=== PATIENT | female | born 1980 | race Caucasian/White ===

== ENCOUNTER 2017-07-14 01:13 | Inpatient (IN) | payer OTHER ==
[2017-07-14] MEDS ORDERED: FAMOTIDINE 20 MG/50 ML IVPB 20 MG/50 ML MG IVPB ONE ×2 (03:23→03:29)
[2017-07-14] MEDS ORDERED: MAG HYDROX/AL HYDROX/SIMETH 355 ML ORAL.SUSP PO ONE (03:23)
--- NOTE | 2017-07-14 03:23 | PDOC ---
History of Present Illness - General Chief Complaint: Pain Stated Complaint: EPIGASTRIC PAIN Time Seen by Provider: 07/14/17 02:59 History Source: Patient - History of Present Illness Travel History: No Initial Comments: 07/15/17 18:47 36 year old female presents to the emergency department complaining of right upper quadrant/epigastric discomfort with 4 episodes of n/v (non bilious/non bloody). Pain is described as 7/10 dull nonradiating intermittent discomfort. Patient denies fever, chills, chest pain, shortness of breath, flank pains, urinary symptoms. There are no alleviating or exacerbating factors. Timing/Duration: reports: intermittent Past History - Past Medical History Allergies/Adverse Reactions: Allergies Allergy/AdvReac Type Severity Reaction Status Date / Time clarithromycin [From Biaxin] Allergy Verified 07/14/17 01:46 levofloxacin [From Levaquin] Allergy Verified 07/14/17 01:45 Home Medications: Ambulatory Orders Acetaminophen/Caffeine/Butalb [Fioricet -] 1 tab PO Q8H PRN 07/15/17 Albuterol Sulfate Inhaler - [Ventolin Hfa Inhaler -] 1 puff IH Q4H PRN 07/15/17 Budesonide/Formeterol Fumarate [SYMBICORT 160/4.5mcg -] 2 inh PO BID 07/15/17 Clonazepam [Klonopin] 1 mg PO DAILY PRN 07/15/17 Tramadol HCl 50 mg PO BID PRN 07/15/17 COPD: No Other medical history: denies - Suicide/Smoking/Psychosocial Hx Smoking History: Current every day smoker Number of Cigarettes Smoked Daily: 10 Information on smoking cessation initiated: No Review of Systems - Review of Systems Able to Perform ROS?: Yes Comments:: 07/15/17 18:48 CONSTITUTIONAL: Absent: fever, chills, diaphoresis, generalized weakness, malaise, loss of appetite HEENT: Absent: rhinorrhea, nasal congestion, throat pain, throat swelling, difficulty swallowing, mouth swelling, ear pain, eye pain, visual Changes CARDIOVASCULAR: Absent: chest pain, loss of consciousness, palpitations, irregular heart rate, peripheral edema RESPIRATORY: Absent: cough, shortness of breath, dyspnea with exertion, orthopnea, wheezing, stridor, hemoptysis GASTROINTESTINAL: RUQ pain Absent: abdominal distension, nausea, vomiting, diarrhea, constipation, melena, hematochezia GENITOURINARY: Absent: dysuria, frequency, urgency, hesitancy, hematuria, flank pain, genital pain MUSCULOSKELETAL: Absent: myalgia, arthralgia, joint swelling SKIN: Absent: rash, itching, pallor HEMATOLOGIC/IMMUNOLOGIC: Absent: easy bleeding, easy bruising, lymphadenopathy, frequent infections ENDOCRINE: Absent: unexplained weight gain, unexplained weight loss, heat intolerance, cold intolerance NEUROLOGIC: Absent: headache, focal weakness or paresthesias, dizziness, unsteady gait, seizure, mental status changes, bladder or bowel incontinence Is the patient limited Danish proficient: No *Physical Exam - Vital Signs Last Vital Signs Temp Pulse Resp BP Pulse Ox 97.6 F 79 18 140/95 98 07/14/17 01:41 07/14/17 01:41 07/14/17 01:41 07/14/17 01:41 07/14/17 01:41 - Physical Exam Comments: 07/15/17 18:48 GENERAL: Well developed, well nourished. Awake and alert. No acute distress. HEENT: Normocephalic, atraumatic. PERRLA, EOMI. No conjunctival pallor. Sclera are non- icteric. Moist mucous membranes. Oropharynx is clear. NECK: Supple. Full ROM. No JVD. Carotid pulses 2+ and symmetric, without bruits. No thyromegaly. No lymphadenopathy. CARDIOVASCULAR: Regular rate and rhythm. No murmurs, rubs, or gallops. Distal pulses are 2+ and symmetric. PULMONARY: No evidence of respiratory distress. Lungs clear to auscultation bilaterally. No wheezing, rales or rhonchi. ABDOMINAL: +fatima's/ RUQ pain on palp Soft. Non-distended. No rebound or guarding. No organomegaly. Normoactive bowel sounds. MUSCULOSKELETAL Normal range of motion at all joints. No bony deformities or tenderness. No CVA tenderness. EXTREMITIES: No cyanosis. No clubbing. No edema. No calf tenderness. SKIN: Warm and dry. Normal capillary refill. No rashes. No jaundice. ED Treatment Course - LABORATORY CBC & Chemistry Diagram: 07/15/17 06:20 07/15/17 06:20 *DC/Admit/Observation/Transfer Diagnosis at time of Disposition: Calculus of gallbladder without cholecystitis without obstruction - Referrals - Patient Instructions - Post Discharge Activity
[2017-07-14] MEDS ORDERED: MAG HYDROX/AL HYDROX/SIMETH 30 ML UNIT-DOSE CUP ONE (03:29)
[2017-07-14] MEDS ORDERED: ONDANSETRON 4 MG/2 ML VIAL ONE ×2 (04:20→15:29)
[2017-07-14] MEDS ORDERED: ONDANSETRON 4 MG/2 ML VIAL IVPUSH ONE ×2 (04:21→15:22)
[2017-07-14 04:53] LABS: BASOPHIL 0.2 % (0-2.0); EOSINOPHIL 0.9 % (0-4.5); MCH 35.3 pg (25.7-33.7); MCHC 34.6 g/dl (32.0-36.0); MEAN PLT VOLUME 7.4 fl (7.5-11.1); NEUTROPHILS 77.6 % (42.8-82.8); PLATELET COUNT 286 K/MM3 (134-434); WHITE BLOOD COUNT 9.4 K/mm3 (4.0-10.0)
[2017-07-14 05:18] LABS: ALBUMIN 3.7 g/dl (3.4-5.0); ALK PHOS 54 U/L (45-117); ANION GAP 7 (8-16); BILIRUBIN,TOTAL 0.3 mg/dL (0.2-1.0); CALCIUM 8.4 mg/dL (8.5-10.1); CO2 27 mmol/L (21-32); GLUCOSE,RANDOM 107 mg/dL (74-106); SGOT/AST 18 U/L (15-37); SGPT/ALT 22 U/L (12-78); TOT PROT 7.6 g/dl (6.4-8.2)
--- NOTE | 2017-07-14 08:38 | PDOC ---
*Physical Exam - Vital Signs Last Vital Signs Temp Pulse Resp BP Pulse Ox 98.7 F 88 19 142/74 100 07/14/17 04:10 07/14/17 06:45 07/14/17 04:10 07/14/17 06:45 07/14/17 04:10 - Physical Exam General Appearance: Yes: Appropriately Dressed. No: Apparent Distress Neck: negative: Tender lateral, Tender midline Respiratory/Chest: positive: Lungs Clear, Normal Breath Sounds. negative: Respiratory Distress, Accessory Muscle Use Cardiovascular: positive: Regular Rhythm, Regular Rate Gastrointestinal/Abdominal: positive: Normal Bowel Sounds, Soft. negative: Tender, Distended, Guarding, Rebound, Tenderness, Mass, Hepatomegaly, Spleenomegaly Lymphatic: negative: Adenopathy Musculoskeletal: positive: Normal Inspection Extremity: positive: Normal Inspection, Normal Range of Motion, Pelvis Stable. negative: Tender Integumentary: positive: Normal Color, Dry ED Treatment Course - LABORATORY CBC & Chemistry Diagram: 07/17/17 06:15 07/17/17 06:15 - ADDITIONAL ORDERS Additional order review: Laboratory Results 07/14/17 04:18 Sodium 139 Potassium 3.6 Chloride 105 Carbon Dioxide 27 Anion Gap 7 L BUN 11 Creatinine 1.0 Creat Clearance w eGFR > 60 Random Glucose 107 H Calcium 8.4 L Total Bilirubin 0.3 AST 18 ALT 22 Alkaline Phosphatase 54 Total Protein 7.6 Albumin 3.7 07/14/17 04:18 RBC 3.77 MCV 102.0 H MCHC 34.6 RDW 14.0 MPV 7.4 L Neutrophils % 77.6 Lymphocytes % 17.1 Monocytes % 4.2 Eosinophils % 0.9 Basophils % 0.2 - Medications Given in the ED: ED Medications Discontinued Medications Generic Name Dose Route Start Last Admin Trade Name Freq PRN Reason Stop Dose Admin Al Hydroxide/Mg Hydroxide 30 ml 07/14/17 03:23 07/14/17 03:34 Mylanta Suspension - PO 07/14/17 03:24 30 ml ONCE ONE Administration Famotidine/Sodium Chloride 20 mg in 50 mls @ 100 mls/hr 07/14/17 03:23 03:34 Pepcid 20 Mg Premixed Ivpb - IVPB 07/14/17 03:52 100 mls/hr ONCE ONE Administration Ondansetron HCl 4 mg 07/14/17 04:21 07/14/17 04:23 Zofran Injection IVPUSH 07/14/17 04:22 4 mg ONCE ONE Administration Medical Decision Making - Medical Decision Making 07/14/17 08:36 Patient is a 36 y/o old female history of bipolar disorder on a lower back pain with herniated disc, asthma. Came to the Emergency room with nausea and vomiting which started yesterday with Epi Gastric pain radiating to bilateral upper abdomen. Patient has been having pain for two weeks intermittently, Worse with eating. woke her up from sleep two weeks ago. Several episodes of diarrhea, no fever or chills. I have received report from [Lora CHIU] regarding this patient. Pt's initial chief complaint: [Epigastric discomfort] Pt's work up completed prior to sign out: [Urinalysis, labs, CT scan] Pt treatment given from prior staff: [pepcid, Maalox, Zofran,] Pt plan to be completed: [CT scan, pending] Patient admitted OBS 07/14/17 08:39 07/14/17 10:06 CAT scan demonstrated thick-walled gallbladder with gallstones the possible acute cholecystitis cannot be excluded, ultrasound ordered. Patient also with fibroid uterus with adnexal cysts and free pelvic fluid, pelvic ultrasound is recommended as outpatient 07/14/17 12:26 Ultrasound demonstrated cholelithiasis without evidence of cholecystitis, I have paged surgery to discuss case and follow-up. 07/14/17 12:54 Patient's abdominal exam is benign at this time after medications, still awaiting surgical callback. 07/14/17 13:[address] Treviño from surgery will see patient for consult in emergency room, normal saline started patient to remain nothing by mouth 07/14/17 14:46 Dr. Treviño to see patient, to remain on OBS. 07/14/17 15:04 07/14/17 15:17 Patient admitted to inpatient hospitalist Dr. Blackmon. Symptomatic cholelithiasis requiring cholecystectomy. 07/14/17 15:19 *DC/Admit/Observation/Transfer Diagnosis at time of Disposition: Calculus of gallbladder without cholecystitis without obstruction - Discharge Dispostion Disposition: HOME Condition at time of disposition: Improved Decision to Admit order Date/Time: Decision to Admit Order Category Date Time Status Decision to Admit to Hospital Routine Admission 07/14/17 08:33 Active - Prescriptions - Referrals - Patient Instructions - Post Discharge Activity
[2017-07-14 09:55] LABS: URINE APPEARANCE CLEAR; URINE BILIRUBIN NEGATIVE (NEGATIVE); URINE BLOOD 2+ (NEGATIVE); URINE COLOR STRAW; URINE GLUCOSE (UA) NEGATIVE (NEGATIVE); URINE KETONE NEGATIVE (NEGATIVE); URINE NITRITE NEGATIVE (NEGATIVE); URINE PROTEIN NEGATIVE (NEGATIVE); URINE UROBILINOGEN NEGATIVE mg/dL (0.2-1.0)
[2017-07-14 09:57] LABS: URINE RBC 2 /hpf (0-3); URINE WBC 2 /hpf (3-5)
[2017-07-14 11:56] LABS: URINE LEUK ESTERASE Negative (NEGATIVE)
[2017-07-14 12:56] VITALS: BMI 35.5
[2017-07-14] MEDS ORDERED: SODIUM CHLORIDE 0.9% 1000 ML INFUS.BAG IV ONE (13:02)
[2017-07-14] MEDS: LACTATED RINGERS SOLUTION 1,000 ML/1,000 ML INFUS.BAG IV SCH (14:40)
[2017-07-14] MEDS ORDERED: PANTOPRAZOLE SODIUM 40 MG VIAL IVPUSH ONE (15:23)
[2017-07-14] MEDS ORDERED: PANTOPRAZOLE SODIUM 40 MG VIAL ONE (15:29)
--- NOTE | 2017-07-14 15:41 | CONSULT ---
Consult Consult Specialty:: General Surgery Referred by:: Mary Carmen Lyon Reason for Consultation:: upper abdominal pain, gallstones - History of Present Illness Chief Complaint: upper abdominal pain, n/v History of Present Illness: 36yo obese F smoker with asthma, bipolar d/o, chronic low back pain secondary to 3 herniated discs (per pt), began having upper abdominal pain about 2 weeks ago, when it woke her from sleep. It has been at times sharp and others aching, but radiates from epigastric area across both sides of upper abdomen and to back , right a little more than left at times. She states it has come and gone every few days since then, and seems to be worse when she eats, better when she does not. She has recently changed her diet away from fatty foods, but never had this pain before, and has not had pain related to fatty food intake in the past. Last Saturday, she had some diarrhea, but that also resolved. She thought originally she might have the flu, and was not sure if the pain was coming from her back to the front or the other way around. She had pain on / so bad after putting the turkey in, she went back to bed, but managed later to have a little of everything for dinner. The pain was better on Saturday, but came back on Saturday. She did have a little breakfast Saturday and later a little of leftovers, but later in the day she began having N/V, about 6 episodes of yellow/whitish emesis. The pain got so bad she could barely walk, and she finally came to the ER, where she had a little more emesis. At some point, she has taken Tramadol, 800mg ibuprofen and Prilosec (daily) for the pain, but nothing has made it go away completely. She has not taken all of her usual meds regularly the last few days (gabapentin), but is taking some ( singulair, symbicort, albuterol prn [1-2x daily], prilosec). She used to take Topamax for her bipolar d/o at night, but has not for the last few months; she says her doctor knows. She sees psychiatry at [facility]. She is scheduled soon for a uterine biopsy with [employer] because of her fibroids. Her neurosurgeon for her back ( no surgery yet) is Dr. Anderson. In the ER, she was afebrile, with wbc 9.4, very concentrated urine initially ( sp grav 1.060), normal LFTs, lipase and lytes. CT of the abdomen and pelvis showed gallstones with mildly thickened gallbladder, large fibroid uterus and cystic adnexae with some pelvic fluid, and inflammatory changes in the mesentery of the left midabdomen of unclear etiology or significance. US was also done showing multiple gallstones without evidence of acute cholecystitis and no biliary dilation. She is NPO since yesterday afternoon. She is getting IV fluids and voided just now. She is feeling a bit nauseated and still has upper abdominal pain, but was resting comfortably on my arrival. Surgery is consulted to evaluate for possible need for cholecystectomy or other abdominal pathology. - History Source History Provided By: Patient Limitations to Obtaining History: No Limitations - Past Medical History Pulmonary: Yes: Asthma Reproductive: Yes: Fibroids ...LMP: 07/08/17 (finishing now) ...: No Psych: Yes: Bipolar (not taking her Topamax for several months now) Musculoskeletal: Yes: Chronic low back pain, Other (herniated discs) - Past Surgical History Additional Surgical History: wisdom teeth - Alcohol/Substance Use Hx Alcohol Use: No (rarely - not for at least a year) History of Substance Use: reports: None - Smoking History Smoking history: Current every day smoker Have you smoked in the past 12 months: Yes Aproximately how many cigarettes per day: 10 (less than 1/2 ppd but vapes frequently every day) - Social History Usual Living Arrangement: With Child ADL: Independent Home Medications - Allergies Allergies/Adverse Reactions: Allergies Allergy/AdvReac Type Severity Reaction Status Date / Time clarithromycin [From Biaxin] Allergy Verified 07/14/17 01:46 levofloxacin [From Levaquin] Allergy Verified 07/14/17 01:45 - Home Medications Home Medications: Ambulatory Orders NK [No Known Home Medication] 07/14/17 Home Medications (free text): Gabapentin 600mg tid (last taken "few days ago") for back pain. Prilosec 20mg daily. Singulair daily. Symbicort 2 puffs bid. Albuterol inhaler 2-4 puffs prn, usually uses 1-2x daily, last this morning. ibuprofen 800mg prn for back pain. Tramadol prn for back pain. muscle relaxant prn for spasms related to back. Topamax - 200mg(?) but not taking for last few months. ("I was supposed to take it twice daily but was only using at night because it made me too tired... but I haven't taken it in a while now) Family Disease History - Family Disease History Family History: Unremarkable Review of Systems - Review of Systems Constitutional: denies: Chills, Fever Eyes: reports: Other (wears glasses). denies: Blurred Vision, Recent Change in Vision HENT: denies: Difficult Swallowing, Hearing Loss, Throat Pain Neck: denies: Swollen Glands, Tenderness Cardiovascular: denies: Chest Pain, Palpitations Respiratory: denies: Cough, SOB Gastrointestinal: reports: Abdominal Pain (with hpi), Nausea (with hpi), Vomiting (with hpi). denies: Constipation, Diarrhea (had 1-2 episodes on Saturday only), Vomiting Blood Genitourinary: reports: Menses (finishing now). denies: Burning, Dysuria, Frequency, Urgency Musculoskeletal: reports: Back Pain (chronic). denies: Joint Pain, Muscle Pain Integumentary: denies: Change in Color, Rash Neurological: denies: Dizziness, Headache Psychiatric: denies: Anxiety, Depression Physical Exam Vital Signs: Vital Signs Temperature 97.9 F 07/14/17 09:53 Pulse Rate 88 07/14/17 13:29 Respiratory Rate 14 07/14/17 13:29 Blood Pressure 134/82 07/14/17 13:29 O2 Sat by Pulse Oximetry (%) 97 07/14/17 12:00 Constitutional: Yes: No Distress, Calm, Obese Eyes: Yes: Conjunctiva Clear, EOM Intact HENT: Yes: Atraumatic, Normocephalic Neck: Yes: Supple, Trachea Midline Cardiovascular: Yes: Regular Rate and Rhythm, Murmur (soft) Respiratory: Yes: Regular, CTA Bilaterally. No: Wheezes Gastrointestinal: Yes: Normal Bowel Sounds, Soft, Abdomen, Obese, Tenderness ( epigastric, RUQ, LUQ and L mid-abdomen without rebound or guarding), Tenderness , Epigastrium. No: Distention, Tenderness, Rebound ...Rectal Exam: Yes: Deferred Renal/: Yes: Menses Present. No: CVA Tenderness - Left (mild discomfort on rib margin posteriorly), CVA Tenderness - Right (mild discomfort on costal margin anteriorly) Musculoskeletal: No: Back Pain (no direct tenderness), Joint Stiffness, Joint Swelling Extremities: No: Calf Tenderness, Cool, Cyanosis Edema: No Peripheral Pulses WNL: Yes Integumentary: Yes: Body Piercing (tongue stud and bar), Tattoos. No: Jaundice , Rash Neurological: Yes: Alert, Oriented Psychiatric: Yes: Alert, Oriented Labs: CBC, BMP 07/14/17 04:18 07/14/17 04:18 CMP Sodium 139 mmol/L (136-145) 07/14/17 04:18 Potassium 3.6 mmol/L (3.5-5.1) 07/14/17 04:18 Chloride 105 mmol/L (98-107) 07/14/17 04:18 Carbon Dioxide 27 mmol/L (21-32) 07/14/17 04:18 Anion Gap 7 (8-16) L 07/14/17 04:18 BUN 11 mg/dL (7-18) 07/14/17 04:18 Creatinine 1.0 mg/dL (0.55-1.02) 07/14/17 04:18 Creat Clearance w eGFR > 60 (>60) 07/14/17 04:18 Random Glucose 107 mg/dL (74-106) H 07/14/17 04:18 Calcium 8.4 mg/dL (8.5-10.1) L 07/14/17 04:18 Total Bilirubin 0.3 mg/dL (0.2-1.0) 07/14/17 04:18 AST 18 U/L (15-37) 07/14/17 04:18 ALT 22 U/L (12-78) 07/14/17 04:18 Alkaline Phosphatase 54 U/L (45-117) 07/14/17 04:18 Total Protein 7.6 g/dl (6.4-8.2) 07/14/17 04:18 Albumin 3.7 g/dl (3.4-5.0) 07/14/17 04:18 Lipase 152 U/L (73-393) 07/14/17 04:18 Urine Test Results Urine Color Straw 07/14/17 09:47 Urine Appearance Clear 07/14/17 09:47 Urine pH 6.0 (5.0-8.0) 07/14/17 09:47 Ur Specific Gipsy 1.060 (1.001-1.035) H 07/14/17 09:47 Urine Protein Negative (NEGATIVE) 07/14/17 09:47 Urine Glucose (UA) Negative (NEGATIVE) 07/14/17 09:47 Urine Ketones Negative (NEGATIVE) 07/14/17 09:47 Urine Blood 2+ (NEGATIVE) H 07/14/17 09:47 Urine Nitrite Negative (NEGATIVE) 07/14/17 09:47 Urine Bilirubin Negative (NEGATIVE) 07/14/17 09:47 Ur Leukocyte Esterase Negative (NEGATIVE) 07/14/17 09:47 Ur Epithelial Cells Rare /HPF (FEW) 07/14/17 09:47 Imaging - Results Cat Scan: Report Reviewed, Image Reviewed Ultrasound: Report Reviewed, Image Reviewed Problem List - Problems (1) Abnormal computed tomography of abdomen and pelvis Assessment/Plan: left mid-abdomen with mesenteric inflammatory changes - unclear etiology or significance but tender over this area will f/u on repeat labs and follow clinical exam for now keep NPO/IVF fibroid uterus with cystic adnexae - per pt, following up with her [employer] for further workup defer to [employer] Code(s): R93.5 - ABN FINDINGS ON DX IMAGING OF ABD REGIONS, INC RETROPERITON (2) Calculus of gallbladder without cholecystitis without obstruction Assessment/Plan: admitted to medicine no evidence of cholecystitis on ultrasound, though she is tender over RUQ and epigastric area also tender LUQ (see above) unclear if biliary colic is primary source of abdominal pain will check repeat labs and follow clinical exam for now keep NPO/IVF continue home PPI daily while here zofran prn pain meds prn ok Code(s): K80.20 - CALCULUS OF GALLBLADDER W/O CHOLECYSTITIS W/O OBSTRUCTION (3) Tobacco dependence due to cigarettes Assessment/Plan: pt was Rx nicotine patch by primary but "I can't find it at home." consider patch while here Code(s): F17.210 - NICOTINE DEPENDENCE, CIGARETTES, UNCOMPLICATED (4) Obesity (BMI 35.0-39.9 without comorbidity) Code(s): E66.9 - OBESITY, UNSPECIFIED (5) Asthma without acute exacerbation Assessment/Plan: ok to continue home meds with sips of water - singulair daily, symbicort 2p bid , albuterol prn Code(s): J45.909 - UNSPECIFIED ASTHMA, UNCOMPLICATED (6) Low back pain due to displacement of intervertebral disc Code(s): M51.26 - OTHER INTERVERTEBRAL DISC DISPLACEMENT, LUMBAR REGION
[2017-07-14 16:29] LABS: BASOPHIL 0.2 % (0-2.0); EOSINOPHIL 0.9 % (0-4.5); MEAN CELL VOLUME 102.7 fl (80-96); MEAN PLT VOLUME 7.8 fl (7.5-11.1); NEUTROPHILS 64.2 % (42.8-82.8); PLATELET COUNT 235 K/MM3 (134-434); RDW 13.9 % (11.6-15.6); WHITE BLOOD COUNT 7.3 K/mm3 (4.0-10.0)
[2017-07-14] MEDS ORDERED: ALBUTEROL SO4 0.083% IH SOL 2.5 MG/3 ML VIAL.NEB. NEB PRN (16:42)
[2017-07-14] MEDS ORDERED: morphine SULFATE 4 MG/ML VIAL IVPUSH PRN (16:43)
[2017-07-14 16:53] LABS: ALBUMIN 3.2 g/dl (3.4-5.0); ALK PHOS 49 U/L (45-117); ANION GAP 5 (8-16); BILIRUBIN,TOTAL 0.6 mg/dL (0.2-1.0); CALCIUM 7.9 mg/dL (8.5-10.1); CO2 27 mmol/L (21-32); CREATININE 0.8 mg/dL (0.55-1.02); GLUCOSE,RANDOM 87 mg/dL (74-106); SGOT/AST 15 U/L (15-37); SGPT/ALT 20 U/L (12-78); TOT PROT 6.7 g/dl (6.4-8.2)
[2017-07-14 17:02] LABS: INR 1.09 (0.82-1.09); PROTHROMBIN TIME (PATIENT) 12.3 SEC (9.98-11.88)
--- NOTE | 2017-07-14 17:02 | HP ---
CHIEF COMPLAINT: Abdominal Pain PCP: Juan Luis Saravia HISTORY OF PRESENT ILLNESS: Patient is a 36 year old female with a PMHx of Asthma, Bipolar disorder, chronic lower back pain with three herniated discs, and obesity who presented today for diffuse abdominal pain. Patient states she initially in her normal state of health when one night she woke up from bilateral upper abdominal pain that started two weeks ago. She describes the pain as sharp, intermittent and occurring every few days radiating to the epigastric area. Patient states the pain is exacerbated by food and is alleviated when she avoids eating. She reports a change in diet recently by staying away from fatty foods but reports the pain continues when she eats any type of food. Patient reported mild nonbloody diarrhea that happened last week and self resolved within two days. Patient then reports the day of (07/11/17) she ate dinner and started having abdominal pain that she was able to tolerate and sleep it off. The abdominal pain returned yesterday associated with nausea and vomiting x7 and was unable to walk, which prompted this hospital visit. Patient denies similar symptoms in the past. Denies Chronic NSAID use. Patient denies any colonoscopies in the past. Patient denies any fever, chills, shortness of breath, chest pain, palpitations, dysuria, hematuria. ER course was notable for: (1) Zofran and Pepcid (2) Abdominal CT showing thick wall gallbladder with gallstones and inflammatory changes within the mesentery mesentery of the left midabdomen (3) U/S revealed Cholilithiasis without acute cholecystitis Recent Travel: Denies PAST MEDICAL HISTORY: Asthma, Bipolar Disorder, Chronic Lower back pain with three herniated discs PAST SURGICAL HISTORY: Denies Social History: Smoking: Less than half a pack a day of cigarettes but uses a vaporizer throughout the day, everyday. Alcohol: Occasionally Drugs: Denies Family History: Denies any family history Allergies: clarithromycin [From Biaxin] Allergy (Verified 07/14/17 01:46), levofloxacin [From Levaquin] Allergy (Verified 07/14/17 01:45) HOME MEDICATIONS: Home Medications Medication Instructions Recorded NK [No Known Home Medication] 07/14/17 REVIEW OF SYSTEMS CONSTITUTIONAL: Absent: fever, chills, diaphoresis, generalized weakness, malaise, loss of appetite, weight change HEENT: Absent: rhinorrhea, nasal congestion, throat pain, throat swelling, difficulty swallowing, mouth swelling, ear pain, eye pain, visual changes CARDIOVASCULAR: Absent: chest pain, syncope, palpitations, irregular heart rate, lightheadedness , peripheral edema RESPIRATORY: Absent: cough, shortness of breath, dyspnea with exertion, orthopnea, wheezing, stridor, hemoptysis GASTROINTESTINAL: abdominal pain, abdominal distension, nausea, vomiting, diarrhea Absent: constipation, melena, hematochezia GENITOURINARY: Absent: dysuria, frequency, urgency, hesitancy, hematuria, flank pain, genital pain MUSCULOSKELETAL: back pain Absent: myalgia, arthralgia, joint swelling, neck pain SKIN: Absent: rash, itching, pallor HEMATOLOGIC/IMMUNOLOGIC: Absent: easy bleeding, easy bruising, lymphadenopathy, frequent infections ENDOCRINE: Absent: unexplained weight gain, unexplained weight loss, heat intolerance, cold intolerance NEUROLOGIC: Absent: headache, focal weakness or paresthesias, dizziness, unsteady gait, seizure, mental status changes, bladder or bowel incontinence PSYCHIATRIC: Absent: anxiety, depression, suicidal or homicidal ideation, hallucinations. PHYSICAL EXAMINATION Vital Signs - 24 hr 07/14/17 07/14/17 07/14/17 01:41 04:10 06:45 Temperature 97.6 F 98.7 F Pulse Rate 79 Pulse Rate [ 89 88 Apical] Respiratory 18 19 Rate Blood Pressure 140/95 Blood Pressure 146/78 142/74 [Right Arm] O2 Sat by Pulse 98 100 Oximetry (%) 07/14/17 07/14/17 07/14/17 09:53 12:00 13:29 Temperature 97.9 F Pulse Rate 71 Pulse Rate [ 78 88 Apical] Respiratory 14 20 14 Rate Blood Pressure 97/60 Blood Pressure 136/92 134/82 [Right Arm] O2 Sat by Pulse 97 Oximetry (%) 07/14/17 16:18 Temperature Pulse Rate Pulse Rate [ 74 Apical] Respiratory 14 Rate Blood Pressure Blood Pressure 131/81 [Right Arm] O2 Sat by Pulse Oximetry (%) GENERAL: Awake, alert, and fully oriented, in no acute distress. HEAD: Normal with no signs of trauma. EYES: Pupils equal, round and reactive to light, extraocular movements intact, sclera anicteric, conjunctiva clear. EARS, NOSE, THROAT: Oropharynx clear without exudates. Moist mucous membranes. NECK: Normal range of motion, supple without lymphadenopathy, JVD, or masses. LUNGS: Breath sounds equal, clear to auscultation bilaterally. No wheezes, and no crackles. No accessory muscle use. HEART: Regular rate and rhythm, normal S1 and S2 without murmur, rub or gallop. ABDOMEN: Soft, Obese, diffuse tenderness upon palpation of epigastric region, RUQ, LUQ without guarding or rebound. Normoactive bowel sounds. (-) Psoas sign, (-) Obturator sign MUSCULOSKELETAL: Mild Right CVA tenderness. UPPER EXTREMITIES: No peripheral edema. LOWER EXTREMITIES: 2+ pulses, warm, well-perfused. No calf tenderness. No peripheral edema. NEUROLOGICAL: Cranial nerves II-XII intact. Normal speech. Motor strength 5/5 bilaterally with sensory intact. No facial droop PSYCHIATRIC: Cooperative. Good eye contact. Appropriate mood and affect. SKIN: Warm, dry, normal turgor, no rashes or lesions noted, normal capillary refill. Laboratory Results - last 24 hr 07/14/17 07/14/17 07/14/17 04:18 04:18 09:47 WBC 9.4 RBC 3.77 Hgb 13.3 Hct 38.5 MCV 102.0 H MCH 35.3 H MCHC 34.6 RDW 14.0 Plt Count 286 MPV 7.4 L Neutrophils % 77.6 Lymphocytes % 17.1 Monocytes % 4.2 Eosinophils % 0.9 Basophils % 0.2 PTT (Actin FS) Sodium 139 Potassium 3.6 Chloride 105 Carbon Dioxide 27 Anion Gap 7 L BUN 11 Creatinine 1.0 Creat Clearance w eGFR > 60 Random Glucose 107 H Calcium 8.4 L Total Bilirubin 0.3 AST 18 ALT 22 Alkaline Phosphatase 54 Total Protein 7.6 Albumin 3.7 Lipase 152 Urine Color Straw Urine Appearance Clear Urine pH 6.0 Ur Specific [place] 1.060 H Urine Protein Negative Urine Glucose (UA) Negative Urine Ketones Negative Urine Blood 2+ H Urine Nitrite Negative Urine Bilirubin Negative Urine Urobilinogen Negative Ur Leukocyte Esterase Negative Urine WBC (Auto) 2 Urine RBC (Auto) 2 Ur Epithelial Cells Rare Urine HCG, Qual 07/14/17 07/14/17 07/14/17 09:47 15:30 15:30 WBC 7.3 RBC 3.60 Hgb 12.6 Hct 37.0 MCV 102.7 H MCH 35.0 H MCHC 34.0 RDW 13.9 Plt Count 235 MPV 7.8 Neutrophils % 64.2 Lymphocytes % 28.4 D Monocytes % 6.3 Eosinophils % 0.9 Basophils % 0.2 PTT (Actin FS) 28.7 Sodium Potassium Chloride Carbon Dioxide Anion Gap BUN Creatinine Creat Clearance w eGFR Random Glucose Calcium Total Bilirubin AST ALT Alkaline Phosphatase Total Protein Albumin Lipase Urine Color Urine Appearance Urine pH Ur Specific [place] Urine Protein Urine Glucose (UA) Urine Ketones Urine Blood Urine Nitrite Urine Bilirubin Urine Urobilinogen Ur Leukocyte Esterase Urine WBC (Auto) Urine RBC (Auto) Ur Epithelial Cells Urine HCG, Qual Negative 07/14/17 07/14/17 15:30 15:30 WBC RBC Hgb Hct MCV MCH MCHC RDW Plt Count MPV Neutrophils % Lymphocytes % Monocytes % Eosinophils % Basophils % PTT (Actin FS) Sodium 141 Potassium 4.1 Chloride 109 H Carbon Dioxide 27 Anion Gap 5 L BUN 6 L D Creatinine 0.8 Creat Clearance w eGFR > 60 Random Glucose 87 Calcium 7.9 L Total Bilirubin 0.6 D AST 15 ALT 20 Alkaline Phosphatase 49 Total Protein 6.7 Albumin 3.2 L Lipase 100 Urine Color Urine Appearance Urine pH Ur Specific [place] Urine Protein Urine Glucose (UA) Urine Ketones Urine Blood Urine Nitrite Urine Bilirubin Urine Urobilinogen Ur Leukocyte Esterase Urine WBC (Auto) Urine RBC (Auto) Ur Epithelial Cells Urine HCG, Qual IMAGES: Abdominal/Pelvis CT (07/14/17): 1. Diffuse fatty infiltration of the liver. 2. Thick-walled gallbladder with gallstones. The possibility of acute cholecystitis cannot be excluded. Clinical correlation and additional imaging studies recommended. 3. Inflammatory changes within the mesentery of the left midabdomen. Again, clinical correlation is advised. 4. Fibroid uterus with adnexal cysts and free pelvic fluid. Pelvic ultrasound follow-up recommended Abdominal U/S (07/14/17): Cholelithiasis without sonographic evidence of acute cholecystitis. ASSESSMENT/PLAN: Patient is a 36 year old female who presented for abdominal pain, nausea, vomiting and was found to have cholelithiasis. Patient admitted for further monitoring and management. Symptomatic Cholelithiasis -No signs of acute cholecystits, however patient is having severe symptomatic of cholelithiasis with diffuse abdominal pain, nausea, and vomiting. -Abdominal CT revealed Thick-walled gallbladder with gallstones and inflammatory changes within the mesentery of the left midabdomen -Surgeon recommended that patient have a cholecystectomy due to the symptoms and outpatient failure and is scheduled for tomorrow. -Will not need antibiotics due to patient not showing a septic picture. Vitals are stable with no leukocytosis. -IV LR @125mls/hr -NPO -Morphine 2mg IVP Q4H for pain -Type and Screen -PT and PTT ordered -Zofran 4mg IV PRN -Pepcid 20mg daily, as per surgeon -If patient develops any fevers or leukocytosis, will spencer culture patient and begin IV antibiotics. Fibroid Uterus with Adnexal Cysts and Free Pelvic Fluids -Shown on Abdominal CT -Patient reports she is following up with her OBGYN and is scheduled for uterine biopsy Diffuse Fatty infiltrate of Liver -Likely Nonalcoholic fatty liver disease secondary to obesity -Found on abdominal U/S -No history of alcohol abuse -Discussed the importance of losing weight and how fatty liver -Will need to continue monitoring with frequent U/S with PCP Obesity -BMI 35.5 -Discussed the importance of weight loss and lifestyle modifications. Made patient aware on current symptoms likely from obesity as well as liver infiltrates. -Recommendation for bariatric consult upon discharge. History of Asthma -Currently in no acute exacerbation -Reports having a prescription of Singulair but has not taken any recently -Albuterol Nebulizer Q4H PRN -Resume Symbicort 2 puffs BID -Resume Singulair 10mg daily History of Bipolar Disorder -Patient was on Topamax but stopped it on her own a few months ago but her psychiatrist is aware. -Follows up with psychiatrist at [facility] History of Chronic Low Back Pain -Patient was taking Gabapentin for the pain but stopped it as well -Currently follows up with neurosurgeon for it -Will consider starting Neurontin for back pain if Morphine has no adequate control. Macrocytic Anemia -MCV >100 -Hemoglobin and Hematocrit stable -Will continue to monitor CBC Nicotine Dependence -Smokes less than half a pack a day but uses a vaporizer everyday -Nicotine Patch 17mg TD ordered F/E/N -IV LR @125mls/hr -Electrolytes wnl -NPO Prophylaxis -Moderate Risk. Heparin 5000 units SQ 18H for DVT -Zantac 150mg daily for GI Disposition -Full code -Patient for possible cholecystectomy tomorrow. Will continue NPO Visit type - Emergency Visit Emergency Visit: Yes ED Registration Date: 07/14/17 Care time: The patient presented to the Emergency Department on the above date and was hospitalized for further evaluation of their emergent condition. - New Patient This patient is new to me today: Yes Date on this admission: 07/14/17 - Critical Care Critical Care patient: No
--- NOTE | 2017-07-14 18:58 | PN ---
Teaching Attending Note Name of Resident: Eunice Kitchen ATTENDING PHYSICIAN STATEMENT I saw and evaluated the patient. I reviewed the resident's note and discussed the case with the resident. I agree with the resident's findings and plan as documented. SUBJECTIVE: Patient is c/o having diffuse abdominal pain gualberto.RUQ area. No fever or chills, no shortness of breath. OBJECTIVE: Vital Signs Temperature 98.2 F 07/14/17 17:00 Pulse Rate 72 07/14/17 17:00 Respiratory Rate 18 07/14/17 17:00 Blood Pressure 110/54 07/14/17 17:00 O2 Sat by Pulse Oximetry (%) 96 07/14/17 17:00 CBCD WBC 7.3 K/mm3 (4.0-10.0) 07/14/17 15:30 RBC 3.60 M/mm3 (3.60-5.2) 07/14/17 15:30 Hgb 12.6 GM/dL (10.7-15.3) 07/14/17 15:30 Hct 37.0 % (32.4-45.2) 07/14/17 15:30 MCV 102.7 fl (80-96) H 07/14/17 15:30 MCHC 34.0 g/dl (32.0-36.0) 07/14/17 15:30 RDW 13.9 % (11.6-15.6) 07/14/17 15:30 Plt Count 235 K/MM3 (134-434) 07/14/17 15:30 MPV 7.8 fl (7.5-11.1) 07/14/17 15:30 CMP Sodium 141 mmol/L (136-145) 07/14/17 15:30 Potassium 4.1 mmol/L (3.5-5.1) 07/14/17 15:30 Chloride 109 mmol/L (98-107) H 07/14/17 15:30 Carbon Dioxide 27 mmol/L (21-32) 07/14/17 15:30 Anion Gap 5 (8-16) L 07/14/17 15:30 BUN 6 mg/dL (7-18) L D 07/14/17 15:30 Creatinine 0.8 mg/dL (0.55-1.02) 07/14/17 15:30 Creat Clearance w eGFR > 60 (>60) 07/14/17 15:30 Random Glucose 87 mg/dL (74-106) 07/14/17 15:30 Calcium 7.9 mg/dL (8.5-10.1) L 07/14/17 15:30 Total Bilirubin 0.6 mg/dL (0.2-1.0) D 07/14/17 15:30 AST 15 U/L (15-37) 07/14/17 15:30 ALT 20 U/L (12-78) 07/14/17 15:30 Alkaline Phosphatase 49 U/L (45-117) 07/14/17 15:30 Total Protein 6.7 g/dl (6.4-8.2) 07/14/17 15:30 Albumin 3.2 g/dl (3.4-5.0) L 07/14/17 15:30 Current Medications Generic Name Dose Route Start Last Admin Trade Name Freq PRN Reason Stop Dose Admin Albuterol Sulfate 1 amp 07/14/17 16:42 Ventolin 0.083% Nebulizer Soln - NEB Q4H PRN SHORT OF BREATH/WHEEZING Heparin Sodium (Porcine) 5,000 unit 07/14/17 18:00 Heparin - SQ TID JULIANO Lactated Ringer's 1,000 ml in 1,000 mls @ 125 mls/hr 07/14/17 14:15 07/14/17 14:40 Lactated Ringers Solution IV 125 mls/hr ASDIR JULIANO Administration Morphine Sulfate 2 mg 07/14/17 16:43 Morphine Sulfate IVPUSH Q4H PRN PAIN Nicotine 14 mg 07/14/17 17:30 Nicoderm Patch - TD DAILY JULIANO Home Medications Medication Instructions Recorded NK [No Known Home Medication] 07/14/17 PE: RUQ pain with midepigastric area. rest PE per resident's note ASSESSMENT AND PLAN: Patient is a 36yo obese F smoker with asthma, bipolar d/o, chronic low back pain secondary to 3 herniated discs (per pt), came in to ED. for having RUQ pain that started around 2 weeks ago with worsening RUQ pain. She is scheduled soon for a uterine biopsy with [employer] because of her fibroids. Her neurosurgeon for her back (no surgery yet) is Dr. Anderson. # Acute abdominal pain cannot r/o acute cholecystitis , amylase Lipase ordered. No fever or chills, if develops fever or WBC please spencer culture and start IV antibiotics. repeat labs in am cbc, cmp, mag, phos.NPO for now, IVF , surgical consult on the case. US of abdomen ordered. # Hx of Asthma continue albuterol and Symbicort continue #Hx of Bipolar DVT px: Heparin sq.
[2017-07-14] MEDS: HEPARIN NA (PORCINE) 5,000 UNITS/ML 1ML VIAL SQ SCH ×3 (19:00→21:56)
[2017-07-14] MEDS: NICOTINE 14 MG/24 HOURS TOPICAL PATCH TD SCH (19:00)
[2017-07-14] MEDS: FAMOTIDINE 20 MG/50 ML IVPB 20 MG/50 ML MG IVPB SCH ×2 (20:52→21:55)
[2017-07-14] MEDS: BUDESONIDE/FORMETEROL FUMARATE 160/4.5 mcg INHALER IH SCH ×2 (20:52→21:56)
[2017-07-14] MEDS: MONTELUKAST NA 10 MG TABLET PO SCH ×2 (22:08)
[2017-07-15] MEDS: LACTATED RINGERS SOLUTION 1,000 ML/1,000 ML INFUS.BAG IV SCH ×3 (01:36→14:51)
[2017-07-15] MEDS: HEPARIN NA (PORCINE) 5,000 UNITS/ML 1ML VIAL SQ SCH ×3 (06:02→21:41)
[2017-07-15 07:48] LABS: MCH 34.9 pg (25.7-33.7); MCHC 33.9 g/dl (32.0-36.0); MEAN CELL VOLUME 102.8 fl (80-96); MEAN PLT VOLUME 7.5 fl (7.5-11.1); PLATELET COUNT 230 K/MM3 (134-434); RDW 13.5 % (11.6-15.6); WHITE BLOOD COUNT 5.8 K/mm3 (4.0-10.0)
[2017-07-15] MEDS ORDERED: ACETAMINOPHEN 325 MG TABLET (FP) ONE (07:50)
[2017-07-15] MEDS: ACETAMINOPHEN 325 MG TABLET (FP) PO PRN ×2 (07:56→12:59)
[2017-07-15 08:20] LABS: ALBUMIN 2.8 g/dl (3.4-5.0); ANION GAP 6 (8-16); CALCIUM 7.5 mg/dL (8.5-10.1); CHOLESTEROL 186 mg/dL (50-200); CO2 29 mmol/L (21-32); CREATININE 0.9 mg/dL (0.55-1.02); GLUCOSE,RANDOM 82 mg/dL (74-106); MAGNESIUM 2.2 mg/dL (1.8-2.4); PHOSPHOROUS 3.1 mg/dL (2.5-4.9); SGOT/AST 17 U/L (15-37); SGPT/ALT 18 U/L (12-78)
[2017-07-15 08:22] LABS: ALK PHOS 45 U/L (45-117); BILIRUBIN,TOTAL 0.6 mg/dL (0.2-1.0)
[2017-07-15] MEDS ORDERED: RANITIDINE HCL 150 MG TABLET (FP) PO SCH (10:00)
[2017-07-15] MEDS ORDERED: PT OWN MED DRAWER 7, Y5N ONE ×2 (12:02→20:20)
[2017-07-15] MEDS: FAMOTIDINE 20 MG/50 ML IVPB 20 MG/50 ML MG IVPB SCH ×2 (12:04→21:41)
[2017-07-15] MEDS: NICOTINE 14 MG/24 HOURS TOPICAL PATCH TD SCH (12:04)
[2017-07-15] MEDS: BUDESONIDE/FORMETEROL FUMARATE 160/4.5 mcg INHALER IH SCH ×2 (12:04→21:42)
--- NOTE | 2017-07-15 14:22 | EKG ---
Test Reason : Blood Pressure : / mmHG Vent. Rate : 076 BPM Atrial Rate : 076 BPM P-R Int : 148 ms QRS Dur : 106 ms QT Int : 388 ms P-R-T Axes : 016 029 024 degrees QTc Int : 436 ms NORMAL SINUS RHYTHM INCOMPLETE RIGHT BUNDLE BRANCH BLOCK ABNORMAL ECG NO PREVIOUS ECGS AVAILABLE Confirmed by ANIL FENG MD ([id number]) on 07/15/2017 2:22:17 PM Referred By: Confirmed By:ANIL FENG MD
--- NOTE | 2017-07-15 15:40 | PN ---
Physical Exam: SUBJECTIVE: Patient seen and examined. Pt denies chest pain, fever, chills. Abdominal pain improved. Pt c/o headache. No events overnight. OBJECTIVE: Vital Signs Period Temp Pulse Resp BP Sys/Dukes Pulse Ox Last 24 Hr 98.2 F-98.7 F 68-84 14-20 111-1110/54-81 96-96 GENERAL: The patient is awake, alert, and fully oriented, in no acute distress. LUNGS: Breath sounds equal, clear to auscultation bilaterally, no wheezes, no crackles, no accessory muscle use. HEART: Regular rate and rhythm, S1, S2 without murmur, rub or gallop. ABDOMEN: +Mild tenderness to palpation diffusely. +Rock's sign. Soft, nondistended, normoactive bowel sounds, no guarding. EXTREMITIES: 2+ pulses, warm, well-perfused, no edema. NEUROLOGICAL: Cranial nerves II through XII grossly intact. Normal speech, gait not observed. PSYCH: Normal mood, normal affect. SKIN: Warm, dry, normal turgor, no rashes or lesions noted Laboratory Results - last 24 hr 07/14/17 07/14/17 07/14/17 15:30 15:30 15:30 WBC 7.3 RBC 3.60 Hgb 12.6 Hct 37.0 MCV 102.7 H MCH 35.0 H MCHC 34.0 RDW 13.9 Plt Count 235 MPV 7.8 Neutrophils % 64.2 Lymphocytes % 28.4 D Monocytes % 6.3 Eosinophils % 0.9 Basophils % 0.2 Manual Slide Review PT with INR INR PTT (Actin FS) 28.7 Sodium 141 Potassium 4.1 Chloride 109 H Carbon Dioxide 27 Anion Gap 5 L BUN 6 L D Creatinine 0.8 Creat Clearance w eGFR > 60 Random Glucose 87 Lactic Acid Calcium 7.9 L Phosphorus Magnesium Total Bilirubin 0.6 D AST 15 ALT 20 Alkaline Phosphatase 49 Total Protein 6.7 Albumin 3.2 L Triglycerides Cholesterol Total LDL Cholesterol HDL Cholesterol Total Amylase Lipase Blood Type Antibody Screen 07/14/17 07/14/17 07/14/17 15:30 15:30 15:30 WBC RBC Hgb Hct MCV MCH MCHC RDW Plt Count MPV Neutrophils % Lymphocytes % Monocytes % Eosinophils % Basophils % Manual Slide Review PT with INR 12.30 H INR 1.09 PTT (Actin FS) Sodium Potassium Chloride Carbon Dioxide Anion Gap BUN Creatinine Creat Clearance w eGFR Random Glucose Lactic Acid Calcium Phosphorus Magnesium Total Bilirubin AST ALT Alkaline Phosphatase Total Protein Albumin Triglycerides Cholesterol Total LDL Cholesterol HDL Cholesterol Total Amylase Lipase 100 Blood Type A POSITIVE Antibody Screen Negative 07/14/17 07/14/17 07/15/17 19:47 21:30 06:20 WBC 5.8 RBC 3.45 L Hgb 12.0 Hct 35.4 MCV 102.8 H MCH 34.9 H MCHC 33.9 RDW 13.5 Plt Count 230 MPV 7.5 Neutrophils % Lymphocytes % Monocytes % Eosinophils % Basophils % Manual Slide Review No Result Required. PT with INR INR PTT (Actin FS) Sodium Potassium Chloride Carbon Dioxide Anion Gap BUN Creatinine Creat Clearance w eGFR Random Glucose Lactic Acid 0.5 Calcium Phosphorus Magnesium Total Bilirubin AST ALT Alkaline Phosphatase Total Protein Albumin Triglycerides Cholesterol Total LDL Cholesterol HDL Cholesterol Total Amylase 27 Lipase Cancelled Blood Type Antibody Screen 07/15/17 07/15/17 06:20 07:00 WBC RBC Hgb Hct MCV MCH MCHC RDW Plt Count MPV Neutrophils % Lymphocytes % Monocytes % Eosinophils % Basophils % Manual Slide Review PT with INR INR PTT (Actin FS) Sodium 142 Potassium 3.9 Chloride 107 Carbon Dioxide 29 Anion Gap 6 L BUN 6 L Creatinine 0.9 Creat Clearance w eGFR > 60 Random Glucose 82 Lactic Acid Calcium 7.5 L Phosphorus 3.1 Magnesium 2.2 Total Bilirubin 0.6 AST 17 ALT 18 Alkaline Phosphatase 45 Total Protein 6.0 L Albumin 2.8 L Triglycerides 107 Cancelled Cholesterol 186 Cancelled Total LDL Cholesterol 134 H Cancelled HDL Cholesterol 29 L Cancelled Total Amylase Lipase Blood Type Antibody Screen Active Medications Generic Name Dose Route Start Last Admin Trade Name Mikeq PRN Reason Stop Dose Admin Acetaminophen 650 mg 07/15/17 07:04 07/15/17 12:59 Tylenol - PO 650 mg Q4H PRN Administration FEVER OR PAIN Albuterol Sulfate 1 amp 07/14/17 16:42 07/15/17 08:43 Ventolin 0.083% Nebulizer Soln - NEB 1 amp Q4H PRN Administration SHORT OF BREATH/WHEEZING Budesonide/Formoterol Fumarate 2 puff 07/14/17 19:45 07/15/17 12:04 Symbicort 160/4.5mcg - IH 2 puff BID JULIANO Administration Heparin Sodium (Porcine) 5,000 unit 07/14/17 18:00 11/27/17 14:51 Heparin - SQ Not Given TID JULIANO Lactated Ringer's 1,000 ml in 1,000 mls @ 125 mls/hr 07/14/17 14:15 07/15/17 14:51 Lactated Ringers Solution IV Not Given ASDIR JULIANO Famotidine/Sodium Chloride 20 mg in 50 mls @ 100 mls/hr 07/14/17 19:45 12:04 Pepcid 20 Mg Premixed Ivpb - IVPB 100 mls/hr BID JULIANO Administration Montelukast Sodium 10 mg 07/14/17 20:45 07/14/17 22:08 Singulair - PO 10 mg HS JULIANO Administration Morphine Sulfate 2 mg 07/14/17 16:43 Morphine Sulfate IVPUSH Q4H PRN PAIN Nicotine 14 mg 07/14/17 17:30 07/15/17 12:04 Nicoderm Patch - TD 14 mg DAILY JULIANO Administration ASSESSMENT/PLAN: 36yo F with PMH chronic low back pain, asthma, bipolar, presented c/o diffuse abdominal pain, admitted for possible acute cholecystitis. # symptomatic cholelithiasis - f/u HIDA scan - Surgery Consult - Dr. Treviño to re-evaluate today - continue Morphine 2mg IVpush q4hr prn for pain # headache - Tylenol 650mg q4hr prn added # asthma - continue Albuterol prn, Symbicort and Singulair - will confirm home medications with pt's pharmacy # nicotine dependence - continue Nicoderm patch 14mg daily # FEN - Fluids: LR @ 125 ml/hr - Electrolytes: wnl, continue to monitor - Nutrition: npo, pending possible surgery # DVT prophylaxis - Heparin TID Visit type - Emergency Visit Emergency Visit: Yes ED Registration Date: 07/14/17 Care time: The patient presented to the Emergency Department on the above date and was hospitalized for further evaluation of their emergent condition. - New Patient This patient is new to me today: Yes Date on this admission: 07/15/17 - Critical Care Critical Care patient: No
--- NOTE | 2017-07-15 16:41 | PN ---
Progress Note, Physician Chief Complaint: upper abdominal pain History of Present Illness: Pt without events overnight. Still with epigastric and RUQ pain, more than left. No nausea. No fevers. Comes and goes. HIDA done today, report pending. - Current Medication List Current Medications: Active Medications Acetaminophen (Tylenol -) 650 mg PO Q4H PRN PRN Reason: FEVER OR PAIN Last Admin: 07/15/17 12:59 Dose: 650 mg Albuterol Sulfate (Ventolin 0.083% Nebulizer Soln -) 1 amp NEB Q4H PRN PRN Reason: SHORT OF BREATH/WHEEZING Last Admin: 07/15/17 08:43 Dose: 1 amp Budesonide/Formoterol Fumarate (Symbicort 160/4.5mcg -) 2 puff IH BID [facility] Last Admin: 07/15/17 12:04 Dose: 2 puff Heparin Sodium (Porcine) (Heparin -) 5,000 unit SQ TID [facility] Last Admin: 07/15/17 14:51 Dose: Not Given Lactated Ringer's (Lactated Ringers Solution) 1,000 ml in 1,000 mls @ 125 mls/ hr IV ASDIR [facility] Last Admin: 07/15/17 14:51 Dose: Not Given Famotidine/Sodium Chloride (Pepcid 20 Mg Premixed Ivpb -) 20 mg in 50 mls @ 100 mls/hr IVPB BID [facility] Last Admin: 07/15/17 12:04 Dose: 100 mls/hr Montelukast Sodium (Singulair -) 10 mg PO HS [facility] Last Admin: 07/14/17 22:08 Dose: 10 mg Morphine Sulfate (Morphine Sulfate) 2 mg IVPUSH Q4H PRN PRN Reason: PAIN Nicotine (Nicoderm Patch -) 14 mg TD DAILY [facility] Last Admin: 07/15/17 12:04 Dose: 14 mg - Objective Vital Signs: Vital Signs Temperature 98.1 F 07/15/17 15:58 Pulse Rate 93 H 07/15/17 15:58 Respiratory Rate 20 07/15/17 15:58 Blood Pressure 118/62 07/15/17 15:58 O2 Sat by Pulse Oximetry (%) 96 07/15/17 08:35 Vital Signs Period Temp Pulse Resp BP Sys/Dukes Pulse Ox Last 24 Hr 98.1 F-98.7 F 68-93 18-20 111-1110/54-75 96-96 Constitutional: Yes: No Distress, Calm, Obese Eyes: Yes: Conjunctiva Clear, EOM Intact. No: Sclera Icterus Gastrointestinal: Yes: Soft, Abdomen, Obese, Tenderness (RUQ, epigastric, less RLQ, no R/G), Tenderness, Epigastrium (slightly less than RUQ). No: Distention , Tenderness, Rebound Extremities: No: Cool, Cyanosis Integumentary: Yes: Body Piercing (tongue bar and stud), Tattoos. No: Jaundice , Rash Neurological: Yes: Alert, Oriented Labs: CBC, BMP 07/15/17 06:20 07/15/17 06:20 CMP Sodium 142 mmol/L (136-145) 07/15/17 06:20 Potassium 3.9 mmol/L (3.5-5.1) 07/15/17 06:20 Chloride 107 mmol/L (98-107) 07/15/17 06:20 Carbon Dioxide 29 mmol/L (21-32) 07/15/17 06:20 Anion Gap 6 (8-16) L 07/15/17 06:20 BUN 6 mg/dL (7-18) L 07/15/17 06:20 Creatinine 0.9 mg/dL (0.55-1.02) 07/15/17 06:20 Creat Clearance w eGFR > 60 (>60) 07/15/17 06:20 Random Glucose 82 mg/dL (74-106) 07/15/17 06:20 Lactic Acid 0.5 mmol/L (0.4-2.0) 07/14/17 21:30 Calcium 7.5 mg/dL (8.5-10.1) L 07/15/17 06:20 Phosphorus 3.1 mg/dL (2.5-4.9) 07/15/17 06:20 Magnesium 2.2 mg/dL (1.8-2.4) 07/15/17 06:20 Total Bilirubin 0.6 mg/dL (0.2-1.0) 07/15/17 06:20 AST 17 U/L (15-37) 07/15/17 06:20 ALT 18 U/L (12-78) 07/15/17 06:20 Alkaline Phosphatase 45 U/L (45-117) 07/15/17 06:20 Total Protein 6.0 g/dl (6.4-8.2) L 07/15/17 06:20 Albumin 2.8 g/dl (3.4-5.0) L 07/15/17 06:20 Triglycerides Cancelled 07/15/17 07:00 Cholesterol Cancelled 07/15/17 07:00 Total LDL Cholesterol Cancelled 07/15/17 07:00 HDL Cholesterol Cancelled 07/15/17 07:00 Total Amylase 27 U/L (25-115) 07/14/17 19:47 Lipase 100 U/L (73-393) 07/14/17 15:30 wbc, lft's still normal - ....Imaging Other: Image Reviewed (HIDA done - report pending, appears that gallbladder may not be visualized at 2 hrs) Problem List - Problems (1) Abnormal computed tomography of abdomen and pelvis Assessment/Plan: left mid-abdomen with mesenteric inflammatory changes - labs still normal, LUQ/ L abdomen not particularly tender today keep NPO/IVF fibroid uterus with cystic adnexae - per pt, following up with her [facility] for further workup defer to [facility] Code(s): R93.5 - ABN FINDINGS ON DX IMAGING OF ABD REGIONS, INC RETROPERITON (2) Calculus of gallbladder without cholecystitis without obstruction Assessment/Plan: admitted to medicine no evidence of cholecystitis on ultrasound, though she is tender over RUQ and epigastric area no LUQ tenderness today HIDA done today - report pending, but gallbladder not clearly seen at 2 hrs keep NPO/IVF pain meds prn ok Discussed with patient risks, benefits and alternatives of laparoscopic possible open cholecystectomy, including but not limited to bleeding, infection , injury to adjacent structures, bile leak or ductal injury, intraabdominal abscess, need for further procedures, ; alternatives include antibiotics, delayed or no surgery - risks of this include failure of nonoperative therapy, perforation, sepsis, recurrence, . Patient desires to proceed with operation; presuming HIDA is positive, will plan OR for tomorrow for above. Informed consent will be signed for same. Code(s): K80.20 - CALCULUS OF GALLBLADDER W/O CHOLECYSTITIS W/O OBSTRUCTION (3) Tobacco dependence due to cigarettes Assessment/Plan: nicotine patch Code(s): F17.210 - NICOTINE DEPENDENCE, CIGARETTES, UNCOMPLICATED (4) Obesity (BMI 35.0-39.9 without comorbidity) Code(s): E66.9 - OBESITY, UNSPECIFIED (5) Asthma without acute exacerbation Assessment/Plan: ok to continue home meds with sips of water - singulair daily, symbicort 2p bid , albuterol prn Code(s): J45.909 - UNSPECIFIED ASTHMA, UNCOMPLICATED (6) Low back pain due to displacement of intervertebral disc Code(s): M51.26 - OTHER INTERVERTEBRAL DISC DISPLACEMENT, LUMBAR REGION
[2017-07-15] MEDS ORDERED: clonazePAM 0.5 MG TABLET PO PRN (17:35)
[2017-07-15] MEDS ORDERED: ACETAMINOPHEN/CAFFEINE/BUTALBITAL 1 TAB PO PRN (17:35)
[2017-07-15] MEDS ORDERED: morphine SULFATE 4 MG/ML VIAL IVPUSH PRN (17:39)
[2017-07-15] MEDS ORDERED: ACETAMINOPHEN 325 MG TABLET (FP) PO PRN (17:44)
[2017-07-15] MEDS ORDERED: oxyCODONE HCL 5 MG TABLET PO PRN (17:44)
--- NOTE | 2017-07-15 19:53 | PN ---
Teaching Attending Note Name of Resident: Danielle Jeffers ATTENDING PHYSICIAN STATEMENT I saw and evaluated the patient. I reviewed the resident's note and discussed the case with the resident. I agree with the resident's findings and plan as documented. SUBJECTIVE: Patient continues to have RUQ pain. No fever or chills no shortness of breath. OBJECTIVE: Vital Signs Temperature 98.1 F 07/15/17 15:58 Pulse Rate 93 H 07/15/17 15:58 Respiratory Rate 20 07/15/17 15:58 Blood Pressure 118/62 07/15/17 15:58 O2 Sat by Pulse Oximetry (%) 96 07/15/17 08:35 CBCD WBC 5.8 K/mm3 (4.0-10.0) 07/15/17 06:20 RBC 3.45 M/mm3 (3.60-5.2) L 07/15/17 06:20 Hgb 12.0 GM/dL (10.7-15.3) 07/15/17 06:20 Hct 35.4 % (32.4-45.2) 07/15/17 06:20 MCV 102.8 fl (80-96) H 07/15/17 06:20 MCHC 33.9 g/dl (32.0-36.0) 07/15/17 06:20 RDW 13.5 % (11.6-15.6) 07/15/17 06:20 Plt Count 230 K/MM3 (134-434) 07/15/17 06:20 MPV 7.5 fl (7.5-11.1) 07/15/17 06:20 CMP Sodium 142 mmol/L (136-145) 07/15/17 06:20 Potassium 3.9 mmol/L (3.5-5.1) 07/15/17 06:20 Chloride 107 mmol/L (98-107) 07/15/17 06:20 Carbon Dioxide 29 mmol/L (21-32) 07/15/17 06:20 Anion Gap 6 (8-16) L 07/15/17 06:20 BUN 6 mg/dL (7-18) L 07/15/17 06:20 Creatinine 0.9 mg/dL (0.55-1.02) 07/15/17 06:20 Creat Clearance w eGFR > 60 (>60) 07/15/17 06:20 Random Glucose 82 mg/dL (74-106) 07/15/17 06:20 Calcium 7.5 mg/dL (8.5-10.1) L 07/15/17 06:20 Total Bilirubin 0.6 mg/dL (0.2-1.0) 07/15/17 06:20 AST 17 U/L (15-37) 07/15/17 06:20 ALT 18 U/L (12-78) 07/15/17 06:20 Alkaline Phosphatase 45 U/L (45-117) 07/15/17 06:20 Total Protein 6.0 g/dl (6.4-8.2) L 07/15/17 06:20 Albumin 2.8 g/dl (3.4-5.0) L 07/15/17 06:20 Current Medications Generic Name Dose Route Start Last Admin Trade Name Freq PRN Reason Stop Dose Admin Acetaminophen 325 mg 07/15/17 17:44 Tylenol - PO 07/18/17 17:43 Q4H PRN PAIN LEVEL 1-5 Acetaminophen/Butalbital/Caffeine 1 tablet 07/15/17 17:35 Fioricet - PO Q8H PRN HEADACHE Albuterol Sulfate 2 puff 07/15/17 17:35 Ventolin Hfa Inhaler - IH Q4H PRN SHORTNESS OF BREATH Budesonide/Formoterol Fumarate 2 puff 07/15/17 22:00 Symbicort 160/4.5mcg - IH BID JULIANO Clonazepam 1 mg 07/15/17 17:35 Klonopin - PO DAILY PRN ANXIETY Heparin Sodium (Porcine) 5,000 unit 07/14/17 18:00 07/15/17 14:51 Heparin - SQ Not Given TID JULIANO Lactated Ringer's 1,000 ml in 1,000 mls @ 125 mls/hr 07/14/17 14:15 07/15/17 14:51 Lactated Ringers Solution IV Not Given ASDIR JULIANO Famotidine/Sodium Chloride 20 mg in 50 mls @ 100 mls/hr 07/14/17 19:45 12:04 Pepcid 20 Mg Premixed Ivpb - IVPB 100 mls/hr BID JULIANO Administration Ampicillin Sodium/Sulbactam 100 mls @ 200 mls/hr 07/15/17 19:15 Sodium 3 gm/ Sodium Chloride IVPB Q6H-IV JULIANO Montelukast Sodium 10 mg 07/14/17 20:45 07/14/17 22:08 Singulair - PO 10 mg HS JULIANO Administration Morphine Sulfate 4 mg 07/15/17 17:39 Morphine Sulfate IVPUSH Q6H PRN PAIN LEVEL 6-10 Nicotine 14 mg 07/14/17 17:30 07/15/17 12:04 Nicoderm Patch - TD 14 mg DAILY JULIANO Administration Oxycodone HCl 5 mg 07/15/17 17:44 Roxicodone - PO Q4H PRN PAIN LEVEL 1-5 Home Medications Medication Instructions Recorded Acetaminophen/Caffeine/Butalb 1 tab PO Q8H PRN 07/15/17 [Fioricet -] Albuterol Sulfate Inhaler - 1 puff IH Q4H PRN 07/15/17 [Ventolin Hfa Inhaler -] Budesonide/Formeterol Fumarate 2 inh PO BID 07/15/17 [SYMBICORT 160/4.5mcg -] Clonazepam [Klonopin] 1 mg PO DAILY PRN 07/15/17 Tramadol HCl 50 mg PO BID PRN 07/15/17 PE: per resident's note Abdomen: RUQ pain. rest of PE per resident's notes. ASSESSMENT AND PLAN: Patient is a 36 year old female with a PMHx of Asthma, Bipolar disorder, chronic lower back pain with three herniated discs, and obesity who presented today for diffuse abdominal pain; RUQ pain. # Acute abdominal pain s/p HIDA scan positive for cholecystitis. Discussed with surgery going for sx in am Lap.[facility]. HIDA SCAN: no filling of the gallbladder after 2 hrs of imaging suggestive of cystic duct obstruction. DVT Px: Heparin
[2017-07-15] MEDS: ALBUTEROL SO4 18 GM HFA INHALER IH PRN (19:55)
[2017-07-15] MEDS ORDERED: morphine SULFATE 4 MG/ML VIAL IVPUSH ONE (20:07)
[2017-07-15] MEDS: AMPICILLIN NA/SULBACTAM NA 3 GM in SODIUM CHLORIDE 100 ML IVPB SCH (21:39)
[2017-07-15] MEDS: MONTELUKAST NA 10 MG TABLET PO SCH (21:42)
[2017-07-16] MEDS: AMPICILLIN NA/SULBACTAM NA 3 GM in SODIUM CHLORIDE 100 ML IVPB SCH ×3 (03:09→21:17)
[2017-07-16] MEDS: HEPARIN NA (PORCINE) 5,000 UNITS/ML 1ML VIAL SQ SCH ×3 (05:25→21:18)
[2017-07-16 07:37] LABS: MCH 34.8 pg (25.7-33.7); MCHC 34.4 g/dl (32.0-36.0); MEAN CELL VOLUME 101.1 fl (80-96); MEAN PLT VOLUME 7.5 fl (7.5-11.1); PLATELET COUNT 215 K/MM3 (134-434); RDW 13.6 % (11.6-15.6); WHITE BLOOD COUNT 6.7 K/mm3 (4.0-10.0)
[2017-07-16] MEDS ORDERED: PT OWN MED DRAWER 7, Y5N ONE (07:42)
[2017-07-16] MEDS: ALBUTEROL SO4 18 GM HFA INHALER IH PRN ×2 (07:44→19:19)
[2017-07-16 08:06] LABS: ANION GAP 6 (8-16); CALCIUM 7.8 mg/dL (8.5-10.1); CO2 29 mmol/L (21-32); CREATININE 0.7 mg/dL (0.55-1.02); GLUCOSE,RANDOM 77 mg/dL (74-106); MAGNESIUM 2.2 mg/dL (1.8-2.4); PHOSPHOROUS 3.5 mg/dL (2.5-4.9)
[2017-07-16] MEDS: LACTATED RINGERS SOLUTION 1,000 ML/1,000 ML INFUS.BAG IV SCH (08:44)
[2017-07-16] MEDS: NICOTINE 14 MG/24 HOURS TOPICAL PATCH TD SCH (09:18)
[2017-07-16] MEDS: BUDESONIDE/FORMETEROL FUMARATE 160/4.5 mcg INHALER IH SCH ×2 (09:18→21:18)
[2017-07-16] MEDS: FAMOTIDINE 20 MG/50 ML IVPB 20 MG/50 ML MG IVPB SCH ×2 (09:21→21:43)
--- NOTE | 2017-07-16 12:52 | PN ---
Physical Exam: SUBJECTIVE: Patient seen and examined. Pt denies chest pain, fever, chills. Pt c/o headache and diffuse abdominal pain. No overnight events. OBJECTIVE: Vital Signs Period Temp Pulse Resp BP Sys/Dukes Pulse Ox Last 24 Hr 98.1 F-98.7 F 70-93 18-20 118-139/62-95 92-96 GENERAL: The patient is awake, alert, and fully oriented, in no acute distress. LUNGS: Breath sounds equal, clear to auscultation bilaterally, no wheezes, no crackles, no accessory muscle use. HEART: Regular rate and rhythm, S1, S2 without murmur, rub or gallop. ABDOMEN: +diffuse tenderness to palpation. Soft, nondistended, no guarding. EXTREMITIES: Warm, well-perfused, no edema. NEUROLOGICAL: Cranial nerves II through XII grossly intact. Normal speech, gait steady. PSYCH: Normal mood, normal affect. SKIN: Warm, dry, normal turgor, no rashes or lesions noted Laboratory Results - last 24 hr 07/16/17 07/16/17 06:45 06:45 WBC 6.7 RBC 3.53 L Hgb 12.3 Hct 35.7 MCV 101.1 H MCH 34.8 H MCHC 34.4 RDW 13.6 Plt Count 215 MPV 7.5 Sodium 142 Potassium 3.8 Chloride 107 Carbon Dioxide 29 Anion Gap 6 L BUN 6 L Creatinine 0.7 D Random Glucose 77 Calcium 7.8 L Phosphorus 3.5 Magnesium 2.2 Active Medications Generic Name Dose Route Start Last Admin Trade Name Freq PRN Reason Stop Dose Admin Acetaminophen 325 mg 07/15/17 17:44 07/16/17 12:00 Tylenol - PO 07/18/17 17:43 325 mg Q4H PRN Administration PAIN LEVEL 1-5 Acetaminophen/Butalbital/Caffeine 1 tablet 07/15/17 17:35 Fioricet - PO Q8H PRN HEADACHE Albuterol Sulfate 2 puff 07/15/17 17:35 07/16/17 07:44 Ventolin Hfa Inhaler - IH 2 puff Q4H PRN Administration SHORTNESS OF BREATH Budesonide/Formoterol Fumarate 2 puff 07/15/17 22:00 07/16/17 09:18 Symbicort 160/4.5mcg - IH 2 puff BID JULIANO Administration Clonazepam 1 mg 07/15/17 17:35 Klonopin - PO DAILY PRN ANXIETY Heparin Sodium (Porcine) 5,000 unit 07/14/17 18:00 07/16/17 05:25 Heparin - SQ Not Given TID JULIANO Lactated Ringer's 1,000 ml in 1,000 mls @ 125 mls/hr 07/14/17 14:15 07/16/17 08:44 Lactated Ringers Solution IV 125 mls/hr ASDIR JULIANO Administration Famotidine/Sodium Chloride 20 mg in 50 mls @ 100 mls/hr 07/14/17 19:45 09:21 Pepcid 20 Mg Premixed Ivpb - IVPB 100 mls/hr BID JULIANO Administration Ampicillin Sodium/Sulbactam 100 mls @ 200 mls/hr 07/15/17 19:15 07/16/17 08: 44 Sodium 3 gm/ Sodium Chloride IVPB 200 mls/hr Q6H-IV JULIANO Administration Montelukast Sodium 10 mg 07/14/17 20:45 07/15/17 21:42 Singulair - PO 10 mg HS JULIANO Administration Morphine Sulfate 4 mg 07/15/17 17:39 07/16/17 07:45 Morphine Sulfate IVPUSH 4 mg Q6H PRN Administration PAIN LEVEL 6-10 Nicotine 14 mg 07/14/17 17:30 07/16/17 09:18 Nicoderm Patch - TD 14 mg DAILY JULIANO Administration Oxycodone HCl 5 mg 07/15/17 17:44 07/16/17 11:59 Roxicodone - PO 5 mg Q4H PRN Administration PAIN LEVEL 1-5 ASSESSMENT/PLAN: 36yo F with PMH chronic low back pain, asthma, bipolar, presented c/o diffuse abdominal pain, admitted for possible acute cholecystitis. # acute cholecystitis - scheduled for cholecystectomy today with Dr. Treviño - pain management with Percocet, and Morphine prn for breakthrough pain - Unasyn 3g q6hr IVPB # headache - continue home med of Fioricet prn # asthma - continue Albuterol prn, Symbicort and Singulair - will confirm home medications with pt's pharmacy # nicotine dependence - continue Nicoderm patch 14mg daily # FEN - Fluids: LR @ 125 ml/hr - Electrolytes: wnl, continue to monitor - Nutrition: npo for surgery today # DVT prophylaxis - Heparin TID Visit type - Emergency Visit Emergency Visit: Yes ED Registration Date: 07/14/17 Care time: The patient presented to the Emergency Department on the above date and was hospitalized for further evaluation of their emergent condition. - New Patient This patient is new to me today: No - Critical Care Critical Care patient: No
[2017-07-16] MEDS ORDERED: ONDANSETRON 4 MG/2 ML VIAL IVPUSH PRN ×2 (13:53→17:06)
[2017-07-16] MEDS ORDERED: BUPIVACAINE HCL/PF 0.5% (5MG/ML) 10 ML VIAL ONE (13:58)
[2017-07-16] MEDS ORDERED: MIDAZOLAM HCL 2 MG/2 ML SINGLE DOSE VIAL ONE (14:17)
[2017-07-16] MEDS ORDERED: fentaNYL CITRATE 250 MCG/5 ML VIAL ONE (14:21)
[2017-07-16] MEDS ORDERED: ROCURONIUM BROMIDE 50 MG/5 ML VIAL ONE (14:21)
[2017-07-16] MEDS ORDERED: PROPOFOL 20 ML ONE (14:21)
[2017-07-16] MEDS ORDERED: SUCCINYLCHOLINE CHLORIDE 200 MG/10 ML VIAL ONE (14:22)
[2017-07-16] MEDS ORDERED: AMPICILLIN NA/SULBACTAM NA 3 GM VIAL IVPB ONE ×2 (14:25→14:31)
[2017-07-16] MEDS ORDERED: AMPICILLIN NA/SULBACTAM NA 1.5 GM VIAL ONE (14:31)
[2017-07-16] MEDS ORDERED: LIDOCAINE HCL/PF 2% SDV 5ML VIAL ONE (14:42)
[2017-07-16] MEDS ORDERED: GLYCOPYRROLATE 0.2 MG/1 ML VIAL ONE ×2 (14:42→15:13)
[2017-07-16] MEDS ORDERED: LIDOCAINE HCL 2% JELLY (5 ML/TUBE) ONE (14:42)
[2017-07-16] MEDS ORDERED: KETOROLAC TROMETHAMINE 30 MG/1 ML VIAL ONE (14:42)
[2017-07-16] MEDS ORDERED: DEXAMETHASONE SOD PHOSPHATE 4 MG/1 ML VIAL ONE (14:42)
[2017-07-16] MEDS ORDERED: NEOSTIGMINE METHYLSULFATE 0.5 MG/ML - 10 ML MDV ONE (15:14)
--- NOTE | 2017-07-16 16:37 | OP ---
Operative Note - Note: Operative Date: 07/16/17 Pre-Operative Diagnosis: acute cholecystitis Operation: laparoscopic cholecystectomy Findings: omentum somewhat adherent to anterior surface of enlarged, inflamed, edematous gallbladder, which was decompressed of 30ml bile; critical view identified, multiple stones palpable in gb after removal Post-Operative Diagnosis: Other (acute and chronic cholecystitis) Surgeon: Pawel Treviño Platform Worker: Michael Strauss Anesthesiologist/MIRROR POLISHER: Krystle Malik MD Anesthesia: General, Local (20ml 0.5% marcaine) Specimens Removed: gallbladder to pathology Estimated Blood Loss (mls): 5 Fluid Volume Replaced (mls): 1,600 (crystalloid) Operative Report Dictated: Yes
[2017-07-16] MEDS ORDERED: traMADol HCL 50 MG TABLET PO PRN ×2 (16:54→18:51)
[2017-07-16] MEDS ORDERED: ACETAMINOPHEN 325 MG TABLET (FP) PO PRN ×2 (16:58→18:51)
[2017-07-16] MEDS ORDERED: morphine SULFATE 4 MG/ML VIAL IVPUSH PRN (16:58)
[2017-07-16] MEDS ORDERED: ONDANSETRON 4 MG/2 ML VIAL ONE (17:00)
[2017-07-16] MEDS ORDERED: PROMETHAZINE HCL 25 MG/1 ML VIAL IVPUSH PRN (17:06)
[2017-07-16] MEDS: LACTATED RINGERS SOLUTION 1,000 ML IV SCH ×2 (18:30→19:18)
[2017-07-16] MEDS ORDERED: ACETAMINOPHEN/CAFFEINE/BUTALBITAL 1 TAB PO PRN (18:51)
[2017-07-16] MEDS ORDERED: clonazePAM 0.5 MG TABLET PO PRN (18:51)
[2017-07-16] MEDS: morphine SULFATE 4 MG/ML VIAL IVPUSH PRN (19:17)
--- NOTE | 2017-07-16 19:22 | PN ---
Teaching Attending Note Name of Resident: Austen Copeland ATTENDING PHYSICIAN STATEMENT I saw and evaluated the patient. I reviewed the resident's note and discussed the case with the resident. I agree with the resident's findings and plan as documented. SUBJECTIVE: Patient is s/p OBJECTIVE: Vital Signs Temperature 98.4 F 07/16/17 18:53 Pulse Rate 72 07/16/17 18:53 Respiratory Rate 18 07/16/17 18:53 Blood Pressure 136/77 07/16/17 18:53 O2 Sat by Pulse Oximetry (%) 97 07/16/17 18:53 CBCD WBC 6.7 K/mm3 (4.0-10.0) 07/16/17 06:45 RBC 3.53 M/mm3 (3.60-5.2) L 07/16/17 06:45 Hgb 12.3 GM/dL (10.7-15.3) 07/16/17 06:45 Hct 35.7 % (32.4-45.2) 07/16/17 06:45 MCV 101.1 fl (80-96) H 07/16/17 06:45 MCHC 34.4 g/dl (32.0-36.0) 07/16/17 06:45 RDW 13.6 % (11.6-15.6) 07/16/17 06:45 Plt Count 215 K/MM3 (134-434) 07/16/17 06:45 MPV 7.5 fl (7.5-11.1) 07/16/17 06:45 CMP Sodium 142 mmol/L (136-145) 07/16/17 06:45 Potassium 3.8 mmol/L (3.5-5.1) 07/16/17 06:45 Chloride 107 mmol/L (98-107) 07/16/17 06:45 Carbon Dioxide 29 mmol/L (21-32) 07/16/17 06:45 Anion Gap 6 (8-16) L 07/16/17 06:45 BUN 6 mg/dL (7-18) L 07/16/17 06:45 Creatinine 0.7 mg/dL (0.55-1.02) D 07/16/17 06:45 Creat Clearance w eGFR > 60 (>60) 07/15/17 06:20 Random Glucose 77 mg/dL (74-106) 07/16/17 06:45 Calcium 7.8 mg/dL (8.5-10.1) L 07/16/17 06:45 Total Bilirubin 0.6 mg/dL (0.2-1.0) 07/15/17 06:20 AST 17 U/L (15-37) 07/15/17 06:20 ALT 18 U/L (12-78) 07/15/17 06:20 Alkaline Phosphatase 45 U/L (45-117) 07/15/17 06:20 Total Protein 6.0 g/dl (6.4-8.2) L 07/15/17 06:20 Albumin 2.8 g/dl (3.4-5.0) L 07/15/17 06:20 Current Medications Generic Name Dose Route Start Last Admin Trade Name Freq PRN Reason Stop Dose Admin Acetaminophen 650 mg 07/16/17 18:51 Tylenol - PO 07/18/17 17:43 Q6H PRN PAIN Acetaminophen/Butalbital/Caffeine 1 tablet 07/16/17 18:51 Fioricet - PO Q8H PRN HEADACHE Albuterol Sulfate 2 puff 07/16/17 18:51 Ventolin Hfa Inhaler - IH Q4H PRN SHORTNESS OF BREATH Budesonide/Formoterol Fumarate 2 puff 07/16/17 22:00 Symbicort 160/4.5mcg - IH BID JULIANO Clonazepam 1 mg 07/16/17 18:51 Klonopin - PO DAILY PRN ANXIETY Fentanyl 50 mcg 07/16/17 17:06 07/16/17 17:50 Sublimaze Injection - IVPUSH 50 mcg [id number] PRN Administration PAIN Heparin Sodium (Porcine) 5,000 unit 07/16/17 22:00 Heparin - SQ TID JULIANO Lactated Ringer's 1,000 mls @ 75 mls/hr 07/16/17 17:15 07/16/17 18:30 Lactated Ringers Solution IV 0 mls ASDIR JULIANO Administration Ampicillin Sodium/Sulbactam 100 mls @ 200 mls/hr 07/16/17 21:00 Sodium 3 gm/ Sodium Chloride IVPB Q6H-IV JULIANO Famotidine/Sodium Chloride 20 mg in 50 mls @ 100 mls/hr 07/16/17 22:00 Pepcid 20 Mg Premixed Ivpb - IVPB BID JULIANO Montelukast Sodium 10 mg 07/16/17 22:00 Singulair - PO HS JULIANO Morphine Sulfate 4 mg 07/16/17 18:51 Morphine Sulfate IVPUSH Q6H PRN SEVERE PAIN Nicotine 14 mg 07/17/17 10:00 Nicoderm Patch - TD DAILY JULIANO Ondansetron HCl 4 mg 07/16/17 17:06 07/16/17 17:00 Zofran Injection IVPUSH 4 mg Q6H PRN Administration NAUSEA AND/OR VOMITING Oxycodone HCl 10 mg 07/16/17 17:06 Roxicodone - PO 07/17/17 17:05 Q4H PRN SEVERE PAIN Promethazine HCl 12.5 mg 07/16/17 17:06 Phenergan Injection - IVPUSH Q6H PRN NAUSEA-FOR RESCUE AFTER 15 MIN Tramadol HCl 50 mg 07/16/17 18:51 Ultram - PO Q8H PRN SEVERE PAIN Home Medications Medication Instructions Recorded Acetaminophen/Caffeine/Butalb 1 tab PO Q8H PRN 07/15/17 [Fioricet -] Albuterol Sulfate Inhaler - 1 puff IH Q4H PRN 07/15/17 [Ventolin Hfa Inhaler -] Budesonide/Formeterol Fumarate 2 inh PO BID 07/15/17 [SYMBICORT 160/4.5mcg -] Clonazepam [Klonopin] 1 mg PO DAILY PRN 07/15/17 Tramadol HCl 50 mg PO BID PRN 07/15/17 PE: RUQ pain with midepigastric area. rest PE per resident's note ASSESSMENT AND PLAN: Patient is a 36yo obese F smoker with asthma, bipolar d/o, chronic low back pain secondary to 3 herniated discs (per pt), came in to ED. for having RUQ pain that started around 2 weeks ago with worsening RUQ pain. She is scheduled soon for a uterine biopsy with [employer] because of her fibroids. Her neurosurgeon for her back (no surgery yet) is Dr. Anderson. # POD #0 laparoscopic cholecystectomy . As per Dr. Gomez inflamed, edematous gallbladder, with multiple stones palpable in GB after removal. US of abdomen ordered. IVF continue. Pain meds as per Dr.Kamila, On Unasyn IV antibiotic. Zofran , pepcid. # Hx of Asthma continue albuterol and Symbicort continue, on singuilar #Hx of Bipolar # Hx of Migraine headache on Fioricet DVT px: Heparin sq.
[2017-07-16] MEDS: oxyCODONE HCL 5 MG TABLET PO PRN (21:19)
[2017-07-16] MEDS ORDERED: MONTELUKAST NA 10 MG TABLET PO SCH (22:00)
[2017-07-17] MEDS: morphine SULFATE 4 MG/ML VIAL IVPUSH PRN (01:57)
[2017-07-17] MEDS: AMPICILLIN NA/SULBACTAM NA 3 GM in SODIUM CHLORIDE 100 ML IVPB SCH ×2 (02:19→08:09)
[2017-07-17] MEDS: ALBUTEROL SO4 18 GM HFA INHALER IH PRN ×2 (02:20→09:40)
[2017-07-17] MEDS: HEPARIN NA (PORCINE) 5,000 UNITS/ML 1ML VIAL SQ SCH ×3 (03:41→15:08)
[2017-07-17] MEDS: oxyCODONE HCL 5 MG TABLET PO PRN ×2 (03:50→08:08)
[2017-07-17 07:14] LABS: MCH 34.2 pg (25.7-33.7); MEAN CELL VOLUME 100.5 fl (80-96); MEAN PLT VOLUME 7.7 fl (7.5-11.1); PLATELET COUNT 209 K/MM3 (134-434); RDW 13.5 % (11.6-15.6); WHITE BLOOD COUNT 11.1 K/mm3 (4.0-10.0)
[2017-07-17 07:50] LABS: ALK PHOS 45 U/L (45-117); ANION GAP 8 (8-16); BILIRUBIN,TOTAL 0.4 mg/dL (0.2-1.0); CALCIUM 7.8 mg/dL (8.5-10.1); CO2 25 mmol/L (21-32); CREATININE 0.8 mg/dL (0.55-1.02); GLUCOSE,RANDOM 115 mg/dL (74-106); SGOT/AST 41 U/L (15-37); SGPT/ALT 37 U/L (12-78); TOT PROT 6.4 g/dl (6.4-8.2)
[2017-07-17] MEDS ORDERED: PT OWN MED DRAWER 7, Y5N ONE ×2 (08:04→09:30)
[2017-07-17] MEDS: FAMOTIDINE 20 MG/50 ML IVPB 20 MG/50 ML MG IVPB SCH (09:38)
[2017-07-17] MEDS: BUDESONIDE/FORMETEROL FUMARATE 160/4.5 mcg INHALER IH SCH (09:41)
--- NOTE | 2017-07-17 09:47 | PN ---
Progress Note (short form) - Note Progress Note: Anesthesia POD#1 S/P Lap Cholecystectomy under [place] VSS,no N/V,delayed awakening reported but doing fine. pain is under control. Incentive spirometry recommended. Guera Shah MD.
[2017-07-17] MEDS ORDERED: NICOTINE 14 MG/24 HOURS TOPICAL PATCH TD SCH (10:00)
[2017-07-17] MEDS ORDERED: traMADol HCL 50 MG TABLET PO PRN (11:11)
--- NOTE | 2017-07-17 11:15 | PN ---
Progress Note, Physician Chief Complaint: upper abdominal pain History of Present Illness: s/p laparoscopic cholecystectomy, feeling better. has some incisional pain, has been OOB to bathroom, voiding well, no BM yet but passing flatus. no nausea, tolerated clears. - Current Medication List Current Medications: Active Medications Acetaminophen (Tylenol -) 650 mg PO Q6H PRN PRN Reason: PAIN Stop: 07/18/17 17:43 Last Admin: 07/17/17 11:08 Dose: 650 mg Acetaminophen/Butalbital/Caffeine (Fioricet -) 1 tablet PO Q8H PRN PRN Reason: HEADACHE Albuterol Sulfate (Ventolin Hfa Inhaler -) 2 puff IH Q4H PRN PRN Reason: SHORTNESS OF BREATH Last Admin: 07/17/17 09:40 Dose: 2 inh Budesonide/Formoterol Fumarate (Symbicort 160/4.5mcg -) 2 puff IH BID [facility] Last Admin: 07/17/17 09:41 Dose: 2 puff Clonazepam (Klonopin -) 1 mg PO DAILY PRN PRN Reason: ANXIETY Heparin Sodium (Porcine) (Heparin -) 5,000 unit SQ TID [facility] Last Admin: 07/17/17 05:34 Dose: Not Given Ampicillin Sodium/Sulbactam (Sodium 3 gm/ Sodium Chloride) 100 mls @ 200 mls/ hr IVPB Q6H-IV [facility] Last Admin: 07/17/17 08:09 Dose: 200 mls/hr Famotidine/Sodium Chloride (Pepcid 20 Mg Premixed Ivpb -) 20 mg in 50 mls @ 100 mls/hr IVPB BID [facility] Last Admin: 07/17/17 09:38 Dose: 100 mls/hr Montelukast Sodium (Singulair -) 10 mg PO HS [facility] Last Admin: 07/16/17 21:18 Dose: 10 mg Morphine Sulfate (Morphine Sulfate) 4 mg IVPUSH Q6H PRN PRN Reason: SEVERE PAIN Last Admin: 07/17/17 01:57 Dose: 4 mg Nicotine (Nicoderm Patch -) 14 mg TD DAILY [facility] Last Admin: 07/17/17 09:40 Dose: Not Given Ondansetron HCl (Zofran Injection) 4 mg IVPUSH Q6H PRN PRN Reason: NAUSEA AND/OR VOMITING Last Admin: 07/16/17 17:00 Dose: 4 mg Tramadol HCl (Ultram -) 50 mg PO Q8H PRN PRN Reason: SEVERE PAIN - Objective Vital Signs: Vital Signs Temperature 98.4 F 07/17/17 08:00 Pulse Rate 66 07/17/17 08:00 Respiratory Rate 18 07/17/17 08:00 Blood Pressure 123/70 07/17/17 08:00 O2 Sat by Pulse Oximetry (%) 97 07/16/17 21:00 Constitutional: Yes: No Distress, Calm, Obese Gastrointestinal: Yes: Soft, Abdomen, Obese, Distention (mild), Tenderness ( mostly incisional, mild, no RUQ tenderness) Extremities: No: Cool, Cyanosis Integumentary: Yes: Incision (x4 dressed), Tattoos. No: Jaundice, Rash Wound/Incision: Yes: Steri Strips (under dressings), Dressing Dry and Intact (x4 ). No: Dressing Removed Neurological: Yes: Alert, Oriented Labs: CBC, BMP 07/17/17 06:15 07/17/17 06:15 INR, PTT INR 1.09 (0.82-1.09) 07/14/17 15:30 CMP Sodium 137 mmol/L (136-145) 07/17/17 06:15 Potassium 3.8 mmol/L (3.5-5.1) 07/17/17 06:15 Chloride 104 mmol/L (98-107) 07/17/17 06:15 Carbon Dioxide 25 mmol/L (21-32) 07/17/17 06:15 Anion Gap 8 (8-16) 07/17/17 06:15 BUN 9 mg/dL (7-18) D 07/17/17 06:15 Creatinine 0.8 mg/dL (0.55-1.02) 07/17/17 06:15 Creat Clearance w eGFR > 60 (>60) 07/17/17 06:15 Random Glucose 115 mg/dL (74-106) H D 07/17/17 06:15 Lactic Acid 0.5 mmol/L (0.4-2.0) 07/14/17 21:30 Calcium 7.8 mg/dL (8.5-10.1) L 07/17/17 06:15 Phosphorus 3.5 mg/dL (2.5-4.9) 07/16/17 06:45 Magnesium 2.2 mg/dL (1.8-2.4) 07/16/17 06:45 Total Bilirubin 0.4 mg/dL (0.2-1.0) D 07/17/17 06:15 AST 41 U/L (15-37) H D 07/17/17 06:15 ALT 37 U/L (12-78) D 07/17/17 06:15 Alkaline Phosphatase 45 U/L (45-117) 07/17/17 06:15 Total Protein 6.4 g/dl (6.4-8.2) 07/17/17 06:15 Albumin 3.0 g/dl (3.4-5.0) L 07/17/17 06:15 Triglycerides Cancelled 07/15/17 07:00 Cholesterol Cancelled 07/15/17 07:00 Total LDL Cholesterol Cancelled 07/15/17 07:00 HDL Cholesterol Cancelled 07/15/17 07:00 Total Amylase 27 U/L (25-115) 07/14/17 19:47 Lipase 100 U/L (73-393) 07/14/17 15:30 Problem List - Problems (1) Abnormal computed tomography of abdomen and pelvis Assessment/Plan: left mid-abdomen with mesenteric inflammatory changes - seen at OR but should be self-limiting fibroid uterus with cystic adnexae - per pt, following up with her LASER/ELECTRO OPTICS TECHNICIAN for further workup defer to LASER/ELECTRO OPTICS TECHNICIAN Code(s): R93.5 - ABN FINDINGS ON DX IMAGING OF ABD REGIONS, INC RETROPERITON (2) Calculus of gallbladder without cholecystitis without obstruction Assessment/Plan: with acute cholecystitis by HIDA scan POD 1 s/p lap laurel - doing well tolerating po - advance diet to regular pain controlled with oral meds encouraged nonnarcotic meds with tramadol prn for breakthrough only incisions dressed - pt to remove outer dressings tomorrow ok for d/c home if tolerating diet to f/u with me in 2 weeks, gave pt card to call for appt Code(s): K80.20 - CALCULUS OF GALLBLADDER W/O CHOLECYSTITIS W/O OBSTRUCTION (3) Tobacco dependence due to cigarettes Assessment/Plan: nicotine patch Code(s): F17.210 - NICOTINE DEPENDENCE, CIGARETTES, UNCOMPLICATED (4) Obesity (BMI 35.0-39.9 without comorbidity) Code(s): E66.9 - OBESITY, UNSPECIFIED (5) Asthma without acute exacerbation Assessment/Plan: continuing home meds Code(s): J45.909 - UNSPECIFIED ASTHMA, UNCOMPLICATED (6) Low back pain due to displacement of intervertebral disc Code(s): M51.26 - OTHER INTERVERTEBRAL DISC DISPLACEMENT, LUMBAR REGION
[2017-07-17 15:27] VITALS: BP 137/76; PULSE 80; TEMP 98.7
--- NOTE | 2017-07-17 18:04 | PN ---
Teaching Attending Note Name of Resident: Danielle Jeffers ATTENDING PHYSICIAN STATEMENT I saw and evaluated the patient. I reviewed the resident's note and discussed the case with the resident. I agree with the resident's findings and plan as documented. SUBJECTIVE: no fever or chills . no abd pain. tolerated diet . passed gas OBJECTIVE: NAD CV: RRR Lungs: CTAB Ext : no edema ABd: soft, 4 endoscopic wounds with surgical dressing. Mild TTP in TUQ. nl BS ASSESSMENT AND PLAN: Patient is a 36yo obese F smoker with asthma, bipolar d/o, chronic low back pain who came with abd pain . SHe was found to have acute cholecystitis ,now s/ p POD 1 doing well tolerated diet dc abx . percocet x 2 days for pain after that she can resume her tramadol f/u with sx diet as tolerated cont chronic meds as routine DC home
--- NOTE | 2017-07-17 20:30 | DS ---
Physical Exam: SUBJECTIVE: Patient seen and examined. Pt denies abdominal pain, chest pain, sob, nausea, vomiting, diarrhea, constipation, fever, chills, headache. Pt had flatus. Pt tolerating diet. No events overnight. OBJECTIVE: Vital Signs Period Temp Pulse Resp BP Sys/Dukes Pulse Ox Last 24 Hr 98.4 F-98.9 F 65-80 16-20 120-137/67-76 97-100 PHYSICAL EXAM GENERAL: The patient is awake, alert, and fully oriented, in no acute distress. LUNGS: Breath sounds equal, clear to auscultation bilaterally, no wheezes, no crackles, no accessory muscle use. HEART: Regular rate and rhythm, S1, S2 without murmur, rub or gallop. ABDOMEN: 4 endoscopic incisions with surgical dressing noted. Mild tenderness to palpation in RUQ. Soft, nondistended, no guarding. EXTREMITIES: 2+ pulses, warm, well-perfused, no edema. NEUROLOGICAL: Cranial nerves II through XII grossly intact. Normal speech, gait steady. PSYCH: Normal mood, normal affect. SKIN: Warm, dry, normal turgor, no rashes or lesions noted LABS Laboratory Results - last 24 hr 07/17/17 07/17/17 06:15 06:15 WBC 11.1 H D RBC 3.22 L Hgb 11.0 D Hct 32.4 MCV 100.5 H MCH 34.2 H MCHC 34.0 RDW 13.5 Plt Count 209 MPV 7.7 Sodium 137 Potassium 3.8 Chloride 104 Carbon Dioxide 25 Anion Gap 8 BUN 9 D Creatinine 0.8 Creat Clearance w eGFR > 60 Random Glucose 115 H D Calcium 7.8 L Total Bilirubin 0.4 D AST 41 H D ALT 37 D Alkaline Phosphatase 45 Total Protein 6.4 Albumin 3.0 L HOSPITAL COURSE: Date of Admission:07/14/17 Date of Discharge: 07/17/17 36yo F with PMH chronic low back pain, asthma, bipolar, presented c/o diffuse abdominal pain, admitted for possible acute cholecystitis. POD 1, s/p cholecystectomy. Pt tolerating diet. Pain is controlled. Pt D/Jose Angel with Percocet x 2 days, and after that she can resume her home medication of Tramadol BID prn. 07/14/17 Ab/Pelvis CT -> diffuse fatty infiltration of liver. Thick walled gallbladder with gallstones. Inflammatory changes in mesentary of Left mid- abdomen. Fibroid uterus wtih adnexal cysts and pelvic fluid. 07/14/17 Ab US -> cholelithiasis without evidence of acute cholecystitis 07/15/17 HIDA Scan -> no filling gallbladder after 2 hrs, suggestive of cystic duct obstruction, consistent with cholecystitis. Pt independent for ADLs. Pt stable for discharge home. Minutes to complete discharge: 40 Discharge Summary Reason For Visit: EPIGASTRIC PAIN Condition: Improved - Instructions Diet, Activity, Other Instructions: Postoperative instructions: You had a laparoscopic cholecystectomy by Dr. Treviño of [facility]. Activity: Resume your usual activities gradually, but no heavy exertion or lifting more than 10-15 pounds for 1 month. Remove dressings 48 hours after surgery; sticky tapes underneath will fall off by themselves. You may shower daily starting then, just pat the incision areas dry. Eat lightly at first, but advance to your usual diet as tolerated. Pain: For pain, you may use and alternate Tylenol (acetaminophen) and/or ibuprofen every 6 hours each as needed; this means that you can take one OR the other at 3-hour intervals. If you are prescribed a Tylenol/narcotic combination for severe pain, use it instead of plain Tylenol as needed and switch back when your pain starts decreasing. Do not take more than 4000mg of acetaminophen in a day. Take medications as prescribed or indicated on the labeling. Follow-up: Call Dr. Treviño's office to make your postop appointment (~2 weeks after surgery). Clinic is held in the Diagnostic Center on the first floor of [facility]. Call the office if you have: * increasing pain not responsive to pain medication * fever of 101F or higher * vomiting * unusual or increasing bleeding or drainage from wounds * increasing redness or swelling at wound sites * inability to urinate Also, see your primary medical doctor within 1-2 weeks. Please call to make an appointment. Referrals: Pawel Treviño MD [Staff Physician] - 2 Weeks Juan Luis Saravia [Primary Care Provider] - 1 Week Disposition: HOME - Home Medications Comprehensive Discharge Medication List: Ambulatory Orders Acetaminophen/Caffeine/Butalb [Fioricet -] 1 tab PO Q8H PRN 07/15/17 Albuterol Sulfate Inhaler - [Ventolin HFA Inhaler -] 1 puff IH Q4H PRN 07/15/17 Budesonide/Formeterol Fumarate [SYMBICORT 160/4.5mcg -] 2 inh PO BID 07/15/17 Clonazepam [Klonopin] 1 mg PO DAILY PRN 07/15/17 Tramadol HCl 50 mg PO BID PRN 07/15/17 Oxycodone HCl/Acetaminophen [Percocet 5-325 mg Tablet] 1 tab PO Q6H #8 tablet MDD 4 07/17/17 This patient is new to me today: No Emergency Visit: Yes ED Registration Date: 07/14/17 Care time: The patient presented to the Emergency Department on the above date and was hospitalized for further evaluation of their emergent condition. Critical Care patient: No - Discharge Referral Referred to [facility] Med P.C.: No
--- NOTE | 2017-07-19 10:01 | PATH ---
Surgical Pathology Report Patient Name: GABI ESCALONA [facility]. Rec. #: [id number] /Age/Gender: 1980 (Age: 36) / F Account: [id number] Location: [address] [place] [address]/[facility] Taken: 07/16/2017 Received: 07/17/2017 Reported: 07/19/2017 Physicians: Pawel Treviño M.D. Specimen(s) Received GALLBLADDER Clinical History Preoperative diagnosis: Calculus of gallbladder with acute cholecystitis Postoperative diagnosis: Acute and chronic cholecystitis Final Diagnosis GALLBLADDER, CHOLECYSTECTOMY: CHRONIC CHOLECYSTITIS AND CHOLELITHIASIS WITH PROMINENT ROKITANSKY ASCHOFF SINUS FORMATION. Electronically Signed Randy Deleon M.D. Gross Description Received in formalin, labeled "gallbladder," is a 7.0 x 3.0 x 2.3 cm. gallbladder with a 0.2 cm. in length portion of cystic duct attached. The outer surface is arnold-pink and varies from smooth to shaggy. The lumen contains green, mucinous bile as well as multiple green, spherical cholelith ranging from 0.5-1.0 cm in greatest dimension. The mucosa is brown and focally eroded. There are focal submucosal cystic spaces in the fundus of the gallbladder. The wall of the gallbladder ranges from 0.1-0.4 cm. in thickness. Inside Sales Account Representative sections are submitted in 2 cassettes as follows: 1-cystic duct margin and telemarketing representative gallbladder; 2-fundus. 07/17/2017 [facility]07/17/2017
== END 2017-07-17 15:58 | disposition home or self-care (01) | DRG 263 ==
LOC: JER 01:13 → JERBED 08:33 → OBSVTOIN 15:13 → J5S 16:52
PROVIDERS: ADMIT Internal Medicine; ATTEND Internal Medicine
PROC: 0FT44ZZ Resection of Gallbladder, Percutaneous Endoscopic Approach (ICD-10-PCS; principal; 2017-07-16 13:30)
DX: K80.12 Calculus of gallbladder with acute and chronic cholecystitis without obstruction (principal); K76.0 Fatty (change of) liver, not elsewhere classified; E66.9 Obesity, unspecified; Z68.35 Body mass index [BMI] 35.0-35.9, adult; J45.909 Unspecified asthma, uncomplicated; M51.26 Other intervertebral disc displacement, lumbar region; F17.210 Nicotine dependence, cigarettes, uncomplicated; F31.9 Bipolar disorder, unspecified; G43.909 Migraine, unspecified, not intractable, without status migrainosus; D25.9 Leiomyoma of uterus, unspecified
CPT/HCPCS: 36415; 74177-TC; 76705-TC; 78226-TC; 80048; 80053; 80061; 81003; 81015; 82150; 83605; 83690; 83721; 83735; 84100; 84703; 85025; 85027; 85610; 85730; 86850; 86900; 86901; 88304-TC; 93005; 93010; 94640; 94760; 97116-GP; 97161-GP; 99284-25; A9537; G0378; J1644

== ENCOUNTER 2017-07-21 13:48 | Emergency (ER) | payer OTHER ==
[2017-07-21 14:01] VITALS: BMI 37.1
[2017-07-21] MEDS ORDERED: SODIUM CHLORIDE 1,000 ML IV STA (14:08)
[2017-07-21] MEDS ORDERED: FAMOTIDINE IV 20 MG/12 ML VIAL IVPB ONE (14:08)
[2017-07-21] MEDS ORDERED: ONDANSETRON 4 MG/2 ML VIAL IVPUSH STA (14:08)
--- NOTE | 2017-07-21 14:14 | PDOC ---
History of Present Illness - General Chief Complaint: Nausea/Vomiting Stated Complaint: NAUSEA/PAIN Time Seen by Provider: 07/21/17 14:08 History Source: Patient Exam Limitations: No Limitations - History of Present Illness Travel History: No Initial Comments: 07/21/17 14:14 36 yr female s/p gallbladder surgery 07/16/17 . Pt presents with abd pain epigastric abd radiates to the right shoulder and right flank, nausea and vomiting. Pt has had no BM in one week. Pt taking "a few percocet" at home for severe pain. Pt denies fever neg diarrhea or chills . PMD: Surgeon: / 07/21/17 18:25 Timing/Duration: reports: constant Quality: reports: moderate Abdominal Pain Onset Location: reports: epigastric Pain Radiation: reports: periumbilical, flank (right), shoulder (right) Past History - Past Medical History Allergies/Adverse Reactions: Allergies Allergy/AdvReac Type Severity Reaction Status Date / Time clarithromycin [From Biaxin] Allergy Verified 07/21/17 14:01 levofloxacin [From Levaquin] Allergy Verified 07/21/17 14:01 Home Medications: Ambulatory Orders Acetaminophen/Caffeine/Butalb [Fioricet -] 1 tab PO Q8H PRN 07/15/17 Albuterol Sulfate Inhaler - [Ventolin HFA Inhaler -] 1 puff IH Q4H PRN 07/15/17 Budesonide/Formeterol Fumarate [SYMBICORT 160/4.5mcg -] 2 inh PO BID 07/15/17 Clonazepam [Klonopin] 1 mg PO DAILY PRN 07/15/17 Tramadol HCl 50 mg PO BID PRN 07/15/17 Oxycodone HCl/Acetaminophen [Percocet 5-325 mg Tablet] 1 tab PO Q8H PRN #6 tablet MDD 3 tab daily 07/19/17 Bisacodyl Suppository [Dulcolax Suppository -] 10 mg RC DAILY #7 supp.rect 07/21 Docusate Sodium [Colace -] 100 mg PO TID #21 capsule 07/21/17 Asthma: Yes COPD: No - Surgical History Cholecystectomy: Yes - Suicide/Smoking/Psychosocial Hx Smoking History: Current every day smoker Have you smoked in the past 12 months: Yes Number of Cigarettes Smoked Daily: 3 Information on smoking cessation initiated: Yes 'Breaking Loose' booklet given: 07/21/17 Hx Alcohol Use: No Drug/Substance Use Hx: No Substance Use Type: None Abd/GI Specific PMHX - Complaint Specific PMHX Gall Bladder Disease: Yes Review of Systems - Review of Systems Able to Perform ROS?: Yes Is the patient limited Mohawk proficient: No Constitutional: No: Symptoms Reported HEENTM: No: Symptoms Reported Respiratory: No: Symptoms reported Cardiac (ROS): No: Symptoms Reported ABD/GI: Yes: Symptoms Reported *Physical Exam - Vital Signs Last Vital Signs Temp Pulse Resp BP Pulse Ox 98.0 F 110 H 20 145/101 97 07/21/17 13:58 07/21/17 13:58 07/21/17 13:58 07/21/17 13:58 07/21/17 13:58 - Physical Exam General Appearance: Yes: Nourished, Appropriately Dressed HEENT: positive: EOMI, KEESHA Neck: positive: Supple Respiratory/Chest: positive: Lungs Clear, Normal Breath Sounds Cardiovascular: positive: Regular Rhythm, Regular Rate Gastrointestinal/Abdominal: positive: Normal Bowel Sounds, Soft, Other ( surgical suture wounds with steri strips intact, CDI no redness no drainage, TTP periumbilical area ) Heart Score/ECG Review - History History: Slightly suspicious - ECG Intrepretation Rhythm: Regular Rhythm - [place]: Normal - ST and T Early Repolarization: No Non Specific ST-T Wave changes: No - ECG Impressions Normal ECG: No Non-specific ST Elevation: No Ischemic Changes: No Comment:: 07/21/17 15:34 incomplete RBBB signed by ED Treatment Course - LABORATORY CBC & Chemistry Diagram: 07/21/17 14:35 07/21/17 14:35 Medical Decision Making - Medical Decision Making 07/21/17 17:36 cc: abd pain, constipation, nv no diarrhea no fever or chills c/o sore throat will check rapid strep, labs, UA ct abd consult surgery discussed with agricultural extension specialist will come see pt in ER will follow labs and ct results 07/21/17 18:25 pt seen by surgeon , will follow the ct results. 07/21/17 18:53 pt feels much better , IVF have infused pt has no vomiting or nausea, feels better. CT scan read by states fecal retention, no evidence of abscess or other pathology. suggest dulcolax, colace and follow up this week pt and her family agree with plan of care all questions asked and answered. *DC/Admit/Observation/Transfer Diagnosis at time of Disposition: Constipation due to pain medication therapy - Discharge Dispostion Disposition: HOME Condition at time of disposition: Improved - Prescriptions Prescriptions: Bisacodyl Suppository [Dulcolax Suppository -] 10 mg RC DAILY #7 supp.rect Docusate Sodium [Colace -] 100 mg PO TID #21 capsule - Referrals Referrals: Juan Luis Saravia [Primary Care Provider] - Michael Strauss MD [Staff Physician] - - Patient Instructions Additional Instructions: follow with the surgeon or this week drink lots of water to stay well hydrated take colace stool softener as directed use the dulcolax suppository as prescribed avoid any narcotics as this will make your symptoms much worse return to ER for any worsening symptoms eat a high fiber diet , avoid dairy avoid starches - Post Discharge Activity
[2017-07-21] MEDS ORDERED: ONDANSETRON 4 MG/2 ML VIAL ONE (14:23)
[2017-07-21] MEDS ORDERED: FAMOTIDINE 20 MG/50 ML IVPB 20 MG/50 ML MG IVPB ONE (14:23)
[2017-07-21] MEDS ORDERED: ACETAMINOPHEN 1000 MG/100 ML VIAL (NON FORMULARY) IVPB ONE (14:31)
--- NOTE | 2017-07-21 14:36 | CONSULT ---
Consult Consult Specialty:: general surgery Referred by:: maryanne gibbs - ED Reason for Consultation:: post op abdominal pain with nausea and vomiting - History of Present Illness Chief Complaint: abdominal pain, nausea and vomiting History of Present Illness: 36 yo female PMH obesity, asthma, bipolar, herniated discs with chronic back pain on opiate therapy s/p laparoscopic cholecystectomy 07/16 with presents to the ED with abdominal pain and referred pain to right shoulder and right flank. She notes that the pain is persistent but no worsening. She reports feeling bloated and nausea developed today and she had about three episodes of vomiting today consisting of mainly the foods she consumed. She reports no BM this week. She was not prescribed narcotics post-op but takes percocet for chronic low back pain. She has not resume her regular activities and reports spending much of her time in bed. She denies fever and chills. We were asked to assess her. - History Source History Provided By: Patient Limitations to Obtaining History: No Limitations - Past Medical History Pulmonary: Yes: Asthma ...LMP: 07/08/17 (finishing now) Psych: Yes: Bipolar (not taking her Topamax for several months now) Musculoskeletal: Yes: Chronic low back pain, Other (herniated discs) - Alcohol/Substance Use Hx Alcohol Use: No History of Substance Use: reports: None - Smoking History Smoking history: Current every day smoker Have you smoked in the past 12 months: Yes Aproximately how many cigarettes per day: 3 - Social History Usual Living Arrangement: With Child ADL: Independent Home Medications - Allergies Allergies/Adverse Reactions: Allergies Allergy/AdvReac Type Severity Reaction Status Date / Time clarithromycin [From Biaxin] Allergy Verified 07/21/17 14:01 levofloxacin [From Levaquin] Allergy Verified 07/21/17 14:01 - Home Medications Home Medications: Ambulatory Orders Acetaminophen/Caffeine/Butalb [Fioricet -] 1 tab PO Q8H PRN 07/15/17 Albuterol Sulfate Inhaler - [Ventolin HFA Inhaler -] 1 puff IH Q4H PRN 07/15/17 Budesonide/Formeterol Fumarate [SYMBICORT 160/4.5mcg -] 2 inh PO BID 07/15/17 Clonazepam [Klonopin] 1 mg PO DAILY PRN 07/15/17 Tramadol HCl 50 mg PO BID PRN 07/15/17 Oxycodone HCl/Acetaminophen [Percocet 5-325 mg Tablet] 1 tab PO Q8H PRN #6 tablet MDD 3 tab daily 07/19/17 Review of Systems - Review of Systems Constitutional: denies: Chills, Fever Eyes: denies: Blurred Vision, Recent Change in Vision HENT: denies: Difficult Swallowing, Throat Pain Neck: denies: Lumps, Swollen Glands Cardiovascular: denies: Chest Pain, Palpitations Gastrointestinal: reports: Abdominal Pain, Bloating, Constipation, Nausea, Vomiting Genitourinary: denies: Burning, Discharge Musculoskeletal: reports: Back Pain. denies: Muscle Pain, Muscle Weakness Integumentary: denies: Lesions, Rash Neurological: denies: Change in LOC, Syncope Endocrine: reports: Unexplained Weight Gain, Unexplained Weight Loss Hematology/Lymphatic: denies: Easily Bruised, Excessive Bleeding Psychiatric: denies: Anxiety, Depression Physical Exam Vital Signs: Vital Signs Temperature 98.0 F 07/21/17 13:58 Pulse Rate 110 H 07/21/17 13:58 Respiratory Rate 20 07/21/17 13:58 Blood Pressure 145/101 07/21/17 13:58 O2 Sat by Pulse Oximetry (%) 97 07/21/17 13:58 Vital Signs Period Temp Pulse Resp BP Sys/Dukes Pulse Ox Last 24 Hr 98.0 F 110 20 145/101 97 Constitutional: Yes: No Distress, Calm, Obese Eyes: Yes: Conjunctiva Clear, EOM Intact HENT: Yes: Atraumatic, Normocephalic Neck: Yes: Supple, Trachea Midline Respiratory: Yes: Regular, CTA Bilaterally Gastrointestinal: Yes: Normal Bowel Sounds, Soft, Abdomen, Obese, Other ( incsions X4, no erythema, no fluctuance, no drainage). No: Tenderness, Epigastrium, Tenderness, Rebound ...Rectal Exam: Yes: Deferred Renal/: No: CVA Tenderness - Left, CVA Tenderness - Right Extremities: No: Cold, Cool Edema: No Peripheral Pulses WNL: Yes Integumentary: Yes: Body Piercing, Tattoos Wound/Incision: Yes: Clean/Dry, Well Approximated, Steri Strips. No: Draining, Reddened Neurological: Yes: Alert, Oriented Psychiatric: Yes: Alert, Oriented Labs: CBC, BMP 07/21/17 14:35 07/21/17 14:35 Abnormal Lab Results 07/21/17 07/21/17 14:35 14:50 WBC 10.3 H MCV 101.2 H MCH 34.0 H Urine Blood 2+ H Urine Urobilinogen 4.0 e.u/dl H Imaging - Results Cat Scan: Image Reviewed (no obstruction, no abscess or fluid collection in the vicinity of cholecystectomy, same mesenteric edema in left upper quadrant) Problem List - Problems (1) Acute postoperative abdominal pain Assessment/Plan: 36yo female s/p Lap cholecystectomy 07/16 with abdominal pain, constipation, nausea and a few episodes of vomiting today. CT scan of A/P with contrast shows no abscess or collection in the vicinity of surgery, no bowel obstruction the same LUQ mestenteric edema that was present preop is still present. Nothing that requires admission or acute management Avoid narcotic pain medication in favor of the analgesic and anti-inflammatory regimen we recommended "Pain: For pain, you may use and alternate Tylenol (acetaminophen) and/or ibuprofen every 6 hours each as needed; this means that you can take one OR the other at 3-hour intervals. If you are prescribed a Tylenol/narcotic combination for severe pain, use it instead of plain Tylenol as needed and switch back when your pain starts decreasing. Do not take more than 4000mg of acetaminophen in a day. Take medications as prescribed or indicated on the labeling." encourage incentive spirometry dulcolax suppository in ED Oral hydration and stool softener f/u with Dr. Treviño as scheduled and her PMD next week Code(s): G89.18 - OTHER ACUTE POSTPROCEDURAL PAIN; R10.9 - UNSPECIFIED ABDOMINAL PAIN (2) Constipation due to pain medication therapy Assessment/Plan: PO contrast may be therapeutic as well Code(s): K59.03 - DRUG INDUCED CONSTIPATION (3) Emesis, persistent Assessment/Plan: anti-emetic IV Code(s): R11.10 - VOMITING, UNSPECIFIED (4) Nausea & vomiting Code(s): R11.2 - NAUSEA WITH VOMITING, UNSPECIFIED Qualifiers: Vomiting type: unspecified Vomiting Intractability: unspecified Qualified Code(s): R11.2 - Nausea with vomiting, unspecified (5) Obesity (BMI 30-39.9) Code(s): E66.9 - OBESITY, UNSPECIFIED (6) Asthma Code(s): J45.909 - UNSPECIFIED ASTHMA, UNCOMPLICATED
[2017-07-21] MEDS ORDERED: ACETAMINOPHEN INJECTION 100 ML IVPB ONE (14:42)
[2017-07-21 14:56] LABS: BASOPHIL 0.4 % (0-2.0); MCHC 33.6 g/dl (32.0-36.0); MEAN CELL VOLUME 101.2 fl (80-96); MEAN PLT VOLUME 7.6 fl (7.5-11.1); PLATELET COUNT 330 K/MM3 (134-434); RDW 13.8 % (11.6-15.6); WHITE BLOOD COUNT 10.3 K/mm3 (4.0-10.0)
[2017-07-21 14:59] LABS: URINE APPEARANCE SLCLOUDY; URINE BILIRUBIN NEGATIVE (NEGATIVE); URINE BLOOD 2+ (NEGATIVE); URINE COLOR YELLOW; URINE GLUCOSE (UA) NEGATIVE (NEGATIVE); URINE KETONE NEGATIVE (NEGATIVE); URINE NITRITE NEGATIVE (NEGATIVE); URINE PROTEIN NEGATIVE (NEGATIVE); URINE UROBILINOGEN 4.0 E.U/dl mg/dL (0.2-1.0)
[2017-07-21 15:04] LABS: ALBUMIN 3.5 g/dl (3.4-5.0); ALK PHOS 55 U/L (45-117); ANION GAP 9 (8-16); BILIRUBIN,TOTAL 0.3 mg/dL (0.2-1.0); CO2 26 mmol/L (21-32); CREATININE 0.9 mg/dL (0.55-1.02); GLUCOSE,RANDOM 91 mg/dL (74-106); SGOT/AST 17 U/L (15-37); SGPT/ALT 29 U/L (12-78); TOT PROT 7.6 g/dl (6.4-8.2)
[2017-07-21 15:07] LABS: URINE RBC 1 /hpf (0-3); URINE WBC 2 /hpf (3-5)
[2017-07-21] MEDS ORDERED: METOCLOPRAMIDE HCL INJECTION 10 MG/2 ML VIAL IVPB ONE (16:14)
[2017-07-21] MEDS ORDERED: METOCLOPRAMIDE HCL INJECTION 10 MG/2 ML VIAL ONE (16:18)
[2017-07-21] MEDS ORDERED: morphine CARPU-JECT 4 MG/1 ML DISP.SYRIN IVPUSH ONE (17:00)
[2017-07-21] MEDS ORDERED: morphine SULFATE 4 MG/ML VIAL ONE (17:14)
[2017-07-21] MEDS ORDERED: BISACODYL 10 MG SUPP.RECT PR ONE (18:46)
[2017-07-21 19:16] VITALS: BP 122/86; PULSE 70; TEMP 98.1
[2017-07-21 21:36] LABS: URINE LEUK ESTERASE Negative (NEGATIVE)
--- NOTE | 2017-07-22 13:27 | EKG ---
Test Reason : Blood Pressure : / mmHG Vent. Rate : 086 BPM Atrial Rate : 086 BPM P-R Int : 142 ms QRS Dur : 098 ms QT Int : 384 ms P-R-T Axes : 031 001 022 degrees QTc Int : 459 ms NORMAL SINUS RHYTHM INCOMPLETE RIGHT BUNDLE BRANCH BLOCK ABNORMAL ECG WHEN COMPARED WITH ECG OF 14-JUL-2017 03:38, NO SIGNIFICANT CHANGE WAS FOUND Confirmed by ANIL FENG MD ([id number]) on 07/22/2017 1:26:59 PM Referred By: Confirmed By:ANIL FENG MD
== END 2017-07-21 19:20 | disposition home or self-care (01) ==
LOC: JER 13:48
PROC: 3E033NZ Introduction of Analgesics, Hypnotics, Sedatives into Peripheral Vein, Percutaneous Approach (ICD-10-PCS; principal; 2017-07-21)
PROC: 3E033NZ Introduction of Analgesics, Hypnotics, Sedatives into Peripheral Vein, Percutaneous Approach (ICD-10-PCS; 2017-07-21)
PROC: 3E033GC Introduction of Other Therapeutic Substance into Peripheral Vein, Percutaneous Approach (ICD-10-PCS; 2017-07-21)
DX: G89.18 Other acute postprocedural pain (principal); K59.03 Drug induced constipation; T40.2X5A Adverse effect of other opioids, initial encounter; Y92.038 Other place in apartment as the place of occurrence of the external cause; R11.2 Nausea with vomiting, unspecified; J45.909 Unspecified asthma, uncomplicated; E66.9 Obesity, unspecified; Z68.39 Body mass index [BMI] 39.0-39.9, adult; F17.210 Nicotine dependence, cigarettes, uncomplicated
CPT/HCPCS: 36415; 74177-TC; 80053; 81003; 81015; 83690; 84703; 85025; 87070; 87077; 87086; 87186; 87430; 93005; 93010; 96374; 96375; 99283-25

== ENCOUNTER 2018-01-22 16:02 | Emergency (ER) | payer OTHER ==
[2018-01-22 16:08] VITALS: BP 155/87; PULSE 100; TEMP 98.3; BMI 31.6
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
== END 2018-01-22 17:11 | disposition home or self-care (01) ==
LOC: JERFT 16:02
DX: R07.89 Other chest pain (principal); Y04.2XXA Assault by strike against or bumped into by another person, initial encounter; Y93.89 Activity, other specified; Y92.89 Other specified places as the place of occurrence of the external cause; Y99.8 Other external cause status; Y07.03 Male partner, perpetrator of maltreatment and neglect; F17.210 Nicotine dependence, cigarettes, uncomplicated
CPT/HCPCS: 71046-TC-FY; 99281-25

== ENCOUNTER 2018-03-27 05:09 | Emergency (ER) | payer OTHER ==
[2018-03-27 05:14] VITALS: BMI 24.3
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
[2018-03-27] MEDS ORDERED: SODIUM CHLORIDE 0.9% 500 ML INFUS.BAG IV ONE (06:00)
[2018-03-27] MEDS ORDERED: morphine SULFATE 4 MG/ML VIAL IVPUSH ONE (06:00)
[2018-03-27] MEDS ORDERED: morphine SULFATE 4 MG/ML VIAL ONE (06:29)
[2018-03-27] MEDS ORDERED: MORPHINE SULFATE 2 MG/ML VIAL ONE (06:29)
--- NOTE | 2018-03-27 06:38 | PDOC ---
Attending Attestation - HPI HPI: 03/27/18 06:38 The patient is a 37 year old female, with a significant past medical history of asthma and chronic back pain, who presents to the emergency department with, abdominal pain and decreased PO intake. She describes her abdominal pain as sharp and diffuse in nature. She denies recent fevers, chills, headache or dizziness. She denies recent nausea, vomit, diarrhea or constipation. She denies recent dysuria, frequency, urgency or hematuria. She denies recent chest pain or shortness of breath. Allergies: Clarithromycin and Levofloxacin. <Kailash Kingston - Last Filed: 03/27/18 06:38> - Resident Resident Name: Rula Smith - ED Attending Attestation I have performed the following: I have examined & evaluated the patient, The case was reviewed & discussed with the resident, I agree w/resident's findings & plan, Exceptions are as noted - Physicial Exam PE: 03/27/18 19:35 *Physical Exam General Appearance: Yes: Appropriately Dressed. No: Apparent Distress, Intoxicated HEENT: positive: EOMI, KEESHA, Normal ENT Inspection, Normal Voice, TMs Normal, Pharynx Normal. negative: Pale Conjunctivae, Photophobia, Scleral Icterus (R), Scleral Icterus (L) Neck: positive: Trachea midline, Normal Thyroid, Supple. negative: Tender, Rigid, Carotid bruit, Stridor, Lymphadenopathy (R), Lymphadenopathy (L), Thyromegaly Respiratory/Chest: positive: Lungs Clear, Normal Breath Sounds. negative: Chest Tender, Respiratory Distress, Accessory Muscle Use, Labored Respiration, RES, Crackles, Rales, Rhonchi, Stridor, Wheezing, Dullness Cardiovascular: positive: Regular Rhythm, Regular Rate, S1, S2. negative: Edema , JVD, Murmur, Bradycardia, Tachycardia Vascular Pulses: Dorsalis-Pedis (R): 2+, Doralis-Pedis (L): 2+ Gastrointestinal/Abdominal: positive: Normal Bowel Sounds, Flat, Soft. negative : Tender, Organomegaly, Pulsatile Mass, Increased Bowel Sounds, Decreased BS, Distended, Guarding, Rebound, Hernia, Hepatomegaly, Spleenomegaly Lymphatic: negative: Adenopathy, Tenderness Musculoskeletal: positive: Normal Inspection. negative: CVA Tenderness, Decreased Range of Motion Extremity: positive: Normal Capillary Refill, Normal Inspection, Normal Range of Motion, Pelvis Stable. negative: Tender, Pedal Edema, Swelling, Erythema Integumentary: positive: Normal Color, Dry, Warm. negative: Cyanotic, Erythema , Jaundice, Rash Neurologic: positive: discotheque dancer II-XII NML intact, Fully Oriented, Alert, Normal Mood/ Affect, Motor Strength 5/5. negative: EOM Palsy, Facial Droop, Sensory Deficit - Medical Decision Making 03/27/18 19:35 the patient was treated and released <Joe Mcgowan - Last Filed: 03/27/18 19:35> Attestations - Attestations 03/27/18 06:38 Documentation prepared by Kailash Kingston, acting as medical research scientist for Joe Mcgowan DO. <Kailash Kingston - Last Filed: 03/27/18 06:38>
[2018-03-27] MEDS ORDERED: ONDANSETRON 4 MG/2 ML VIAL IVPUSH ONE (07:00)
--- NOTE | 2018-03-27 07:04 | PDOC ---
*Physical Exam - Vital Signs Last Vital Signs Temp Pulse Resp BP Pulse Ox 97.8 F 90 20 131/71 94 L 03/27/18 05:12 03/27/18 05:12 03/27/18 05:12 03/27/18 05:12 03/27/18 05:12 - Physical Exam Comments: 03/27/18 07:38 Sign out received from Dr. Smith. 37F presents with diffuse 10/10 abdominal pain. no distress AAOx3 RRR CTAB Soft tender in the epigastrium no edema ED Treatment Course - LABORATORY CBC & Chemistry Diagram: 03/27/18 07:31 03/27/18 06:40 - Medications Given in the ED: ED Medications Discontinued Medications Generic Name Dose Route Start Last Admin Trade Name Mikeq PRN Reason Stop Dose Admin Morphine Sulfate 6 mg 03/27/18 06:00 03/27/18 06:59 Morphine Sulfate IVPUSH 03/27/18 06:01 6 mg ONCE ONE Administration Sodium Chloride 1,000 ml 03/27/18 06:00 03/27/18 06:59 Normal Saline - IV 03/27/18 06:01 1,000 ml ONCE ONE Administration Medical Decision Making - Medical Decision Making 03/27/18 07:47 pending labs possible pancreatitis vs colitis vs gall stone pancreatitis less likely appendicitis 03/27/18 12:16 Labs reviewed WBC count 12.3 UA CMP no acute abnormalities Will give toradol for pain and discharge with PMD and CONTRACT CONSULTANT follow up patient 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 *DC/Admit/Observation/Transfer Diagnosis at time of Disposition: Abdominal pain Qualifiers: Abdominal location: epigastric Qualified Code(s): R10.13 - Epigastric pain - Discharge Dispostion Disposition: HOME Condition at time of disposition: Improved Decision to Admit order: No - Prescriptions Prescriptions: Ibuprofen [Motrin -] 600 mg PO Q6H #30 tablet Ondansetron [Zofran -] 4 mg PO TID #21 tablet - Referrals Referrals: Juan Luis Saravia [Primary Care Provider] - (call today for appointment ) Olu Dukes MD [Staff Physician] - (call for appointment) Juan Calle MD [Staff Physician] - (call [facility] for appointment) - Patient Instructions Printed Discharge Instructions: Facts About Fibroids, Uterine Fibroids, DI for Uterine Fibroids, DI for Abdominal Pain-Adult Additional Instructions: please follow up with your primary care doctor [facility]. Also follow up with your OB /MOLD CARPENTER [facility] for fibroids. If you have worsening abdominal pain fevers or chills please go to the nearest emergency room right away. - Post Discharge Activity
[2018-03-27 07:33] LABS: ALBUMIN 3.4 g/dl (3.4-5.0); ANION GAP 13 (8-16); BLOOD UREA NITROGEN 9 mg/dL (7-18); CALCIUM 8.8 mg/dL (8.5-10.1); CHLORIDE 106 mmol/L (98-107); CO2 21 mmol/L (21-32); GLUCOSE,RANDOM 120 mg/dL (74-106); SODIUM 140 mmol/L (136-145)
[2018-03-27] MEDS ORDERED: ONDANSETRON 4 MG/2 ML VIAL ONE (07:35)
[2018-03-27 07:36] LABS: ALK PHOS 69 U/L (45-117); BILIRUBIN,TOTAL 0.8 mg/dL (0.2-1.0); CREATININE 0.7 mg/dL (0.55-1.02); SGPT/ALT 18 U/L (12-78); TOT PROT 7.6 g/dl (6.4-8.2)
[2018-03-27 08:10] LABS: BASO % 0.1 % (0-2.0); HEMATOCRIT 35.7 % (32.4-45.2); LYMPH % 5.6 % (8-40); MCH 33.7 pg (25.7-33.7); MCHC 33.5 g/dl (32.0-36.0); MEAN CELL VOLUME 100.5 fl (80-96); NEUT % 90.3 % (42.8-82.8); PLATELET COUNT 242 K/MM3 (134-434); RBC 3.55 M/mm3 (3.60-5.2); RDW 14.6 % (11.6-15.6); WHITE BLOOD COUNT 12.4 K/mm3 (4.0-10.0)
[2018-03-27 08:41] LABS: POTASSIUM 4.2 mmol/L (3.5-5.1); SGOT/AST 18 U/L (15-37)
[2018-03-27 10:26] LABS: URINE APPEARANCE SLCLOUDY; URINE BILIRUBIN NEGATIVE (<2.0 mg/dL); URINE COLOR YELLOW; URINE GLUCOSE (UA) NEGATIVE (NEGATIVE); URINE KETONE TRACE (NEGATIVE); URINE LEUK ESTERASE NEGATIVE (NEGATIVE); URINE NITRITE NEGATIVE (NEGATIVE)
[2018-03-27 10:33] LABS: URINE PROTEIN 1+ (NEGATIVE)
[2018-03-27 10:34] LABS: EPI CELLS FEW /HPF (FEW); URINE MUCUS FEW
[2018-03-27] MEDS ORDERED: KETOROLAC TROMETHAMINE 15 MG/ML VIAL IVPUSH ONE (12:06)
[2018-03-27] MEDS ORDERED: KETOROLAC TROMETHAMINE 15 MG/ML VIAL ONE (12:09)
[2018-03-27 12:22] VITALS: BP 127/66; PULSE 95; TEMP 99
== END 2018-03-27 12:48 | disposition home or self-care (01) ==
LOC: JER 05:09
PROC: 3E0333Z Introduction of Anti-inflammatory into Peripheral Vein, Percutaneous Approach (ICD-10-PCS; principal; 2018-03-27)
PROC: 3E033NZ Introduction of Analgesics, Hypnotics, Sedatives into Peripheral Vein, Percutaneous Approach (ICD-10-PCS; 2018-03-27)
PROC: 3E033GC Introduction of Other Therapeutic Substance into Peripheral Vein, Percutaneous Approach (ICD-10-PCS; 2018-03-27)
PROC: 3E0337Z Introduction of Electrolytic and Water Balance Substance into Peripheral Vein, Percutaneous Approach (ICD-10-PCS; 2018-03-27)
DX: R10.13 Epigastric pain (principal); J45.909 Unspecified asthma, uncomplicated; F41.9 Anxiety disorder, unspecified; M54.5 Low back pain; G89.29 Other chronic pain
CPT/HCPCS: 36415; 80053; 81003; 81015; 83605; 83690; 84703; 85025; 87086; 99284-25

== ENCOUNTER 2019-06-05 10:39 | Emergency (ER) | payer OTHER ==
[2019-06-05 10:45] VITALS: BP 152/99; TEMP 98.7; BMI 32.8
--- NOTE | 2019-06-05 11:03 | PDOC ---
*Physical Exam - Vital Signs Last Vital Signs Temp Pulse Resp BP Pulse Ox 98.7 F 133 H 18 152/99 96 06/05/19 10:43 06/05/19 10:43 06/05/19 10:43 06/05/19 10:43 06/05/19 10:43 Medical Decision Making - Medical Decision Making 06/06/19 20:10 Pt seen by Midlevel Provider under my direct supervision Available for for consultation Ancillary studies reviewed I agree with plan as outlined by Midlevel Provider Discharge - Discharge Information Problems reviewed: Yes Clinical Impression/Diagnosis: Acute wheezy bronchitis Condition: Good Disposition: HOME - Additional Discharge Information Prescriptions: Azithromycin [Zithromax Tri-Romain (3 DAYS) -] 500 mg PO DAILY #3 tablet Guaifenesin AC [Robitussin AC] 10 ml PO TID #100 ml MDD 30 predniSONE [Deltasone -] 40 mg PO DAILY #8 tablet - Follow up/Referral - Patient Discharge Instructions Patient Printed Discharge Instructions: DI for Acute Bronchitis Additional Instructions: Take medication as prescribed but do not operate any heavy machinery while taking the Robitussin with codeine. Avoid from smoking. Avoid from going from extreme heat to cold in order to avoid bronchospasm. If symptoms not improved with the prednisone and antibiotic/cough medicine, then return to the ED or follow-up with PCP for further imaging such as a CAT scan. - Post Discharge Activity
--- NOTE | 2019-06-05 12:42 | PDOC ---
History of Present Illness - General Chief Complaint: Shortness of Breath Stated Complaint: SHORTNESS OF BREATH Time Seen by Provider: 06/05/19 10:51 History Source: Patient Exam Limitations: No Limitations - History of Present Illness Initial Comments: 06/05/19 12:37 38-year-old female with history of asthma presents to ED with continual cough, shortness of breath, congestion and shaky. Patient states is been unable to sleep secondary to cough and has been using her nebulizer with no improvement. Patient does smoke cigarettes on a daily basis but states has cut down the past 2 days secondary to symptoms which have been approximately lasting 6 to 7 days. Patient denies recent travel, recent illness or recent sick contact. Patient denies hemoptysis, night sweats or recorded fever. Is this a multiple visit Asthma Patient?: No Timing/Duration: reports: week Severity: reports: moderate Possible Cause: Yes: occasional episodes Modifying Factors: improves with: antibiotics, coughing Associated Symptoms: reports: chest pain/soreness, shortness of breath, wheezing Past History - Travel Traveled outside of the country in the last 30 days: No Close contact w/someone who was outside of country & ill: No - Past Medical History Allergies/Adverse Reactions: Allergies Allergy/AdvReac Type Severity Reaction Status Date / Time clarithromycin [From Biaxin] Allergy Verified 06/05/19 10:46 levofloxacin [From Levaquin] Allergy Verified 06/05/19 10:46 Home Medications: Ambulatory Orders Albuterol Sulfate Inhaler - [Ventolin HFA Inhaler -] 1 puff IH Q4H PRN 07/15/17 Budesonide/Formeterol Fumarate [SYMBICORT 160/4.5mcg -] 2 inh PO BID 07/15/17 Tramadol HCl 50 mg PO BID PRN 07/15/17 Ibuprofen [Motrin -] 600 mg PO Q6H #30 tablet 03/27/18 Ondansetron [Zofran -] 4 mg PO TID #21 tablet 03/27/18 Azithromycin [Zithromax Tri-Romain (3 DAYS) -] 500 mg PO DAILY #3 tablet 06/05/19 Guaifenesin AC [Robitussin AC] 10 ml PO TID #100 ml MDD 30 06/05/19 predniSONE [Deltasone -] 40 mg PO DAILY #8 tablet 10/18/19 Asthma: Yes COPD: No DVT: No - Surgical History Cholecystectomy: Yes - Reproductive History Therapeutic (s) & number: No - Immunization History Immunization Up to Date: Yes - Psycho Social/Smoking Cessation Hx Smoking History: Current every day smoker Have you smoked in the past 12 months: No Number of Cigarettes Smoked Daily: 2 Information on smoking cessation initiated: No 'Breaking Loose' booklet given: 01/22/18 Hx Alcohol Use: No Drug/Substance Use Hx: No Substance Use Type: None Patient Lives Alone: No Lives with/in: spouse/SO Respiratory Specific PMHX - Complaint Specific PMHX Hx Asthma: Yes Hx Intubation: No Hx Bronchitis: Yes Hx Pneumonia: Yes Hx Pulmonary Embolus: No Hx TB (Tuberculosis): No Hx Angina: No Review of Systems - Review of Systems Able to Perform ROS?: Yes Constitutional: No: Symptoms Reported HEENTM: No: Symptoms Reported Respiratory: Yes: Cough, Shortness of Breath, Wheezing Cardiac (ROS): Yes: Symptoms Reported, Lightheadedness. No: Palpitations ABD/GI: No: Symptoms Reported : No: Symptoms Reported Musculoskeletal: No: Symptoms Reported Integumentary: No: Symptoms Reported Neurological: No: Symptoms reported *Physical Exam - Vital Signs Last Vital Signs Temp Pulse Resp BP Pulse Ox 98.7 F 133 H 18 152/99 96 06/05/19 10:43 06/05/19 10:43 06/05/19 10:43 06/05/19 10:43 06/05/19 10:43 - Physical Exam General Appearance: Yes: Nourished, Appropriately Dressed. No: Apparent Distress HEENT: negative: Pale Conjunctivae Neck: positive: Supple Respiratory/Chest: positive: Chest Tender (Mild bilaterally anteriorly), Rhonchi (To right base on inspiration and expiration). negative: Respiratory Distress, Accessory Muscle Use, Decreased Breath Sounds, Stridor, Wheezing Cardiovascular: positive: Regular Rhythm, Tachycardia. negative: Murmur Gastrointestinal/Abdominal: positive: Soft. negative: Tenderness Extremity: positive: Normal Inspection Integumentary: positive: Normal Color, Warm, Moist Neurologic: positive: Motor Strength 5/5 (Ambulatory) ED Treatment Course - RADIOLOGY Radiology Studies Ordered: Category Date Time Status CHEST PA & LAT [RAD] Stat Radiology 06/05/19 11:20 Completed Medical Decision Making - Medical Decision Making 06/05/19 11:40 Chief complaint: URI symptoms exacerbating asthma positive smoker Exam: Rhonchi to right base no respiratory distress or accessory muscle usage, positive coarse cough Plan: Chest x-ray 06/05/19 12:42 Chest x-ray shows no active consolidation infiltration or signs of pneumonia. Patient explained if symptoms continue despite being prescribed antibiotic and steroids today to return to the ED or follow-up with PCP for additional imaging such as CT of the chest. Discharge - Discharge Information Problems reviewed: Yes Clinical Impression/Diagnosis: Acute wheezy bronchitis Condition: Good Disposition: HOME - Additional Discharge Information Prescriptions: Azithromycin [Zithromax Tri-Romain (3 DAYS) -] 500 mg PO DAILY #3 tablet Guaifenesin AC [Robitussin AC] 10 ml PO TID #100 ml MDD 30 predniSONE [Deltasone -] 40 mg PO DAILY #8 tablet - Follow up/Referral - Patient Discharge Instructions Patient Printed Discharge Instructions: DI for Acute Bronchitis Additional Instructions: Take medication as prescribed but do not operate any heavy machinery while taking the Robitussin with codeine. Avoid from smoking. Avoid from going from extreme heat to cold in order to avoid bronchospasm. If symptoms not improved with the prednisone and antibiotic/cough medicine, then return to the ED or follow-up with PCP for further imaging such as a CAT scan. - Post Discharge Activity
[2019-06-05 13:08] VITALS: PULSE 100
== END 2019-06-05 13:08 | disposition home or self-care (01) ==
LOC: JER 10:39
DX: J20.9 Acute bronchitis, unspecified (principal); Z88.8 Allergy status to other drugs, medicaments and biological substances; F17.210 Nicotine dependence, cigarettes, uncomplicated
CPT/HCPCS: 71046-TC-FY; 99281-25

== ENCOUNTER 2019-09-01 17:22 | Inpatient (IN) | payer OTHER ==
[2019-09-01] MEDS ORDERED: ONDANSETRON 4 MG/2 ML VIAL IVPUSH ONE (17:50)
[2019-09-01] MEDS ORDERED: SODIUM CHLORIDE 1,000 ML IV STA (17:50)
--- NOTE | 2019-09-01 17:50 | PDOC ---
Rapid Medical Evaluation Chief Complaint: Cold Symptoms Time Seen by Provider: 09/01/19 17:48 Medical Evaluation: Allergies Allergy/AdvReac Type Severity Reaction Status Date / Time clarithromycin [From Biaxin] Allergy Verified 06/05/19 10:46 levofloxacin [From Levaquin] Allergy Verified 06/05/19 10:46 09/01/19 17:48 Pt c/o:vomiting and diarrhea, + chills Pt on brief exam: vss, Pt ordered for: cbc, comp, lipase, mag, ivf, zofran Pt to proceed to the ED Discharge Disposition - Diagnosis PID (acute pelvic inflammatory disease), Pyosalpinx - Referrals - Patient Instructions - Post Discharge Activity
--- NOTE | 2019-09-01 21:08 | PDOC ---
*Physical Exam - Vital Signs Last Vital Signs Temp Pulse Resp BP Pulse Ox 98.2 F 119 H 16 127/73 96 09/01/19 17:48 09/01/19 17:48 09/01/19 17:48 09/01/19 17:48 09/01/19 17:48 ED Treatment Course - LABORATORY CBC & Chemistry Diagram: 09/01/19 22:00 09/01/19 22:00 Medical Decision Making - Medical Decision Making 09/01/19 23:37 Patient seen by the advanced practice provider under my direct supervision. Ancillary testing reviewed as necessary. I agree with plan as outlined by the advanced practice provider. Discharge - Discharge Information Problems reviewed: Yes Clinical Impression/Diagnosis: Vomiting - Follow up/Referral Referrals: Kiko Diez MD [Primary Care Provider] - - Patient Discharge Instructions - Post Discharge Activity
[2019-09-01] MEDS ORDERED: ACETAMINOPHEN 1000 MG/100 ML VIAL (NON FORMULARY) IVPB ONE (21:19)
--- NOTE | 2019-09-01 21:24 | PDOC ---
History of Present Illness - General Chief Complaint: Cold Symptoms Stated Complaint: COLD/FLU SYMPTOMS Time Seen by Provider: 09/01/19 17:48 History Source: Patient Exam Limitations: No Limitations - History of Present Illness Travel History: No Initial Comments: 09/01/19 21:20 HISTORY OF PRESENT ILLNESS: 38-year-old woman past medical history of GERD, chronic back pain, cholecystectomy who presents emergency department for evaluation of chills and diffuse abdominal pain for the past 2 days. Patient reports she has had decreased appetite and has vomited multiple times today which is been nonbilious and nonbloody. She reports her pain is 9/10 throughout her abdomen which she describes as a squeezing cramping sensation. Patient endorses dysuria which started today prior to arrival. Additionally patient reports difficulty moving her bowels as she has intense pain in her perirectal region which is not relieved with bowel movement. She denies rectal bleeding, vaginal bleeding, hematuria. No recent travel or sick contacts. PAST MEDICAL HISTORY: See HPI SURGICAL HISTORY: See HPI ALLERGIES: Biaxin, Levaquin, azithromycin REVIEW OF SYSTEMS General/Constitutional: Denies fever or chills. Denies weakness, weight change. HEENT: Denies change in vision. Denies ear pain or discharge. Denies sore throat. Cardiovascular: Denies chest pain or shortness of breath. Respiratory: Denies cough, wheezing, or hemoptysis. Gastrointestinal: See HPI Genitourinary: Denies dysuria, frequency, or change in urination. Musculoskeletal: Denies joint or muscle swelling or pain. Denies neck or back pain. Skin and breasts: Denies rash or easy bruising. Neurologic: Denies headache, vertigo, loss of consciousness, or loss of sensation. Psychiatric: Denies depression or anxiety. Endocrine: Denies increased thirst. Denies abnormal weight change. Hematologic/Lymphatic: Denies anemia, easy bleeding, or history of blood clots. Allergic/Immunologic: Denies hives or skin allergy. Denies latex allergy. PHYSICAL EXAM General Appearance: Well-appearing, appropriately dressed. No apparent distress , no intoxication. HEENT: EOMI, PERRLA, normal ENT inspection, normal voice, TMs normal, pharynx normal. No conjunctival pallor. No photophobia, scleral icterus. Neck: Supple. Trachea midline. No tenderness, rigidity, carotid bruit, stridor , lymphadenopathy, or thyromegaly. Respiratory/Chest: Lungs CTAB. No shortness of breath, chest tenderness, respiratory distress, accessory muscle use. No crackles, rales, rhonchi, stridor , wheezing, dullness Cardiovascular: RRR. S1, S2. No JVD, murmur, bradycardia, tachycardia. Vascular Pulses: Dorsalis-Pedis (R): 2+, Dorsalis-Pedis (L): 2+ Gastrointestinal/Abdominal: Normal bowel sounds. Abdomen soft, non-distended. Diffuse abdominal tenderness with guarding. No rebound tenderness. No organomegaly, pulsatile mass, hernia, hepatomegaly, splenomegaly. Lymphatic: No adenopathy, tenderness. Musculoskeletal/Extremities: Normal inspection. FROM of all extremities, normal capillary refill. Pelvis Stable. Left CVA tenderness. No tenderness to extremities, pedal edema, swelling, erythema or deformity. Integumentary: Appropriate color, dry, warm. 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 Fully oriented, alert. Appropriate mood/affect. Motor strength 5/5. No appreciable EOM palsy, facial droop or sensory deficit. 09/04/19 11:04 Past History - Past Medical History Allergies/Adverse Reactions: Allergies Allergy/AdvReac Type Severity Reaction Status Date / Time clarithromycin [From Biaxin] Allergy Verified 06/05/19 10:46 levofloxacin [From Levaquin] Allergy Verified 06/05/19 10:46 Home Medications: Ambulatory Orders Albuterol Sulfate Inhaler - [Ventolin HFA Inhaler -] 1 puff IH Q4H PRN 07/15/17 Budesonide/Formeterol Fumarate [SYMBICORT 160/4.5mcg -] 2 inh PO BID 07/15/17 Levothyroxine [Synthroid -] 125 mcg PO DAILY 09/02/19 Montelukast Sodium [Singulair] 10 mg PO HS 09/02/19 Asthma: Yes COPD: No DVT: No - Surgical History Cholecystectomy: Yes - Reproductive History Therapeutic (s) & number: No - Immunization History Immunization Up to Date: Yes - Psycho Social/Smoking Cessation Hx Smoking History: Never smoked Have you smoked in the past 12 months: No Number of Cigarettes Smoked Daily: 2 Information on smoking cessation initiated: No 'Breaking Loose' booklet given: 01/22/18 Hx Alcohol Use: No Drug/Substance Use Hx: No Substance Use Type: None Abd/GI Specific PMHX - Complaint Specific PMHX Gall Bladder Disease: Yes *Physical Exam - Vital Signs Last Vital Signs Temp Pulse Resp BP Pulse Ox 98.2 F 119 H 16 127/73 96 09/01/19 17:48 09/01/19 17:48 09/01/19 17:48 09/01/19 17:48 09/01/19 17:48 - Physical Exam Comments:: 09/02/19 04:38 RN Peter 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 Female Pelvic Exam: positive: normal external exam, cervical os closed, CMT, discharge (malodorous thick yellow), adnexal tenderness (bilateral) ED Treatment Course - LABORATORY CBC & Chemistry Diagram: 09/03/19 06:30 09/03/19 06:30 - RADIOLOGY Radiology Studies Ordered: Category Date Time Status ABDOMEN & PELVIS CT WITH CONTR [CT] Stat CT Scan 09/01/19 21:18 Ordered Medical Decision Making - Medical Decision Making 09/01/19 21:23 A/P: 38-year-old woman with 2 days of chills and diffuse abdominal pain now with dysuria Differential diagnosis includes but is not limited to pyelonephritis, renal calculi, influenza, viral gastroenteritis, perforation, obstruction, appendicitis Labs including blood cultures and lactate Urine culture, urinalysis, urine Influenza testing Normal saline 1 L IV bolus Tylenol 1 g IV Zofran [address] of the abdomen and pelvis with IV contrast Reassess 09/02/19 04:23 Case has been discussed with Dr. Cordero the on-call bench molder apprentice who recommends the patient be treated as an outpatient as patient has a mildly elevated WBC count. She recommends doxycycline and Augmentin for outpatient treatment and have patient follow-up with her bench molder apprentice for reevaluation. 09/02/19 04:36 I discussed this case with Dr. flores the attending physician in the emergency department. I will get a transvaginal ultrasound prior to disposition. 09/02/19 07:20 Patient signed out to FREDDY Soriano. Discharge - Discharge Information Problems reviewed: Yes Clinical Impression/Diagnosis: PID (acute pelvic inflammatory disease), Pyosalpinx - Follow up/Referral - Patient Discharge Instructions - Post Discharge Activity
[2019-09-01] MEDS ORDERED: ACETAMINOPHEN INJECTION 100 ML IVPB ONE (21:42)
[2019-09-01] MEDS ORDERED: ONDANSETRON 4 MG/2 ML VIAL ONE (21:42)
[2019-09-01 22:31] LABS: BASO % 0.1 % (0-2.0); HEMATOCRIT 36.5 % (32.4-45.2); HEMOGLOBIN 12.7 GM/dL (10.7-15.3); MCH 33.9 pg (25.7-33.7); MCHC 34.7 g/dl (32.0-36.0); MEAN CELL VOLUME 97.7 fl (80-96); MEAN PLT VOLUME 8.4 fl (7.5-11.1); MONO % 4.2 % (3.8-10.2); NEUT % 89.7 % (42.8-82.8); PLATELET COUNT 237 K/MM3 (134-434); RBC 3.73 M/mm3 (3.60-5.2); RDW 15.1 % (11.6-15.6); WHITE BLOOD COUNT 10.7 K/mm3 (4.0-10.0)
[2019-09-01 23:06] LABS: ALBUMIN 3.2 g/dl (3.4-5.0); BILIRUBIN,TOTAL 1.3 mg/dL (0.2-1); BLOOD UREA NITROGEN 19.1 mg/dL (7-18); CALCIUM 8.4 mg/dL (8.5-10.1); CREATININE 1.1 mg/dL (0.55-1.3); MAGNESIUM 1.8 mg/dL (1.8-2.4); POTASSIUM 4.7 mmol/L (3.5-5.1); TOT PROT 7.3 g/dl (6.4-8.2)
[2019-09-02] MEDS ORDERED: morphine CARPU-JECT 4 MG/1 ML DISP.SYRIN IVPUSH ONE ×2 (03:21→11:35)
[2019-09-02] MEDS ORDERED: morphine SULFATE 4 MG/ML VIAL ONE ×2 (03:35→12:38)
[2019-09-02] MEDS ORDERED: DOXYCYCLINE INJECTION 100 MG in DEXTROSE 5%-WATER - 100 ML IVPB ONE (04:07)
[2019-09-02] MEDS ORDERED: CEFTRIAXONE 1,000 MG in DEXTROSE 5%-WATER - 50 ML IVPB ONE (04:39)
[2019-09-02] MEDS ORDERED: CEFTRIAXONE 1 GM/50 ML BAG ONE (05:47)
--- NOTE | 2019-09-02 07:37 | PDOC ---
*Physical Exam - Vital Signs Last Vital Signs Temp Pulse Resp BP Pulse Ox 98.2 F 119 H 16 127/73 96 09/01/19 17:48 09/01/19 17:48 09/01/19 17:48 09/01/19 17:48 09/01/19 17:48 - Physical Exam 09/02/19 07:37 Sign-out received from outgoing ER provider Christiano. Pt interviewed and examined. Ancillary studies reviewed. Given level of pain, US was ordered for further evaluation. Pending US 09/02/19 11:52 US results reveal dilated tubular structures to R and L adnexa with internal echoes suggestive of b/l pyosalpinx. Discussed case with on-call ELECTRONICS ENGINEERING TECHNICIAN Dr. Saldivar who recommends discussing with overnight on-call ELECTRONICS ENGINEERING TECHNICIAN Gil for change of care plan. Dr. Jodi cuellar, awaiting callback. Unable to reach Dr Cordero. 09/02/19 14:56 Patient admitted to med/surg under Dr. Saldivar. ED Treatment Course - LABORATORY CBC & Chemistry Diagram: 09/01/19 22:00 09/01/19 22:00 - ADDITIONAL ORDERS Additional order review: Laboratory Results 09/02/19 09/01/19 09/01/19 04:05 22:00 22:00 Sodium Potassium Chloride Carbon Dioxide Anion Gap BUN Creatinine Est GFR (CKD-EPI)AfAm Est GFR (CKD-EPI)NonAf Random Glucose Lactic Acid 1.6 Calcium Magnesium 1.8 Total Bilirubin AST ALT Alkaline Phosphatase Total Protein Albumin Lipase 20 L Urine HCG, Qual Negative 09/01/19 22:00 Sodium 134 L Potassium 4.7 Chloride 106 Carbon Dioxide 21 Anion Gap 6 L BUN 19.1 H Creatinine 1.1 Est GFR (CKD-EPI)AfAm 73.76 Est GFR (CKD-EPI)NonAf 63.64 Random Glucose 100 Lactic Acid Calcium 8.4 L Magnesium Total Bilirubin 1.3 H AST 41 H ALT 16 Alkaline Phosphatase 68 Total Protein 7.3 Albumin 3.2 L Lipase Urine HCG, Qual 09/01/19 22:00 RBC 3.73 MCV 97.7 H MCHC 34.7 RDW 15.1 MPV 8.4 Neutrophils % 89.7 H Lymphocytes % 6.0 L Monocytes % 4.2 Eosinophils % 0.0 Basophils % 0.1 - Medications Given in the ED: ED Medications Discontinued Medications Generic Name Dose Route Start Last Admin Trade Name Radha PRN Reason Stop Dose Admin Acetaminophen 1,000 mg 09/01/19 21:19 09/01/19 22:07 Ofirmev Injection - IVPB 09/01/19 21:20 1,000 mg ONCE ONE Administration Sodium Chloride 1,000 mls @ 1,000 mls/hr 09/01/19 17:50 09/01/19 22:07 Normal Saline - IV 09/01/19 18:49 1,000 mls/hr ASDIR STA Administration Doxycycline Hyclate 100 mg/ 100 mls @ 100 mls/hr 09/02/19 04:07 09/02/19 04: 47 Dextrose IVPB 09/02/19 05:06 100 mls/hr ONCE ONE Administration Ceftriaxone Sodium 1,000 mg/ 50 mls @ 100 mls/hr 09/02/19 04:39 09/02/19 05: 55 Dextrose IVPB 09/02/19 05:08 100 mls/hr ONCE ONE Administration Morphine Sulfate 4 mg 09/02/19 03:21 09/02/19 03:57 Morphine Injection - IVPUSH 09/02/19 03:22 4 mg ONCE ONE Administration Ondansetron HCl 4 mg 09/01/19 17:50 09/01/19 22:07 Zofran Injection IVPUSH 09/01/19 17:51 4 mg ONCE ONE Administration Discharge - Discharge Information Problems reviewed: Yes Clinical Impression/Diagnosis: PID (acute pelvic inflammatory disease), Pyosalpinx - Admission Yes - Follow up/Referral Referrals: Kiko Diez MD [Primary Care Provider] - - Patient Discharge Instructions - Post Discharge Activity
[2019-09-02 10:20] LABS: EPI CELLS 5.1 /HPF (0-5/HPF); HYALINE CASTS 250 /lpf (0-8); PH,URINE 5.5 (5.0-8.0); URINE APPEARANCE CLEAR; URINE BACTERIA 300.6 /hpf (NEGATIVE); URINE BILIRUBIN NEGATIVE (NEGATIVE); URINE COLOR Orange; URINE GLUCOSE (UA) NEGATIVE (NEGATIVE); URINE KETONE NEGATIVE (NEGATIVE); URINE LEUK ESTERASE Negative (NEGATIVE); URINE NITRITE NEGATIVE (NEGATIVE); URINE PROTEIN 2+ (NEGATIVE); URINE UROBILINOGEN 0.2 mg/dL (0.2-1.0)
[2019-09-02] MEDS ORDERED: ONDANSETRON 4 MG/2 ML VIAL IVPUSH ONE (12:43)
[2019-09-02] MEDS ORDERED: ONDANSETRON 4 MG/2 ML VIAL ONE (12:46)
--- NOTE | 2019-09-02 12:57 | HP ---
Admitting History and Physical - Primary Care Physician PCP: Stevie Saldivar - Admission Chief Complaint: Severe abdominal pain associated with nause and vomiting History of Present Illness: Patient reports intractable nausea and vomiting for 2 days associated with worsening generalized abdominal pain. Patient was sleeping in her bed when room was entered. She denies foul smelling, purulent vaginal discharge but reports starting her menses today. She denies any recent sick contacts, diarrhea, and fever. 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 She reports that her menses are heavy and with severe cramping, but her pain now is completely different. She is sexually active with 1 partner for the last year not using any contraception. 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: Alzheimer's, CVA, Dementia, Migraine, Multiple Sclerosis, Peripheral Neuropathy, Parkinson's, Seizure, Syncope, TIA, Vertigo, Other Cardiovascular: No: AFIB, Aneurysm, Aortic Insufficiency, Aortic Stenosis, CAD, CHF, Deep Vein Thrombosis, HTN, Hyperlipdemia, NM, Mitral Insufficiency, Mitral Stenosis, Murmur, Pulmonary Hypertension, Other Pulmonary: Yes: Asthma Gastrointestinal: Yes: Constipation, GERD Hepatobiliary: No: Cirrhosis, Cholelithiasis, Cholecystitis, Choledocholithiasis , Hepatitis A, Hepatitis B, Hepatitis C, Other Renal/: No: Renal Failure, Renal Inusuff, BPH, Cancer, Hematuria, Hemodialysis , Neurogenic Bladder, Renal Calculi, UTI, Other Reproductive: No: Ectopic , Endometriosis, Fibroids, PID, Polycystic Ovary Syndrome, Postmenopausal, Other ...LMP: 07/08/17 (finishing now) ...: No Heme/Onc: No: Anemia, B12 Deficiency, Bleeding Disorder, Cancer, Current Chemotherapy, Current Radiation Therapy, Hemochromatosis, Hypercoaguable State, Myeloproliferative Synd, Sickle Cell Disease, Sickle Cell Trait, Thrombocytopenia, Other Infectious Disease: No: AIDS, C-Diff, Herpes Zoster, HIV, MRSA, STD's, Tuberculosis, VREF, Other Psych: Yes: Bipolar (not taking her Topamax for several months now). No: Addictions, Anxiety, Depression, Panic, Psychosis, Schizophrenia, Other Musculoskeletal: Yes: Chronic low back pain, Other (herniated discs) Rheumatology: No: Fibromyalgia, Gout, Lupus, Rheumatoid Arthritis, Sarcoidosis, Vasculitis, Other ENT: No: Allergic Rhinitis, Sinusitis, Other Endocrine: No: Ventura's Disease, James's Disease, Diabetes Insipidus, Diabetes Mellitus, Hyperparathyroidism, Hyperthyroidism, Hypothyroidism, Osteopenia, SIADH, Other Dermatology: No: Basal Cell, Cellulitis, Eczema, Melanoma, Psoriasis, Squamous Cell, Other - Past Surgical History Past Surgical History: Yes: Cholecystectomy - Smoking History Smoking history: Never smoked Have you smoked in the past 12 months: No Aproximately how many cigarettes per day: 2 - Alcohol/Substance Use Hx Alcohol Use: No History of Substance Use: reports: None - Social History ADL: Independent Home Medications - Allergies Allergies/Adverse Reactions: Allergies Allergy/AdvReac Type Severity Reaction Status Date / Time clarithromycin [From Biaxin] Allergy Verified 06/05/19 10:46 levofloxacin [From Levaquin] Allergy Verified 06/05/19 10:46 - Home Medications Home Medications: Ambulatory Orders Albuterol Sulfate Inhaler - [Ventolin HFA Inhaler -] 1 puff IH Q4H PRN 07/15/17 Budesonide/Formeterol Fumarate [SYMBICORT 160/4.5mcg -] 2 inh PO BID 07/15/17 Levothyroxine [Synthroid -] 125 mcg PO DAILY 09/02/19 Montelukast Sodium [Singulair] 10 mg PO HS 09/02/19 Review of Systems - Review of Systems Constitutional: reports: Loss of Appetite Eyes: reports: No Symptoms HENT: reports: No Symptoms Neck: reports: No Symptoms Cardiovascular: reports: No Symptoms Respiratory: reports: No Symptoms Gastrointestinal: reports: Abdominal Pain, Constipation, Nausea, Vomiting Genitourinary: reports: Menses, Other (pelvic pain) Breasts: denies: No Symptoms Reported, See HPI, Breast Implants, Discharge from Nipple, Lumps, Pain, Skin Changes, Other Musculoskeletal: denies: No Symptoms, Back Pain, Crepitus, Decreased ROM, Extremity Pain, Joint Pain, Joint Swelling, Muscle Pain, Muscle Cramps, Muscle Weakness, Other Integumentary: denies: No Symptoms, Blister, Bruising, Change in Color, Eczema, Erythema, Incision, Lesions, Lump, Pallor, Pruritis, Rash, Wound, Other Neurological: denies: No Symptoms, Change in LOC, Change in Speech, Confusion, Dizziness, Headache, Incoordination, Numbness, Parasthesia, Pre-Existing Deficit , Seizure, Syncope, Tremors, Unsteady Gait, Weakness, Other Endocrine: denies: No Symptoms, Excessive Sweating, Flushing, Increased Hunger, Increased Thirst, Intolerance to Cold, Intolerance to Heat, Unexplained Weight Gain, Unexplained Weight Loss, Other Hematology/Lymphatic: denies: No Symptoms, Easily Bruised, Excessive Bleeding, Swollen Glands, Other Psychiatric: denies: No Symptoms, Altered Sleep Pattern, Anxiety, Depression, Hallucinations, Panic, Paranoia, Suicidal, Other Physical Examination Vital Signs: Vital Signs Temperature 98.3 F 09/02/19 07:40 Pulse Rate 98 H 09/02/19 07:40 Respiratory Rate 09/02/19 07:40 Blood Pressure 98/60 09/02/19 07:40 O2 Sat by Pulse Oximetry (%) 96 09/02/19 07:40 Constitutional: Yes: Well Nourished Eyes: Yes: WNL HENT: Yes: Atraumatic, Normocephalic Neck: Yes: Supple Cardiovascular: Yes: Regular Rate and Rhythm Respiratory: Yes: Regular Gastrointestinal: Yes: Soft, Tenderness, Epigastrium, Other (tenderness on palpation in lower abdomen) ...Rectal Exam: Yes: Other Renal/: Yes: Other (exquisite CMT and LLQ/RLQ tenderness, scant foul smelling lochia, no palapble adnexal masses.) Breast(s): Yes: Other (deferred) Musculoskeletal: Yes: WNL Extremities: Yes: WNL Edema: No Neurological: Yes: Alert, Oriented Psychiatric: Yes: Alert, Oriented Labs: CBC, BMP 09/01/19 22:00 09/01/19 22:00 Imaging - Results Cat Scan: Report Reviewed Ultrasound: Report Reviewed Assessment/Plan 38 y/o admitted for suspected PID with severe abdominal pain and intractable nausea and vomiting, afebrile, mild leukocytosis. Dilated follopian tube on US imaging. CT abdomen reviewed and patient has been consulted by GI service as well. -Admit -IV Abx -Pain control -F/U vaginal/cervical swabs -Patient will be signed out to [facility] service provider for continuity of care
[2019-09-02] MEDS ORDERED: LEVOTHYROXINE NA 125 MCG TABLET (FP) PO ONE (13:12)
[2019-09-02] MEDS: ACETAMINOPHEN 1000 MG/100 ML VIAL (NON FORMULARY) IVPB SCH ×2 (15:00→20:10)
[2019-09-02] MEDS ORDERED: ACETAMINOPHEN INJECTION 100 ML IVPB ONE ×2 (15:04→20:04)
[2019-09-02] MEDS ORDERED: LEVOTHYROXINE NA 25 MCG TABLET (FP) ONE (17:51)
[2019-09-02] MEDS: SODIUM CHLORIDE 1,000 ML IV SCH (18:19)
[2019-09-02] MEDS: CEFOTETAN DISODIUM 2 GM in DEXTROSE 5%-WATER 100 ML IVPB SCH (18:19)
[2019-09-02] MEDS ORDERED: KETOROLAC TROMETHAMINE 30 MG/1 ML VIAL ONE (18:21)
[2019-09-02] MEDS: KETOROLAC TROMETHAMINE 30 MG/1 ML VIAL IVPUSH SCH (18:30)
[2019-09-03] MEDS ORDERED: DEXTROSE 5%-WATER 100 ML IVPB ONE ×3 (00:31→20:50)
[2019-09-03] MEDS ORDERED: DOXYCYCLINE HYCLATE 100 MG VIAL ONE ×3 (00:31→20:50)
[2019-09-03] MEDS: DOXYCYCLINE INJECTION 100 MG in DEXTROSE 5%-WATER 100 ML IVPB SCH ×3 (00:33→21:42)
[2019-09-03 01:14] VITALS: BMI 34.9
[2019-09-03] MEDS: KETOROLAC TROMETHAMINE 30 MG/1 ML VIAL IVPUSH SCH ×3 (01:14→17:28)
[2019-09-03] MEDS: ACETAMINOPHEN 1000 MG/100 ML VIAL (NON FORMULARY) IVPB SCH ×4 (04:11→20:03)
[2019-09-03] MEDS: CEFOTETAN DISODIUM 2 GM in DEXTROSE 5%-WATER 100 ML IVPB SCH (05:34)
[2019-09-03 07:50] LABS: BASO % 0.1 % (0-2.0); EOS % 0.4 % (0-4.5); HEMATOCRIT 30.5 % (32.4-45.2); HEMOGLOBIN 10.3 GM/dL (10.7-15.3); LYMPH % 5.6 % (8-40); MCH 33.1 pg (25.7-33.7); MCHC 33.6 g/dl (32.0-36.0); MEAN CELL VOLUME 98.3 fl (80-96); MEAN PLT VOLUME 8.6 fl (7.5-11.1); MONO % 3.4 % (3.8-10.2); NEUT % 90.5 % (42.8-82.8); PLATELET COUNT 204 K/MM3 (134-434); RDW 15.1 % (11.6-15.6); WHITE BLOOD COUNT 11.4 K/mm3 (4.0-10.0)
[2019-09-03 08:02] LABS: ALBUMIN 2.3 g/dl (3.4-5.0); BILIRUBIN,TOTAL 0.5 mg/dL (0.2-1); CALCIUM 7.7 mg/dL (8.5-10.1); CREATININE 1.6 mg/dL (0.55-1.3); POTASSIUM 3.3 mmol/L (3.5-5.1); TOT PROT 5.7 g/dl (6.4-8.2)
--- NOTE | 2019-09-03 08:05 | PN ---
Progress Note, Physician Chief Complaint: Abdominal Pain History of Present Illness: 38yo F w/uterine fibroids here with N/V/, abdominal pain. Being treated for PID - Current Medication List Current Medications: Active Medications Acetaminophen (Ofirmev Injection -) 1,000 mg IVPB Q8H [facility] Last Admin: 09/03/19 04:11 Dose: 1,000 mg Doxycycline Hyclate 100 mg/ (Dextrose) 100 mls @ 100 mls/hr IVPB BID [facility] Last Admin: 09/03/19 00:33 Dose: 100 mls/hr Cefotetan Disodium 2 gm/ (Dextrose) 100 mls @ 100 mls/hr IVPB Q12H [facility]; Protocol Sodium Chloride (Normal Saline -) 1,000 mls @ 125 mls/hr IV ASDIR [facility] Last Admin: 09/02/19 18:19 Dose: 125 mls/hr Ketorolac Tromethamine (Toradol Injection -) 30 mg IVPUSH Q8H-IV JULIANO Stop: 09/07/19 17:59 Last Admin: 09/03/19 01:14 Dose: 30 mg Ondansetron HCl (Zofran Injection) 4 mg IVPUSH Q4H PRN PRN Reason: NAUSEA AND/OR VOMITING - Objective Vital Signs: Vital Signs Temperature 98.6 F 09/03/19 05:50 Pulse Rate 95 H 09/03/19 05:50 Respiratory Rate 20 09/03/19 05:50 Blood Pressure 100/68 09/03/19 05:50 O2 Sat by Pulse Oximetry (%) 95 09/03/19 00:48 Constitutional: Yes: Well Nourished, No Distress Gastrointestinal: Yes: Abdomen, Obese, Tenderness (diffuse tenderness, voluntary guarding; no rebound) Edema: No Psychiatric: Yes: WNL - ....Imaging Cat Scan: Report Reviewed Ultrasound: Report Reviewed Assessment/Plan 38yo F here with N/V and abdominal pain, imaging notable for hydrosalpinx, being treated for presumed PID Patient seen and examined, abdomen stretching machine tender frame. Labs pending for AM Cultures done in ER, pending still On Doxy/Cefotan- will need x 48 hours and then if able to tolerate po transition to po PID course x 2 weeks Sonogram reviewed, large uterine fibroid uterus (4 large 5cm fibroids). Pt has known history of fibroids, but no imaging in house for comparison. 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 Holding Narcotics (denies history, despite previous records stating she used them for Chronic back pain from herniated disc, states it was only Tramadol...) CT report reviewed, enteritis, if no improvement in pain despite PID antibiotics , may need GI referral. 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 Please call the current gas station operator [facility] provider for any questions/status updates Richard Dowd MD
[2019-09-03 09:28] LABS: ANISOCYTOSIS 0; MACROCYTOSIS 0; PLATELET ESTIMATE NORMAL
--- NOTE | 2019-09-03 11:55 | EKG ---
Test Reason : Blood Pressure : / mmHG Vent. Rate : 098 BPM Atrial Rate : 098 BPM P-R Int : 128 ms QRS Dur : 102 ms QT Int : 346 ms P-R-T Axes : 029 023 010 degrees QTc Int : 441 ms NORMAL SINUS RHYTHM NONSPECIFIC T WAVE ABNORMALITY ABNORMAL ECG WHEN COMPARED WITH ECG OF 21-JUL-2017 15:08, NO SIGNIFICANT CHANGE WAS FOUND Confirmed by MICHAEL HARTMANN MD ([id number]) on 09/03/2019 11:55:11 AM Referred By: Confirmed By:MICHAEL HARTMANN MD
[2019-09-03] MEDS: ONDANSETRON 4 MG/2 ML VIAL IVPUSH PRN ×2 (14:07→20:27)
[2019-09-03] MEDS: SODIUM CHLORIDE 1,000 ML IV SCH (14:07)
[2019-09-04] MEDS: ALBUTEROL SO4 0.083% IH SOL 2.5 MG/3 ML VIAL.NEB. NEB PRN ×4 (00:31→19:41)
[2019-09-04] MEDS: ONDANSETRON 4 MG/2 ML VIAL IVPUSH PRN ×4 (01:07→22:25)
[2019-09-04] MEDS: KETOROLAC TROMETHAMINE 30 MG/1 ML VIAL IVPUSH SCH ×3 (02:19→17:13)
[2019-09-04] MEDS: ACETAMINOPHEN 1000 MG/100 ML VIAL (NON FORMULARY) IVPB SCH ×2 (05:00→11:48)
[2019-09-04] MEDS ORDERED: CEFOTETAN DISODIUM 2 GM in DEXTROSE 5%-WATER 100 ML IVPB ONE (06:00)
[2019-09-04] MEDS ORDERED: DEXTROSE 5%-WATER 100 ML IVPB ONE ×3 (09:03→19:48)
[2019-09-04] MEDS ORDERED: DOXYCYCLINE HYCLATE 100 MG VIAL ONE ×2 (09:03→19:47)
[2019-09-04] MEDS: DOXYCYCLINE INJECTION 100 MG in DEXTROSE 5%-WATER 100 ML IVPB SCH ×2 (09:31→21:18)
[2019-09-04] MEDS: BUDESONIDE/FORMETEROL FUMARATE 160/4.5 mcg INHALER IH SCH ×3 (09:32→21:17)
[2019-09-04] MEDS: SODIUM CHLORIDE 1,000 ML IV SCH ×3 (09:33→17:21)
--- NOTE | 2019-09-04 12:01 | PN ---
Progress Note (SOAP) - Subjective Chief Complaint: c/o pain, abdominal jelani 7/10 bleeding less, period ending nausea loose BM pt states she is unable to breathe \h/o Br Asthma - Current Medications Current Medications: Active Medications Acetaminophen (Ofirmev Injection -) 1,000 mg IVPB Q8H [facility] OF [facility] Stop: 09/04/19 20:01 Last Admin: 09/04/19 11:48 Dose: 1,000 mg Albuterol Sulfate (Ventolin 0.083% Nebulizer Soln -) 1 amp NEB Q4H PRN PRN Reason: SHORT OF BREATH/WHEEZING Budesonide/Formoterol Fumarate (Symbicort 160/4.5mcg -) 2 puff IH BID ON LICENSE OF [facility] Last Admin: 09/04/19 09:32 Dose: 2 puff Doxycycline Hyclate 100 mg/ (Dextrose) 100 mls @ 100 mls/hr IVPB BID ON LICENSE OF [facility] Last Admin: 09/04/19 09:31 Dose: 100 mls/hr Cefotetan Disodium 2 gm/ (Dextrose) 100 mls @ 100 mls/hr IVPB Q12H ON LICENSE OF [facility]; Protocol Sodium Chloride (Normal Saline -) 1,000 mls @ 125 mls/hr IV ASDIR JULIAN[facility] Last Admin: 09/04/19 09:33 Dose: 125 mls/hr Ketorolac Tromethamine (Toradol Injection -) 30 mg IVPUSH Q8H-IV JULIAN[facility] Stop: 09/07/19 17:59 Last Admin: 09/04/19 09:31 Dose: 30 mg Ondansetron HCl (Zofran Injection) 4 mg IVPUSH Q4H PRN PRN Reason: NAUSEA AND/OR VOMITING Last Admin: 09/04/19 07:56 Dose: 4 mg - Objective Vital Signs: Vital Signs Temperature 97.6 F 09/04/19 10:00 Pulse Rate 100 H 09/04/19 10:00 Respiratory Rate 20 09/04/19 10:00 Blood Pressure 114/65 09/04/19 10:00 O2 Sat by Pulse Oximetry (%) 96 09/04/19 09:00 Constitutional: Yes: Anxious, Obese HENT: Yes: Normocephalic Cardiovascular: Yes: WNL, Regular Rate and Rhythm Respiratory: Yes: CTA Bilaterally, Wheezes Gastrointestinal: Yes: Normal Bowel Sounds, Abdomen, Obese, Other (c/o nausea ) . No: Distention ...Rectal Exam: Yes: Deferred Genitourinary: Yes: Vaginal Bleeding (period ). No: CVA Tenderness - Left, CVA Tenderness - Right Breast(s): Yes: Other (not examined ) Musculoskeletal: Yes: WNL Extremities: Yes: WNL. No: Calf Tenderness Edema: No Neurological: Yes: WNL ...Motor Strength: Yes: WNL Psychiatric: Yes: WNL Additional Findings/Remarks: abd distended , mass palpable p/a fibroid uterus , tender Labs Lab Results: CBCD WBC 11.4 K/mm3 (4.0-10.0) H 09/03/19 06:30 RBC 3.10 M/mm3 (3.60-5.2) L 09/03/19 06:30 Hgb 10.3 GM/dL (10.7-15.3) L 09/03/19 06:30 Hct 30.5 % (32.4-45.2) L D 09/03/19 06:30 MCV 98.3 fl (80-96) H 09/03/19 06:30 MCHC 33.6 g/dl (32.0-36.0) 09/03/19 06:30 RDW 15.1 % (11.6-15.6) 09/03/19 06:30 Plt Count 204 K/MM3 (134-434) 09/03/19 06:30 MPV 8.6 fl (7.5-11.1) 09/03/19 06:30 CMP Sodium 138 mmol/L (136-145) 09/03/19 06:30 Potassium 3.3 mmol/L (3.5-5.1) L 09/03/19 06:30 Chloride 108 mmol/L (98-107) H 09/03/19 06:30 Carbon Dioxide 22 mmol/L (21-32) 09/03/19 06:30 Anion Gap 8 MMOL/L (8-16) 09/03/19 06:30 BUN 24.0 mg/dL (7-18) H 09/03/19 06:30 Creatinine 1.6 mg/dL (0.55-1.3) H 09/03/19 06:30 Random Glucose 95 mg/dL (74-106) 01/16/20 06:30 Calcium 7.7 mg/dL (8.5-10.1) L 09/03/19 06:30 Total Bilirubin 0.5 mg/dL (0.2-1) 09/03/19 06:30 AST 14 U/L (15-37) L 09/03/19 06:30 ALT 11 U/L (13-61) L 09/03/19 06:30 Alkaline Phosphatase 89 U/L (45-117) 09/03/19 06:30 Total Protein 5.7 g/dl (6.4-8.2) L 09/03/19 06:30 Albumin 2.3 g/dl (3.4-5.0) L 09/03/19 06:30 Laboratory Tests 09/03/19 06:30 TSH 53.90 H Assessment/Plan 38 yrs admitted for abd pain , fibroid uterus , tender, completing the period menstural still nauseous pt states she has diarrhea, whether it is due to antibiotics or gastroeneritis unable to say case discussed with Dr Duran, he will send stool sample for testing pt was not receiving iv cefotetan , due to pending ID clearance TSH 53, . Endocrine consult is pending pt c/o sob, h/o asthma Medical consult with Hospitalist requested . In my opinion , i doubt about PID, . possible pain due to fibroid degenration . d/c iv toradol po codeine prn for pain .
--- NOTE | 2019-09-04 12:03 | PN ---
Progress Note (short form) - Note Progress Note: ID CONSULT DICTATED PID R/O TOA DIARRHEA EMPIRIC CEFTRIAXONE/ DOXYCYCLINE STOOL STUDIES DECLINES HIV TESTING
[2019-09-04] MEDS: CEFOTETAN DISODIUM 2 GM in DEXTROSE 5%-WATER 100 ML IVPB SCH (12:44)
[2019-09-04] MEDS: CEFTRIAXONE 2 GM in DEXTROSE 5%-WATER 100 ML IVPB SCH (12:53)
--- NOTE | 2019-09-04 13:02 | CONS ---
INFECTIOUS DISEASE CONSULTATION DATE OF CONSULTATION: DATE OF DICTATION: 09/04/2019 HISTORY OF PRESENT ILLNESS: The patient is a 38-year-old, female who is evaluated for pelvic inflammatory disease. She was admitted to the hospital on September 02, 2019, with onset of chills, nausea, vomiting, and diarrhea. She presented to the emergency room, where a CAT scan of the abdomen and pelvis was performed. She was noted to have a fibroid uterus and changes consistent with bilateral pyosalpinx. She was empirically treated with cefotetan and doxycycline for PID. Her course has been complicated by continued nausea and continuous diarrhea. She denies any vaginal discharge. The diarrhea is described as loose, watery, nonbloody. She has lower abdominal discomfort. The patient is sexually active with one partner. She reports that her partner is asymptomatic. 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 She declines being retested. She denies prior history of pelvic inflammatory disease. PAST MEDICAL HISTORY: As above. PAST SURGICAL HISTORY: Status post cholecystectomy. ALLERGIES: LEVAQUIN; CLARITHROMYCIN; ZITHROMAX. Patient reports a rash with ZITHROMAX, cold sores with CLARITHROMYCIN. LABORATORY DATA: White count 11.4, hematocrit 30.5, platelets 204. Creatinine 1.6. Urine leukocyte esterase negative. Urine test negative. Urine culture: Normal yessi. Blood cultures are pending. Influenza swab negative. Gonorrhea and chlamydia PCR negative. PHYSICAL EXAMINATION: General: On exam, she is in moderate distress, secondary to lower abdominal discomfort and loose bowel movements. Vital Signs: T-maximum 99.0, blood pressure 122/76, pulse 96 regular, respirations 20 per minute. Eyes: Sclerae are anicteric. Heart: Heart sounds S1, S2. Lungs: Clear. Abdomen: Soft. Positive bilateral lower quadrant abdominal tenderness. Extremities: Negative for edema. IMPRESSION: 1. Pelvic inflammatory disease. 2. Rule out tubo-ovarian abscess. 3. Diarrhea. Likely antibiotic induced. At the present time, patient denies any vaginal discharge. Will obtain blood cultures and empiric antibiotic coverage for PID with and doxycycline. Obtain stool studies. MESSAGING ARCHITECT followup. Patient declines HIV testing. Thank you for the kind referral. VENKAT CADENA M.D. MARIA [id number]
--- NOTE | 2019-09-04 13:45 | CONSULT ---
Consultation: CONSULT REQUEST: We have been asked to medically evaluate this patient for shortness of breath. HISTORY OF PRESENT ILLNESS: 38 F h/o morbid obesity, asthma (never intubated), anxiety, depression, bipolar disorder, hypothryoidism admitted for PID on Ceftriaxone/Doxycycline, hospitalist service consulted to evaluate patient's complaints of shortness of breath. Patient endorses worsening SOB and dyspnea since 2-3 days. Endorses each time she attempts to take a deep breath she feels lower pelvic pain, which has markedly decreased her ability to take in deep breaths and cough. Patient also endorses significant pain when coughing or sneezing as well. Denies productive sputum. Denies subjective fever or chills currently. REVIEW OF SYSTEMS: CONSTITUTIONAL: Absent: fever, chills, diaphoresis, generalized weakness, malaise, loss of appetite, weight change HEENT: Absent: rhinorrhea, nasal congestion, throat pain, throat swelling, difficulty swallowing, mouth swelling, ear pain, eye pain, visual changes CARDIOVASCULAR: Absent: chest pain, syncope, palpitations, irregular heart rate, lightheadedness , peripheral edema RESPIRATORY: Absent: cough, shortness of breath, dyspnea with exertion, orthopnea, wheezing, stridor, hemoptysis GASTROINTESTINAL: endorses abdominal pain, pelvic pain, diarrhea GENITOURINARY: Absent: dysuria, frequency, urgency, hesitancy, hematuria, flank pain, genital pain MUSCULOSKELETAL: Absent: myalgia, arthralgia, joint swelling, back pain, neck pain SKIN: Absent: rash, itching, pallor HEMATOLOGIC/IMMUNOLOGIC: Absent: easy bleeding, easy bruising, lymphadenopathy, frequent infections ENDOCRINE: Absent: unexplained weight gain, unexplained weight loss, heat intolerance, cold intolerance NEUROLOGIC: Absent: headache, focal weakness or paresthesias, dizziness, unsteady gait, seizure, mental status changes, bladder or bowel incontinence PSYCHIATRIC: bipolar depression Absent: denies current anxiety, depression, suicidal or homicidal ideation, hallucinations. PHYSICAL EXAMINATION Vital Signs - 24 hr 09/03/19 09/03/19 09/03/19 19:52 21:00 22:00 Temperature 98.9 F 97.5 F L Pulse Rate 98 H 101 H Respiratory 18 20 20 Rate Blood Pressure 105/62 122/58 L O2 Sat by Pulse 95 Oximetry (%) 09/04/19 09/04/19 09/04/19 06:13 09:00 10:00 Temperature 99 F 97.6 F Pulse Rate 96 H 100 H Respiratory 20 20 Rate Blood Pressure 122/72 114/65 O2 Sat by Pulse 96 Oximetry (%) GENERAL: Awake, alert, and fully oriented, in no acute distress. HEAD: Normal with no signs of trauma. EYES: Pupils equal, round and reactive to light, extraocular movements intact, sclera anicteric, conjunctiva clear. No lid lag. EARS, NOSE, THROAT: Ears normal, nares patent, oropharynx clear without exudates. Moist mucous membranes. NECK: Normal range of motion, supple without lymphadenopathy, JVD, or masses. thyroid not palpable LUNGS: Breath sounds equal, clear to auscultation bilaterally. no wheezing, RLL crackles present HEART: Regular rate and rhythm, normal S1 and S2 without murmur, rub or gallop. ABDOMEN: obese, grossly soft, mild tenderness lower abd. no guarding, BS+ MUSCULOSKELETAL: Normal range of motion at all joints. No bony deformities or tenderness. No CVA tenderness. UPPER EXTREMITIES: 2+ pulses, warm, well-perfused. No cyanosis. No clubbing. Cap refill <2 seconds. No peripheral edema. LOWER EXTREMITIES: 2+ pulses, warm, well-perfused. No calf tenderness. No peripheral edema. NEUROLOGICAL: Cranial nerves II-XII intact. Normal speech. Normal gait. PSYCHIATRIC: Cooperative. Good eye contact. Appropriate mood and affect. SKIN: Warm, dry, normal turgor, no rashes or lesions noted. Laboratory Results - last 24 hr 09/02/19 04:05 C. trachomatis (AILEEN) Negative N.gonorrhoeae DNA (AILEEN) Negative T. vaginalis (AILEEN) Negative Active Medications Generic Name Dose Route Start Last Admin Trade Name Freq PRN Reason Stop Dose Admin Acetaminophen 650 mg 09/04/19 12:14 Tylenol - PO Q4H PRN PAIN LEVEL 1-5 Albuterol Sulfate 1 amp 09/04/19 11:48 Ventolin 0.083% Nebulizer Soln - NEB Q4H PRN SHORT OF BREATH/WHEEZING Budesonide/Formoterol Fumarate 2 puff 09/04/19 10:00 09/04/19 09:32 Symbicort 160/4.5mcg - IH 2 puff BID JULIANO Administration Doxycycline Hyclate 100 mg/ 100 mls @ 100 mls/hr 09/02/19 22:00 09/04/19 09: 31 Dextrose IVPB 100 mls/hr BID JULIANO Administration Sodium Chloride 1,000 mls @ 125 mls/hr 09/02/19 13:15 09/04/19 09:33 Normal Saline - IV 125 mls/hr ASDIR JULIANO Administration Ceftriaxone Sodium 2 gm/ 100 mls @ 200 mls/hr 09/04/19 12:00 09/04/19 12:53 Dextrose IVPB 200 mls/hr DAILY JULIANO Administration Protocol Ketorolac Tromethamine 30 mg 09/02/19 18:00 09/04/19 09:31 Toradol Injection - IVPUSH 09/07/19 17:59 30 mg Q8H-IV JULIANO Administration Ondansetron HCl 4 mg 09/02/19 13:09 09/04/19 07:56 Zofran Injection IVPUSH 4 mg Q4H PRN Administration NAUSEA AND/OR VOMITING Oxycodone HCl 5 mg 09/04/19 12:13 Roxicodone - PO Q4H PRN PAIN LEVEL 6-10 ASSESSMENT/PLAN: 38 F h/o hypothyroidism, obesity, bipolar depression, asthma, admitted for PID on abx, complaining of episodes of dyspnea and SOB. SOB due to inadequate pain control from PID (deep breathing exercises done at bedside limited due to lower pelvic pain), patient is not in acute asthma exacerbation, imaging showing ?RLL atelectasis/infiltrate likely atelectasis due to being bed bound, obese, limited inspiratory effort due to pain increase pain regimen as needed, incentive spirometer, upright positioning, early ambulation, DVT ppx Duonebs Q4-6H PRN for SOB Asthma restart Symbicort Duonebs PRN follow recommendations above Bipolar depression normal mood and affect restart home psych meds Hypothyroidism TSH >50, likely due to synthroid non-compliance restart Synthroid 125mcg qAM 0700 with glass of water on an empty stomach for atleast 30min-1hr VSS PID cont. abx Abdominal/Pelvic imaging PRN rest of management per primary team Dispo: We will continue to follow the patient. Thank you for this consultative opportunity. Visit type - Emergency Visit Emergency Visit: No - New Patient This patient is new to me today: Yes Date on this admission: 09/04/19 - Critical Care Critical Care patient: No
--- NOTE | 2019-09-04 15:11 | CONSULT ---
Consult Consult Specialty:: Endocrine Referred by:: Gil Vail MD Reason for Consultation:: Hypothyroidism - History of Present Illness Chief Complaint: weak and tired easily History of Present Illness: 38-year-old woman past medical history of Hypothyroidism,PCO's,GERD, chronic back pain, cholecystectomy who was admitted for evaluation of chills and diffuse abdominal pain for the past 2 days. she has had decreased appetite and vomited multiple which is been nonbilious and nonbloody. She has had hypothyroidism for several years,however had not been checking with her doctor recently.she has frequent feeling fatigue,cold,and dry skin. - Past Medical History CHOKE REAMER: No: Alzheimer's, CVA, Dementia, Migraine, Multiple Sclerosis, Peripheral Neuropathy, Parkinson's, Seizure, Syncope, TIA, Vertigo, Other Cardio/Vascular: No: AFIB, Aneurysm, Aortic Insufficiency, Aortic Stenosis, CAD , CHF, Deep Vein Thrombosis, HTN, Hyperlipdemia, CA, Mitral Insufficiency, Mitral Stenosis, Murmur, Pulmonary Hypertension, Other Pulmonary: Yes: Asthma Gastrointestinal: Yes: Constipation, GERD Hepatobiliary: No: Cirrhosis, Cholelithiasis, Cholecystitis, Choledocholithiasis , Hepatitis A, Hepatitis B, Hepatitis C, Other Renal/: No: Renal Failure, Renal Inusuff, BPH, Cancer, Hematuria, Hemodialysis , Neurogenic Bladder, Renal Calculi, UTI, Other ...LMP: 07/08/17 ...: No Infectious Disease: No: AIDS, C-Diff, Herpes Zoster, HIV, MRSA, STD's, Tuberculosis, VREF, Other Psych: Yes: Bipolar (not taking her Topamax for several months now). No: Addictions, Anxiety, Depression, Panic, Psychosis, Schizophrenia, Other Musculoskeletal: Yes: Chronic low back pain, Other (herniated discs) Rheumatology: No: Fibromyalgia, Gout, Lupus, Rheumatoid Arthritis, Sarcoidosis, Vasculitis, Other ENT: No: Allergic Rhinitis, Sinusitis, Other Endocrine: No: Houston's Disease, James's Disease, Diabetes Insipidus, Diabetes Mellitus, Hyperparathyroidism, Hyperthyroidism, Hypothyroidism, Osteopenia, SIADH, Other Dermatology: No: Basal Cell, Cellulitis, Eczema, Melanoma, Psoriasis, Squamous Cell, Other - Past Surgical History Past Surgical History: Yes: Cholecystectomy - Alcohol/Substance Use Hx Alcohol Use: No History of Substance Use: reports: None - Smoking History Smoking history: Never smoked Have you smoked in the past 12 months: No Aproximately how many cigarettes per day: 2 - Social History Usual Living Arrangement: With Child ADL: Independent Home Medications - Allergies Allergies/Adverse Reactions: Allergies Allergy/AdvReac Type Severity Reaction Status Date / Time clarithromycin [From Biaxin] Allergy Verified 06/05/19 10:46 levofloxacin [From Levaquin] Allergy Verified 06/05/19 10:46 - Home Medications Home Medications: Ambulatory Orders Albuterol Sulfate Inhaler - [Ventolin HFA Inhaler -] 1 puff IH Q4H PRN 07/15/17 Budesonide/Formeterol Fumarate [SYMBICORT 160/4.5mcg -] 2 inh PO BID 07/15/17 Levothyroxine [Synthroid -] 125 mcg PO DAILY 09/02/19 Montelukast Sodium [Singulair] 10 mg PO HS 09/02/19 Review of Systems - Review of Systems Constitutional: reports: Lethargy, Weakness Eyes: reports: No Symptoms HENT: reports: No Symptoms Neck: reports: No Symptoms Cardiovascular: reports: No Symptoms Respiratory: reports: SOB Gastrointestinal: reports: Bloating, Nausea Genitourinary: reports: Frequency Breasts: reports: No Symptoms Reported Musculoskeletal: reports: Muscle Weakness Endocrine: reports: Unexplained Weight Gain Physical Exam Vital Signs: Vital Signs Temperature 97.8 F 09/04/19 13:57 Pulse Rate 88 09/04/19 13:57 Respiratory Rate 20 09/04/19 13:57 Blood Pressure 108/72 09/04/19 13:57 O2 Sat by Pulse Oximetry (%) 96 09/04/19 09:00 Constitutional: Yes: Calm Eyes: Yes: EOM Intact HENT: Yes: Normocephalic Neck: Yes: Trachea Midline Cardiovascular: Yes: Regular Rate and Rhythm Respiratory: Yes: CTA Bilaterally Gastrointestinal: Yes: Normal Bowel Sounds ...Rectal Exam: Yes: Deferred Renal/: Yes: WNL Musculoskeletal: Yes: WNL Extremities: Yes: WNL Edema: No Neurological: Yes: Alert, Oriented Labs: CBC, BMP 09/03/19 06:30 09/03/19 06:30 Problem List - Problems (1) Other specified hypothyroidism Problems reviewed: Yes Code(s): E03.8 - OTHER SPECIFIED HYPOTHYROIDISM (2) PID (acute pelvic inflammatory disease) Problems reviewed: Yes Code(s): N73.0 - ACUTE PARAMETRITIS AND PELVIC CELLULITIS (3) Abdominal pain Problems reviewed: Yes Code(s): R10.9 - UNSPECIFIED ABDOMINAL PAIN Qualifiers: Abdominal location: epigastric Qualified Code(s): R10.13 - Epigastric pain (4) Asthma Problems reviewed: Yes Code(s): J45.909 - UNSPECIFIED ASTHMA, UNCOMPLICATED (5) Cholelithiasis and cholecystitis with obstruction Problems reviewed: Yes Code(s): K80.19 - CALCULUS OF GALLBLADDER W OTH CHOLECYSTITIS WITH OBSTRUCTION (6) Constipation due to pain medication therapy Problems reviewed: Yes Code(s): K59.03 - DRUG INDUCED CONSTIPATION Assessment/Plan Current Active Problems HYPOTHYRODISM STEWART /COMPLIANCE ASTHMA PID (acute pelvic inflammatory disease) (Acute) Pyosalpinx (Acute) Laboratory Results - last 24 hr 09/02/19 04:05 C. trachomatis (AILEEN) Negative N.gonorrhoeae DNA (AILEEN) Negative T. vaginalis (AILEEN) Negative Laboratory Tests 09/03/19 06:30 Sodium 138 Potassium 3.3 L Chloride 108 H Carbon Dioxide 22 Anion Gap 8 BUN 24.0 H Creatinine 1.6 H Calcium 7.7 L Albumin 2.3 L TSH 53.90 H PLAN: SYNTHROID 150MCG DAILY CHECK FREE T4 FOLLOW OUTPATIENT
[2019-09-04] MEDS: ACETAMINOPHEN 325 MG TABLET (FP) PO PRN ×2 (15:50→20:10)
[2019-09-04] MEDS: oxyCODONE HCL 5 MG TABLET PO PRN ×2 (15:50→20:09)
[2019-09-04] MEDS ORDERED: PT OWN MED DRAWER 7, Y5N ONE ×2 (15:56→19:48)
[2019-09-04] MEDS: MAG HYDROX/AL HYDROX/SIMETH 30 ML UNIT-DOSE CUP PO PRN (17:52)
[2019-09-05] MEDS: ALBUTEROL SO4 0.083% IH SOL 2.5 MG/3 ML VIAL.NEB. NEB PRN ×6 (00:36→21:41)
[2019-09-05] MEDS: SODIUM CHLORIDE 1,000 ML IV SCH ×4 (01:29→20:48)
[2019-09-05] MEDS: KETOROLAC TROMETHAMINE 30 MG/1 ML VIAL IVPUSH SCH (01:30)
[2019-09-05] MEDS: oxyCODONE HCL 5 MG TABLET PO PRN ×3 (06:21→20:46)
[2019-09-05] MEDS: ACETAMINOPHEN 325 MG TABLET (FP) PO PRN ×3 (06:22→20:46)
[2019-09-05] MEDS: LEVOTHYROXINE NA 75 MCG TABLET (FP) PO SCH (06:22)
[2019-09-05] MEDS ORDERED: LEVOTHYROXINE NA 125 MCG TABLET (FP) PO SCH (07:00)
--- NOTE | 2019-09-05 07:56 | PN ---
Progress Note (SOAP) - Subjective Chief Complaint: c/o pain , less than before , she is feeling little better yesterday than before pt is depressed she states she was seeing therapist, she has appt next month still c/o nausea she is eating food now, no c/o diarrhea still c/o sob , using nebulizer treatment q4-6 hr - Current Medications Current Medications: Active Medications Acetaminophen (Tylenol -) 650 mg PO Q4H PRN PRN Reason: PAIN LEVEL 1-5 Last Admin: 09/05/19 06:22 Dose: 650 mg Al Hydroxide/Mg Hydroxide (Mylanta Oral Suspension -) 30 ml PO Q6H PRN PRN Reason: DYSPEPSIA Last Admin: 09/04/19 17:52 Dose: 30 ml Albuterol Sulfate (Ventolin 0.083% Nebulizer Soln -) 1 amp NEB Q4H PRN PRN Reason: SHORT OF BREATH/WHEEZING Last Admin: 09/05/19 06:25 Dose: 1 amp Budesonide/Formoterol Fumarate (Symbicort 160/4.5mcg -) 2 puff IH BID JULIANO Last Admin: 09/04/19 21:17 Dose: 2 puff Doxycycline Hyclate 100 mg/ (Dextrose) 100 mls @ 100 mls/hr IVPB BID JULIANO Last Admin: 09/04/19 21:18 Dose: 100 mls/hr Sodium Chloride (Normal Saline -) 1,000 mls @ 125 mls/hr IV ASDIR JULIANO Last Admin: 09/05/19 01:29 Dose: 125 mls/hr Ceftriaxone Sodium 2 gm/ (Dextrose) 100 mls @ 200 mls/hr IVPB DAILY [facility]; Protocol Last Admin: 09/04/19 12:53 Dose: 200 mls/hr Ketorolac Tromethamine (Toradol Injection -) 30 mg IVPUSH Q8H-IV JULIANO Stop: 09/07/19 17:59 Last Admin: 09/05/19 01:30 Dose: 30 mg Levothyroxine Sodium (Synthroid -) 150 mcg PO DAILY@0700 [facility] Last Admin: 09/05/19 06:22 Dose: 150 mcg Ondansetron HCl (Zofran Injection) 4 mg IVPUSH Q4H PRN PRN Reason: NAUSEA AND/OR VOMITING Last Admin: 09/04/19 22:25 Dose: 4 mg Oxycodone HCl (Roxicodone -) 5 mg PO Q4H PRN PRN Reason: PAIN LEVEL 6-10 Last Admin: 09/05/19 06:21 Dose: 5 mg - Objective Vital Signs: Vital Signs Temperature 98.9 F 09/05/19 06:26 Pulse Rate 90 09/05/19 06:26 Respiratory Rate 20 09/05/19 06:26 Blood Pressure 116/69 09/05/19 06:26 O2 Sat by Pulse Oximetry (%) 96 09/04/19 20:58 Constitutional: Yes: Anxious, Moderate Distress, Obese, Other (depressed) Eyes: Yes: WNL HENT: Yes: WNL, Normocephalic Neck: Yes: WNL Cardiovascular: Yes: WNL, Regular Rate and Rhythm Respiratory: Yes: CTA Bilaterally, Other (pt is taking very short breaths . encourage deep breathing ) Gastrointestinal: Yes: WNL, Normal Bowel Sounds, Other (voluntory guarding . tenderness all over the abdomen ) Genitourinary: Yes: CVA Tenderness - Left, CVA Tenderness - Right Extremities: No: Calf Tenderness Edema: No Integumentary: Yes: Tattoos Neurological: Yes: WNL, Alert, Oriented ...Motor Strength: Yes: WNL Psychiatric: Yes: WNL, Alert, Oriented, Other (depressed) Additional Findings/Remarks: abdominal tenderness pt states is less. lower abd mass Labs Lab Results: CBCD WBC 11.4 K/mm3 (4.0-10.0) H 09/03/19 06:30 RBC 3.10 M/mm3 (3.60-5.2) L 09/03/19 06:30 Hgb 10.3 GM/dL (10.7-15.3) L 09/03/19 06:30 Hct 30.5 % (32.4-45.2) L D 09/03/19 06:30 MCV 98.3 fl (80-96) H 09/03/19 06:30 MCHC 33.6 g/dl (32.0-36.0) 09/03/19 06:30 RDW 15.1 % (11.6-15.6) 09/03/19 06:30 Plt Count 204 K/MM3 (134-434) 09/03/19 06:30 MPV 8.6 fl (7.5-11.1) 09/03/19 06:30 CMP Sodium 138 mmol/L (136-145) 09/03/19 06:30 Potassium 3.3 mmol/L (3.5-5.1) L 09/03/19 06:30 Chloride 108 mmol/L (98-107) H 09/03/19 06:30 Carbon Dioxide 22 mmol/L (21-32) 09/03/19 06:30 Anion Gap 8 MMOL/L (8-16) 09/03/19 06:30 BUN 24.0 mg/dL (7-18) H 09/03/19 06:30 Creatinine 1.6 mg/dL (0.55-1.3) H 09/03/19 06:30 Random Glucose 95 mg/dL (74-106) 09/03/19 06:30 Calcium 7.7 mg/dL (8.5-10.1) L 09/03/19 06:30 Total Bilirubin 0.5 mg/dL (0.2-1) 09/03/19 06:30 AST 14 U/L (15-37) L 09/03/19 06:30 ALT 11 U/L (13-61) L 09/03/19 06:30 Alkaline Phosphatase 89 U/L (45-117) 09/03/19 06:30 Total Protein 5.7 g/dl (6.4-8.2) L 09/03/19 06:30 Albumin 2.3 g/dl (3.4-5.0) L 09/03/19 06:30 Problem List - Problems (1) PID (acute pelvic inflammatory disease) Code(s): N73.0 - ACUTE PARAMETRITIS AND PELVIC CELLULITIS (2) Other specified hypothyroidism Code(s): E03.8 - OTHER SPECIFIED HYPOTHYROIDISM Assessment/Plan DR Duran ( ID consult ), Dr Oquendo , Hospitalist consult noted & appreciated Plan ct iv ceftriaxione & doxycyclin d/c iv toradol Po motrin & percocet prn for pain ct albuterol, nebulizer treatment psyche consult today's labs are pending
[2019-09-05] MEDS ORDERED: IBUPROFEN 600 MG TABLET (FP) PO PRN (08:14)
[2019-09-05 08:46] LABS: BASO % 0.2 % (0-2.0); EOS % 0.6 % (0-4.5); HEMATOCRIT 29.4 % (32.4-45.2); HEMOGLOBIN 10.1 GM/dL (10.7-15.3); LYMPH % 9.6 % (8-40); MCH 33.6 pg (25.7-33.7); MCHC 34.3 g/dl (32.0-36.0); MEAN PLT VOLUME 7.9 fl (7.5-11.1); MONO % 5.3 % (3.8-10.2); NEUT % 84.3 % (42.8-82.8); PLATELET COUNT 231 K/MM3 (134-434); WHITE BLOOD COUNT 10.4 K/mm3 (4.0-10.0)
[2019-09-05] MEDS ORDERED: DOXYCYCLINE HYCLATE 100 MG VIAL ONE ×2 (08:52→21:49)
[2019-09-05] MEDS ORDERED: DEXTROSE 5%-WATER 100 ML IVPB ONE ×3 (08:53→21:49)
[2019-09-05 09:14] LABS: BLOOD UREA NITROGEN 14.6 mg/dL (7-18); CALCIUM 7.8 mg/dL (8.5-10.1); CREATININE 0.9 mg/dL (0.55-1.3); POTASSIUM 3.1 mmol/L (3.5-5.1)
[2019-09-05] MEDS: DOXYCYCLINE INJECTION 100 MG in DEXTROSE 5%-WATER 100 ML IVPB SCH ×2 (09:24→21:55)
[2019-09-05] MEDS: BUDESONIDE/FORMETEROL FUMARATE 160/4.5 mcg INHALER IH SCH ×2 (09:35→21:55)
[2019-09-05] MEDS: CEFTRIAXONE 2 GM in DEXTROSE 5%-WATER 100 ML IVPB SCH (11:08)
[2019-09-05] MEDS: ONDANSETRON 4 MG/2 ML VIAL IVPUSH PRN ×3 (13:14→21:53)
[2019-09-05] MEDS: POTASSIUM CHLORIDE ORAL LIQUID 20 MEQ/15 ML PO ONE ×2 (16:20→16:47)
[2019-09-05] MEDS ORDERED: POTASSIUM CHLORIDE TABS 20 MEQ TABLET.ER (FP) PO ONE (16:40)
--- NOTE | 2019-09-05 16:51 | PN ---
Physical Exam: 38 F h/o morbid obesity, asthma (never intubated), anxiety, depression, bipolar disorder, hypothyroidism admitted for PID on Ceftriaxone/Doxycycline, following up on patient. Today pt. endorses some nausea and malaise. Endorses SOB improved w/ nebs and pain control, denies fever/chills. HypoK likely d/t neb treatments will need replacement. Encouraged patient to be OOB to chair. PE VSS GA sitting up in stretcher, mildly anxious, AAox3, speaking in full sentences HEENT NC/AT, EOMI, dry MM, neck supple Chest CTAB, no crackles or wheezing CVS S1, S2+, RRR, no m/r/g Abd obese, grossly soft, NT, ND, BS+ Ext No LE edema, no calf tenderness, moves all 4 ext. Vital Signs - 24 hr 09/04/19 09/04/19 09/04/19 18:37 20:57 20:58 Temperature 97.6 F 98.2 F Pulse Rate 94 H 87 Respiratory 18 18 18 Rate Blood Pressure 120/70 116/69 O2 Sat by Pulse 96 Oximetry (%) 09/05/19 09/05/19 09/05/19 06:26 09:00 10:00 Temperature 98.9 F 99.1 F Pulse Rate 90 101 H Respiratory 20 20 20 Rate Blood Pressure 116/69 146/82 O2 Sat by Pulse 95 Oximetry (%) 09/05/19 14:11 Temperature 98.7 F Pulse Rate 83 Respiratory 20 Rate Blood Pressure 112/59 L O2 Sat by Pulse Oximetry (%) Microbiology 09/04/19 12:45 Blood - Peripheral Venous Blood Culture - Preliminary NO GROWTH OBTAINED AFTER 24 HOURS, INCUBATION TO CONTINUE FOR 4 DAYS. 09/04/19 12:45 Blood - Peripheral Venous Blood Culture - Preliminary NO GROWTH OBTAINED AFTER 24 HOURS, INCUBATION TO CONTINUE FOR 4 DAYS. 09/04/19 12:30 Stool Clostridioides difficile Antigen - Final 09/04/19 12:30 Stool Clostridioides difficile Toxin Assay - Final 09/02/19 04:05 Urine - Urine Clean Catch Urine Culture - Final Normal Urogenital Amara Current Medications Generic Name Dose Route Start Last Admin Trade Name Freq PRN Reason Stop Dose Admin Acetaminophen 650 mg 09/04/19 12:14 09/05/19 13:10 Tylenol - PO 650 mg Q4H PRN Administration PAIN LEVEL 1-5 Al Hydroxide/Mg Hydroxide 30 ml 09/04/19 17:43 09/04/19 17:52 Mylanta Oral Suspension - PO 30 ml Q6H PRN Administration DYSPEPSIA Albuterol Sulfate 1 amp 09/04/19 11:48 09/05/19 13:10 Ventolin 0.083% Nebulizer Soln - NEB 1 amp Q4H PRN Administration SHORT OF BREATH/WHEEZING Budesonide/Formoterol Fumarate 2 puff 09/04/19 10:00 09/05/19 09:35 Symbicort 160/4.5mcg - IH 2 puff BID JULIANO Administration Doxycycline Hyclate 100 mg/ 100 mls @ 100 mls/hr 09/02/19 22:00 09/05/19 09: 24 Dextrose IVPB 100 mls/hr BID JULIANO Administration Sodium Chloride 1,000 mls @ 125 mls/hr 09/02/19 13:15 09/05/19 13:19 Normal Saline - IV Not Given ASDIR JULIANO Ceftriaxone Sodium 2 gm/ 100 mls @ 200 mls/hr 09/04/19 12:00 09/05/19 11:08 Dextrose IVPB 200 mls/hr DAILY JULIANO Administration Protocol Ibuprofen 600 mg 09/05/19 08:14 09/05/19 09:25 Motrin - PO 600 mg Q6H PRN Administration FEVER Levothyroxine Sodium 150 mcg 09/05/19 07:00 09/05/19 06:22 Synthroid - PO 150 mcg DAILY@0700 JULIANO Administration Ondansetron HCl 4 mg 09/02/19 13:09 09/05/19 13:14 Zofran Injection IVPUSH 4 mg Q4H PRN Administration NAUSEA AND/OR VOMITING Oxycodone HCl 5 mg 09/04/19 12:13 09/05/19 13:10 Roxicodone - PO 5 mg Q4H PRN Administration PAIN LEVEL 6-10 Potassium Chloride 40 meq 09/05/19 16:40 K-Dur - PO 09/05/19 16:41 NOW ONE 38 F h/o hypothyroidism, obesity, bipolar depression, asthma, admitted for PID on abx, previously c/o SOB now resolving. SOB and dyspnea no overt signs of PNA, likely d/t obese body habitus, poor inspiratory effort and uncontrolled pain, no clinical signs of asthma, cont. asthma meds and nebulizer treatments PRN Avoid overuse of NSAIDs as this may precipitate asthma exacerbations and ARNAV ( with poor oral intake) increase pain regimen as needed with narcotics/Tylenol, encourage use of incentive spirometer with holding her breath 1-2 seconds, upright positioning, early ambulation, DVT ppx Duonebs Q4-6H PRN for SOB Asthma restart Symbicort Duonebs PRN follow recommendations above Hypokalemia due to Neb treatments and diarrhea (C. diff negative) replace K aggressively, if patient cannot tolerate PO Kdur, then give KCl 40meq in 1L of NS up to 3-4 hours apart monitor daily chem Bipolar depression ?depressive mood, psych consult restart home psych meds Hypothyroidism TSH >50, likely due to synthroid non-compliance restart Synthroid at 150mcg qAM 0700 with glass of water on an empty stomach for atleast 30min-1hr as per Endo recommendations send free T4 levels Endocrine consult: Dr. Oquendo PID cont. abx Abdominal/Pelvic imaging PRN rest of management per primary team Dispo: We will continue to follow the patient. Thank you for this consultative opportunity. Visit type - Emergency Visit Emergency Visit: Yes ED Registration Date: 09/02/19 Care time: The patient presented to the Emergency Department on the above date and was hospitalized for further evaluation of their emergent condition. - New Patient This patient is new to me today: No - Critical Care Critical Care patient: No - Discharge Referral Referred to [facility] Med [facility] No
[2019-09-05] MEDS: MAG HYDROX/AL HYDROX/SIMETH 30 ML UNIT-DOSE CUP PO PRN (16:58)
--- NOTE | 2019-09-05 18:23 | PN ---
Progress Note, Physician History of Present Illness: AWAKE, AMBULATING REPORTS LESS LOWER ABDOMINAL PAIN + NAUSEA DIARRHEA IMPROVED NO VAGINAL DISCHARGE NO C/O FEVER/CHILLS - Current Medication List Current Medications: Active Medications Acetaminophen (Tylenol -) 650 mg PO Q4H PRN PRN Reason: PAIN LEVEL 1-5 Last Admin: 09/05/19 13:10 Dose: 650 mg Al Hydroxide/Mg Hydroxide (Mylanta Oral Suspension -) 30 ml PO Q6H PRN PRN Reason: DYSPEPSIA Last Admin: 09/05/19 16:58 Dose: 30 ml Albuterol Sulfate (Ventolin 0.083% Nebulizer Soln -) 1 amp NEB Q4H PRN PRN Reason: SHORT OF BREATH/WHEEZING Last Admin: 09/05/19 13:10 Dose: 1 amp Budesonide/Formoterol Fumarate (Symbicort 160/4.5mcg -) 2 puff IH BID [facility] Last Admin: 09/05/19 09:35 Dose: 2 puff Doxycycline Hyclate 100 mg/ (Dextrose) 100 mls @ 100 mls/hr IVPB BID [facility] Last Admin: 09/05/19 09:24 Dose: 100 mls/hr Sodium Chloride (Normal Saline -) 1,000 mls @ 125 mls/hr IV ASDIR [facility] Last Admin: 09/05/19 13:19 Dose: Not Given Ceftriaxone Sodium 2 gm/ (Dextrose) 100 mls @ 200 mls/hr IVPB DAILY [facility]; Protocol Last Admin: 09/05/19 11:08 Dose: 200 mls/hr Ibuprofen (Motrin -) 600 mg PO Q6H PRN PRN Reason: FEVER Last Admin: 09/05/19 09:25 Dose: 600 mg Levothyroxine Sodium (Synthroid -) 150 mcg PO DAILY@0700 [facility] Last Admin: 09/05/19 06:22 Dose: 150 mcg Ondansetron HCl (Zofran Injection) 4 mg IVPUSH Q4H PRN PRN Reason: NAUSEA AND/OR VOMITING Last Admin: 09/05/19 17:26 Dose: 4 mg Oxycodone HCl (Roxicodone -) 5 mg PO Q4H PRN PRN Reason: PAIN LEVEL 6-10 Last Admin: 09/05/19 13:10 Dose: 5 mg - Objective Vital Signs: Vital Signs Temperature 98.7 F 09/05/19 14:11 Pulse Rate 83 09/05/19 14:11 Respiratory Rate 20 09/05/19 14:11 Blood Pressure 112/59 L 09/05/19 14:11 O2 Sat by Pulse Oximetry (%) 95 09/05/19 09:00 Constitutional: Yes: No Distress Eyes: Yes: Conjunctiva Clear Cardiovascular: Yes: Regular Rate and Rhythm, S1, S2 Respiratory: Yes: CTA Bilaterally Gastrointestinal: Yes: Normal Bowel Sounds, Soft, Other (MILD LOWER ABDOMINAL TENDERNESS TO PALP BILAT) Edema: No Labs: CBC, BMP 09/05/19 07:00 09/05/19 07:00 Assessment/Plan PID CONTINUE CEFTRIAXONE / DOXYCYCLINE MAY SUBSTITUTE PO DOXYCYCLINE 100MG BID TO COMPLETE 14 DAY COURSE OUTPATIENT
[2019-09-05] MEDS: HEPARIN NA (PORCINE) 5,000 UNITS/ML 1ML VIAL SQ SCH (23:14)
[2019-09-06] MEDS: ALBUTEROL SO4 0.083% IH SOL 2.5 MG/3 ML VIAL.NEB. NEB PRN ×4 (01:52→22:26)
[2019-09-06] MEDS: ONDANSETRON 4 MG/2 ML VIAL IVPUSH PRN ×3 (02:01→21:21)
[2019-09-06] MEDS: ACETAMINOPHEN 325 MG TABLET (FP) PO PRN ×4 (06:20→21:20)
[2019-09-06] MEDS: oxyCODONE HCL 5 MG TABLET PO PRN ×4 (06:21→21:19)
[2019-09-06] MEDS: LEVOTHYROXINE NA 75 MCG TABLET (FP) PO SCH (06:21)
[2019-09-06] MEDS: HEPARIN NA (PORCINE) 5,000 UNITS/ML 1ML VIAL SQ SCH ×3 (06:22→21:21)
[2019-09-06 08:00] LABS: BASO % 0.1 % (0-2.0); EOS % 0.8 % (0-4.5); HEMATOCRIT 28.4 % (32.4-45.2); HEMOGLOBIN 9.9 GM/dL (10.7-15.3); LYMPH % 12.3 % (8-40); MCH 33.6 pg (25.7-33.7); MCHC 34.7 g/dl (32.0-36.0); MEAN CELL VOLUME 96.7 fl (80-96); MEAN PLT VOLUME 7.5 fl (7.5-11.1); MONO % 5.3 % (3.8-10.2); NEUT % 81.5 % (42.8-82.8); PLATELET COUNT 242 K/MM3 (134-434); RBC 2.94 M/mm3 (3.60-5.2); RDW 15.4 % (11.6-15.6); WHITE BLOOD COUNT 10.2 K/mm3 (4.0-10.0)
[2019-09-06 08:32] LABS: BILIRUBIN,TOTAL 0.7 mg/dL (0.2-1); BLOOD UREA NITROGEN 6.6 mg/dL (7-18); CALCIUM 7.9 mg/dL (8.5-10.1); CREATININE 0.7 mg/dL (0.55-1.3); TOT PROT 5.3 g/dl (6.4-8.2)
[2019-09-06] MEDS ORDERED: DOXYCYCLINE HYCLATE 100 MG VIAL ONE ×2 (08:59→21:11)
[2019-09-06] MEDS ORDERED: DEXTROSE 5%-WATER 100 ML IVPB ONE ×3 (08:59→21:11)
[2019-09-06] MEDS: SODIUM CHLORIDE 1,000 ML IV SCH ×3 (09:28→17:54)
[2019-09-06] MEDS: DOXYCYCLINE INJECTION 100 MG in DEXTROSE 5%-WATER 100 ML IVPB SCH ×2 (09:29→21:18)
[2019-09-06] MEDS: BUDESONIDE/FORMETEROL FUMARATE 160/4.5 mcg INHALER IH SCH ×2 (09:31→21:18)
--- NOTE | 2019-09-06 09:59 | PN ---
Progress Note (SOAP) - Subjective Chief Complaint: pt has vague c/o chest pain, work up last night neg c/o gas pain , shoulder pain she waits for resp treatment round the clock, whic she thinks helps her breathing better abd pain less than before. no loose bm unable to tolerate Motrin po , , feels uneasy - Current Medications Current Medications: Active Medications Acetaminophen (Tylenol -) 650 mg PO Q4H PRN PRN Reason: PAIN LEVEL 1-5 Last Admin: 09/06/19 06:20 Dose: 650 mg Al Hydroxide/Mg Hydroxide (Mylanta Oral Suspension -) 30 ml PO Q6H PRN PRN Reason: DYSPEPSIA Last Admin: 09/05/19 16:58 Dose: 30 ml Albuterol Sulfate (Ventolin 0.083% Nebulizer Soln -) 1 amp NEB Q4H PRN PRN Reason: SHORT OF BREATH/WHEEZING Last Admin: 09/06/19 05:58 Dose: 1 amp Budesonide/Formoterol Fumarate (Symbicort 160/4.5mcg -) 2 puff IH BID [facility] Last Admin: 09/06/19 09:31 Dose: 2 puff Heparin Sodium (Porcine) (Heparin -) 5,000 unit SQ TID [facility] Last Admin: 09/06/19 06:22 Dose: 5,000 unit Doxycycline Hyclate 100 mg/ (Dextrose) 100 mls @ 100 mls/hr IVPB BID [facility] Last Admin: 09/06/19 09:29 Dose: 100 mls/hr Sodium Chloride (Normal Saline -) 1,000 mls @ 125 mls/hr IV ASDIR [facility] Last Admin: 09/06/19 09:28 Dose: 125 mls/hr Ceftriaxone Sodium 2 gm/ (Dextrose) 100 mls @ 200 mls/hr IVPB DAILY [facility]; Protocol Last Admin: 09/05/19 11:08 Dose: 200 mls/hr Ibuprofen (Motrin -) 600 mg PO Q6H PRN PRN Reason: FEVER Last Admin: 09/05/19 09:25 Dose: 600 mg Levothyroxine Sodium (Synthroid -) 150 mcg PO DAILY@0700 [facility] Last Admin: 09/06/19 06:21 Dose: 150 mcg Ondansetron HCl (Zofran Injection) 4 mg IVPUSH Q4H PRN PRN Reason: NAUSEA AND/OR VOMITING Last Admin: 09/06/19 02:01 Dose: 4 mg Oxycodone HCl (Roxicodone -) 5 mg PO Q4H PRN PRN Reason: PAIN LEVEL 6-10 Last Admin: 09/06/19 06:21 Dose: 5 mg - Objective Vital Signs: Vital Signs Temperature 98.1 F 09/06/19 06:02 Pulse Rate 91 H 09/06/19 06:02 Respiratory Rate 20 09/06/19 06:02 Blood Pressure 129/78 09/06/19 06:02 O2 Sat by Pulse Oximetry (%) 96 09/05/19 21:00 Constitutional: Yes: Well Nourished, Obese Eyes: Yes: WNL HENT: Yes: WNL Neck: Yes: WNL Respiratory: Yes: Other (shallow breaths . declined to use incentive spirometer in front of me ) Gastrointestinal: Yes: WNL, Normal Bowel Sounds, Soft, Other (voluntory guarding ) Extremities: No: Calf Tenderness Neurological: Yes: WNL, Alert, Oriented ...Motor Strength: Yes: WNL Psychiatric: Yes: WNL, Alert, Oriented, Other (anxious ) Additional Findings/Remarks: subumblical mass tender still bleeding from the period, states getiing less Labs Lab Results: CBCD WBC 10.2 K/mm3 (4.0-10.0) H 09/06/19 07:22 RBC 2.94 M/mm3 (3.60-5.2) L 09/06/19 07:22 Hgb 9.9 GM/dL (10.7-15.3) L 09/06/19 07:22 Hct 28.4 % (32.4-45.2) L 09/06/19 07:22 MCV 96.7 fl (80-96) H 09/06/19 07:22 MCHC 34.7 g/dl (32.0-36.0) 09/06/19 07:22 RDW 15.4 % (11.6-15.6) 09/06/19 07:22 Plt Count 242 K/MM3 (134-434) 09/06/19 07:22 MPV 7.5 fl (7.5-11.1) 09/06/19 07:22 CMP Sodium 140 mmol/L (136-145) 09/06/19 07:22 Potassium 3.0 mmol/L (3.5-5.1) L 09/06/19 07:22 Chloride 111 mmol/L (98-107) H 09/06/19 07:22 Carbon Dioxide 22 mmol/L (21-32) 09/06/19 07:22 Anion Gap 7 MMOL/L (8-16) L 09/06/19 07:22 BUN 6.6 mg/dL (7-18) L 09/06/19 07:22 Creatinine 0.7 mg/dL (0.55-1.3) 09/06/19 07:22 Random Glucose 100 mg/dL (74-106) 09/06/19 07:22 Calcium 7.9 mg/dL (8.5-10.1) L 09/06/19 07:22 Total Bilirubin 0.7 mg/dL (0.2-1) 09/06/19 07:22 AST 17 U/L (15-37) 09/06/19 07:22 ALT 10 U/L (13-61) L 09/06/19 07:22 Alkaline Phosphatase 104 U/L (45-117) 09/06/19 07:22 Total Protein 5.3 g/dl (6.4-8.2) L 09/06/19 07:22 Albumin 2.0 g/dl (3.4-5.0) L 09/06/19 07:22 CARDIAC ENZYMES Troponin I < 0.02 ng/ml (0.00-0.05) 09/05/19 23:00 Problem List - Problems (1) PID (acute pelvic inflammatory disease) Code(s): N73.0 - ACUTE PARAMETRITIS AND PELVIC CELLULITIS (2) Other specified hypothyroidism Code(s): E03.8 - OTHER SPECIFIED HYPOTHYROIDISM Assessment/Plan improving on iv ceftrixione &doxycycline will infirm Dr sigala tomorrow
[2019-09-06] MEDS: CEFTRIAXONE 2 GM in DEXTROSE 5%-WATER 100 ML IVPB SCH (10:45)
[2019-09-06] MEDS ORDERED: POTASSIUM CHLORIDE TABS 20 MEQ TABLET.ER (FP) PO ONE ×2 (10:56→17:03)
[2019-09-06] MEDS: MAG HYDROX/AL HYDROX/SIMETH 30 ML UNIT-DOSE CUP PO PRN (15:45)
--- NOTE | 2019-09-06 16:13 | PN ---
Progress Note, Physician Chief Complaint: comfortable tolerating synthroid dose - Current Medication List Current Medications: Active Medications Acetaminophen (Tylenol -) 650 mg PO Q4H PRN PRN Reason: PAIN LEVEL 1-5 Last Admin: 09/06/19 10:43 Dose: 650 mg Al Hydroxide/Mg Hydroxide (Mylanta Oral Suspension -) 30 ml PO Q6H PRN PRN Reason: DYSPEPSIA Last Admin: 09/06/19 15:45 Dose: 30 ml Budesonide/Formoterol Fumarate (Symbicort 160/4.5mcg -) 2 puff IH BID [facility] Last Admin: 09/06/19 09:31 Dose: 2 puff Heparin Sodium (Porcine) (Heparin -) 5,000 unit SQ TID [facility] Last Admin: 09/06/19 13:15 Dose: 5,000 unit Doxycycline Hyclate 100 mg/ (Dextrose) 100 mls @ 100 mls/hr IVPB BID [facility] Last Admin: 09/06/19 09:29 Dose: 100 mls/hr Sodium Chloride (Normal Saline -) 1,000 mls @ 125 mls/hr IV ASDIR [facility] Last Admin: 09/06/19 13:15 Dose: Not Given Ceftriaxone Sodium 2 gm/ (Dextrose) 100 mls @ 200 mls/hr IVPB DAILY [facility]; Protocol Last Admin: 09/06/19 10:45 Dose: 200 mls/hr Levothyroxine Sodium (Synthroid -) 150 mcg PO DAILY@0700 [facility] Last Admin: 09/06/19 06:21 Dose: 150 mcg Ondansetron HCl (Zofran Injection) 4 mg IVPUSH Q4H PRN PRN Reason: NAUSEA AND/OR VOMITING Last Admin: 09/06/19 12:17 Dose: 4 mg Oxycodone HCl (Roxicodone -) 5 mg PO Q4H PRN PRN Reason: PAIN LEVEL 6-10 Last Admin: 09/06/19 10:43 Dose: 5 mg - Objective Vital Signs: Vital Signs Temperature 98.2 F 09/06/19 14:18 Pulse Rate 83 09/06/19 14:18 Respiratory Rate 09/06/19 14:18 Blood Pressure 121/67 09/06/19 14:18 O2 Sat by Pulse Oximetry (%) 95 09/06/19 09:00 Constitutional: Yes: Calm Eyes: Yes: EOM Intact HENT: Yes: Normocephalic Neck: Yes: Trachea Midline Cardiovascular: Yes: Regular Rate and Rhythm Respiratory: Yes: CTA Bilaterally Gastrointestinal: Yes: Normal Bowel Sounds ...Rectal Exam: Yes: Deferred Extremities: Yes: WNL Edema: No Integumentary: Yes: WNL Neurological: Yes: Alert, Oriented Labs: CBC, BMP 09/06/19 07:22 09/06/19 07:22 Problem List - Problems (1) Other specified hypothyroidism Code(s): E03.8 - OTHER SPECIFIED HYPOTHYROIDISM (2) PID (acute pelvic inflammatory disease) Code(s): N73.0 - ACUTE PARAMETRITIS AND PELVIC CELLULITIS (3) Abdominal pain Code(s): R10.9 - UNSPECIFIED ABDOMINAL PAIN Qualifiers: Abdominal location: epigastric Qualified Code(s): R10.13 - Epigastric pain (4) Asthma Code(s): J45.909 - UNSPECIFIED ASTHMA, UNCOMPLICATED (5) Cholelithiasis and cholecystitis with obstruction Code(s): K80.19 - CALCULUS OF GALLBLADDER W OTH CHOLECYSTITIS WITH OBSTRUCTION (6) Constipation due to pain medication therapy Code(s): K59.03 - DRUG INDUCED CONSTIPATION Assessment/Plan Current Active Problems hypothyroidism bhaskar Other specified hypothyroidism (Acute) PID (acute pelvic inflammatory disease) (Acute) Pyosalpinx (Acute) Abnormal Lab Results 09/05/19 09/06/19 09/06/19 07:00 07:22 07:22 WBC 10.2 H RBC 2.94 L Hgb 9.9 L Hct 28.4 L MCV 96.7 H Absolute Neuts (auto) 8.3 H Potassium 3.1 L 3.0 L Chloride 112 H 111 H Anion Gap 7 L 7 L BUN 6.6 L Calcium 7.8 L 7.9 L ALT 10 L Total Protein 5.3 L Albumin 2.0 L Free T4 0.49 L plan: synthroid 150mcg daily titrate to175 mcg daily follow out patient tsh free t4 outpatient
--- NOTE | 2019-09-06 17:03 | PN ---
Physical Exam: 38 F h/o morbid obesity, asthma (never intubated), anxiety, depression, bipolar disorder, hypothyroidism admitted for PID on Ceftriaxone/Doxycycline, following up on patient. Patient endorses feeling better today, needs to be motivated to go OOB to chair. DC Neb treatments will transition to MDI. Tolerating PO, no fevers overnight. PE VSS GA sitting up in stretcher, AAox3, speaking in full sentences HEENT NC/AT, EOMI, dry MM, neck supple Chest CTAB, no crackles or wheezing CVS S1, S2+, RRR, no m/r/g Abd obese, grossly soft, NT, ND, BS+ Ext No LE edema, no calf tenderness, moves all 4 ext. Vital Signs - 24 hr 09/05/19 09/05/19 09/05/19 18:05 21:00 22:00 Temperature 98.1 F 98.1 F Pulse Rate 82 85 Respiratory 20 20 Rate Blood Pressure 124/72 121/75 O2 Sat by Pulse 96 Oximetry (%) 09/06/19 09/06/19 09/06/19 03:29 06:02 09:00 Temperature 98.1 F 98.1 F Pulse Rate 68 91 H Respiratory 20 20 20 Rate Blood Pressure 102/61 129/78 O2 Sat by Pulse 95 Oximetry (%) 09/06/19 09/06/19 10:00 14:18 Temperature 98.8 F 98.2 F Pulse Rate 92 H 83 Respiratory 20 20 Rate Blood Pressure 136/83 121/67 O2 Sat by Pulse Oximetry (%) Microbiology 09/04/19 12:45 Blood - Peripheral Venous Blood Culture - Preliminary NO GROWTH OBTAINED AFTER 48 HOURS, INCUBATION TO CONTINUE FOR 3 DAYS. 09/04/19 12:45 Blood - Peripheral Venous Blood Culture - Preliminary NO GROWTH OBTAINED AFTER 48 HOURS, INCUBATION TO CONTINUE FOR 3 DAYS. 09/04/19 12:30 Stool Salmonella/Shigella Culture - Preliminary NO ENTERIC PATHOGENS, 24 HOURS, ON PRIMARY PLATES 09/04/19 12:30 Stool Yersinia Culture - Preliminary NO ENTERIC PATHOGENS, 24 HOURS, ON PRIMARY PLATES 09/04/19 12:30 Stool Vibrio Culture - Preliminary NO ENTERIC PATHOGENS, 24 HOURS, ON PRIMARY PLATES 09/04/19 12:30 Stool Escherichia coli 0157 Culture - Preliminary NO ENTERIC PATHOGENS, 24 HOURS, ON PRIMARY PLATES 09/04/19 12:30 Stool Clostridioides difficile Antigen - Final 09/04/19 12:30 Stool Clostridioides difficile Toxin Assay - Final 09/02/19 04:05 Urine - Urine Clean Catch Urine Culture - Final Normal Urogenital [facility] Laboratory Results - last 24 hr 09/05/19 09/05/19 09/06/19 07:00 23:00 07:22 WBC 10.2 H RBC 2.94 L Hgb 9.9 L Hct 28.4 L MCV 96.7 H MCH 33.6 MCHC 34.7 RDW 15.4 Plt Count 242 MPV 7.5 Absolute Neuts (auto) 8.3 H Neutrophils % 81.5 Lymphocytes % 12.3 D Monocytes % 5.3 Eosinophils % 0.8 Basophils % 0.1 Nucleated RBC % 0 Sodium 141 Potassium 3.1 L Chloride 112 H Carbon Dioxide 22 Anion Gap 7 L BUN 14.6 Creatinine 0.9 Est GFR (CKD-EPI)AfAm 94.01 Est GFR (CKD-EPI)NonAf 81.11 Random Glucose 87 Calcium 7.8 L Total Bilirubin AST ALT Alkaline Phosphatase Troponin I < 0.02 Total Protein Albumin Free T4 0.49 L 09/06/19 07:22 WBC RBC Hgb Hct MCV MCH MCHC RDW Plt Count MPV Absolute Neuts (auto) Neutrophils % Lymphocytes % Monocytes % Eosinophils % Basophils % Nucleated RBC % Sodium 140 Potassium 3.0 L Chloride 111 H Carbon Dioxide 22 Anion Gap 7 L BUN 6.6 L Creatinine 0.7 Est GFR (CKD-EPI)AfAm 127.39 Est GFR (CKD-EPI)NonAf 109.91 Random Glucose 100 Calcium 7.9 L Total Bilirubin 0.7 AST 17 ALT 10 L Alkaline Phosphatase 104 Troponin I Total Protein 5.3 L Albumin 2.0 L Free T4 Current Medications Generic Name Dose Route Start Last Admin Trade Name Freq PRN Reason Stop Dose Admin Acetaminophen 650 mg 09/04/19 12:14 09/06/19 10:43 Tylenol - PO 650 mg Q4H PRN Administration PAIN LEVEL 1-5 Al Hydroxide/Mg Hydroxide 30 ml 09/04/19 17:43 09/06/19 15:45 Mylanta Oral Suspension - PO 30 ml Q6H PRN Administration DYSPEPSIA Budesonide/Formoterol Fumarate 2 puff 09/04/19 10:00 09/06/19 09:31 Symbicort 160/4.5mcg - IH 2 puff BID JULIANO Administration Heparin Sodium (Porcine) 5,000 unit 09/05/19 22:45 09/06/19 13:15 Heparin - SQ 5,000 unit TID JULIANO Administration Doxycycline Hyclate 100 mg/ 100 mls @ 100 mls/hr 09/02/19 22:00 09/06/19 09: 29 Dextrose IVPB 100 mls/hr BID [facility] Administration Sodium Chloride 1,000 mls @ 125 mls/hr 09/02/19 13:15 09/06/19 13:15 Normal Saline - IV Not Given ASDIR JULIANO Ceftriaxone Sodium 2 gm/ 100 mls @ 200 mls/hr 09/04/19 12:00 09/06/19 10:45 Dextrose IVPB 200 mls/hr DAILY [facility] Administration Protocol Levothyroxine Sodium 175 mcg 09/07/19 07:00 Synthroid - PO DAILY J[facility] Ondansetron HCl 4 mg 09/02/19 13:09 09/06/19 12:17 Zofran Injection IVPUSH 4 mg Q4H PRN Administration NAUSEA AND/OR VOMITING Oxycodone HCl 5 mg 09/04/19 12:13 09/06/19 10:43 Roxicodone - PO 5 mg Q4H PRN Administration PAIN LEVEL 6-10 38 F h/o hypothyroidism, obesity, bipolar depression, asthma, admitted for PID on abx, previously c/o SOB now resolving. SOB and dyspnea Resolved. no overt signs of PNA, likely d/t obese body habitus, poor inspiratory effort and uncontrolled pain, no clinical signs of asthma, cont. asthma meds, DC nebs start MDI Ventolin, and cont. Symbicort. Avoid overuse of NSAIDs as this may precipitate asthma exacerbations and ARNAV ( with poor oral intake), also pt. endorses GI upset with Ibuprofen increase pain regimen as needed with narcotics/Tylenol, encourage use of incentive spirometer with holding her breath 1-2 seconds, upright positioning, early ambulation, DVT ppx Asthma restart Symbicort, Ventolin MDI follow recommendations above Hypokalemia due to Neb treatments and diarrhea (C. diff negative), DC nebs replace K aggressively monitor daily chem Bipolar depression improved today appreciate psych consult restart home psych meds Hypothyroidism TSH >50, likely due to synthroid non-compliance in view of low FT4, will increase Synthroid dose to 175mcg @7AM on empty stomach , follow up after discharge in Endocrine clinic with repeat thyroid studies Endocrine consult: Dr. Oquendo PID cont. abx Abdominal/Pelvic imaging PRN rest of management per primary team Dispo: We will continue to follow the patient. Thank you for this consultative opportunity. Visit type - Emergency Visit Emergency Visit: Yes ED Registration Date: 09/02/19 Care time: The patient presented to the Emergency Department on the above date and was hospitalized for further evaluation of their emergent condition. - New Patient This patient is new to me today: No - Critical Care Critical Care patient: No - Discharge Referral Referred to [facility] Med P.C.: No
[2019-09-06] MEDS ORDERED: SIMETHICONE 80 MG TAB.CHEW (FP) PO PRN (17:07)
[2019-09-07] MEDS: SODIUM CHLORIDE 1,000 ML IV SCH (02:53)
[2019-09-07] MEDS: oxyCODONE HCL 5 MG TABLET PO PRN ×2 (03:10→09:23)
[2019-09-07] MEDS: ACETAMINOPHEN 325 MG TABLET (FP) PO PRN ×3 (03:10→13:41)
[2019-09-07] MEDS: ONDANSETRON 4 MG/2 ML VIAL IVPUSH PRN (03:18)
[2019-09-07] MEDS ORDERED: LEVOTHYROXINE NA 125 MCG TABLET (FP) ONE (06:11)
[2019-09-07] MEDS ORDERED: LEVOTHYROXINE NA 50 MCG TABLET (FP) ONE (06:12)
[2019-09-07] MEDS: HEPARIN NA (PORCINE) 5,000 UNITS/ML 1ML VIAL SQ SCH (06:13)
[2019-09-07] MEDS: ALBUTEROL SO4 0.083% IH SOL 2.5 MG/3 ML VIAL.NEB. NEB PRN ×2 (06:54→11:23)
[2019-09-07] MEDS ORDERED: LEVOTHYROXINE NA 150 MCG TABLET PO SCH (07:00)
[2019-09-07] MEDS ORDERED: LEVOTHYROXINE 125 MCG, LEVOTHYROXINE 50 MCG PO SCH (07:00)
[2019-09-07 08:18] LABS: BASO % 0.2 % (0-2.0); EOS % 0.5 % (0-4.5); HEMATOCRIT 27.7 % (32.4-45.2); HEMOGLOBIN 9.4 GM/dL (10.7-15.3); LYMPH % 14.8 % (8-40); MCHC 33.9 g/dl (32.0-36.0); MEAN CELL VOLUME 97.2 fl (80-96); MEAN PLT VOLUME 7.4 fl (7.5-11.1); NEUT % 79.5 % (42.8-82.8); PLATELET COUNT 259 K/MM3 (134-434); RBC 2.85 M/mm3 (3.60-5.2); RDW 15.7 % (11.6-15.6); WHITE BLOOD COUNT 11.5 K/mm3 (4.0-10.0)
[2019-09-07 08:30] LABS: BLOOD UREA NITROGEN 4.5 mg/dL (7-18); CALCIUM 7.7 mg/dL (8.5-10.1); CREATININE 0.7 mg/dL (0.55-1.3); POTASSIUM 3.5 mmol/L (3.5-5.1)
[2019-09-07] MEDS ORDERED: DEXTROSE 5%-WATER 100 ML IVPB ONE ×2 (08:45→08:46)
[2019-09-07] MEDS ORDERED: DOXYCYCLINE HYCLATE 100 MG VIAL ONE (08:45)
[2019-09-07] MEDS: DOXYCYCLINE INJECTION 100 MG in DEXTROSE 5%-WATER 100 ML IVPB SCH (09:26)
[2019-09-07] MEDS: CEFTRIAXONE 2 GM in DEXTROSE 5%-WATER 100 ML IVPB SCH (09:26)
[2019-09-07] MEDS: BUDESONIDE/FORMETEROL FUMARATE 160/4.5 mcg INHALER IH SCH (09:28)
--- NOTE | 2019-09-07 10:05 | EKG ---
Test Reason : Blood Pressure : / mmHG Vent. Rate : 092 BPM Atrial Rate : 092 BPM P-R Int : 140 ms QRS Dur : 108 ms QT Int : 370 ms P-R-T Axes : 026 011 -10 degrees QTc Int : 457 ms NORMAL SINUS RHYTHM NONSPECIFIC T WAVE ABNORMALITY ABNORMAL ECG WHEN COMPARED WITH ECG OF 02-SEP-2019 02:33, NO SIGNIFICANT CHANGE WAS FOUND Confirmed by ANIL FENG MD ([id number]) on 09/07/2019 10:05:13 AM Referred By: Confirmed By:ANIL FENG MD
[2019-09-07 10:07] VITALS: BP 142/87; PULSE 96; TEMP 98
--- NOTE | 2019-09-07 12:21 | DS ---
Physical Examination Vital Signs: Vital Signs Temperature 98.0 F 09/07/19 10:00 Pulse Rate 96 H 09/07/19 10:00 Respiratory Rate 09/07/19 10:00 Blood Pressure 142/87 09/07/19 10:00 O2 Sat by Pulse Oximetry (%) 96 09/06/19 21:00 Findings/Remarks: Patient reports abdominal pain improved since admission. Menses flow is decreasing and SOB resolved. Patient reports being able to get out of bed and ambulate. Patient feels comfortable going home. Constitutional: Yes: No Distress HENT: Yes: Atraumatic Neck: Yes: Supple Cardiovascular: Yes: Regular Rate and Rhythm Respiratory: Yes: Regular Gastrointestinal: Yes: Soft ...Rectal Exam: Yes: Other (deferred) Renal/: Yes: Other (deferred) Breast(s): Yes: Other (deferred) Musculoskeletal: Yes: WNL Extremities: Yes: WNL Edema: Yes Edema: LLE: Trace, RLE: Trace Integumentary: Yes: WNL Wound/Incision: Yes: Well Approximated Neurological: Yes: Alert, Oriented ...Motor Strength: WNL Psychiatric: Yes: Alert, Oriented Labs: CBC, BMP 09/07/19 07:00 09/07/19 07:00 Discharge Summary Problems reviewed: Yes Reason For Visit: PYOSALPINX Current Active Problems Other specified hypothyroidism (Acute) PID (acute pelvic inflammatory disease) (Acute) Pyosalpinx (Acute) Procedures: Principal: In-patient Hospital care and pain control Hospital Course: Patient admitted with severe abdominal pain in the background of hydrosalpinx and fibroid uterus. In-patient pain control and multi-service consultation obtained. Patient was kept on IV antibiotics, asthma and hypothyroid treatment adjusted. Patient condition improved and in stable condition on HD # 6. Plan of Treatment: Short outpatient follow up and short course of pain medication PRN Condition: Stable - Instructions Diet, Activity, Other Instructions: Please return regular activity and diet as tolerated. Follow up with [facility] and primary care doctor within a week of discharge. Seek immediate medical attention if high grade fever, intractable pain, severe nausea and vomiting or any other urgent concerning symptoms. Take medications as prescribed. Referrals: Kiko Diez MD [Primary Care Provider] - Stevie Saldivar MD [Staff Physician] - Disposition: HOME - Home Medications Comprehensive Discharge Medication List: Ambulatory Orders Albuterol Sulfate Inhaler - [Ventolin HFA Inhaler -] 1 puff IH Q4H PRN 07/15/17 Budesonide/Formeterol Fumarate [SYMBICORT 160/4.5mcg -] 2 inh PO BID 07/15/17 Levothyroxine [Synthroid -] 125 mcg PO DAILY 09/02/19 Montelukast Sodium [Singulair] 10 mg PO HS 09/02/19 Albuterol Sulfate Inhaler - [Ventolin HFA Inhaler -] 1 puff IH Q4H PRN #1 inhaler 09/07/19 Ibuprofen 600 mg PO Q6H PRN #30 tablet 09/07/19 Levothyroxine [Synthroid -] 25 mcg PO DAILY #30 tablet 09/07/19 Levothyroxine [Synthroid -] 150 mcg PO DAILY #30 tablet 09/07/19 Oxycodone HCl 5 mg PO Q6H PRN 3 Days #12 tablet MDD 5 09/07/19
== END 2019-09-07 14:58 | disposition home or self-care (01) | DRG 531 ==
LOC: JER 17:22 → JERBED 09-02 14:19 → J7W 09-02 23:50
PROVIDERS: ADMIT Student in an Organized Health Care Education/Training Program; ATTEND Student in an Organized Health Care Education/Training Program
PROC: 3E03329 Introduction of Other Anti-infective into Peripheral Vein, Percutaneous Approach (ICD-10-PCS; principal; 2019-09-01)
PROC: 3E03329 Introduction of Other Anti-infective into Peripheral Vein, Percutaneous Approach (ICD-10-PCS; 2019-09-01)
PROC: 3E033NZ Introduction of Analgesics, Hypnotics, Sedatives into Peripheral Vein, Percutaneous Approach (ICD-10-PCS; 2019-09-01)
PROC: 3E033NZ Introduction of Analgesics, Hypnotics, Sedatives into Peripheral Vein, Percutaneous Approach (ICD-10-PCS; 2019-09-01)
PROC: 3E033GC Introduction of Other Therapeutic Substance into Peripheral Vein, Percutaneous Approach (ICD-10-PCS; 2019-09-01)
DX: N73.0 Acute parametritis and pelvic cellulitis (principal)
CPT/HCPCS: 36415; 74177-TC; 76830-TC; 80048; 80053; 81003; 83605; 83690; 83735; 84439; 84443; 84484; 84703; 85025; 87040; 87045; 87046; 87086; 87177; 87209; 87324; 87449; 87491; 87591; 87661; 87804; 93005; 93010; 94010; 94640; 99284-25; J0131; J1644; J7030

== ENCOUNTER 2020-04-08 13:45 | Inpatient (IN) | payer OTHER ==
[2020-04-08 13:52] VITALS: BMI 35.0
[2020-04-08] MEDS ORDERED: SODIUM CHLORIDE 1,000 ML IV STA (14:21)
[2020-04-08] MEDS ORDERED: CLINDAMYCIN 600MG PREMIX IVPB 600 MG/50 ML BAG IVPB ONE ×2 (14:22→14:26)
[2020-04-08] MEDS ORDERED: morphine CARPU-JECT 4 MG/1 ML DISP.SYRIN IVPUSH ONE ×2 (14:22→17:48)
[2020-04-08] MEDS ORDERED: MORPHINE SULFATE 2 MG/ML VIAL ONE (14:25)
[2020-04-08] MEDS ORDERED: ONDANSETRON 4 MG/2 ML VIAL IVPUSH ONE (14:26)
--- NOTE | 2020-04-08 14:50 | PDOC ---
History of Present Illness - General History Source: Patient - History of Present Illness Timing/Duration: 1 week Severity: severe <[place]Joyce - Last Filed: 04/08/20 18:44> <Cecilia Jeff - Last Filed: 04/10/20 15:06> - General Chief Complaint: Abscess Boil Stated Complaint: LUMP IN BREAST Time Seen by Provider: 04/08/20 13:50 Past History - Medical History Anemia: No Asthma: Yes COPD: No DVT: No GI Disorders: Yes (GERD) Thyroid Disease: Yes - Surgical History Cholecystectomy: Yes - Reproductive History Is Patient Now?: No Therapeutic (s) & number: No - Immunization History Immunization Up to Date: Yes - Psycho-Social/Smoking History Smoking History: Current every day smoker Have you smoked in the past 12 months: No Number of Cigarettes Smoked Daily: 7 Information on smoking cessation initiated: No 'Breaking Loose' booklet given: 01/22/18 - Substance Abuse Hx (Audit-C & DAST Scrn) How often the patient has a drink containing alcohol: Never Score: In Men: 4 or > Positive; In Women: 3 or > Positive: 0 Screen Result (Pos requires Nsg. Audit-10AR): Negative <Joyce Macias - Last Filed: 04/08/20 18:44> <Cecilia Jeff - Last Filed: 04/10/20 15:06> - Medical History Allergies/Adverse Reactions: Allergies Allergy/AdvReac Type Severity Reaction Status Date / Time azithromycin Allergy Verified 04/08/20 13:49 clarithromycin [From Biaxin] Allergy Verified 04/08/20 13:48 levofloxacin [From Levaquin] Allergy Verified 04/08/20 13:48 Home Medications: Ambulatory Orders Albuterol Sulfate Inhaler - [Ventolin Hfa Inhaler -] 1 - 2 inh PO Q4H PRN 04/08/20 Budesonide/Formeterol Fumarate [SYMBICORT 160/4.5mcg -] 2 inh PO BID 04/08/20 Cetirizine HCl [All Day Allergy] 10 mg PO DAILY PRN 04/08/20 Clonazepam [Klonopin] 1 mg PO HS 04/08/20 Levothyroxine [Synthroid -] 200 mcg PO DAILY 04/08/20 Montelukast Na [Singulair -] 10 mg PO HS 04/08/20 Topiramate [Topamax] 50 mg PO DAILY 04/08/20 Review of Systems - Review of Systems Constitutional: No: Chills, Fever, Malaise <Joyce Macias - Last Filed: 04/08/20 18:44> *Physical Exam - Vital Signs Last Vital Signs Temp Pulse Resp BP Pulse Ox 98.2 F 107 H 18 143/100 99 04/08/20 13:49 04/08/20 13:49 04/08/20 13:49 04/08/20 13:49 04/08/20 13:49 - Physical Exam General Appearance: Yes: Appropriately Dressed, Moderate Distress HEENT: positive: Normal Voice Neck: positive: Supple Respiratory/Chest: positive: Other (L breast: ~6x4 cm induration in 6 0' clock positon w/ extensive cellultis ). negative: Respiratory Distress Integumentary: positive: Dry, Warm Neurologic: positive: Fully Oriented, Alert, Normal Mood/Affect <Joyce Mcaias - Last Filed: 04/08/20 18:44> - Vital Signs Last Vital Signs Temp Pulse Resp BP Pulse Ox 98.6 F 73 18 124/73 99 04/10/20 14:30 04/10/20 14:30 04/10/20 14:30 04/10/20 14:30 04/10/20 14:30 <Cecilia Jeff - Last Filed: 04/10/20 15:06> ED Treatment Course - LABORATORY CBC & Chemistry Diagram: 04/08/20 14:37 04/08/20 14:37 - RADIOLOGY Radiology Studies Ordered: Category Date Time Status BREAST US LEFT LIMITED [US] Routine Ultrasound 04/08/20 14:22 Ordered <Joyce Macias - Last Filed: 04/08/20 18:44> - LABORATORY CBC & Chemistry Diagram: 04/10/20 05:50 04/09/20 05:20 - ADDITIONAL ORDERS Additional order review: 04/08/20 14:37 RBC 3.73 MCV 98.7 H MCHC 33.2 RDW 16.5 H MPV 7.5 Neutrophils % 81.0 Lymphocytes % 13.0 Monocytes % 5.5 Eosinophils % 0.3 Basophils % 0.2 - Medications Given in the ED: ED Medications Discontinued Medications Generic Name Dose Route Start Last Admin Trade Name Radha PRN Reason Stop Dose Admin Acetaminophen 650 mg 04/08/20 15:37 04/08/20 15:59 Tylenol - PO 04/08/20 15:38 650 mg ONCE ONE Administration Fentanyl 50 mcg 04/08/20 20:23 04/08/20 20:50 Sublimaze Injection - IVPUSH 50 mcg [id number] PRN Administration PAIN-PACU ORDER X 4 DOSES ONLY Sodium Chloride 1,000 mls @ 1,000 mls/hr 04/08/20 14:21 04/08/20 14:41 Normal Saline - IV 04/08/20 15:20 1,000 mls/hr ASDIR STA Administration Clindamycin Phosphate 600 mg in 50 mls @ 100 mls/hr 04/08/20 14:22 04/08/20 14:41 Cleocin 600 Mg Premix Ivpb - IVPB 04/08/20 14:51 100 mls/hr ONCE ONE Administration Morphine Sulfate 4 mg 04/08/20 14:22 04/08/20 14:41 Morphine Injection - IVPUSH 04/08/20 14:23 4 mg ONCE ONE Administration Morphine Sulfate 4 mg 04/08/20 17:48 04/08/20 18:19 Morphine Injection - IVPUSH 04/08/20 17:49 4 mg ONCE ONE Administration Morphine Sulfate 4 mg 04/08/20 22:25 04/08/20 22:45 Morphine Sulfate IVPUSH 04/08/20 22:26 4 mg ONCE ONE Administration Ondansetron HCl 4 mg 04/08/20 14:26 04/08/20 14:42 Zofran Injection IVPUSH 04/08/20 14:27 4 mg ONCE ONE Administration Oxycodone HCl 5 mg 04/08/20 20:45 04/09/20 12:17 Roxicodone - PO 5 mg Q6H PRN Administration PAIN LEVEL 4-6 Oxycodone HCl 5 mg 04/09/20 10:49 04/09/20 11:08 Roxicodone - PO 04/09/20 10:50 5 mg ONCE ONE Administration <Cecilia Jeff - Last Filed: 04/10/20 15:06> Medical Decision Making - Medical Decision Making 04/08/20 14:31 39 yo F, no sig hx, here w/ worsening L breast pain/swelling/redness x 1 week. Also reports greenish nipple discharge. No f/c. Not breast feeding and no recent . No unexplained weight loss. No trauma or recent piercings. No personal or fmhx of breast malignancy see exam L breast abscess/cellulitis No systemic s/s Stable w/~6x4cm induration w/ extensive cellulitis to L breast -pain control -IV abx -labs -US -possible admission 04/08/20 18:13 US read as 5x4x3 cm subareolar abscess per Dr Jane. Spoke to Dr Ha Mcmahon of surgery who will perform I&D in am. Will arrange admission at this time 04/08/20 18:44 Pt admitted. Preop labs, ekg and cxr in progress. Low risk for covid, will send swab 04/08/20 18:45 <Joyce Macias - Last Filed: 04/08/20 18:44> - Medical Decision Making I reviewed the case with the mid-level practitioner and agree with the mid-level practitioner's assessment, diagnosis and disposition. <Cecilia Jeff - Last Filed: 04/10/20 15:06> Discharge - Discharge Information Problems reviewed: Yes - Admission Yes <Joyce Macias - Last Filed: 04/08/20 18:44> <Cecilia Jeff - Last Filed: 04/10/20 15:06> - Discharge Information Clinical Impression/Diagnosis: Cellulitis of breast, Subareolar breast abscess Condition: Fair
[2020-04-08 14:59] LABS: BASO % 0.2 % (0-2.0); EOS % 0.3 % (0-4.5); HEMATOCRIT 36.9 % (32.4-45.2); HEMOGLOBIN 12.2 GM/dL (10.7-15.3); MCH 32.7 pg (25.7-33.7); MCHC 33.2 g/dl (32.0-36.0); MEAN CELL VOLUME 98.7 fl (80-96); MEAN PLT VOLUME 7.5 fl (7.5-11.1); MONO % 5.5 % (3.8-10.2); PLATELET COUNT 300 K/MM3 (134-434); RBC 3.73 M/mm3 (3.60-5.2); RDW 16.5 % (11.6-15.6); WHITE BLOOD COUNT 12.2 K/mm3 (4.0-10.0)
[2020-04-08 15:31] LABS: BILIRUBIN,TOTAL 0.6 mg/dL (0.2-1); BLOOD UREA NITROGEN 15.6 mg/dL (7-18); POTASSIUM 3.9 mmol/L (3.5-5.1); TOT PROT 8.2 g/dl (6.4-8.2)
[2020-04-08] MEDS ORDERED: ACETAMINOPHEN 325 MG TABLET (FP) PO ONE (15:37)
[2020-04-08] MEDS ORDERED: ACETAMINOPHEN 325 MG TABLET (FP) ONE ×2 (15:49→15:52)
[2020-04-08 16:49] LABS: HCG,QUALITATIVE URINE Negative
[2020-04-08 16:53] LABS: EPI CELLS 9 /uL (0-25.1); HYALINE CASTS 0 /uL (0-3.1); PH,URINE 5.5 (5.0-8.0); URINE APPEARANCE CLEAR; URINE BACTERIA 45 /uL (0-1359); URINE BILIRUBIN NEGATIVE (NEGATIVE); URINE COLOR YELLOW; URINE GLUCOSE (UA) NEGATIVE (NEGATIVE); URINE KETONE NEGATIVE (NEGATIVE); URINE LEUK ESTERASE NEGATIVE (NEGATIVE); URINE NITRITE NEGATIVE (NEGATIVE); URINE PROTEIN NEGATIVE (NEGATIVE); URINE RBC 15 /uL (0-23.9); URINE UROBILINOGEN 0.2 mg/dL (0.2-1.0); URINE WBC 9 /uL (0-25.8)
[2020-04-08] MEDS ORDERED: morphine SULFATE 4 MG/ML VIAL ONE (18:04)
--- NOTE | 2020-04-08 18:48 | PN ---
Teaching Attending Note Name of Resident: Omid Florian ATTENDING PHYSICIAN STATEMENT I saw and evaluated the patient. I reviewed the resident's note and discussed the case with the resident. I agree with the resident's findings and plan as documented. SUBJECTIVE: 39 year old female with known history of fibroids, cholecystectomy, hypothyro idism who presents to the ED complaining of left breast pain of at least 1 and a half weeks. She denies any trauma to the area. The pain began insidiously and then followed by erythema of the periareolar tissue of the left breast. Pain became so severe that she decided to go to the ED. US of the breast showed US 5x4x3 cm subareolar abscess OBJECTIVE: Gen appears appropriate for stated age and not in acute distress HEENT: EOMI, no oral lesions neck; supple chest diminished breath sounds, no rales, ronchi nor wheezing. 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 Left subareaolar abscess - Dr Ha Mcmahon of surgery will perform I and D in am - IV clindamycin (patient with multiple allergies. - consider ID consultation in am - NPO past midnight 2. cardiovascular risk assessment: patient is a young lady with no significant past medical history. EKG pending. In the absence of any acute findings May go ahead with planned I and D without further testing. 3. DVT prophylaxis - SCD for DVT prophylaxis
--- NOTE | 2020-04-08 19:17 | CONSULT ---
Consult Consult Specialty:: Surgery Reason for Consultation:: left breast abscess - History of Present Illness History of Present Illness: 39 year old female with known history of fibroids, cholecystectomy, hypothyroidism who presents to the ED complaining of left breast pain of at least 1 and a half weeks. She denies any trauma to the area. The pain began insidiously and then followed by erythema of the periareolar tissue of the left breast. Pain became so severe that she decided to go to the ED. US of the breast showed US 5x4x3 cm subareolar abscess Patient had 2 prior episodes of left breast pain and inflammation this year. - History Source History Provided By: Patient Limitations to Obtaining History: No Limitations - Past Medical History Pulmonary: Yes: Asthma Gastrointestinal: Yes: Constipation, GERD ...LMP: 04/02/20 ...: No Psych: Yes: Bipolar (not taking her Topamax for several months now). No: Addictions, Anxiety, Depression, Panic, Psychosis, Schizophrenia, Other Musculoskeletal: Yes: Chronic low back pain, Other (herniated discs) - Past Surgical History Past Surgical History: Yes: Cholecystectomy - Alcohol/Substance Use Hx Alcohol Use: No History of Substance Use: reports: None - Smoking History Smoking history: Current every day smoker Have you smoked in the past 12 months: No Aproximately how many cigarettes per day: 7 - Social History Usual Living Arrangement: With Child ADL: Independent Home Medications - Allergies Allergies/Adverse Reactions: Allergies Allergy/AdvReac Type Severity Reaction Status Date / Time azithromycin Allergy Verified 04/08/20 13:49 clarithromycin [From Biaxin] Allergy Verified 04/08/20 13:48 levofloxacin [From Levaquin] Allergy Verified 04/08/20 13:48 - Home Medications Home Medications: Ambulatory Orders Clonazepam [Klonopin] 1 mg PO DAILY 04/08/20 Levothyroxine [Synthroid -] 200 mcg PO DAILY 04/08/20 Loratadine [Claritin] 10 mg PO DAILY 04/08/20 Topiramate [Topamax] 50 mg PO DAILY 04/08/20 Tramadol HCl 50 mg PO BID PRN 04/08/20 Review of Systems - Review of Systems Eyes: reports: No Symptoms HENT: reports: No Symptoms Neck: reports: No Symptoms Cardiovascular: reports: No Symptoms Respiratory: reports: No Symptoms Gastrointestinal: reports: No Symptoms Breasts: reports: Pain (left breast), Skin Changes (erythema) Physical Exam Vital Signs: Vital Signs Temperature 98.2 F 04/08/20 13:49 Pulse Rate 107 H 04/08/20 13:49 Respiratory Rate 18 04/08/20 13:49 Blood Pressure 143/100 04/08/20 13:49 O2 Sat by Pulse Oximetry (%) 99 04/08/20 13:49 Constitutional: Yes: Well Nourished, No Distress HENT: Yes: Normocephalic Neck: Yes: Supple Respiratory: Yes: CTA Bilaterally Gastrointestinal: Yes: Soft Breast(s): Yes: Left (5 cm retroareolar induration and tenderness with surrounding erythema (7 x 5 cm)) Labs: CBC, BMP 04/08/20 14:37 04/08/20 14:37 Imaging - Results Ultrasound: Report Reviewed, Image Reviewed (5 cm left breast collection suspicious for abscess) Problem List - Problems (1) Left breast abscess Assessment/Plan: I & D of left breast abscess under GA continue antibiotics Code(s): N61.1 - ABSCESS OF THE BREAST AND NIPPLE
[2020-04-08] MEDS ORDERED: PROPOFOL 20 ML ONE ×2 (19:33)
[2020-04-08] MEDS ORDERED: MIDAZOLAM HCL 2 MG/2 ML SINGLE DOSE VIAL ONE (19:33)
[2020-04-08 19:51] LABS: INR 1.08 (0.83-1.09); PROTHROMBIN TIME (PATIENT) 12.7 SEC (9.7-13.0)
[2020-04-08] MEDS ORDERED: KETAMINE HCL 200 MG/20 ML VIAL ONE (19:56)
--- NOTE | 2020-04-08 20:14 | HP ---
CHIEF COMPLAINT: Left breast pain PCP: HISTORY OF PRESENT ILLNESS: 39F w/ pmh of fibroids, hypothyroidism, bipolar disorder 1, anxiety disorder presenting to [facility] for severe Left-sided breast pain. Thinks it first started as a small lower breast bump back in Sep-October. Was seen by a Firearms Sales Associate, but did not get a full work-up d/t the ongoing COVID pandemic. Thinks she had an ultrasound but doesn't remember the results. The mass subsided over a weeks. Had a return of Left breast pain 1.5week ago. Then red, swollen, pus-discharge for a few days. Warm bath helped promote pus drainage. Came to [facility] d/t to worsening pain and swelling. Has been uncomfortable with movement, sleeping on side. Denies fever, chills. Denies trauma, piercing, nursing. LMP was 1 wk prior. Has irregular menstrual cycles. ER course was notable for: (1) 98.2F, HR 105, BP 143/100, 99%(RA) (2) WBC 12.2, H/H 12/2/36.9, MCV 98.7 (3) UA: 3+ blood (3) US Left breast: retroareolar region w/ complex fluid respresenting abscess(4.6x2.5x5.2cm) surrounded by vascularity, surrounding soft tissue edema present (3) NS x1L, zofran 4mg, morphine 4mg, clindamycin, acetaminophen 650mg Recent Travel: denies PAST MEDICAL HISTORY: as above PAST SURGICAL HISTORY: GB removal Social History: Smokin-10cig/daily Alcohol: social Drugs: denies Allergies azithromycin Allergy (Verified 04/08/20 13:49) clarithromycin [From Biaxin] Allergy (Verified 04/08/20 13:48) levofloxacin [From Levaquin] Allergy (Verified 04/08/20 13:48) HOME MEDICATIONS: Home Medications Medication Instructions Recorded Cetirizine HCl [All Day Allergy] 10 mg PO DAILY PRN 04/08/20 Clonazepam [Klonopin] 1 mg PO HS 04/08/20 Levothyroxine [Synthroid -] 200 mcg PO DAILY 04/08/20 Montelukast Na [Singulair -] 10 mg PO HS 04/08/20 Topiramate [Topamax] 50 mg PO DAILY 04/08/20 REVIEW OF SYSTEMS CONSTITUTIONAL: Absent: fever, chills, diaphoresis, generalized weakness, malaise, loss of appetite, weight change HEENT: Absent: rhinorrhea, nasal congestion, throat pain, throat swelling, difficulty swallowing, mouth swelling, ear pain, eye pain, visual changes CARDIOVASCULAR: Absent: chest pain, syncope, palpitations, irregular heart rate, lightheadedness, peripheral edema RESPIRATORY: Absent: cough, shortness of breath, dyspnea with exertion, orthopnea, wheezing, stridor, hemoptysis GASTROINTESTINAL: Absent: abdominal pain, abdominal distension, nausea, vomiting, diarrhea, constipation, melena, hematochezia GENITOURINARY: Absent: dysuria, frequency, urgency, hesitancy, hematuria, flank pain, genital pain MUSCULOSKELETAL: Absent: myalgia, arthralgia, joint swelling, back pain, neck pain SKIN: Absent: rash, itching, pallor HEMATOLOGIC/IMMUNOLOGIC: Absent: easy bleeding, easy bruising, lymphadenopathy, frequent infections ENDOCRINE: Absent: unexplained weight gain, unexplained weight loss, heat intolerance, cold intolerance NEUROLOGIC: Absent: headache, focal weakness or paresthesias, dizziness, unsteady gait, seizure, mental status changes, bladder or bowel incontinence PSYCHIATRIC: Absent: anxiety, depression, suicidal or homicidal ideation, hallucinations. PHYSICAL EXAMINATION Vital Signs - 24 hr 04/08/20 13:49 Temperature 98.2 F Pulse Rate 107 H Respiratory 18 Rate Blood Pressure 143/100 O2 Sat by Pulse 99 Oximetry (%) GENERAL: Awake, alert, and fully oriented, in no acute distress. HEAD: Normal with no signs of trauma. EYES: sclera anicteric, conjunctiva clear. EARS, NOSE, THROAT: oropharynx clear without exudates. Moist mucous membranes. NECK: Normal range of motion, supple without lymphadenopathy, JVD, or masses. LUNGS: Breath sounds equal, clear to auscultation bilaterally. No wheezes, and no crackles. No accessory muscle use. HEART: Regular rate and rhythm, normal S1 and S2 without murmur, rub or gallop. BREAST: Left breast with tenderness to palpation of the inferolateral edge, streaking up to 12o'clock, indurated tissue. Neg axillary LAD ABDOMEN: Soft, nontender, not distended, no guarding, no rebound, no masses. MUSCULOSKELETAL: Normal range of motion at all joints. No bony deformities or tenderness. No CVA tenderness. UPPER EXTREMITIES: 2+ pulses, warm, well-perfused. No cyanosis. No clubbing. No peripheral edema. LOWER EXTREMITIES: 2+ pulses, warm, well-perfused. No calf tenderness. No peripheral edema. NEUROLOGICAL: Normal speech. Normal movement of upper and lower extremities SKIN: Warm, dry, normal turgor, no rashes or lesions noted, normal capillary refill. Laboratory Results - last 24 hr 04/08/20 04/08/20 04/08/20 14:25 14:37 14:37 WBC 12.2 H RBC 3.73 Hgb 12.2 Hct 36.9 D MCV 98.7 H MCH 32.7 MCHC 33.2 RDW 16.5 H Plt Count 300 MPV 7.5 Absolute Neuts (auto) 9.9 H Neutrophils % 81.0 Lymphocytes % 13.0 Monocytes % 5.5 Eosinophils % 0.3 Basophils % 0.2 Nucleated RBC % 0 Sodium 140 Potassium 3.9 Chloride 110 H Carbon Dioxide 22 Anion Gap 8 BUN 15.6 Creatinine 1.0 Est GFR (CKD-EPI)AfAm 82.19 Est GFR (CKD-EPI)NonAf 70.91 Random Glucose 96 Calcium 9.0 Total Bilirubin 0.6 AST 13 L ALT 19 Alkaline Phosphatase 64 Total Protein 8.2 Albumin 4.0 Urine Color Yellow Urine Appearance Clear Urine pH 5.5 Ur Specific Labelle 1.020 Urine Protein Negative Urine Glucose (UA) Negative Urine Ketones Negative Urine Blood 3+ H Urine Nitrite Negative Urine Bilirubin Negative Urine Urobilinogen 0.2 Ur Leukocyte Esterase Negative Urine WBC (Auto) 9 Urine RBC (Auto) 15 Urine Casts (Auto) 0 U Epithel Cells (Auto) 9 Urine Bacteria (Auto) 45 Urine HCG, Qual Negative ASSESSMENT/PLAN: 39F w/ pmh of fibroids, hypothyroidism, bipolar disorder 1, anxiety disorder presenting to [facility] for severe Left-sided breast pain. Labs significant for WBC 12.2. Imaging notable for retroareolar abscess(4.6x2.5x5.2cm) # sepsis 2/2 Left breast retroareolar abscess > US Left breast: retroareolar region w/ complex fluid respresenting abscess(4.6x2.5x5.2cm) surrounded by vascularity, surrounding soft tissue edema present - abx regimen: --clindamycin - ID consult in the AM - Surgical Consult(Go): --plan for OR #chronic hypothyroidism - cw home levothyroxine #occult hematuria --pt was recent having menses > UA: 3+ blood FEN - NPO until surgery DVT PPX - SCD Family Medical History Family History: As Documented Family Hx Psychiatric Problems: Mother (bipolar) Visit type - Emergency Visit Emergency Visit: Yes ED Registration Date: 04/08/20 Care time: The patient presented to the Emergency Department on the above date and was hospitalized for further evaluation of their emergent condition. - New Patient This patient is new to me today: Yes Date on this admission: 04/08/20 - Critical Care Critical Care patient: No ATTENDING PHYSICIAN STATEMENT I saw and evaluated the patient. I reviewed the resident's note and discussed the case with the resident. I agree with the resident's findings and plan as documented. SUBJECTIVE: OBJECTIVE: ASSESSMENT AND PLAN:
--- NOTE | 2020-04-08 20:18 | OP ---
Operative Note - Note: Operative Date: 04/08/20 Pre-Operative Diagnosis: left breast abscess Operation: I & D, left breast abscess Findings: 5 cm loculated subareolar abscess Post-Operative Diagnosis: Same as Pre-op Surgeon: Ha Mcmahon Anesthesia: General Estimated Blood Loss (mls): 3 Operative Report Dictated: Yes
--- NOTE | 2020-04-08 20:36 | OP ---
DATE OF OPERATION: 04/08/2020 PROCEDURE: Incision and drainage of left breast abscess. PREOPERATIVE DIAGNOSIS: Left breast abscess. POSTOPERATIVE DIAGNOSIS: Left breast abscess. SURGEON: Ha Mcmahon MD. ANESTHESIA: General endotracheal via laryngeal mask airway. FINDINGS ON PROCEDURE: This is a 39-year-old female who presents with recurrent pain, swelling, and tenderness of the left breast. The first two episodes were treated conservatively. This time and currently the patient has 1-1/2 weeks of left breast pain, the subareolar area associated with intermittent purulent nipple discharge and surrounding erythema. On physical examination, patient has 5-cm induration of the subareolar region more towards the inferior aspect of the nipple with 10-cm surrounding erythema. An ultrasound in the emergency department revealed a 5 x 4 cm subareolar fluid collection suspicious for an abscess. So patient was advised incision and drainage of abscess in the left breast abscess, and consent as obtained after discussing the risks, benefits, and alternatives to the procedure. DESCRIPTION OF PROCEDURE: Patient brought to the operating room and placed in supine position. The general anesthesia by laryngeal mask airway was administered. The left breast was prepped and draped in usual sterile fashion. Using scalpel blade number 15, a 4-cm periareolar incision below the nipple was made, with dissection carried down to deep subcutaneous tissue. Further dissection using Bovie cautery was done until the abscess cavity was entered, and about 30 mL of purulent material was drained. The abscess cavity was noted to be loculated, and this was taken down bluntly with the surgeon's digits. The abscess cavity was copiously irrigated with sterile normal saline until return was clear. The wound was packed with 1-inch iodoform strips and covered with pressure dressing. The patient was extubated and transferred to the post anesthesia care unit in satisfactory condition. Estimated blood loss was about 3 mL, wound class dirty. The patient was already on intravenous antibiotics upon admission. HA MCMAHON M.D. [id number] MTDD
[2020-04-08] MEDS: LACTATED RINGERS SOLUTION 1,000 ML/1,000 ML INFUS.BAG IV SCH (21:00)
[2020-04-08] MEDS ORDERED: CLINDAMYCIN 600MG PREMIX IVPB 600 MG/50 ML BAG IVPB SCH (21:00)
[2020-04-08] MEDS: oxyCODONE HCL 5 MG TABLET PO PRN (21:44)
[2020-04-08] MEDS: CLINDAMYCIN 600MG PREMIX IVPB 600 MG/50 ML BAG IVPB SCH (21:45)
[2020-04-08] MEDS: ACETAMINOPHEN 325 MG TABLET (FP) PO PRN (21:45)
[2020-04-08] MEDS ORDERED: morphine SULFATE 4 MG/ML VIAL IVPUSH ONE (22:25)
[2020-04-09] MEDS: CLINDAMYCIN 600MG PREMIX IVPB 600 MG/50 ML BAG IVPB SCH ×4 (02:54→20:44)
[2020-04-09] MEDS: oxyCODONE HCL 5 MG TABLET PO PRN ×4 (05:59→20:44)
[2020-04-09] MEDS: ACETAMINOPHEN 325 MG TABLET (FP) PO PRN ×2 (05:59→12:18)
[2020-04-09 06:28] LABS: HEMATOCRIT 31.8 % (32.4-45.2); HEMOGLOBIN 10.5 GM/dL (10.7-15.3); MCH 32.9 pg (25.7-33.7); MCHC 33.2 g/dl (32.0-36.0); MEAN CELL VOLUME 99.1 fl (80-96); MEAN PLT VOLUME 7.3 fl (7.5-11.1); PLATELET COUNT 261 K/MM3 (134-434); RBC 3.21 M/mm3 (3.60-5.2); RDW 16.5 % (11.6-15.6)
[2020-04-09 06:59] LABS: BLOOD UREA NITROGEN 11.9 mg/dL (7-18); CALCIUM 8.5 mg/dL (8.5-10.1); CREATININE 0.9 mg/dL (0.55-1.3); MAGNESIUM 2.2 mg/dL (1.8-2.4); PHOSPHOROUS 4.3 mg/dL (2.5-4.9); POTASSIUM 3.8 mmol/L (3.5-5.1)
[2020-04-09] MEDS ORDERED: oxyCODONE HCL 5 MG TABLET PO ONE (10:49)
--- NOTE | 2020-04-09 12:15 | PN ---
Progress Note, Physician Chief Complaint: left breast abscess History of Present Illness: s/p I & D left breast abscess Pod # 1 Less pain, minimal dressing saturation - Current Medication List Current Medications: Active Medications Acetaminophen (Tylenol -) 325 mg PO Q6H PRN PRN Reason: PAIN LEVEL 4-6 Last Admin: 04/09/20 05:59 Dose: 325 mg Documented by: Fentanyl (Sublimaze Injection -) 50 mcg IVPUSH [id number] PRN PRN Reason: PAIN-PACU ORDER X 4 DOSES ONLY Last Admin: 04/08/20 20:50 Dose: 50 mcg Documented by: Lactated Ringer's (Lactated Ringers Solution) 1,000 ml in 1,000 mls @ 42 mls/hr IV ASDIR JULIANO Last Admin: 04/08/20 21:00 Dose: 42 mls/hr Documented by: Clindamycin Phosphate (Cleocin 600 Mg Premix Ivpb -) 600 mg in 50 mls @ 100 mls/hr IVPB Q6H JULIANO Last Admin: 04/09/20 09:52 Dose: 100 mls/hr Documented by: Oxycodone HCl (Roxicodone -) 5 mg PO Q6H PRN PRN Reason: PAIN LEVEL 4-6 Last Admin: 04/09/20 05:59 Dose: 5 mg Documented by: - Objective Vital Signs: Vital Signs Temperature 97.9 F 04/09/20 10:00 Pulse Rate 82 04/09/20 10:00 Respiratory Rate 18 04/09/20 10:00 Blood Pressure 113/64 04/09/20 10:00 O2 Sat by Pulse Oximetry (%) 96 04/09/20 10:00 Constitutional: Yes: Well Nourished Breast(s): Yes: Left (wound with minimal bloody discharge, packing and dressing changed) Labs: CBC, BMP 04/09/20 05:20 04/09/20 05:20 INR, PTT INR 1.08 (0.83-1.09) 04/08/20 19:25 Problem List - Problems (1) Left breast abscess Assessment/Plan: Doing well Daily wound care with NS irrigation, iodoform packing, & gauze dressing D/C planning w/ VNS if feasible f/u as OP Code(s): N61.1 - ABSCESS OF THE BREAST AND NIPPLE
--- NOTE | 2020-04-09 13:50 | CON.ID ---
Consult Consult Specialty:: infectious diseases - Past Medical History Pulmonary: Yes: Asthma Gastrointestinal: Yes: Constipation, GERD ...LMP: 04/02/20 ...: No Psych: Yes: Bipolar (not taking her Topamax for several months now). No: Addictions, Anxiety, Depression, Panic, Psychosis, Schizophrenia, Other Musculoskeletal: Yes: Chronic low back pain, Other (herniated discs) - Past Surgical History Past Surgical History: Yes: Cholecystectomy - Alcohol/Substance Use Hx Alcohol Use: No History of Substance Use: reports: None - Smoking History Smoking history: Current every day smoker Have you smoked in the past 12 months: No Aproximately how many cigarettes per day: 7 - Social History Usual Living Arrangement: With Child ADL: Independent Home Medications - Allergies Allergies/Adverse Reactions: Allergies Allergy/AdvReac Type Severity Reaction Status Date / Time azithromycin Allergy Verified 04/08/20 13:49 clarithromycin [From Biaxin] Allergy Verified 04/08/20 13:48 levofloxacin [From Levaquin] Allergy Verified 04/08/20 13:48 - Home Medications Home Medications: Ambulatory Orders Albuterol Sulfate Inhaler - [Ventolin Hfa Inhaler -] 1 - 2 inh PO Q4H PRN 04/08/20 Budesonide/Formeterol Fumarate [SYMBICORT 160/4.5mcg -] 2 inh PO BID 04/08/20 Cetirizine HCl [All Day Allergy] 10 mg PO DAILY PRN 04/08/20 Clonazepam [Klonopin] 1 mg PO HS 04/08/20 Levothyroxine [Synthroid -] 200 mcg PO DAILY 04/08/20 Montelukast Na [Singulair -] 10 mg PO HS 04/08/20 Topiramate [Topamax] 50 mg PO DAILY 04/08/20 Family Medical History Family Hx Psychiatric Problems: Mother (bipolar) Physical Exam Vital Signs: Vital Signs Temperature 97.9 F 04/09/20 10:00 Pulse Rate 82 04/09/20 10:00 Respiratory Rate 18 04/09/20 10:00 Blood Pressure 113/64 04/09/20 10:00 O2 Sat by Pulse Oximetry (%) 96 04/09/20 10:00 Labs: CBC, BMP 04/09/20 05:20 04/09/20 05:20
[2020-04-09] MEDS ORDERED: PIPERACILLIN/TAZOBACTAM 3.375 GM VIAL IVPB ONE ×2 (14:08→17:51)
[2020-04-09] MEDS ORDERED: DEXTROSE 5%-WATER - 50 ML IVPB ONE ×2 (14:08→17:51)
[2020-04-09] MEDS: PIPERACILLIN/TAZOB 3.375 GM 3.375 GM in DEXTROSE 5%-WATER - 50 ML IVPB SCH ×2 (14:13→17:59)
--- NOTE | 2020-04-09 14:24 | PN ---
Progress Note, Physician Chief Complaint: No acute events overnight, patient remains afebrile History of Present Illness: 39 year old female with a PMHx notable for fibroids, hypothyroidism, bipolar disorder 1, & anxiety disorder presenting to [facility] for severe Left-sided breast pain. Labs significant for WBC 12.2. Imaging notable for retroareolar abscess(4.6x2.5x5.2cm) - Current Medication List Current Medications: Active Medications Acetaminophen (Tylenol -) 325 mg PO Q6H PRN PRN Reason: PAIN LEVEL 4-6 Last Admin: 04/09/20 12:18 Dose: 325 mg Documented by: Fentanyl (Sublimaze Injection -) 50 mcg IVPUSH [id number] PRN PRN Reason: PAIN-PACU ORDER X 4 DOSES ONLY Last Admin: 04/08/20 20:50 Dose: 50 mcg Documented by: Lactated Ringer's (Lactated Ringers Solution) 1,000 ml in 1,000 mls @ 42 mls/hr IV ASDIR JULIANO Last Admin: 04/08/20 21:00 Dose: 42 mls/hr Documented by: Clindamycin Phosphate (Cleocin 600 Mg Premix Ivpb -) 600 mg in 50 mls @ 100 mls/hr IVPB Q6H JULIANO Last Admin: 04/09/20 09:52 Dose: 100 mls/hr Documented by: Piperacillin Sod/Tazobactam (Sod 3.375 gm/ Dextrose) 50 mls @ 100 mls/hr IVPB Q8H-IV JULIANO; Protocol Last Admin: 04/09/20 14:13 Dose: 100 mls/hr Documented by: Oxycodone HCl (Roxicodone -) 5 mg PO Q6H PRN PRN Reason: PAIN LEVEL 4-6 Last Admin: 04/09/20 12:17 Dose: 5 mg Documented by: - Objective Vital Signs: Vital Signs Temperature 97.9 F 04/09/20 10:00 Pulse Rate 82 04/09/20 10:00 Respiratory Rate 18 04/09/20 10:00 Blood Pressure 113/64 04/09/20 10:00 O2 Sat by Pulse Oximetry (%) 96 04/09/20 10:00 Constitutional: Yes: Well Nourished, No Distress, Calm Eyes: Yes: WNL, Conjunctiva Clear, EOM Intact HENT: Yes: WNL, Atraumatic, Normocephalic Neck: Yes: WNL, Supple Cardiovascular: Yes: WNL, Regular Rate and Rhythm Respiratory: Yes: WNL, Regular, CTA Bilaterally Gastrointestinal: Yes: WNL, Normal Bowel Sounds, Soft Musculoskeletal: Yes: WNL Extremities: Yes: WNL Edema: No Peripheral Pulses WNL: Yes Integumentary: Yes: WNL Wound/Incision: Yes: Clean/Dry, Well Approximated Neurological: Yes: WNL, Alert, Oriented ...Motor Strength: WNL Psychiatric: Yes: WNL, Alert, Oriented Labs: CBC, BMP 04/09/20 05:20 04/09/20 05:20 INR, PTT INR 1.08 (0.83-1.09) 04/08/20 19:25 Impression/Plan Impression/Plan: 39 year old female with a PMHx notable for fibroids, hypothyroidism, bipolar disorder 1, & anxiety disorder presenting to [facility] for severe Left-sided breast pain. Labs significant for WBC 12.2. Imaging notable for retroareolar abscess (4.6x2.5x5.2cm) # Sepsis 2/2 Left breast retroareolar abscess - US Left breast: retroareolar region w/ complex fluid representing abscess(4.6 x2.5x5.2cm) surrounded by vascularity, surrounding soft tissue edema present - antibiotic regimen: -clindamycin - Surgery/ID consults appreciated - S/p I and D left breast abscess in OR on April 08 #Chronic hypothyroidism - continue with home levothyroxine #Occult hematuria --patient was recent having menses > UA: 3+ blood FEN - Regular diet DVT Prophylaxsis - SCD Visit type - Emergency Visit Emergency Visit: Yes ED Registration Date: 04/08/20 Care time: The patient presented to the Emergency Department on the above date and was hospitalized for further evaluation of their emergent condition. - New Patient This patient is new to me today: Yes Date on this admission: 04/09/20 - Critical Care Critical Care patient: No - Discharge Referral Referred to [facility] No
[2020-04-09] MEDS: LACTATED RINGERS SOLUTION 1,000 ML/1,000 ML INFUS.BAG IV SCH (20:44)
[2020-04-10] MEDS ORDERED: PIPERACILLIN/TAZOBACTAM 3.375 GM VIAL IVPB ONE ×3 (01:23→16:45)
[2020-04-10] MEDS ORDERED: DEXTROSE 5%-WATER - 50 ML IVPB ONE ×3 (01:23→16:45)
[2020-04-10] MEDS: PIPERACILLIN/TAZOB 3.375 GM 3.375 GM in DEXTROSE 5%-WATER - 50 ML IVPB SCH ×3 (01:54→18:01)
[2020-04-10] MEDS: CLINDAMYCIN 600MG PREMIX IVPB 600 MG/50 ML BAG IVPB SCH ×4 (02:55→21:52)
[2020-04-10] MEDS: oxyCODONE HCL 5 MG TABLET PO PRN ×3 (05:52→22:45)
[2020-04-10 07:38] LABS: BASO % 0.4 % (0-2.0); EOS % 0.7 % (0-4.5); HEMATOCRIT 33.7 % (32.4-45.2); HEMOGLOBIN 11.2 GM/dL (10.7-15.3); LYMPH % 26.2 % (8-40); MCH 32.7 pg (25.7-33.7); MCHC 33.2 g/dl (32.0-36.0); MEAN CELL VOLUME 98.8 fl (80-96); MEAN PLT VOLUME 7.4 fl (7.5-11.1); MONO % 5.5 % (3.8-10.2); NEUT % 67.2 % (42.8-82.8); PLATELET COUNT 288 K/MM3 (134-434); RBC 3.41 M/mm3 (3.60-5.2); RDW 16.2 % (11.6-15.6); WHITE BLOOD COUNT 7.2 K/mm3 (4.0-10.0)
[2020-04-10] MEDS ORDERED: ALBUTEROL SO4 HFA INHALER IH PRN (11:20)
--- NOTE | 2020-04-10 12:45 | PN ---
Progress Note, Physician - Current Medication List Current Medications: Active Medications Acetaminophen (Tylenol -) 325 mg PO Q6H PRN PRN Reason: PAIN LEVEL 4-6 Last Admin: 04/09/20 12:18 Dose: 325 mg Documented by: Albuterol Sulfate (Ventolin Hfa Inhaler -) 1 puff IH Q4H PRN PRN Reason: SHORT OF BREATH/WHEEZING Albuterol Sulfate (Ventolin Hfa Inhaler -) 2 puff IH Q4H PRN PRN Reason: SHORT OF BREATH/WHEEZING Budesonide/Formoterol Fumarate (Symbicort 160/4.5mcg -) 2 puff IH BID JULIANO Lactated Ringer's (Lactated Ringers Solution) 1,000 ml in 1,000 mls @ 42 mls/hr IV ASDIR JULIANO Last Admin: 04/09/20 20:44 Dose: Not Given Documented by: Clindamycin Phosphate (Cleocin 600 Mg Premix Ivpb -) 600 mg in 50 mls @ 100 mls/hr IVPB Q6H JULIANO Last Admin: 04/10/20 09:21 Dose: 100 mls/hr Documented by: Piperacillin Sod/Tazobactam (Sod 3.375 gm/ Dextrose) 50 mls @ 100 mls/hr IVPB Q8H-IV JULIANO; Protocol Last Admin: 04/10/20 10:21 Dose: 100 mls/hr Documented by: Oxycodone HCl (Roxicodone -) 5 mg PO Q4H PRN PRN Reason: PAIN LEVEL 4-6 Last Admin: 04/10/20 05:52 Dose: 5 mg Documented by: - Objective Vital Signs: Vital Signs Temperature 98 F 04/10/20 09:00 Pulse Rate 78 04/10/20 09:00 Respiratory Rate 18 04/10/20 09:00 Blood Pressure 133/74 04/10/20 09:00 O2 Sat by Pulse Oximetry (%) 99 04/10/20 09:00 Labs: CBC, BMP 04/10/20 05:50 04/09/20 05:20 INR, PTT INR 1.08 (0.83-1.09) 04/08/20 19:25
[2020-04-10] MEDS ORDERED: PT OWN MED DRAWER 7, Y5N ONE (14:24)
--- NOTE | 2020-04-10 15:17 | PN ---
Teaching Attending Note Name of Resident: Song Cano ATTENDING PHYSICIAN STATEMENT I saw and evaluated the patient. I reviewed the resident's note and discussed the case with the resident. I agree with the resident's findings and plan as documented. SUBJECTIVE: OBJECTIVE: ASSESSMENT AND PLAN: 39 year old female with a PMHx notable for fibroids, hypothyroidism, bipolar disorder 1, & anxiety disorder presenting to [facility] for severe Left-sided breast pain. Labs significant for WBC 12.2. Imaging notable for retroareolar abscess (4.6x2.5x5.2cm) # Sepsis 2/2 Left breast retroareolar abscess - US Left breast: retroareolar region w/ complex fluid representing abscess(4.6x2.5x5.2cm) surrounded by vascularity, surrounding soft tissue edema present - antibiotic regimen: -clindamycin - Surgery/ID consults appreciated - S/p I and D left breast abscess in OR on April 08 - await final ID antibiotic recommendations - Patient eager to be discharged home
[2020-04-10] MEDS: BUDESONIDE/FORMETEROL FUMARATE 160/4.5 mcg INHALER IH SCH ×2 (15:20→21:50)
--- NOTE | 2020-04-10 15:52 | PN ---
Progress Note, Physician - Current Medication List Current Medications: Active Medications Acetaminophen (Tylenol -) 325 mg PO Q6H PRN PRN Reason: PAIN LEVEL 4-6 Last Admin: 04/09/20 12:18 Dose: 325 mg Documented by: Albuterol Sulfate (Ventolin Hfa Inhaler -) 1 puff IH Q4H PRN PRN Reason: SHORT OF BREATH/WHEEZING Albuterol Sulfate (Ventolin Hfa Inhaler -) 2 puff IH Q4H PRN PRN Reason: SHORT OF BREATH/WHEEZING Budesonide/Formoterol Fumarate (Symbicort 160/4.5mcg -) 2 puff IH BID JULIANO Last Admin: 04/10/20 15:20 Dose: 2 puff Documented by: Lactated Ringer's (Lactated Ringers Solution) 1,000 ml in 1,000 mls @ 42 mls/hr IV ASDIR JULIANO Last Admin: 04/09/20 20:44 Dose: Not Given Documented by: Clindamycin Phosphate (Cleocin 600 Mg Premix Ivpb -) 600 mg in 50 mls @ 100 mls/hr IVPB Q6H JULIANO Last Admin: 04/10/20 15:20 Dose: 100 mls/hr Documented by: Piperacillin Sod/Tazobactam (Sod 3.375 gm/ Dextrose) 50 mls @ 100 mls/hr IVPB Q8H-IV JULIANO; Protocol Last Admin: 04/10/20 10:21 Dose: 100 mls/hr Documented by: Oxycodone HCl (Roxicodone -) 5 mg PO Q4H PRN PRN Reason: PAIN LEVEL 4-6 Last Admin: 04/10/20 05:52 Dose: 5 mg Documented by: - Objective Vital Signs: Vital Signs Temperature 98.6 F 04/10/20 14:30 Pulse Rate 73 04/10/20 14:30 Respiratory Rate 18 04/10/20 14:30 Blood Pressure 124/73 04/10/20 14:30 O2 Sat by Pulse Oximetry (%) 99 04/10/20 14:30 Labs: CBC, BMP 04/10/20 05:50 04/09/20 05:20 INR, PTT INR 1.08 (0.83-1.09) 04/08/20 19:25 ATTENDING PHYSICIAN STATEMENT I saw and evaluated the patient. I reviewed the resident's note and discussed the case with the resident. I agree with the resident's findings and plan as documented. SUBJECTIVE: OBJECTIVE: ASSESSMENT AND PLAN:
--- NOTE | 2020-04-10 15:53 | PN ---
Physical Exam: SUBJECTIVE: Patient seen and examined at bedside. She endorses pain, and erythema at medial aspect right upper extremity, after there was an IV placed in the area. She denies subjective fevers, chills, shortness of breath, chest pain, palpitations, abdominal pain, nausea, vomiting. OBJECTIVE: Vital Signs Period Temp Pulse Resp BP Sys/Dukes Pulse Ox Last 24 Hr 97.8 F-98.6 F 67-81 18-20 108-136/71-83 95-99 Patient examined with female RN Catie as post adoption coordinator. GENERAL: The patient is awake, alert, and fully oriented, in no acute distress. HEAD: Normocephalic, atraumatic. EYES: PERRL, extraocular movements intact, conjunctiva clear. ENT: Oropharynx clear, without erythema or exudates. Moist mucous membranes. NECK: Trachea midline, full range of motion. Supple without lymphadenopathy. LUNGS: Breath sounds equal, clear to auscultation bilaterally. No wheezes, no crackles. No accessory muscle use. HEART: Regular rate and rhythm. S1, S2 without murmur, rub or gallop. BREAST: Left breast bandaged clean, dry. Erythema noted, without calor or drainage. ABDOMEN: Soft, nondistended, nontender to light and deep palpation x4 quadrants. No rebound tenderness, no guarding. Normoactive bowel sounds. EXTREMITIES: 2+ radial, dorsalis pedis pulses bilaterally. Warm, well-perfused. No lower extremity edema bilaterally. Right upper extremity medial aspect (4cm x 4cm) area of erythema, induration with tenderness to palpation. NEUROLOGICAL: Cranial nerves II through XII grossly intact. Normal speech. No gross focal deficits. PSYCH: Normal mood, normal affect upon my encounter. SKIN: Warm, dry. Laboratory Results - last 24 hr 04/10/20 05:50 WBC 7.2 RBC 3.41 L Hgb 11.2 Hct 33.7 MCV 98.8 H MCH 32.7 MCHC 33.2 RDW 16.2 H Plt Count 288 MPV 7.4 L Absolute Neuts (auto) 4.9 Neutrophils % 67.2 Lymphocytes % 26.2 D Monocytes % 5.5 Eosinophils % 0.7 D Basophils % 0.4 Nucleated RBC % 0 Active Medications Generic Name Dose Route Start Last Admin Trade Name Freq PRN Reason Stop Dose Admin Acetaminophen 325 mg 04/08/20 20:45 04/09/20 12:18 Tylenol - PO 325 mg Q6H PRN Administration PAIN LEVEL 4-6 Albuterol Sulfate 1 puff 04/10/20 11:20 Ventolin Hfa Inhaler - IH Q4H PRN SHORT OF BREATH/WHEEZING Albuterol Sulfate 2 puff 04/10/20 11:22 Ventolin Hfa Inhaler - IH Q4H PRN SHORT OF BREATH/WHEEZING Budesonide/Formoterol Fumarate 2 puff 04/10/20 11:30 04/10/20 15:20 Symbicort 160/4.5mcg - IH 2 puff BID JULIANO Administration Lactated Ringer's 1,000 ml in 1,000 mls @ 42 mls/hr 04/08/20 20:30 04/09/20 20:44 Lactated Ringers Solution IV Not Given ASDIR JULIANO Clindamycin Phosphate 600 mg in 50 mls @ 100 mls/hr 04/08/20 21:30 04/10/20 15:20 Cleocin 600 Mg Premix Ivpb - IVPB 100 mls/hr Q6H JULIANO Administration Piperacillin Sod/Tazobactam 50 mls @ 100 mls/hr 04/09/20 14:00 04/10/20 10:21 Sod 3.375 gm/ Dextrose IVPB 100 mls/hr Q8H-IV JULIANO Administration Protocol Oxycodone HCl 5 mg 04/09/20 14:29 04/10/20 05:52 Roxicodone - PO 5 mg Q4H PRN Administration PAIN LEVEL 4-6 ASSESSMENT/PLAN: Patient is a 39 year old female with history of hypothyroidism, uterine fibroids, bipolar disorder, asthma, admitted for subareolar abscess of left breast. Subareolar abscess of left breast -Breast ultrasound confirms retroalveolar fluid collection, suspicious for abscess. -POD #2 s/p incision and drainage -Continue Zosyn (day #2), Clindamycin (day #3) -Pending cultures from abscess I&D to target antibiotic regimen -ID recommendations (Dr. Hinkle) appreciated. -General surgery recommendations (Dr. Mcmahon) appreciated History of hypothyroidism -Continue home Synthroid History of Asthma -Currently not in exacerbation -Continue home Ventolin, Symbicort History of Bipoalr disorder -Continue home Topamax Superficial thrombophlebitis -Right upper extremity duplex reveals superficial thrombosis of distal basilic vein. -Apply warm compress, elevation of the right upper extremity. FEN -No IV fluids indicated -Follow BMP -Regular diet Prophylaxis -Lovenox 40mg subq daily Disposition -Continue care in medical- surgical floor. Visit type - Emergency Visit Emergency Visit: Yes ED Registration Date: 04/08/20 Care time: The patient presented to the Emergency Department on the above date and was hospitalized for further evaluation of their emergent condition. - New Patient This patient is new to me today: Yes Date on this admission: 04/10/20 - Critical Care Critical Care patient: No - Discharge Referral Referred to [facility] No ATTENDING PHYSICIAN STATEMENT I saw and evaluated the patient. I reviewed the resident's note and discussed the case with the resident. I agree with the resident's findings and plan as documented. SUBJECTIVE: OBJECTIVE: ASSESSMENT AND PLAN:
[2020-04-10] MEDS: LEVOTHYROXINE NA 100 MCG TABLET (FP) PO SCH ×2 (16:45→17:58)
[2020-04-10] MEDS ORDERED: LEVOTHYROXINE NA 100 MCG TABLET (FP) PO SCH (16:45)
[2020-04-10] MEDS: TOPIRAMATE 25 MG TABLET PO SCH (17:57)
[2020-04-10] MEDS: LACTATED RINGERS SOLUTION 1,000 ML/1,000 ML INFUS.BAG IV SCH (21:36)
[2020-04-10] MEDS: ALBUTEROL SO4 HFA INHALER IH PRN (21:56)
[2020-04-10] MEDS ORDERED: MONTELUKAST NA 10 MG TABLET PO SCH (22:00)
[2020-04-10] MEDS: ACETAMINOPHEN 325 MG TABLET (FP) PO PRN (22:46)
[2020-04-11] MEDS ORDERED: DEXTROSE 5%-WATER - 50 ML IVPB ONE ×3 (01:40→17:37)
[2020-04-11] MEDS ORDERED: PIPERACILLIN/TAZOBACTAM 3.375 GM VIAL IVPB ONE ×3 (01:40→17:37)
[2020-04-11] MEDS: PIPERACILLIN/TAZOB 3.375 GM 3.375 GM in DEXTROSE 5%-WATER - 50 ML IVPB SCH ×3 (02:16→17:38)
[2020-04-11] MEDS: CLINDAMYCIN 600MG PREMIX IVPB 600 MG/50 ML BAG IVPB SCH ×3 (03:05→16:58)
[2020-04-11] MEDS: ALBUTEROL SO4 HFA INHALER IH PRN (06:33)
[2020-04-11 07:32] LABS: HEMATOCRIT 34.1 % (32.4-45.2); HEMOGLOBIN 11.4 GM/dL (10.7-15.3); MCHC 33.5 g/dl (32.0-36.0); MEAN CELL VOLUME 98.3 fl (80-96); MEAN PLT VOLUME 7.4 fl (7.5-11.1); PLATELET COUNT 288 K/MM3 (134-434); RBC 3.47 M/mm3 (3.60-5.2); WHITE BLOOD COUNT 6.8 K/mm3 (4.0-10.0)
[2020-04-11 07:55] LABS: BLOOD UREA NITROGEN 13.4 mg/dL (7-18); POTASSIUM 4.2 mmol/L (3.5-5.1)
[2020-04-11 07:56] LABS: CREATININE 0.8 mg/dL (0.55-1.3)
[2020-04-11] MEDS ORDERED: DOCUSATE SODIUM 100 MG CAPSULE (FP) PO ONE (09:04)
[2020-04-11] MEDS: BUDESONIDE/FORMETEROL FUMARATE 160/4.5 mcg INHALER IH SCH (09:29)
[2020-04-11] MEDS: TOPIRAMATE 25 MG TABLET PO SCH (09:29)
[2020-04-11] MEDS ORDERED: ENOXAPARIN NA (PORCINE) 40 MG/0.4 ML DISP.SYRIN SQ SCH (10:00)
--- NOTE | 2020-04-11 12:09 | PN ---
Teaching Attending Note Name of Resident: Phil Rajan ATTENDING PHYSICIAN STATEMENT I saw and evaluated the patient. I reviewed the resident's note and discussed the case with the resident. I agree with the resident's findings and plan as documented. SUBJECTIVE: Feels improved today. No pain. No overnight fevers or other overnight events. No family or personal history of breast ca. No / OBJECTIVE: Vital Signs Temperature 98.3 F 04/11/20 09:18 Pulse Rate 77 04/11/20 09:18 Respiratory Rate 17 04/11/20 09:18 Blood Pressure 143/89 04/11/20 09:18 O2 Sat by Pulse Oximetry (%) 97 04/11/20 09:18 PE: Gen: NAD, awake, laying in bed HEENT: Nc/At, JANAK, MMM CHEST: L breast wound with packing and bandage at the 6'oclock position, no erythema of area noted, no TTP, no drainage LUNG: CTA b/l no wheezes or rhonchi CARD: RRR no murmurs ABD: Soft, obese, NT/ND, no guarding EXT: No edema noted CBC, BMP 04/11/20 05:37 04/11/20 05:37 Active Medications Acetaminophen (Tylenol -) 325 mg PO Q6H PRN PRN Reason: PAIN LEVEL 4-6 Last Admin: 04/10/20 22:46 Dose: 325 mg Documented by: Albuterol Sulfate (Ventolin Hfa Inhaler -) 1 puff IH Q4H PRN PRN Reason: SHORT OF BREATH/WHEEZING Albuterol Sulfate (Ventolin Hfa Inhaler -) 2 puff IH Q4H PRN PRN Reason: SHORT OF BREATH/WHEEZING Last Admin: 04/11/20 06:33 Dose: 2 inh Documented by: Budesonide/Formoterol Fumarate (Symbicort 160/4.5mcg -) 2 puff IH BID [facility] Last Admin: 04/11/20 09:29 Dose: 2 puff Documented by: Enoxaparin Sodium (Lovenox -) 40 mg SQ DAILY [facility] Last Admin: 04/11/20 09:29 Dose: 40 mg Documented by: Lactated Ringer's (Lactated Ringers Solution) 1,000 ml in 1,000 mls @ 42 mls/hr IV ASDIR [facility] Last Admin: 04/10/20 21:36 Dose: Not Given Documented by: Clindamycin Phosphate (Cleocin 600 Mg Premix Ivpb -) 600 mg in 50 mls @ 100 mls/hr IVPB Q6H [facility] Last Admin: 04/11/20 09:21 Dose: 100 mls/hr Documented by: Piperacillin Sod/Tazobactam (Sod 3.375 gm/ Dextrose) 50 mls @ 100 mls/hr IVPB Q8H-IV JULIANO; Protocol Last Admin: 04/11/20 10:18 Dose: 100 mls/hr Documented by: Levothyroxine Sodium (Synthroid -) 200 mcg PO DAILY@0700 [facility] Last Admin: 04/11/20 06:32 Dose: 200 mcg Documented by: Montelukast Sodium (Singulair -) 10 mg PO HS [facility] Last Admin: 04/10/20 21:50 Dose: 10 mg Documented by: Oxycodone HCl (Roxicodone -) 5 mg PO Q4H PRN PRN Reason: PAIN LEVEL 4-6 Last Admin: 04/10/20 22:45 Dose: 5 mg Documented by: Topiramate (Topamax -) 50 mg PO DAILY [facility] Last Admin: 04/11/20 09:29 Dose: 50 mg Documented by: Microbiology 04/08/20 20:10 Tissue-Other Tissue Culture - Preliminary Staphylococcus Coagulase Neg ASSESSMENT AND PLAN: 39 year old female with a PMHx hypothyroidism, bipolar disorder 1, & anxiety disorder presenting to [facility] for severe Left-sided breast pain found to have retroareolar abscess (4.6x2.5x5.2cm) Sepsis 2/2 Left breast retroareolar abscess Asthma history Hypothyroidism Bipolar Disorder 1 Anxiety disorder --S/p I&D 04/08 --US reviewed --Continue Zosyn/Clindamycin for now --Awaiting cx/sensitivities for assessment of PO ABX regimen --ID on board; will discuss about possibility of Clinda/Flagyl 10 day regimen --Discontinue IVF --Pain control PRN --continue home synthroid 200mcg PO daily --Continue home asthma medications: Singulari, Symbicort, PRN ventoling FEN: Fluids: d/c IVF Electrolytes: None today Nutrition: regular PPX: DVT - Lovenox SQ daily dispo: If PO ABX regimen determined and cleared by ID can d/c home; if sensitivities/cultures still pending can send to M/S DO Ivana Milton
--- NOTE | 2020-04-11 13:46 | PN ---
Progress Note, Physician History of Present Illness: doing well no complaints still oozing from the wound surgery has seen the patient - Current Medication List Current Medications: Active Medications Acetaminophen (Tylenol -) 325 mg PO Q6H PRN PRN Reason: PAIN LEVEL 4-6 Last Admin: 04/10/20 22:46 Dose: 325 mg Documented by: Albuterol Sulfate (Ventolin Hfa Inhaler -) 1 puff IH Q4H PRN PRN Reason: SHORT OF BREATH/WHEEZING Albuterol Sulfate (Ventolin Hfa Inhaler -) 2 puff IH Q4H PRN PRN Reason: SHORT OF BREATH/WHEEZING Last Admin: 04/11/20 06:33 Dose: 2 inh Documented by: Budesonide/Formoterol Fumarate (Symbicort 160/4.5mcg -) 2 puff IH BID [facility] Last Admin: 04/11/20 09:29 Dose: 2 puff Documented by: Enoxaparin Sodium (Lovenox -) 40 mg SQ DAILY [facility] Last Admin: 04/11/20 09:29 Dose: 40 mg Documented by: Lactated Ringer's (Lactated Ringers Solution) 1,000 ml in 1,000 mls @ 42 mls/hr IV ASDIR [facility] Last Admin: 04/10/20 21:36 Dose: Not Given Documented by: Clindamycin Phosphate (Cleocin 600 Mg Premix Ivpb -) 600 mg in 50 mls @ 100 mls/hr IVPB Q6H [facility] Last Admin: 04/11/20 09:21 Dose: 100 mls/hr Documented by: Piperacillin Sod/Tazobactam (Sod 3.375 gm/ Dextrose) 50 mls @ 100 mls/hr IVPB Q8H-IV JULIANO; Protocol Last Admin: 04/11/20 10:18 Dose: 100 mls/hr Documented by: Levothyroxine Sodium (Synthroid -) 200 mcg PO DAILY@0700 [facility] Last Admin: 04/11/20 06:32 Dose: 200 mcg Documented by: Montelukast Sodium (Singulair -) 10 mg PO HS [facility] Last Admin: 04/10/20 21:50 Dose: 10 mg Documented by: Oxycodone HCl (Roxicodone -) 5 mg PO Q4H PRN PRN Reason: PAIN LEVEL 4-6 Last Admin: 04/10/20 22:45 Dose: 5 mg Documented by: Topiramate (Topamax -) 50 mg PO DAILY JULIANO Last Admin: 04/11/20 09:29 Dose: 50 mg Documented by: - Objective Vital Signs: Vital Signs Temperature 98.3 F 04/11/20 09:18 Pulse Rate 77 04/11/20 09:18 Respiratory Rate 17 04/11/20 09:18 Blood Pressure 143/89 04/11/20 09:18 O2 Sat by Pulse Oximetry (%) 97 04/11/20 09:18 Constitutional: Yes: No Distress, Calm, Obese Cardiovascular: Yes: S1, S2 Respiratory: Yes: Regular, CTA Bilaterally Gastrointestinal: Yes: Normal Bowel Sounds, Soft Breast(s): Yes: Skin Changes, Other (abscess left breast) Musculoskeletal: Yes: WNL Extremities: Yes: WNL Wound/Incision: Yes: Draining Neurological: Yes: Alert, Oriented Psychiatric: Yes: Alert, Oriented Labs: CBC, BMP 04/11/20 05:37 04/11/20 05:37 INR, PTT INR 1.08 (0.83-1.09) 04/08/20 19:25 Assessment/Plan 9 year old female with a PMHx hypothyroidism, bipolar disorder 1, & anxiety disorder presenting to [facility] for severe Left-sided breast pain found to have retroareolar abscess (4.6x2.5x5.2cm) sepsis left breast abscess hypothyroidism anxiety bipolar disorder plan if surgery clears the patient can be switched to po augmentin for 7 more days
--- NOTE | 2020-04-11 17:12 | PN ---
Physical Exam: SUBJECTIVE: Patient seen and examined OBJECTIVE: Vital Signs Period Temp Pulse Resp BP Sys/Dukes Pulse Ox Last 24 Hr 97.4 F-98.6 F 69-91 16-18 109-143/56-89 95-99 GENERAL: The patient is awake, alert, and fully oriented, in no acute distress. HEAD: Normal with no signs of trauma. EYES: PERRL, extraocular movements intact, sclera anicteric, conjunctiva clear. No ptosis. ENT: Ears normal, nares patent, oropharynx clear without exudates, moist mucous membranes. NECK: Trachea midline, full range of motion, supple. LUNGS: Breath sounds equal, clear to auscultation bilaterally, no wheezes, no crackles, no accessory muscle use. HEART: Regular rate and rhythm, S1, S2 without murmur, rub or gallop. ABDOMEN: Soft, nontender, nondistended, normoactive bowel sounds, no guarding, no rebound, no hepatosplenomegaly, no masses. EXTREMITIES: 2+ pulses, warm, well-perfused, no edema. NEUROLOGICAL: Cranial nerves II through XII grossly intact. Normal speech, gait not observed. PSYCH: Normal mood, normal affect. SKIN: Warm, dry, normal turgor, no rashes or lesions noted Laboratory Results - last 24 hr 04/11/20 04/11/20 05:37 05:37 WBC 6.8 RBC 3.47 L Hgb 11.4 Hct 34.1 MCV 98.3 H MCH 33.0 MCHC 33.5 RDW 16.0 H Plt Count 288 MPV 7.4 L Sodium 140 Potassium 4.2 Chloride 107 Carbon Dioxide 26 Anion Gap 7 L BUN 13.4 Creatinine 0.8 Est GFR (CKD-EPI)AfAm 107.64 Est GFR (CKD-EPI)NonAf 92.87 Random Glucose 85 Calcium 9.0 Active Medications Generic Name Dose Route Start Last Admin Trade Name Freq PRN Reason Stop Dose Admin Acetaminophen 325 mg 04/08/20 20:45 04/10/20 22:46 Tylenol - PO 325 mg Q6H PRN Administration PAIN LEVEL 4-6 Albuterol Sulfate 1 puff 04/10/20 11:20 04/11/20 16:15 Ventolin Hfa Inhaler - IH 1 puff Q4H PRN Administration SHORT OF BREATH/WHEEZING Albuterol Sulfate 2 puff 04/10/20 11:22 04/11/20 06:33 Ventolin Hfa Inhaler - IH 2 inh Q4H PRN Administration SHORT OF BREATH/WHEEZING Budesonide/Formoterol Fumarate 2 puff 04/10/20 11:30 04/11/20 09:29 Symbicort 160/4.5mcg - IH 2 puff BID JULIANO Administration Enoxaparin Sodium 40 mg 04/11/20 10:00 04/11/20 09:29 Lovenox - SQ 40 mg DAILY JULIANO Administration Lactated Ringer's 1,000 ml in 1,000 mls @ 42 mls/hr 04/08/20 20:30 04/10/20 21:36 Lactated Ringers Solution IV Not Given ASDIR JULIANO Clindamycin Phosphate 600 mg in 50 mls @ 100 mls/hr 04/08/20 21:30 04/11/20 16:58 Cleocin 600 Mg Premix Ivpb - IVPB 100 mls/hr Q6H JULIANO Administration Piperacillin Sod/Tazobactam 50 mls @ 100 mls/hr 04/09/20 14:00 04/11/20 10:18 Sod 3.375 gm/ Dextrose IVPB 100 mls/hr Q8H-IV JULIANO Administration Protocol Levothyroxine Sodium 200 mcg 04/10/20 16:45 04/11/20 06:32 Synthroid - PO 200 mcg DAILY@0700 JULIANO Administration Montelukast Sodium 10 mg 04/10/20 22:00 04/10/20 21:50 Singulair - PO 10 mg HS JULIANO Administration Oxycodone HCl 5 mg 04/09/20 14:29 04/10/20 22:45 Roxicodone - PO 5 mg Q4H PRN Administration PAIN LEVEL 4-6 Topiramate 50 mg 04/10/20 16:29 04/11/20 09:29 Topamax - PO 50 mg DAILY JULIANO Administration ASSESSMENT/PLAN: Abiodun Tang is a 39 year old female with a PMH of hypothyroidism, uterine fibroids, bipolar disorder, asthma, presented with worsening L. breast pain (04/08). Admitted for subareolar abscess of left breast. Subareolar abscess of left breast -04/01 Breast ultrasound: retroalveolar fluid collection, suspicious for abscess. -POD #3 s/p incision and drainage -Continue Zosyn (day #3), Clindamycin (day #4) for now -Pending cultures from abscess I&D, will discuss with ID for possibility of PO antibiotic regimen -ID recommendations (Dr. Hinkle): if surgery clears the patient can be switched to po augmentin for 7 more days -Pending General surgery recommendations (Dr. Mcmahon) History of hypothyroidism -Continue home Synthroid History of Asthma -No recent acute exacerbation, continue to monitor -Continue home Ventolin, Symbicort History of Bipoalr disorder -Continue home Topamax Superficial thrombophlebitis -Right upper extremity duplex reveals superficial thrombosis of distal basilic vein. - resolving: decreased pain, erythema, and mass - continue to Apply warm compress, elevation of the right upper extremity. FEN - No standing fluids - continue to monitor electrolytes - Regular diet Prophylaxis -Lovenox 40mg subq daily Disposition -Continue care in medical- surgical floor. ATTENDING PHYSICIAN STATEMENT I saw and evaluated the patient. I reviewed the resident's note and discussed the case with the resident. I agree with the resident's findings and plan as documented. SUBJECTIVE: OBJECTIVE: ASSESSMENT AND PLAN:
[2020-04-11] MEDS ORDERED: AMOX TR/POT CLAV 875MG/125MG TABLETS (FP) PO SCH (17:30)
[2020-04-11 17:49] VITALS: BP 136/69; PULSE 84; TEMP 97.7
--- NOTE | 2020-04-11 17:57 | DS ---
Physical Exam: SUBJECTIVE: Patient seen and examined at bedside. As per nursing, No acute events overnight. Reports improvement of her pain and decreased erythema and pain in her RUE. She denies subjective fevers, chills, shortness of breath, chest pain, palpitations, abdominal pain, nausea, vomiting. OBJECTIVE: Vital Signs Period Temp Pulse Resp BP Sys/Dukes Pulse Ox Last 24 Hr 97.4 F-98.6 F 69-91 16-18 109-143/56-89 95-99 PHYSICAL EXAM GENERAL: The patient is awake, alert, and fully oriented, in no acute distress. HEAD: Normocephalic, atraumatic. EYES: PERRL, extraocular movements intact, conjunctiva clear. ENT: Oropharynx clear, without erythema or exudates. Moist mucous membranes. NECK: Trachea midline, full range of motion. Supple without lymphadenopathy. LUNGS: Breath sounds equal, clear to auscultation bilaterally. No wheezes, no crackles. No accessory muscle use. HEART: Regular rate and rhythm. S1, S2 without murmur, rub or gallop. BREAST: Left breast bandaged clean, dry. mild Erythema noted, without any active bleeding or drainage. ABDOMEN: Soft, nondistended, nontender to light and deep palpation x4 quadrants. No rebound tenderness, no guarding. Normoactive bowel sounds. EXTREMITIES: 2+ radial, dorsalis pedis pulses bilaterally. Warm, well-perfused. No lower extremity edema bilaterally. tenderness to palpation of RUE medial aspect w/o any erythema. NEUROLOGICAL: Cranial nerves II through XII grossly intact. Normal speech. No gross focal deficits. PSYCH: Normal mood, normal affect upon my encounter. SKIN: Warm, dry. LABS Laboratory Results - last 24 hr 04/11/20 04/11/20 05:37 05:37 WBC 6.8 RBC 3.47 L Hgb 11.4 Hct 34.1 MCV 98.3 H MCH 33.0 MCHC 33.5 RDW 16.0 H Plt Count 288 MPV 7.4 L Sodium 140 Potassium 4.2 Chloride 107 Carbon Dioxide 26 Anion Gap 7 L BUN 13.4 Creatinine 0.8 Est GFR (CKD-EPI)AfAm 107.64 Est GFR (CKD-EPI)NonAf 92.87 Random Glucose 85 Calcium 9.0 HOSPITAL COURSE: Date of Admission:04/08/20 39 y F PMH of fibroids, hypothyroidism, bipolar and anxiety disorders, presented to ER with severe L . breast pain. u/s of L. breast revealed retroareolar abscess(4.6x2.5x5.2). Admitted for L. breast abscess. Patient had an I&D on 04/08/20. Patient was treated with 3 days of zosyn and 4 days of clindamycin, will be discharged with 7 days of augmentin. Patient is discharged home with VNS. Patient should follow up with surgery, Dr. Mcmahon within 1 week. Patient should follow up with her PMD, for health care maintenance. Patient is instructed to continue her home medical regimen. Date of Discharge: 04/11/20 Minutes to complete discharge: 36 Discharge Summary Problems reviewed: Yes Reason For Visit: SUBAREOLAR BREAST ABCESS Current Active Problems Cellulitis of breast (Acute) Left breast abscess (Acute) Subareolar breast abscess (Acute) Condition: Improved - Instructions Diet, Activity, Other Instructions: You came into the hospital with a breast abscess. You had a procedure to drain the abscess. You were treated with antibiotics. You are being discharged with visiting nurse services to help care for your wound. Your services will start on Saturday. Please continue your home medications as prescribed. Please take Augmentin 875 mg twice a day for 7 more days. Please follow up with your surgeon, Dr. Mcmahon, in 1 week to further follow your wound. Please follow up with your primary care physician in 1 week to manage your overall healthcare. If you have new, worsening, or concerning symptoms please return to the ED or call 911. Referrals: Ha Mcmahon MD [Staff Physician] - Nigel Germain MD [Primary Care Provider] - Disposition: VNS/HOME HEALTH CARE - Home Medications Comprehensive Discharge Medication List: Ambulatory Orders Albuterol Sulfate Inhaler - [Ventolin HFA Inhaler -] 1 - 2 inh PO Q4H PRN 04/08/20 Budesonide/Formeterol Fumarate [SYMBICORT 160/4.5mcg -] 2 inh PO BID 04/08/20 Cetirizine HCl [All Day Allergy] 10 mg PO DAILY PRN 04/08/20 Clonazepam [Klonopin] 1 mg PO HS 04/08/20 Levothyroxine [Synthroid -] 200 mcg PO DAILY 08/21/20 Montelukast Na [Singulair -] 10 mg PO HS 04/08/20 Topiramate [Topamax] 50 mg PO DAILY 04/08/20 Amox-Tr/K Cl [Augmentin 875-125mg Tablet -] 1 tab PO BID@0800,1730 #14 tablet 04/11/20 This patient is new to me today: Yes Date on this admission: 04/17/20 Emergency Visit: Yes ED Registration Date: 04/08/20 Care time: The patient presented to the Emergency Department on the above date and was hospitalized for further evaluation of their emergent condition. Critical Care patient: No - Discharge Referral Referred to [facility] Med P.C.: No ATTENDING PHYSICIAN STATEMENT I saw and evaluated the patient. I reviewed the resident's note and discussed the case with the resident. I agree with the resident's findings and plan as documented. SUBJECTIVE: OBJECTIVE: ASSESSMENT AND PLAN:
--- NOTE | 2020-04-11 21:58 | EKG ---
Test Reason : Blood Pressure : / mmHG Vent. Rate : 081 BPM Atrial Rate : 081 BPM P-R Int : 144 ms QRS Dur : 098 ms QT Int : 366 ms P-R-T Axes : 027 013 015 degrees QTc Int : 425 ms NORMAL SINUS RHYTHM NORMAL ECG WHEN COMPARED WITH ECG OF 05-SEP-2019 22:49, T WAVE VARIATION Confirmed by ANIL FENG MD ([id number]) on 04/11/2020 9:57:47 PM Referred By: JUSTINO HOOD Confirmed By:ANIL FENG MD
== END 2020-04-11 19:24 | disposition home health service (06) | DRG 385 ==
LOC: JER 13:45 → JERBED 18:55 → J4S 21:22
PROVIDERS: ADMIT Internal Medicine; ATTEND Internal Medicine
PROC: 0H9U0ZZ Drainage of Left Breast, Open Approach (ICD-10-PCS; principal; 2020-04-08 19:30)
DX: N61.1 Abscess of the breast and nipple (principal); F17.210 Nicotine dependence, cigarettes, uncomplicated; I80.8 Phlebitis and thrombophlebitis of other sites; R31.9 Hematuria, unspecified; E03.9 Hypothyroidism, unspecified; F31.9 Bipolar disorder, unspecified; F41.9 Anxiety disorder, unspecified; D25.9 Leiomyoma of uterus, unspecified; E66.9 Obesity, unspecified; Z68.35 Body mass index [BMI] 35.0-35.9, adult
CPT/HCPCS: 36415; 71045-TC-FY; 76642-TC-LT; 80048; 80053; 81003; 83735; 84100; 84703; 85025; 85027; 85610; 86850; 86900; 86901; 87070; 87075; 87076; 87186; 87205; 93005; 93010; 93971; 94760; 99285-25; U0003

== ENCOUNTER 2020-05-12 16:29 | Inpatient (IN) | payer OTHER ==
--- OUTSIDE RECORDS SUMMARY | 2020-05-12 17:04 | XMS ---
:1980 [facility] Care Team Providers Name Role Phone MD ALAINA, ANA LILIA Unavailable STEFFANIE ROBLES, RINY Unavailable STEFFANIE ROBLES, RINY Unavailable STEFFANIE ROBLES, RINY Unavailable STEFFANIE ROBLES, RINY Unavailable JOSELIN ROBLES, DAVINA Unavailable JOSELIN ROBLES, DAVINA Unavailable Maria A Carrera Unavailable AILYN ROBLES, JOVI Unavailable AILYN ROBLES, JOVI Unavailable AILYN ROBLES, JOVI Unavailable AILYN ROBLES, JOVI Unavailable AILYN ROBLES, JOVI Unavailable AILYN ROBLES, JOVI Unavailable Ha Mcmahon MD Unavailable Unavailable Shaila Mcmahon MD Unavailable Unavailable Shaila Mcmahon MD Unavailable Unavailable Go, R Unavailable Unavailable Go, R Unavailable Unavailable Go, R Unavailable Unavailable Go, R MD Unavailable Unavailable OYEKOLA COLD MILL OPERATOR Unavailable OYEKOLA COLD MILL OPERATOR Unavailable OYEKOLA COLD MILL OPERATOR Unavailable OYEKOLA COLD MILL OPERATOR Unavailable REMA ROBLES Unavailable REMA ROBLES Unavailable REMA ROBLES Unavailable REMA ROBLES Unavailable REMA ROBLES Unavailable AGYEPONG COLD MILL OPERATOR Unavailable AGYEPONG COLD MILL OPERATOR Unavailable Go, R Unavailable Unavailable Go, R Unavailable Unavailable Go, R Unavailable Unavailable Go, R MD Unavailable Unavailable Go, R MD Unavailable Unavailable Go, R MD Unavailable Unavailable Go, R Unavailable Unavailable KAILEY CNM Unavailable KAILEY CNM Unavailable MEHREEN COLD MILL OPERATOR Unavailable MEHREEN COLD MILL OPERATOR Unavailable MD YAHAIRA Unavailable Unavailable MD YAHAIRA Unavailable Unavailable MD YAHAIRA Unavailable Unavailable MD YAHAIRA Unavailable Unavailable MD YAHAIRA Unavailable Unavailable MD YAHAIRA Unavailable Unavailable Paras Unavailable [email or web address] Paras Unavailable [email or web address] Paras Unavailable [email or web address] Paras Unavailable [email or web address] [facility] Unavailable Unavailable SUMANTH ROBLES Unavailable SUMANTH ROBLES Unavailable JARRED ROBLES Unavailable JARRED ROBLES Unavailable JARRED ROBLES Unavailable MUKUND 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 Unavailable HOA ROBLES Unavailable JUANITO MCGUIRE Unavailable Unavailable Pina, MD Unavailable Unavailable Pina, MD Unavailable Unavailable Pina, MD Unavailable Unavailable Pina, MD Unavailable Unavailable Pina, MD Unavailable Unavailable Pina, MD Unavailable Unavailable Pina, MD Unavailable Unavailable Pina, MD Unavailable Unavailable Pina, MD Unavailable Unavailable Pina, MD Unavailable Unavailable Pina, MD Unavailable Unavailable Pina, MD Unavailable Unavailable James Unavailable Unavailable James Unavailable Unavailable Re-disclosure Warning The records that you are about to access may contain information from federally- assisted alcohol or drug abuse programs. If such information is present, then the following federally mandated warning applies: This information has been disclosed to you from records protected by federal confidentiality rules (42 CFR part 2). The federal rules prohibit you from making any further disclosure of this information unless further disclosure is expressly permitted by the written consent of the person to whom it pertains or as otherwise permitted by 42 CFR part 2. A general authorization for the release of medical or other information is NOT sufficient for this purpose. The Federal rules restrict any use of the information to criminally investigate or prosecute any alcohol or drug abuse patient.The records that you are about to access may contain highly sensitive health information, the redisclosure of which is protected by Article 27-F of the [facility] Public Health law. If you continue you may haveaccess to information: Regarding HIV / AIDS; Provided by facilities licensed or operated by the [facility] Office of Mental Health; or Provided by the [facility] Office for People With Developmental Disabilities. If such information is present, then the following [facility] mandated warning applies: This information has been disclosed to you from confidential records which are protected by state law. State law prohibits you from making any further disclosure of this information without the specific written consent of the person to whom it pertains, or as otherwise permitted by law. Any unauthorized further disclosure in violation of state law may result in a fine or mcfp sentence or both. A general authorization for the release of medical or other information is NOT sufficient authorization for further disclosure. Allergies and Adverse Reactions Type Description Substance Reaction Status Data Source(s ) Drug allergy Active Levaquin Active SENTHIL ([place] (Levofloxacin) [facility]) Drug allergy Active Levaquin Active SENTHIL ([place] (Levofloxacin) [facility]) Drug allergy Active Levaquin Active SENTHIL ([place] (Levofloxacin) [facility]) Drug allergy Active Levaquin Active SENTHIL ([place] (Levofloxacin) [facility]) Drug allergy Active Levaquin Active SENTHIL ([place] (Levofloxacin) [facility]) Drug allergy Active Levaquin Active SENTHIL ([place] (Levofloxacin) [facility]) Drug allergy Levofloxacin 250 MG Levofloxacin 250 MG Activ e SENTHIL (Mount Oral Tablet Oral Tablet [facility]) Drug allergy Active Biaxin Active SENTHIL ([place] (Clarithromycin) [facility]) Drug allergy Active Biaxin Active SENTHIL ([place] (Clarithromycin) [facility]) Drug allergy Active Biaxin Active SENTHIL ([place] (Clarithromycin) [facility]) Drug allergy Active Biaxin Active SENTHIL ([place] (Clarithromycin) [facility]) Drug allergy Active Biaxin Active SENTHIL ([place] (Clarithromycin) [facility]) Drug allergy Active Biaxin Active SENTHIL ([place] (Clarithromycin) [facility]) Drug allergy Clarithromycin 250 Clarithromycin 250 Active SENTHIL (Mount MG Oral Tablet MG Oral Tablet [facility]) Encounters Encounter Providers Location Date Indications Data Source(s ) Outpatient Attender: Ha Phan 05/04/2020 [facility] MDAdmitter: Ha 03:15:00 PM Medical [facility] MDReferrer: EDT Ha Mcmahon MD Attender: Ha Mcmahon [facility] 05/04/2020 NEXT GEN ([facility] 03:15:00 PM [facility] EDT - Center) 05/04/2020 03:15:00 PM EDT Outpatient Attender: MHAW9 03/19/2020 [facility] ([facility] 11:21:54 AM [facility] EDT [facility]) Patient admitted. Unlisted evaluation 02/11/2020 03:15:00 NETSMART (Mental and management PM EDT Health Ass ociation of service [place]) Unlisted evaluation 12/23/2019 08:06:00 NETSMART (Mental and management PM EDT Health Ass ociation of [facility]) Outpatient Attender: MHAW9 10/06/2019 11:50:00 GSI ([facility] EST Care [facility] ) Patient admitted. Outpatient<td ID="encounterTypeDescriptionID0">OFFICE Attender: Mustapha 08/03/2019 MastodyniaAsthma Mild SENTHIL VISIT</td><td>[facility]</td><td>[facility] 12:00:00 PM PersistentHypothyroidismObesity ([facility] EST - Neighbor james Center</td><td>08/03/2019</td><td><content [facility] 07/19 Health ID="encounterDiagnosisID0-0">Asthma Mild 11:32: 58 AM Center) Persistent</content>, <content EST ID="encounterDiagnosisID0-1">Hypothyroidism</content>, <content ID="encounterDiagnosisID0-2">Mastodynia</content>, <content ID="encounterDiagnosisID0-3">Obesity</content></td> Mastodynia Asthma Mild Persistent Hypothyroidism Obesity Unlisted 07/14/2019 NETSMART evaluation 05:45:00 PM (Mental and EST Health management Association service [facility]) Outpatient< Attender: Mustapha 06/09/2019 Sore ThroatAsthma GREENW [facility] 10:45:00 AM IntermittentSore ThroatA sthma ([place] ID="[facility] EDT - IntermittentHypothyroidi smHypot Neighborhood erTypeDescr [facility] 06/09/2019 hyroidismObesityObesity Health iptionID1"> 12:22:50 PM Center) OFFICE EDT VISIT</td>< td>[facility]</td><td >[facility]</td> <td> 019</td><td ><content ID="encount erDiagnosis ID1-0">Asth ma Intermitten t</content> , <content ID="encount erDiagnosis ID1-1">Sore Throat</con tent>, <content ID="encount erDiagnosis ID1-2">Hypo thyroidism< /content>, <content ID="encount erDiagnosis ID1-3">Obes ity</conten t></td> Sore Throat Asthma Intermittent Sore Throat Asthma Intermittent Hypothyroidism Hypothyroidism Obesity Obesity Outpatient<td Attender: Mustapha 05/06/2019 Asthma Mild Intermitte nt INDIAN HEAD ID="encounterTypeDescriptionID2">OFFICE [place] [id number] 2:00:00 PM with ExacerbationOther ([place] VISIT</td><td>[facility] EDT - Speci fied [facility]</td><td>[facility]td><td>05/06/2019</td><td><content 01:00:26 PM ImpactionSore ThroatAsthma Center) ID="encounterDiagnosisID2-0">Sore EDT Mi ld Intermittent with Throat</content>, <content Exacerbat ionOther Specified ID="encounterDiagnosisID2-1">[facility]er[facility] Impaction</content>, <content Examin ationsCerumen ID="encounterDiagnosisID2-2">Other Specified ImpactionSore ThroatAsthma General Medical Examinations</content>, Mild Intermittent with <content ExacerbationOther Specifi ed ID="encounterDiagnosisID2-3">Obesity</content>, General Medical <content ID="encounterDiagnosisID2-4">Asthma ExaminationsCerumen Mild Intermittent with ImpactionSore Exacerbation</content></td> ThroatOb esityObesityObesity Asthma Mild Intermittent with Exacerbati on Other Specified General Medical Examinat ions Cerumen Impaction Sore Throat Asthma Mild Intermittent with Exacerbati on Other Specified General Medical Examinat ions Cerumen Impaction Sore Throat Asthma Mild Intermittent with Exacerbati on Other Specified General Medical Examinat ions Cerumen Impaction Sore Throat Obesity Obesity Obesity Outpatient<td Attender: Mustapha 04/11/2019 INDIAN HEAD ID="encounterTypeDescriptionID3">*Chart [facility] 01:30:0 0 PM ([place] Update*</td><td>JOVI ROBERTSON ASAMENEW Health EDT - Neighborhood MD</td><td>[facility] Center 04/11/2019 Health Center</td><td>04/11/2019</td><td></td> 11:59:0 0 PM Center) EDT Outpatient<td Attender: Mustapha 04/07/2019 SENTHIL ID="encounterTypeDescriptionID4">OFFICE [facility] 03:00:0 0 PM (Candice Rajan VISIT</td><td>[facility] EDT - Neighborhood PA</td><td>[facility] r[facility] Center 04/07/2019 Health Center</td><td>04/07/2019</td><td></td> 04:13:2 9 PM Center) EDT Unlisted evaluation and management 03/27/2019 NETSMART service 03:00:00 PM (Mental EDT - Health 05/07/2019 Association 04:00:00 PM of EDT [place]) Outpatient<td Attender: Mustapha 01/23/2019 SENTHIL ID="encounterTypeDescriptionID5">*No [facility] 02:41:00 P M (Candice Rajan Show*</td><td>[facility] EDT - Neighborhood COLD MILL OPERATOR</td><td>[facility] COLD MILL OPERATOR Center 01/23/2019 Health Center</td><td>01/23/2019</td><td></td> 11:59:0 0 PM Center) EDT Emergency Attender: 01/15/2019 Cherise MCGUIRE, 12:08:00 AM O [facility] EDT R Care ter: E Floridalma MCGUIRE, T JUANITO H R O A T , E A R P A I N SORE THROAT, EAR PAIN Outpatient<td Attender: Mustapha 01/14/2019 Asthma Mild Persistent Earache Right SENTHIL ID="encounterTypeDescriptionID6">OFFICE [facility] 0 2:30:00 PM EarOther Specified General Medical (Candice Rajan VISIT</td><td>[facility] - ExaminationsAsthma Mild PersistentEarache [facility] COLD MILL OPERATOR</td><td>[facility] Center 12/18 Right EarOther Specified [facility] Center</td><td>01/14/2019</td><td><content 02:58:00 PM ExaminationsAsthma Mild PersistentEarache Center) ID="encounterDiagnosisID6-0">Obesity</content>, EDT Right EarOther Specified General Medical <content ID="encounterDiagnosisID6-1">Other ExaminationsAsthma Mild PersistentEarache Specified General Medical Right EarO ther Specified General Medical Examinations</content>, <content Exa minationsObesityObesityObesityObesity ID="encounterDiagnosisID6-2">Earache Right Ear</content>, <content ID="encounterDiagnosisID6-3">Asthma Mild Persistent</content></td> Asthma Mild Persistent Earache Right Ear Other Specified General Medical Examinat ions Asthma Mild Persistent Earache Right Ear Other Specified General Medical Examinat ions Asthma Mild Persistent Earache Right Ear Other Specified General Medical Examinat ions Asthma Mild Persistent Earache Right Ear Other Specified General Medical Examinat ions Obesity Obesity Obesity Obesity Outpatient<td ID="encounterTypeDescriptionID7">OFFICE Attender: Mustapha 11/04/2018 Arthralgia - Pelvis / Hip / Femur LeftAs thma Mild IntermittentArthralgia - Pelvis / Hip / Femur LeftAsthma Mild SENTHIL VISIT</td><td>[facility]</td><td>[facility] 11:30:00 AM IntermittentArthralgia - Pelvis / Hip / Femur LeftAsthma Mild IntermittentArthralgia - Pelvis / Hip / Femur LeftAsthma ([facility] EDT - Mild Interm ittentArthralgia - Pelvis / Hip / Femur LeftAsthma Mild Neighborhood Center</td><td>11/04/2018</td><td><content COLD MILL OPERATOR Center 11/04/2018 IntermittentHypothyroidismHypothyroidismHypothyroidismHypothyroidismHypothyroidi Health ID="encounterDiagnosisID7-0">Obesity</content>, 12:31:32 PM Center) <content ID="encounterDiagnosisID7-1">Asthma Mild EDT Intermittent</content>, <content ID="encounterDiagnosisID7-2">Hypothyroidism</content>, <content ID="encounterDiagnosisID7-3">Arthralgia - Pelvis / Hip / Femur Left</content></td> Arthralgia - Pelvis / Hip / Femur Left Asthma Mild Intermittent Arthralgia - Pelvis / Hip / Femur Left Asthma Mild Intermittent Arthralgia - Pelvis / Hip / Femur Left Asthma Mild Intermittent Arthralgia - Pelvis / Hip / Femur Left Asthma Mild Intermittent Arthralgia - Pelvis / Hip / Femur Left Asthma Mild Intermittent Hypothyroidism Hypothyroidism Hypothyroidism Hypothyroidism Hypothyroidism Obesity Obesity Obesity Obesity Obesity Outpatient<td ID="encounterTypeDescriptionID8">OFFICE Attender: Mustapha 10/23/2018 Asthma Mild PersistentNicotine Dependenc eArthralgia - Pelvis / Hip / Femur LeftLimb Pain LegAsthma Mild PersistentNicotine SENTHIL VISIT</td><td>[facility]</td><td>[facility] 03:30:00 PM DependenceArthralgia - Pelvis / Hip / Fe mur LeftLimb Pain LegAsthma Mild PersistentNicotine DependenceArthralgia - Pelvis / Hip / ([facility]</td><td>10/23/2018</td><td><[facility] - Femur LeftLimb Pain LegAsthma Mild Persi stentNicotine DependenceArthralgia - Pelvis / Hip / Femur LeftLimb Pain LegAsthma Mild Neighborhood ID="encounterDiagnosisID8-0">Obesity</content>, <content COLD MILL OPERATOR Center 10/23/2018 PersistentNicotine DependenceArthralgia - Pelvis / Hip / Femur LeftLimb Pain LegAsthma Mild PersistentNicotine Health ID="encounterDiagnosisID8-1">Limb Pain Leg</content>, 04:48:26 PM DependenceArthralgia - Pelvis / Hip / Femur LeftLimb Pain Center) <content ID="encounterDiagnosisID8-2">Arthralgia - Pelvis / EST LegHypothyroidismHypothyroidismHypothyroidismHypothyroidismHypothyroidismHypothy Hip / Femur Left</content>, <content ID="encounterDiagnosisID8-3">Nicotine Dependence</content>, <content ID="encounterDiagnosisID8-4">Asthma Mild Persistent</content>, <content ID="encounterDiagnosisID8-5">Hypothyroidism</content></td> Asthma Mild Persistent Nicotine Dependence Arthralgia - Pelvis / Hip / Femur Left Limb Pain Leg Asthma Mild Persistent Nicotine Dependence Arthralgia - Pelvis / Hip / Femur Left Limb Pain Leg Asthma Mild Persistent Nicotine Dependence Arthralgia - Pelvis / Hip / Femur Left Limb Pain Leg Asthma Mild Persistent Nicotine Dependence Arthralgia - Pelvis / Hip / Femur Left Limb Pain Leg Asthma Mild Persistent Nicotine Dependence Arthralgia - Pelvis / Hip / Femur Left Limb Pain Leg Asthma Mild Persistent Nicotine Dependence Arthralgia - Pelvis / Hip / Femur Left Limb Pain Leg Hypothyroidism Hypothyroidism Hypothyroidism Hypothyroidism Hypothyroidism Hypothyroidism Obesity Obesity Obesity Obesity Obesity Obesity Outpatient<td Attender: Mustapha 07/07/2018 GerdBronchitisGerdBronchitisGerdBronchitisGerdBronchitisGerdBronchitisGerdBronch itisGerdBronchitisObesityObesityObesityObesityObesityObesityObesity SENTHIL ID="encounterTypeDescriptionID9">OFFICE [facility] 11:30:0 0 AM ([place] VISIT</td><td>[facility]</td><td>[facility] 07/07/2018 Health Center</td><td>07/07/2018</td><td><content 11:5 6:14 AM Center) ID="encounterDiagnosisID9-0">Obesity</content>, EST <content ID="encounterDiagnosisID9-1">Bronchitis</content> , <content ID="encounterDiagnosisID9-2">Gerd</content></td> Gerd Bronchitis Gerd Bronchitis Gerd Bronchitis Gerd Bronchitis Gerd Bronchitis Gerd Bronchitis Gerd Bronchitis Obesity Obesity Obesity Obesity Obesity Obesity Obesity Outpatient<td Attender: Mustapha 05/14/2018 ObesityObesityObesityObesityObesityObesityObesity SENTHIL ID="[id number]">[Patient [facility] 11:5 2:00 AM (Candice Rajan Encounter]</td><td>[facility] EDT - Neighborhood COLD MILL OPERATOR</td><td>[facility] 05/14/2018 Health Center</td><td>05/14/2018</td><td><content 11:5 9:00 PM Center) ID="[id number]">Obesity</content></td> EDT Obesity Obesity Obesity Obesity Obesity Obesity Obesity Outpatient<td Attender: Mustapha 05/14/2018 SENTHIL ID="[id number]">OFFICE [facility] 11:30: 00 AM (Candice Rajan VISIT</td><td>[facility] EDT [facility] COLD MILL OPERATOR</td><td>[facility] 05/14/2018 Health Center</td><td>05/14/2018</td><td></td> 12:11:5 6 PM Center) EDT Outpatient<td Attender: Mustapha 05/13/2018 SENTHIL ID="[id number]">*Meme DIANE [facility] 04:38:00 PM ([place] Show*</td><td>ROXI VALIENTE MD [facility] EDT - [facility] </td><td>[facility] 05/13/2018 Health Center</td><td>05/13/2018</td><td></td> 11:59:0 0 PM Center) EDT Outpatient<td Attender: Mustapha 04/22/2018 SENTHIL ID="[id number]">*No MALATHI [facility] 04:50:00 PM ([place] Show*</td><td>[facility] EDT - Neighborhood CNM</td><td>[facility] 04/22/2018 Health Center</td><td>04/22/2018</td><td></td> 11:59:0 0 PM Center) EDT Outpatient<td Attender: Mustapha 04/04/2018 SENTHIL ID="[id number]">*No [facility] 11:34:00 AM ([place] Show*</td><td>[facility] EDT - Neighborhood COLD MILL OPERATOR</td><td>[facility] 04/04/2018 Health Center</td><td>04/04/2018</td><td></td> 11:59:0 0 PM Center) EDT Outpatient<td Attender: Mustapha 03/31/2018 SENTHIL ID="[id number]">*[facility] 04:29:00 PM ([place] Show*</td><td>ROXI VALIENTE MD [facility] EDT - Neighborhood MD</td><td>[facility] 03/31/2018 Health Center</td><td>03/31/2018</td><td></td> 11:59:0 0 PM Center) EDT Outpatient<td Attender: Mustapha 03/25/2018 SENTHIL ID="[id number]">OFFICE [facility] 01:15: 00 PM (Candice Rajan VISIT</td><td>ROXI VALIENTE MD [facility] EDT - Neighborhood MD</td><td>[facility] 03/25/2018 Health Center</td><td>03/25/2018</td><td></td> 04:56:3 5 PM Center) EDT Outpatient<td Attender: Mustapha 01/21/2018 B SENTHIL ID="[id number]">OFFICE [facility] 12:45: 00 PM a (Candice Rajan VISIT</td><td>[facility] EDT - c Neighborhood COLD MILL OPERATOR</td><td>[facility] Center 01/21/2018 Health Center</td><td>01/21/2018</td><td><conten 01:29 :57 PM a Center) t EDT c ID="[id number]">Hypothyroid h ism</content>, <content e ID="[id number]">Asthma</con B tent>, <content a ID="kmrfwfziiSrvjpkxdsXD68-4">Backache</c c ontent></td> k a c h e B a c k a c h e B a c k a c h e B a c k a c h e B a c k a c h e B a c k a c h e H y p o t h y r o i d i s m H y p o t h y r o i d i s m H y p o t h y r o i d i s m H y p o t h y r o i d i s m H y p o t h y r o i d i s m H y p o t h y r o i d i s m H y p o t h y r o i d i s m A s t h m a A s t h m a A s t h m a A s t h m a A s t h m a A s t h m a A s t h m a Backache Backache Backache Backache Backache Backache Backache Hypothyroidism Hypothyroidism Hypothyroidism Hypothyroidism Hypothyroidism Hypothyroidism Hypothyroidism Asthma Asthma Asthma Asthma Asthma Asthma Asthma Outpatient<td Attender: Mustapha 01/21/2018 INDIAN HEAD ID="[id number]">PATIENT [facility] 08:56 :00 AM (Candice Rajan ADVOCACY</td><td>[facility] EDT - [facility]</td><td>[facility] 2017 Health Center</td><td>01/21/2018</td><td></td> 11:59:0 0 PM Center) EDT Outpatient<td Attender: 12/31/2017 INDIAN HEAD ID="[id number]">*Phone*< ASTRID 02:1 6:00 PM (Candice Rajan /td><td>ASTRID JULIO MD</td><td> [facility] EDT - Neighborhood 12/31/2017 Health </td><td>12/31/2017</td><td></td> 11:59:00 PM Center) EDT Outpatient<td Attender: Mustapha 12/31/2017 [facility] ID="[id number]">*[facility] 02:1 6:00 PM y ([facility]*</td><td>[facility] EDT - p Neighborhood COLD MILL OPERATOR</td><td>[facility] COLD MILL OPERATOR Center 12/31/2017 o Health Center</td><td>12/31/2017</td><td><content 11:5 9:00 PM t Center) ID="[id number]">Hypothyroidi EDT h </content></td> y r o i d i s m H y p o t h y r o i d i s m H y p o t h y r o i d i s m H y p o t h y r o i d i s m H y p o t h y r o i d i s m H y p o t h y r o i d i s m H y p o t h y r o i d i s m Hypothyroidism Hypothyroidism Hypothyroidism Hypothyroidism Hypothyroidism Hypothyroidism Hypothyroidism Outpatient<td Attender: 12/27/2017 INDIAN HEAD ID="[id number]">*Phone*</td><td>ASTRID RESENDIZ 10:51:00 AM ([place] JULIO MD</td><td> [facility] EDT - Neigh borhood </td><td>12/27/2017</td><td></td> 12/27/2017 Health 11:59:00 PM Center) EDT Outpatient<td ID="[id number]">OFFICE Attender: Y 12/24/2017 [facility] VISIT</td><td>ASTRID JULIO MD</td><td>[facility] DARAL YN o 01:45:00 PM e ([facility]</td><td>12/24/2017</td><td><beatrice JULIO MD n EDT - a Neighborhood ID="[id number]">Hypothyroidism</content>, k 12/24/2017 r Health <content ID="[id number]">Asthma</content>, e 03:05:50 PM t [place]) <content r EDT b ID="[id number]">Heartburn</content>, s u <content C r ID="[id number]">Obesity</content></td> o n m H m e u a n r i t t b y u H r e n a H l e t a h r C t e b n u t r e n r H e a r t b u r n H e a r t b u r n H e a r t b u r n H e a r t b u r n H y p o t h y r o i d i s m H y p o t h y r o i d i s m H y p o t h y r o i d i s m H y p o t h y r o i d i s m H y p o t h y r o i d i s m H y p o t h y r o i d i s m H y p o t h y r o i d i s m O b e s i t y A s t h m a O b e s i t y A s t h m a O b e s i t y A s t h m a O b e s i t y A s t h m a O b e s i t y A s t h m a O b e s i t y A s t h m a O b e s i t y A s t h m a Heartburn Heartburn Heartburn Heartburn Heartburn Heartburn Heartburn Hypothyroidism Hypothyroidism Hypothyroidism Hypothyroidism Hypothyroidism Hypothyroidism Hypothyroidism Obesity Asthma Obesity Asthma Obesity Asthma Obesity Asthma Obesity Asthma Obesity Asthma Obesity Asthma Outpatient<td Attender: Candice Rajan 11/21/2017 INDIAN HEAD ID="[id number]">*No [facility] Neighborhood 03:15:0 0 PM (Palmer Show*</td><td>TASNEEM Hernandes MD [facility] [place] EDT - [place] ROBLES</td><td>[facility] 11/21/2017 Health Health 11:59:00 PM Center) Center</td><td>11/21/2017</td><td></td> EDT Outpatient<td Attender: Candice Rajan 11/13/2017 SENTHIL ID="[id number]">*[facility] 12:1 8:00 PM ([facility]*</td><td>TASNEEM Hernandes MD Health Center EDT - Neighborhood </td><td>[facility] 11/13/2017 Health Health 11:59:00 PM Center) Center</td><td>11/13/2017</td><td></td> EDT Outpatient<td Attender: Palmer 11/06/2017 P SENTHIL ID="ri[id number]">ENDOME [facility] 12:3 0:00 PM o (Palmer TRIOSIS BIOPSY</td><td>KATJA PINA Hernandes MD Health Center EDT - s Neighborhood </td><td>[facility] 11/06/2017 Health Health 01:45:47 PM [facility]) Center</td><td>11/06/2017</td><td><micah EDT e nt n ID="[id number]">Postmenopa o usal Bleeding</content></td> p a u s a l B l e e d i n g P o s t m e n o p a u s a l B l e e d i n g P o s t m e n o p a u s a l B l e e d i n g P o s t m e n o p a u s a l B l e e d i n g P o s t m e n o p a u s a l B l e e d i n g P o s t m e n o p a u s a l B l e e d i n g P o s t m e n o p a u s a l B l e e d i n g Postmenopausal Bleeding Postmenopausal Bleeding Postmenopausal Bleeding Postmenopausal Bleeding Postmenopausal Bleeding Postmenopausal Bleeding Postmenopausal Bleeding Outpatient<td Attender: Mustapha 11/04/2017 SENTHIL ID="[id number]">OFFICE [facility] 10:00: 00 AM (Candice Rajan VISIT</td><td>[facility] EDT - Neighborhood COLD MILL OPERATOR</td><td>[facility] COLD MILL OPERATOR Center 11/04/2017 Health Center</td><td>11/04/2017</td><td></td> 11:03:5 0 AM Center) EDT Outpatient<td Attender: Mustapha 10/16/2017 Ivan NDIAYE ID="[id number]">OFFICE [facility] 10:00: 00 AM r (Palmer VISIT</td><td>[facility] EST - i [facility] COLD MILL OPERATOR</td><td>[facility] COLD MILL OPERATOR Center 10/16/2017 c Health Center</td><td>10/16/2017</td><td><conten 11:28 :21 AM h Center) t EST o ID="[id number]">Hypothyroid m ism</content>, <content o ID="oyiusiozzClyfucfukWC00-5">Trichomonia n sis</content></td> i a s i s T r i c h o m o n i a s i s T r i c h o m o n i a s i s T r i c h o m o n i a s i s T r i c h o m o n i a s i s T r i c h o m o n i a s i s T r i c h o m o n i a s i s H y p o t h y r o i d i s m H y p o t h y r o i d i s m H y p o t h y r o i d i s m H y p o t h y r o i d i s m H y p o t h y r o i d i s m H y p o t h y r o i d i s m H y p o t h y r o i d i s m Trichomoniasis Trichomoniasis Trichomoniasis Trichomoniasis Trichomoniasis Trichomoniasis Trichomoniasis Hypothyroidism Hypothyroidism Hypothyroidism Hypothyroidism Hypothyroidism Hypothyroidism Hypothyroidism Outpatient<td Attender: 10/10/2017 SENTHIL ID="[id number]">[Patient RINY 04:2 1:00 PM (Palmer Encounter]</td><td>ROXI VALIENTE MD</td><td> STEFFANIE ROBLES EST - Neighborhood 10/10/2017 Health </td><td>10/10/2017</td><td></td> 11:59:00 PM [place]) EST Outpatient<td Attender: Ted 09/27/2017 Hype INDIAN HEAD ID="bb[id number]">OFFICE [facility] 01:00: 00 PM rlip (Palmer VISIT</td><td>ROXI VALIENTE MD [facility] </td><td>[facility] 09/27/2017 [facility]</td><td>09/27/2017</td><td><content y 02:5 4:24 PM [facility] ID="[id number]">Hypothyroidis Heal EST itis m</content>, <content th Hypo ID="gewdqyfazPqnrktyzkTA65-0">Bronchitis</c Cent thyr ontent>, <content er oidi ID="cpoodevsyOohmozbhsHK20-3">Hyperlipidemi smHy a</content></td> leonor ipid emia Bron chit isHy poth yroi dism Hype rlip idem iaBr onch itis Hypo thyr oidi smHy leonor ipid emia Bron chit isHy poth yroi dism Hype rlip idem iaBr onch itis Hypo thyr oidi smHy leonor ipid emia Bron chit isHy poth yroi dism Hype rlip idem iaBr onch itis Hypo thyr oidi sm Hyperlipidemia Bronchitis Hypothyroidism Hyperlipidemia Bronchitis Hypothyroidism Hyperlipidemia Bronchitis Hypothyroidism Hyperlipidemia Bronchitis Hypothyroidism Hyperlipidemia Bronchitis Hypothyroidism Hyperlipidemia Bronchitis Hypothyroidism Hyperlipidemia Bronchitis Hypothyroidism Outpatient<td Attender: Mustapha 08/23/2017 SENTHIL ID="eu[id number]">*No [facility] 04:10:00 PM (Palmer Show*</td><td>ROXI VALIENTE MD [facility] EST [facility] </td><td>[facility] 08/23/2017 Health Center</td><td>08/23/2017</td><td></td> 11:59:0 0 PM Center) EST Outpatient<td Attender: 08/05/2017 INDIAN HEAD ID="us[id number]">[Patijim DIANE 03:10: 00 PM (Candice Raajn nt Encounter]</td><td>ROXI VALIENTE MD EST - [facility] MD</td><td> 08/05/2017 Health </td><td>08/05/2017</td><td></td> 11:59:00 PM Center) EST Outpatient<td Attender: Mustapha 08/02/2017 H INDIAN HEAD ID="[id number]">MARCI DIANE [facility] 09:45: 00 AM y ([facility]</td><td>ROXI VALIENTE MD</td><td>Mustapha VALIENTE MD Health EST - p [facility] 08/02/2017 o Health Center</td><td>08/02/2017</td><td><micah 10:36: 08 AM t Center) nt EST h ID="ncyiyzxppXodzonzekAG71-4">Diarrhea</ y content>, <content r ID="blnpvspynWbreiwmaaXH08-8">Hypothyroi o dism</content>, <content i ID="kdmlocpteNmkipbhikOM64-8">Hyperlipid d emia</content></td> i s m H y p o t h y r o i d i s m H y p o t h y r o i d i s m H y p o t h y r o i d i s m H y p o t h y r o i d i s m H y p o t h y r o i d i s m H y p o t h y r o i d i s m H y p e r l i p i d e m i a D i a r r h e a H y p e r l i p i d e m i a D i a r r h e a H y p e r l i p i d e m i a D i a r r h e a H y p e r l i p i d e m i a D i a r r h e a H y p e r l i p i d e m i a D i a r r h e a H y p e r l i p i d e m i a D i a r r h e a H y p e r l i p i d e m i a D i a r r h e a Hypothyroidism Hypothyroidism Hypothyroidism Hypothyroidism Hypothyroidism Hypothyroidism Hypothyroidism Hyperlipidemia Diarrhea Hyperlipidemia Diarrhea Hyperlipidemia Diarrhea Hyperlipidemia Diarrhea Hyperlipidemia Diarrhea Hyperlipidemia Diarrhea Hyperlipidemia Diarrhea Outpatient<td Attender: 08/01/2017 SENTHIL ID="il[id number]">[Patient RINY 12:5 5:00 PM (Palmer Encounter]</td><td>ROXI VALIENTE MD</td><td> STEFFANIE ROBLES EST - Neighborhood 08/01/2017 Health </td><td>08/01/2017</td><td></td> 11:59:00 PM Center) EST Outpatient<td Attender: 07/30/2017 INDIAN HEAD ID="ar[id number]">[Patient RINY 03:1 3:00 PM (Palmer Encounter]</td><td>ROXI VALIENTE MD</td><td> STEFFANIE ROBLES EST - Neighborhood 07/30/2017 Health </td><td>07/30/2017</td><td></td> 11:59:00 PM Center) EST Outpatient<td Attender: Ted 07/26/2017 Sorayae INDIAN HEAD ID="[id number]">OFFICE RIN ers 10:30: 00 AM rten (Palmer VISIT</td><td>ROXI VALIENTE MD Comm EST [facility] [place] ROBL[place]</td><td>[facility] 07/26/2017 ([facility] Health Center</td><td>07/26/2017</td><td><content y 12:0 3:42 PM yuliet Center) ID="ucpokhppvCndaokhecQN06-3">Injury of Heal EST c)Ot Gallbladder</content>, <content th itis ID="ozmjlufphJfucxjtzbCZ20-2">Gastritis</co Cent Medi ntent>, <content er aQue ID="ackukaowhUuieilnpqVZ84-7">Asthma</micah stio nt>, <content nnai ID="fyvgtldtzBjrbucuotKM77-0">Depression</c res ontent>, <content Phq- ID="xrusgaxddRuepsdkvsLV16-5">Questionnaire 9 s Phq-9 Quick Depression Assessment Quic Panel</content>, <content k ID="fvdzxhoeePpgpmlnvpXA39-1">Otitis Depr Media</content>, <content essi ID="hlhhdmsmtQzllvotlqNL58-1">Hypertension on (systemic)</content>, <content Asse ID="dlpyvudnyRhtjdotnbTJ93-0">Obesity</cont ssme ent></td> nt Pane lDep ress ionG astr itis Inju ry of Gall blad derH yper tens ion (sys yuliet c)Ot itis Medi aQue stio nnai res Phq- 9 Quic k Depr essi on Asse ssme nt Pane lDep ress ionG astr itis Inju ry of Gall blad derH yper tens ion (sys yuliet c)Ot itis Medi aQue stio nnai res Phq- 9 Quic k Depr essi on Asse ssme nt Pane lDep ress ionG astr itis Inju ry of Gall blad derH yper tens ion (sys yuliet c)Ot itis Medi aQue stio nnai res Phq- 9 Quic k Depr essi on Asse ssme nt Pane lDep ress ionG astr itis Inju ry of Gall blad derH yper tens ion (sys yuliet c)Ot itis Medi aQue stio nnai res Phq- 9 Quic k Depr essi on Asse ssme nt Pane lDep ress ionG astr itis Inju ry of Gall blad derH yper tens ion (sys yuliet c)Ot itis Medi aQue stio nnai res Phq- 9 Quic k Depr essi on Asse ssme nt Pane lDep ress ionG astr itis Inju ry of Gall blad derH yper tens ion (sys yuliet c)Ot itis Medi aQue stio nnai res Phq- 9 Quic k Depr essi on Asse ssme nt Pane lDep ress ionG astr itis Inju ry of Gall blad derO besi tyAs thma Obes ityA sthm aObe sity Asth maOb esit yAst hmaO besi tyAs thma Obes ityA sthm aObe sity Asth ma Hypertension (systemic) Otitis Media Questionnaires Phq-9 Quick Depression As sessment Panel Depression Gastritis Injury of Gallbladder Hypertension (systemic) Otitis Media Questionnaires Phq-9 Quick Depression As sessment Panel Depression Gastritis Injury of Gallbladder Hypertension (systemic) Otitis Media Questionnaires Phq-9 Quick Depression As sessment Panel Depression Gastritis Injury of Gallbladder Hypertension (systemic) Otitis Media Questionnaires Phq-9 Quick Depression As sessment Panel Depression Gastritis Injury of Gallbladder Hypertension (systemic) Otitis Media Questionnaires Phq-9 Quick Depression As sessment Panel Depression Gastritis Injury of Gallbladder Hypertension (systemic) Otitis Media Questionnaires Phq-9 Quick Depression As sessment Panel Depression Gastritis Injury of Gallbladder Hypertension (systemic) Otitis Media Questionnaires Phq-9 Quick Depression As sessment Panel Depression Gastritis Injury of Gallbladder Obesity Asthma Obesity Asthma Obesity Asthma Obesity Asthma Obesity Asthma Obesity Asthma Obesity Asthma Outpatient<td Attender: 07/02/2017 INDIAN HEAD ID="is[id number]">[Patient MALATHI 04:5 1:00 PM (Palmer Encounter]</td><td>MALATHI KAILEY BONNER CNM EST - Neighborhood CNM</td><td> 07/02/2017 Health </td><td>07/02/2017</td><td></td> 11:59:00 PM Center) EST Outpatient<td Attender: Amanda 06/28/2017 INDIAN HEAD ID="[id number]">OFFICE Anhtho t 02:45: 00 PM (Palmer VISIT</td><td>ANHTHO PINA Hernandes MD [place] EST - Neighborhood </td><td>[facility] Health on 05/2017 Health Center</td><td>06/28/2017</td><td></td> Neig 06:04:5 0 PM Center) hbor EST james Heal th Cent er Outpatient<td Attender: Ted 06/24/2017 SENTHIL ID="[id number]R11">WALKINS</ MALATHI ers 11: 45:00 AM (Palmer td><td>MALATHI KAILEY CNM</td><td>[place] KAILEY CNM Comm [facility] 06/24/2017 Health Center</td><td>06/24/2017</td><td></td> y 12:32:2 4 PM Center) Heal EST th Cent er Outpatient<td Attender: 06/12/2017 INDIAN HEAD ID="vhepcsyerDkgvNoygghijmwnLZ07">*OUTREACH MALATHI 10: 11:00 AM (Palmer *</td><td>MALATHI KAILEY CNM</td><td> KAILEY CNM EDT - Neighborhood </td><td>06/12/2017</td><td></td> Health 11:59:00 PM Center) EDT Outpatient<td Attender: Lauro 06/11/2017 INDIAN HEAD ID="bi[id number]">Regular FAVIOLA ers 12:00 :00 PM (Palmer Sonogram</td><td>FAVIOLA HOA CAMARA MD Comm EDT - Neighborhood MD</td><td>[facility] 06/11/2017 Health Center</td><td>06/11/2017</td><td></td> y 11:59:0 0 PM Center) Heal EDT th Cent er Outpatient<td Attender: Ted 06/10/2017 [facility] ID="viteebnpzEzvhExttalqzjweYV38">OFFICE MALATHI ers 10:30: 00 AM ine (Palmer VISIT</td><td>MALATHI KAILEY KAILEY CNM Comm EDT - Gyne Neighborhood CNM</td><td>[facility] 06/10/2017 [facility] Health Center</td><td>06/10/2017</td><td><content y 11:4 7:00 AM gica [place]) ID="fsyunvcxaEhqkwoylnGI89-6">Vaginitis</co Heal EDT l ntent>, <content th Exam ID="cwmyqvskuYmgglqjaqYB65-2">Routine Cent with Gynecological Exam with Cervical Pap er Cerv Smear</content></td> ical Pap Smea rVag init isRo utin e Gyne colo gica l Exam with Cerv ical Pap Smea rVag init isRo utin e Gyne colo gica l Exam with Cerv ical Pap Smea rVag init isRo utin e Gyne colo gica l Exam with Cerv ical Pap Smea rVag init isRo utin e Gyne colo gica l Exam with Cerv ical Pap Smea rVag init isRo utin e Gyne colo gica l Exam with Cerv ical Pap Smea rVag init isRo utin e Gyne colo gica l Exam with Cerv ical Pap Smea rVag init is Routine Gynecological Exam with Cervical Pap Smear Vaginitis Routine Gynecological Exam with Cervical Pap Smear Vaginitis Routine Gynecological Exam with Cervical Pap Smear Vaginitis Routine Gynecological Exam with Cervical Pap Smear Vaginitis Routine Gynecological Exam with Cervical Pap Smear Vaginitis Routine Gynecological Exam with Cervical Pap Smear Vaginitis Routine Gynecological Exam with Cervical Pap Smear Vaginitis Outpatient<td Attender: 04/16/2017 INDIAN HEAD ID="nq[id number]">[Patient RINY 12:3 7:00 PM (Palmer Encounter]</td><td>ROXI VALIENTE MD</td><td> STEFFANIE ROBLES EDT - Neighborhood 04/16/2017 [facility] </td><td>04/16/2017</td><td></td> 11:59:00 PM Center) EDT Outpatient<td Attender: Ted 04/11/2017 SENTHIL ID="[id number]05">OFFICE RINY ers 01:45: 00 PM (Palmer VISIT</td><td>ROXI VALIENTE MD [facility] EDT - [facility] </td><td>[facility] 04/11/2017 Health Center</td><td>04/11/2017</td><td></td> y 03:18:4 0 PM Center) Heal EDT th Cent er Outpatient<td Attender: Ted 11/30/2016 Adriel SENTHIL ID="[id number]">OFFICE JAMI ers 11:30: 00 AM rgic (Palmer VISIT</td><td>[facility] EDT - [place] Neighborhood 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</td><td>[facility] unit 11/30/2016 itis Health Center</td><td>11/30/2016</td><td><content y 12:4 7:42 PM Adriel Center) ID="czsuhybwxEdtgzwhvvCJ07-3">Allergic Heal EDT rgic Rhinitis</content></td> th Rhin Cent itis er Adriel rgic Rhin itis Adriel rgic Rhin itis Adriel rgic Rhin itis Adriel rgic Rhin itis Adriel rgic Rhin itis Allergic Rhinitis Allergic Rhinitis Allergic Rhinitis Allergic Rhinitis Allergic Rhinitis Allergic Rhinitis Allergic Rhinitis Outpatient<td Attender: Mustapha 10/18/2016 SENTHIL ID="ux[id number]">OFFICE [facility] 12:00: 00 PM (Palmer VISIT</td><td>[facility] EST - [facility] COLD MILL OPERATOR</td><td>[facility] Center 10/18/2016 Health Center</td><td>10/18/2016</td><td></td> 01:21:1 7 PM Center) EST Outpatient<td Attender: Mustapha 08/30/2016 SENTHIL ID="cf[id number]">OFFICE [facility] 09:15: 00 AM (Palmer VISIT</td><td>ROXI VALIENTE MD [facility] EST - Neighborhood </td><td>[facility] 08/30/2016 Health Center</td><td>08/30/2016</td><td></td> 11:24:4 3 AM Center) EST Outpatient<td Attender: 08/14/2016 SENTHIL ID="lw[id number]">[[place] DIANE 12:30 :00 PM (Palmer t Encounter]</td><td>ROXI VALIENTE MD EST - Neighborhood </td><td> 08/14/2016 Health </td><td>08/14/2016</td><td></td> 11:59:00 PM Center) EST Outpatient<td Attender: Mustapha 03/29/2016 SENTHIL ID="tv[id number]">[[facility] 04:39 :00 PM (Palmer t Encounter]</td><td>[facility] EDT - Neighborhood </td><td>[facility] 03/29/2016 Health Center</td><td>03/29/2016</td><td></td> 11:59:0 0 PM Center) EDT Outpatient<td Attender: Mustapha 03/20/2016 SENTHIL ID="ginuugzckCbzqApvgqndzkayIN29">OFFICE [facility] 09:15: 00 AM (Candice Rajan VISIT</td><td>[facility] EDT - [facility] </td><td>[facility] 03/20/2016 Health Center</td><td>03/20/2016</td><td></td> 09:53:1 0 AM Center) EDT Outpatient<td Attender: Mustapha 03/19/2016 SENTHIL ID="jnmnkmzruUgrhNhseyaaizxwHK04">[[facility] 03:17 :00 PM (Palmer t Encounter]</td><td>[facility] EDT - [facility] </td><td>[facility] 03/19/2016 Health Center</td><td>03/19/2016</td><td></td> 11:59:0 0 PM Center) EDT Outpatient<td Attender: Mustapha 03/14/2016 A SENTHIL ID="hn[id number]">OFFICE [facility] 10:30: 00 AM s (Candice Rajan VISIT</td><td>[facility] EDT t [facility] </td><td>[facility] 03/14/2016 Health Center</td><td>03/14/2016</td><td><conten 10:49 :50 AM [facility]) t EDT a ID="fjgbnuepaCrpmasutjQX26-5">Asthma</con A tent></td> s t h m a A s t h m a A s t h m a A s t h m a A s t h m a A s t h m a Asthma Asthma Asthma Asthma Asthma Asthma Asthma Outpatient<td Attender: Mustapha 09/16/2015 INDIAN HEAD ID="tiehwlokqWveqMsynkjjqqinWH75">*OUTREACH*</td><td>[facility] 10:02:00 AM ([facility]</td><td>[facility]</td><td>09/16/2015</td><td></td> [facility] Health 11:59:00 PM Center) EST Outpatient<td ID="rcjakvsefAiauEzgqfhheyilCZ44">OFFICE Attender: Mustapha 09/12/2015 P INDIAN HEAD VISIT</td><td>[facility]</td><td>[facility] 10:00:00 AM h ([facility]</td><td>09/12/2015</td><td><[facility] EST a Neighborhood ID="[id number]">Pharyngitis</content></td> [facility] 09/12/2015 r Health 10:35:[address] [facility]) EST n g i t i s P h a r y n g i t i s P h a r y n g i t i s P h a r y n g i t i s P h a r y n g i t i s P h a r y n g i t i s P h a r y n g i t i s Pharyngitis Pharyngitis Pharyngitis Pharyngitis Pharyngitis Pharyngitis Pharyngitis Outpatient<td Attender: Mustapha 05/12/2015 INDIAN HEAD ID="mokaqffewNazkQihdmamvefhUZ75">*No [facility] 04:29:00 PM (Palmer Show*</td><td>ROXI VALIENTE MD Health EDT - Neighborhood MD</td><td>[facility] 05/12/2015 Health Center</td><td>05/12/2015</td><td></td> 11:59:0 0 PM Center) EDT Outpatient<td Attender: 05/02/2015 INDIAN HEAD ID="lt[id number]">Follow [facility] 01:26: 00 PM ([facility]</td><td>AKUA STERN MD</td><td> JARRED ROBLES EDT - Neighborhood 05/02/2015 Health </td><td>05/02/2015</td><td></td> 11:59:00 PM Center) EDT Outpatient<td Attender: Mustapha 05/02/2015 INDIAN HEAD ID="lxpvxcmypEkeoOqvqsbdbwlxCV35">Follow [facility] 10:00: 00 AM (Palmer </td><td>[facility] EDT - Neighborhood 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</td><td>[facility] 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 Center 05/02/2015 Health Center</td><td>05/02/2015</td><td></td> 01:31:1 6 PM Center) EDT Outpatient<td Attender: Mustapha 04/21/2015 R INDIAN HEAD ID="lyflaaayqCyjpNlbpwmpvtkiHK89">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 [facility] 01:00:00 PM o (Candice Rajan ANNUAL</td><td>[facility] EDT - u [facility] 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</td><td>[facility] 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 Center 04/21/2015 Health Center</td><td>04/21/2015</td><td><micah 02:51: 08 PM i Center) nt ID="lwaanveffKegloqoafHK22-4">Routine EDT n Gynecological Exam with Cervical Pap e Smear</content></td> G y n e c o l o g i c a l E x a m w i t h C e r v i c a l P a p S m e a r R o u t i n e G y n e c o l o g i c a l E x a m w i t h C e r v i c a l P a p S m e a r R o u t i n e G y n e c o l o g i c a l E x a m w i t h C e r v i c a l P a p S m e a r R o u t i n e G y n e c o l o g i c a l E x a m w i t h C e r v i c a l P a p S m e a r R o u t i n e G y n e c o l o g i c a l E x a m w i t h C e r v i c a l P a p S m e a r R o u t i n e G y n e c o l o g i c a l E x a m w i t h C e r v i c a l P a p S m e a r R o u t i n e G y n e c o l o g i c a l E x a m w i t h C e r v i c a l P a p S m e a r Routine Gynecological Exam with Cervical Pap Smear Routine Gynecological Exam with Cervical Pap Smear Routine Gynecological Exam with Cervical Pap Smear Routine Gynecological Exam with Cervical Pap Smear Routine Gynecological Exam with Cervical Pap Smear Routine Gynecological Exam with Cervical Pap Smear Routine Gynecological Exam with Cervical Pap Smear Outpatient<td Attender: 04/15/2015 INDIAN HEAD ID="[id number]">[Patient RINY 11:1 1:00 AM (Palmer Encounter]</td><td>ROXI VALIENTE MD</td><td> STEFFANIE ROBLES EDT [place] 04/15/2015 Health </td><td>04/15/2015</td><td></td> 11:59:00 PM Center) EDT Outpatient<td Attender: Ted 04/14/2015 [facility] ID="[id number]">COMPLETE RINY ers 11:0 0:00 AM ache ([place] PHYSICAL EXAM</td><td>ROXI VALIENTE MD Comm EDT - kristen Jesus MD</td><td>[facility] 04/14/2015 [facility]</td><td>04/14/2015</td><td><content y 11:3 1:54 AM [facility]) ID="[id number]">Arthritis</co Heal EDT dArt ntent>, <content th hrit ID="[id number]">Gerd</content Cent isHe >, <content er adac ID="[id number]">Headache he Syndromes</content></td> Synd sophia sGer dArt hrit isHe adac he Synd sophia sGer dArt hrit isHe adac he Synd sophia sGer dArt hrit isHe adac he Synd sophia sGer dArt hrit isHe adac he Synd sophia sGer dArt hrit isHe adac he Synd sophia sGer dArt hrit is Headache Syndromes Gerd Arthritis Headache Syndromes Gerd Arthritis Headache Syndromes Gerd Arthritis Headache Syndromes Gerd Arthritis Headache Syndromes Gerd Arthritis Headache Syndromes Gerd Arthritis Headache Syndromes Gerd Arthritis Outpatient<td Attender: Mustapha 03/30/2015 [facility] ID="[id number]">*No [facility] 03:28:00 PM ([place] Show*</td><td>ROXI VALIENTE MD Health EDT - Neighborhood </td><td>[facility] 03/30/2015 Health Center</td><td>03/30/2015</td><td></td> 11:59:0 0 PM [place]) EDT Outpatient<td Attender: Mustapha 12/15/2014 [facility] ID="[id number]">*No [facility] 12:24:00 PM ([place] Show*</td><td>ROXI VALIENTE MD Health EDT - Neighborhood </td><td>[facility] 12/15/2014 Health Center</td><td>12/15/2014</td><td></td> 11:59:0 0 PM [place]) EDT Outpatient<td Attender: Mustapha 12/14/2014 [facility] ID="[id number]">Follow [facility] 09:45: 00 AM t ([place] Екатерина</td><td>ROXI VALIENTE MD Health EDT - i Janis montoya MD</td><td>[facility] 12/14/2014 t Health Center</td><td>12/14/2014</td><td><micah 10:39: 00 AM i Center) nt EDT s ID="[id number]">Pharyngiti E s</content>, <content x ID="[id number]">Otitis t Externa</content></td> e r n a P h a r y n g i t i s O t i t i s E x t e r n a P h a r y n g i t i s O t i t i s E x t e r n a P h a r y n g i t i s O t i t i s E x t e r n a P h a r y n g i t i s O t i t i s E x t e r n a P h a r y n g i t i s O t i t i s E x t e r n a P h a r y n g i t i s O t i t i s E x t e r n a P h a r y n g i t i s Otitis Externa Pharyngitis Otitis Externa Pharyngitis Otitis Externa Pharyngitis Otitis Externa Pharyngitis Otitis Externa Pharyngitis Otitis Externa Pharyngitis Otitis Externa Pharyngitis Outpatient<td Attender: Mustapha 11/23/2014 Otitis MediaOt itis MediaOtitis MediaOtitis INDIAN HEAD ID="[id number]">Follow [facility] 02:30:00 PM MediaOtitis MediaOtitis MediaOtitis ([facility]</td><td>MARY SYED MD</td><td>Mustapha MONTANODHURY [facility] EDT - MediaAsthmaAsthmaAsthmaAsthmaAsthmaAsthmaAsthma [facility] 11/23/2014 Health Center</td><td>11/23/2014</td><td><content 03:2 9:01 PM Center) ID="[id number]">Otitis EDT Media</content>, <content ID="[id number]">Asthma</content></td> Otitis Media Otitis Media Otitis Media Otitis Media Otitis Media Otitis Media Otitis Media Asthma Asthma Asthma Asthma Asthma Asthma Asthma Outpatient<td Attender: Mustapha 11/16/2014 Routine ExaminationLim b INDIAN HEAD ID="[id number]">Follow [facility] 01:30:00 PM Pain Hand and (Palmer Up</td><td>ROXI VALIENTE MD</td><td>[facility] STEFFANIE ROBLES He alth EDT - FingersBronchitisRoutine [facility]</td><td>11/16/2014</td><td><content Cent er 11/16/2014 ExaminationLimb Pain Hand Health ID="[id number]">Bronchitis</content>, 12:49:35 PM and Center) <content ID="[id number]">Limb Pain EDT FingersBronchitisRoutine Hand and Fingers</content>, <content ExaminationLimb Pain Hand ID="[id number]">Routine and Examination</content></td> FingersBr onchitisRoutine ExaminationLimb Pain Hand and FingersBronchitisRoutine ExaminationLimb Pain Hand and FingersBronchitisRoutine ExaminationLimb Pain Hand and FingersBronchitisRoutine ExaminationLimb Pain Hand and FingersBronchitis Routine Examination Limb Pain Hand and Fingers Bronchitis Routine Examination Limb Pain Hand and Fingers Bronchitis Routine Examination Limb Pain Hand and Fingers Bronchitis Routine Examination Limb Pain Hand and Fingers Bronchitis Routine Examination Limb Pain Hand and Fingers Bronchitis Routine Examination Limb Pain Hand and Fingers Bronchitis Routine Examination Limb Pain Hand and Fingers Bronchitis Outpatient<td Attender: Mustapha 10/14/2014 INDIAN HEAD ID="[id number]">*No [facility] 12:45:00 PM (Palmer Show*</td><td>ROXI VALIENTE MD Health EST - [facility] </td><td>[facility] 10/14/2014 Health Center</td><td>10/14/2014</td><td></td> 11:59:0 0 PM Center) EST Outpatient<td Attender: Mustapha 05/04/2014 SENTHIL ID="[id number]">Follow [facility] 01:59: 00 PM (Candice Rajan Up</td><td>ROXI [facility]</td><td>[facility] 05/04/2014 Health Center</td><td>05/04/2014</td><td></td> 04:57:0 3 PM Center) EDT Outpatient<td Attender: 04/09/2014 SENTHIL ID="[id number]">[Patijim ROXI 10:19: 00 AM (Candice Rajan nt Encounter]</td><td>ROXI VALIENTE MD EDT - Neighborhood </td><td> 04/09/2014 Health </td><td>04/09/2014</td><td></td> 11:59:00 PM Center) EDT Outpatient<td Attender: 03/23/2014 SENTHIL ID="[id number]">[Patijim DIANE 04:29: 00 PM (Candice Rajan nt Encounter]</td><td>ROXI VALIENTE MD EDT - Neighborhood </td><td> 03/23/2014 Health </td><td>03/23/2014</td><td></td> 11:59:00 PM Center) EDT Outpatient<td Attender: Mustpaha 03/12/2014 SENTHIL ID="[id number]">OFFICE [facility] 10:01: 00 AM (Candice Rajan VISIT</td><td>ROXI VALIENTE MD Health EDT - Neighborhood </td><td>[facility] 03/12/2014 Health Center</td><td>03/12/2014</td><td></td> 12:42:1 4 PM Center) EDT Outpatient<td Attender: Mustapha 02/24/2014 SENTHIL ID="[id number]">COMPLE [facility] 12:39: 00 PM (Candice Rajan TE PHYSICAL EXAM</td><td>ROXI VALIENTE MD Health EDT - Neighborhood </td><td>[facility] 02/24/2014 Health Center</td><td>02/24/2014</td><td></td> 02:02:1 2 PM Center) EDT Outpatient<td Attender: Mustapha 12/22/2013 INDIAN HEAD ID="[id number]">*No [facility] 03:47:00 PM (Palmer Show*</td><td>ROXI VALIENTE MD Health EDT - Neighborhood </td><td>[facility] 12/22/2013 Health Center</td><td>12/22/2013</td><td></td> 11:59:0 0 PM Center) EDT Outpatient<td Attender: Mustapha 11/18/2013 INDIAN HEAD ID="[id number]">OFFICE [facility] 01:02: 00 PM (Palmer VISIT</td><td>ROXI VALIENTE MD Health EDT - Neighborhood </td><td>[facility] 11/18/2013 Health Center</td><td>11/18/2013</td><td></td> 03:12:2 0 PM Center) EDT Outpatient<td Attender: Mustapha 09/01/2013 A INDIAN HEAD ID="[id number]">[facility] 09:44: 00 AM s (Candice Rajan S</td><td>URVASHI [facility] EST - s [facility] </td><td>[facility] 09/01/2013 e Health Center</td><td>09/01/2013</td><td><micah 01:12: 37 PM s Center) nt EST s ID="[id number]">Assessment m [use For S.o.a.p. Note Free e Text]</content></td> n t [ u s e F o r S . o . a . p . N o t e F r e e T e x t ] A s s e s s m e n t [ u s e F o r S . o . a . p . N o t e F r e e T e x t ] A s s e s s m e n t [ u s e F o r S . o . a . p . N o t e F r e e T e x t ] A s s e s s m e n t [ u s e F o r S . o . a . p . N o t e F r e e T e x t ] A s s e s s m e n t [ u s e F o r S . o . a . p . N o t e F r e e T e x t ] A s s e s s m e n t [ u s e F o r S . o . a . p . N o t e F r e e T e x t ] A s s e s s m e n t [ u s e F o r S . o . a . p . N o t e F r e e T e x t ] Assessment [use For S.o.a.p. Note Free T ext] Assessment [use For S.o.a.p. Note Free T ext] Assessment [use For S.o.a.p. Note Free T ext] Assessment [use For S.o.a.p. Note Free T ext] Assessment [use For S.o.a.p. Note Free T ext] Assessment [use For S.o.a.p. Note Free T ext] Assessment [use For S.o.a.p. Note Free T ext] Outpatient<td Attender: Mustapha 05/06/2013 INDIAN HEAD ID="[id number]">Follow [facility] 01:09: 00 PM (Candice Willams</td><td>ROXI VALIENTE MD</td><td>Mustapha VALIENTE MD Health EDT - [facility] 05/06/2013 [facility] Center</td><td>05/06/2013</td><td></td> 02:23:5 2 PM Center) EDT Outpatient<td Attender: 04/27/2013 INDIAN HEAD ID="[id number]">[La DIANE 04:07 :00 PM (Candice gilbert Encounter]</td><td>ROXI VALIENTE MD EDT - Neighborhood </td><td> 04/27/2013 Health </td><td>04/27/2013</td><td></td> 11:59:00 PM Center) EDT Outpatient<td Attender: Mustapha 04/24/2013 SENTHLI ID="[id number]">OFFICE [facility] 09:31: 00 AM (Candice Rajan VISIT</td><td>ROXI VALIENTE MD Health EDT - [facility] </td><td>[facility] 04/24/2013 Health Center</td><td>04/24/2013</td><td></td> 11:37:4 4 AM Center) EDT Outpatient<td Attender: Mustapha 04/16/2013 INDIAN HEAD ID="[id number]">*[facility] 04:27:00 PM (Palmer Show*</td><td>ROXI VALIENTE MD Health EDT - [facility] </td><td>[facility] 04/16/2013 Health Center</td><td>04/16/2013</td><td></td> 11:59:0 0 PM Center) EDT Outpatient<td Attender: 11/11/2012 INDIAN HEAD ID="[id number]">[La DIANE 04:23 :00 PM (Palmer t Encounter]</td><td>ROXI VALIENTE MD EDT - Neighborhood </td><td> 11/11/2012 Health </td><td>11/11/2012</td><td></td> 11:59:00 PM Center) EDT Outpatient<td Attender: Mustapha 11/11/2012 INDIAN HEAD ID="[id number]">[facility] PM (Palmer </td><td>AKUA STERN MD Health EDT - andres ROBLES</td><td>[facility] 11/11/2012 Health Center</td><td>11/11/2012</td><td></td> 11:59:0 0 PM Center) EDT Outpatient<td Attender: Mustapha 11/06/2012 SENTHIL ID="[id number]">Follow [facility] 01:36: 00 PM ([facility]</td><td>ROXI VALIENTE MD</td><td>Mustapha VALIENTE MD [facility] EDT [facility] 11/06/2012 Health Center</td><td>11/06/2012</td><td></td> 04:15:2 9 PM Center) EDT Outpatient<td Attender: Mustapha 11/06/2012 SENTHIL ID="[id number]">Follow [facility] 12:09: 00 PM ([facility]</td><td>AKUA STERN MD [facility] EDT - [facility] </td><td>[facility] 11/06/2012 Health Center</td><td>11/06/2012</td><td></td> 11:59:0 0 PM Center) EDT Outpatient<td Attender: Mustapha 10/29/2012 INDIAN HEAD ID="[id number]">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 [facility] 01:40:00 PM (Palmer ANNUAL</td><td>[facility] EDT - [facility] </td><td>[facility] 10/29/2012 Health Center</td><td>10/29/2012</td><td></td> 11:59:0 0 PM Center) EDT Outpatient<td Attender: [facility] 08/22/2012 SENTHIL ID="[id number]">OFFICE DAVINA Rajan 09:55: 00 AM (Palmer VISIT</td><td>DAVINA OLIVERA MD [facility] </td><td>[facility] Health 08/22/2012 Health Health Center 11:59:00 PM Center) Center</td><td>08/22/2012</td><td></td> EST Outpatient<td Attender: Mustapha 08/18/2012 SENTHIL ID="[id number]">*[facility] 10:45:00 AM (Palmer Show*</td><td>ANA LILIA ALAINA FOLEY MD Health EST - [facility] </td><td>[facility] 08/18/2012 Health Center</td><td>08/18/2012</td><td></td> 11:59:0 0 PM Center) EST Outpatient<td Attender: Mustapha 08/16/2012 A INDIAN HEAD ID="[id number]">Follow [facility] 09:02: 00 AM s (Palmer Up</td><td[facility] </td><td>[facility] 08/16/2012 Health Center</td><td>08/16/2012</td><td><conten 09:54 :38 AM [facility]) t EST a ID="[id number]">Myofascial S Pain Syndrome</content>, <content k ID="[id number]">Skin i Disorder Exanthem</content>, <content n ID="[id number]">Asthma</con D tent></td> i s o r d e r E x a n t h e M y o f a s c i a l P a i n S y n d r o m e A s t h m a S k i n D i s o r d e r E x a n t h e m M y o f a s c i a l P a i n S y n d r o m e A s t h m a S k i n D i s o r d e r E x a n t h e m M y o f a s c i a l P a i n S y n d r o m e A s t h m a S k i n D i s o r d e r E x a n t h e m M y o f a s c i a l P a i n S y n d r o m e A s t h m a S k i n D i s o r d e r E x a n t h e m M y o f a s c i a l P a i n S y n d r o m e A s t h m a S k i n D i s o r d e r E x a n t h e m M y o f a s c i a l P a i n S y n d r o m e A s t h m a S k i n D i s o r d e r E x a n t h e m M y o f a s c i a l P a i n S y n d r o m e Asthma Skin Disorder Exanthem Myofascial Pain Syndrome Asthma Skin Disorder Exanthem Myofascial Pain Syndrome Asthma Skin Disorder Exanthem Myofascial Pain Syndrome Asthma Skin Disorder Exanthem Myofascial Pain Syndrome Asthma Skin Disorder Exanthem Myofascial Pain Syndrome Asthma Skin Disorder Exanthem Myofascial Pain Syndrome Asthma Skin Disorder Exanthem Myofascial Pain Syndrome Outpatient<td [facility] 05/16/2012 INDIAN HEAD ID="[id number]">OFFICE Family 09:15: 00 AM (Palmer VISIT</td><td> Center EDT - [facility] </td><td>[facility] 05/16/2012 [facility]) Center</td><td>05/16/2012</td><td></td> 11:59:0 0 PM EDT Medications Medication Brand Start Product Dose Route Administrative Pharmacy [facility] Indications Reaction Description Data Name Date Form Instructions Instructions Source(s) Melatonin 5 Melato .0 Oral active NE TSMART MG Oral maxx 2019 Capsu (Mental Capsule 04:00: le Health 00 AM Associatio EDT n Jahaira guardado) Clonazepam clonaz 1.0 Oral active NET SMART 1 MG Oral ePAM 2020 Table (Mental Tablet 04:00: t Health 00 AM Associatio EDT n hunter Edmonds r) Clonazepam clonaz .0 Oral active NET SMART 1 MG Oral ePAM 2020 Table (Mental Tablet 04:00: t Health 00 AM [facility] topiramate Topama 08 1.0 Oral active NET SMART 50 MG Oral x 2020 Table (Mental Tablet 04:00: t Health [Topamax] 00 AM Associati o EDT n of [place]al r) Prazosin 2 Prazos 03/25/ 1.0 Oral active NET SMART MG Oral in HCl 2020 Capsu (Mental Capsule 04:00: le Health 00 AM Associatio EDT n of [facility]) Prazosin 2 Prazos 1.0 Oral active NET SMART MG Oral in HCl 2020 Capsu (Mental Capsule 04:00: le Health 00 AM Associatio EDT n [facility]) Tylenol Tyleno 08/03/ UNIT active Tylenol GRE ENWAY 325MG Oral l 2018 ([place] Tablet 325MG 12:00: Satinder Oral 00 AM Neighborho Tablet EST od Health Center) Albuterol Albute 08/03/ NEBULE active Albuter ol SENTHIL 0.21 MG/ML rol 2018 DOSING Sulfate (Isabella nt Inhalant Sulfat 12:00: UNIT Satinder Solution e 00 AM Neighborho Albuterol 0.63MG EST od Healt h Sulfate /3ML Center) 0.63MG/3ML Inhala Inhalation tion Nebulizatio Nebuli n solution zation soluti on Ventolin Ventol 08/03/ INHALATI active Ventol in HFA SENTHIL HFA 108 (90 in HFA 2019 ON ([facility] Base)MCG/AC 108 12:00: DOSING [place] on T (90 00 AM UNIT Neighborho Inhalation Base)M EST od Heal th Aerosol CG/ACT Center) Solution Inhala tion Aeroso l Soluti on Symbicort Symbic 08/03/ INHALATI 1 active Symbi derek SENTHIL 160-4.5MCG/ ort 2019 ON ([place] ACT 160-4. 12:00: DOSING Satinder Inhalation 5MCG/A 00 AM UNIT Neighb orho Aerosol CT EST od Health Inhala Center) tion Aeroso l Synthroid Synthr 08/03/ UNIT 1 active Synthroid SENTHIL 125MCG Oral oid 2018 ([place] Tablet 125MCG 12:00: Satinder Oral 00 AM Neighborho Tablet EST od Health Center) CompAir CompAi 06/09/ UNIT active CompAir GRE ENWAY Nebulizer r 2019 Nebulizer (Moun t Miscellaneo Nebuli 12:00: [place] on us zer 00 AM Neighborho Miscel EDT od Health laneou Center) s Albuterol Albute 06/09/ NEBULE suspend Albute rol SENTHIL 0.21 MG/ML [facility] 2018 DOSING ed Sulfate (Isabella nt Inhalant Sulfat 12:00: UNIT Satinder Solution e 00 AM Neighborho Albuterol 0.63MG EDT od Healt h Sulfate /3ML Center) 0.63MG/3ML Inhala Inhalation tion Nebulizatio Nebuli n solution zation soluti on Ventolin Ventol 06/09/ INHALATI suspend Roopa jeaneth HFA SENTHIL HFA 108 (90 in HFA 2019 ON ed ([facility])MCG/AC 108 12:00: DOSING [place] on T (90 00 AM UNIT Neighborho Inhalation Base)M EDT od Heal th Aerosol CG/ACT Center) Solution Inhala tion Aeroso l Soluti on Cepacol Cepaco 06/09/ UNIT complet Cepacol GR EENWAY Regular l 2019 ed Regular ([facility] Strength Regula 12:00: Strength Akira non 3MG r 00 AM Neighborho Mouth/Throa Streng EDT od Hea lth t Lozenge th 3MG Center) Mouth/ Throat Lozeng e Symbicort Symbic 06/09/ INHALATI 1 suspend Symb icort SENTHIL 160-4.5MCG/ ort 2018 ON ed ([facility] ACT 160-4. 12:00: DOSING Satinder Inhalation 5MCG/A 00 AM UNIT Neighb orho Aerosol CT EDT od Health Inhala Center) tion Aeroso l Albuterol Albute 06/09/ NEBULE complet Albute rol SENTHIL 0.83 MG/ML [facility] 2018 DOSING ed Sulfate (Isabella nt Inhalant Sulfat 12:00: UNIT Satinder Solution e (2.5 00 AM Neighbor ho Albuterol MG/3ML EDT od Healt h Sulfate )0.083 Center) (2.5 % IN MG/3ML)0.08 NEBU 3% IN NEBU Medication administered onsite ND: [id number] Prednisone predniSONE 05/06/2019 UNIT 1 completed predniSONE SENTHIL 10 MG Oral 10MG Oral 12:00:00 AM (Palmer Tablet Tablet EDT Neighborhoo d predniSONE Health 10MG Oral Center) Tablet Cepacol Cepacol 05/06/2019 UNIT completed Cep acol SENTHIL Regular Regular 12:00:00 AM Regular (Palmer Strength 3MG Strength 3MG EDT [facility] Mouth/Throat Mouth/Throat Health Lozenge Lozenge [place]) Symbicort Symbicort 04/11/2019 INHALA 1 suspended Symbicort SENTHIL 160-4.5MCG/A 160-4.5MCG/A 12:00:00 AM TION (Palmer CT CT EDT DOSING [facility] Inhalation Inhalation UNIT [facility] Aerosol Aerosol [place]) Ventolin HFA Ventolin HFA 04/11/2019 INHALA suspended Ventolin HFA SENTHIL 108 (90 108 (90 12:00:00 AM TION (Aaron Rajan Base)MCG/ACT Base)MCG/ACT EDT DOSING [facility] Inhalation Inhalation UNIT [facility] Aerosol Aerosol [place]) Solution Solution Synthroid Synthroid 04/07/2019 UNIT 1 suspended Synthroid SENTHIL 125MCG Oral 125MCG Oral 12:00:00 AM (Palmer Tablet Tablet EDT [facility]) Dulera Dulera 04/07/2019 INHALA 1 suspended Dul era SENTHIL 200-5MCG/ACT 200-5MCG/ACT 12:00:00 AM TION (Palmer Inhalation Inhalation EDT DOSING N [facility] Aerosol Aerosol [facility]) Motrin IB Motrin IB 04/07/2019 UNIT 1 active Mo ileana IB SENTHIL 200MG Oral 200MG Oral 12:00:00 AM (Palmer Capsule Capsule EDT [facility]) Albuterol Albuterol 04/07/2019 NEBULE suspended Albuterol SENTHIL 0.21 MG/ML Sulfate 12:00:00 AM DOSING Doyle lfate (Palmer Inhalant 0.63MG/3ML EDT UNIT [facility] borhood Solution Inhalation Healt h Albuterol Nebulization Ce nter) Sulfate solution 0.63MG/3ML Inhalation Nebulization solution Omeprazole Omeprazole 04/07/2019 UNIT 1 completed Omeprazole SENTHIL 40 MG 40MG Oral 12:00:00 AM (Aaron streetnt Satinder Delayed Capsule EDT [facility] ood Release Oral Delayed Heal th Capsule Release Center) Omeprazole 40MG Oral Capsule Delayed Release Omeprazole Omeprazole 04/07/2019 UNIT 1 active Omeprazole SENTHIL 40 MG 40MG Oral 12:00:00 AM (M ount Satinder Delayed Capsule EDT Neighborh ood Release Oral Delayed Heal th Capsule Release Center) Omeprazole 40MG Oral Capsule Delayed Release Clonazepam 1 clonazePAM 01/27/2019 1.0 Or active NETSMART MG Oral 04:00:00 AM Tab al (Ment al Tablet EDT [facility]) 01/27/2019 OR active NETSMAR T 04:00:00 AM AL (Mental EDT [facility]) Albuterol Albuterol 01/14/2019 NEBULE active Albuterol SENTHIL 0.83 MG/ML Sulfate (2.5 12:00:00 AM DOSING Sulfate (Palmer Inhalant MG/3ML)0.083 EDT UNIT Nei ghborhood Solution % Inhalation Hea lt Albuterol Nebulization Ce nter) Sulfate (2.5 solution MG/3ML)0.083 % Inhalation Nebulization solution Synthroid Synthroid 01/14/2019 UNIT 1 suspended Synthroid SENTHIL 125MCG Oral 125MCG Oral 12:00:00 AM (Palmer Tablet Tablet EDT [facility]) Breo Ellipta Breo Ellipta 01/14/2019 INHALA 1 active Breo Ellipta SENTHIL 100-25MCG/IN 100-25MCG/IN 12:00:00 AM TION (Palmer H Inhalation H Inhalation EDT DOSING Neighborhood Aerosol Aerosol UNIT Health Powder Powder [place]) Breath Breath Activated Activated Omeprazole Omeprazole 01/14/2019 UNIT 1 suspended Omeprazole SENTHIL 40 MG 40MG Oral 12:00:00 AM (M ount Satinder Delayed Capsule EDT Neighborh ood Release Oral Delayed [facility] th Capsule Release Center) Omeprazole 40MG Oral Capsule Delayed Release Hydrocortiso Neomycin-Daquan 01/14/2019 CAPFUL 1 completed Neomycin-Daquan SENTHIL ne 10 MG/ML ymyxin-HC 1% 12:00:00 AM DOSING ymyxin-HC (Palmer / Neomycin Otic EDT UNIT Neighborh ood 3.5 MG/ML / Solution [facility] Polymyxin B Center) [address]191 UNT/ML Otic Solution Neomycin-Daquan ymyxin-HC 1% Otic Solution Ibuprofen Ibuprofen 01/14/2019 UNIT 1 completed Ibuprofen SENTHIL 400 MG Oral 400MG Oral 12:00:00 AM (Candice Rajan Tablet Tablet EDT [facility] Ibuprofen Health 400MG Oral [place]) Tablet Symbicort Symbicort 11/04/2018 INHALA 1 suspended Symbicort SENTHIL 160-4.5MCG/A 160-4.5MCG/A 12:00:00 AM TION (Palmer CT CT EDT DOSING [facility] Inhalation Inhalation UNIT [facility] Aerosol Aerosol Center) Synthroid Synthroid 11/04/2018 UNIT 1 suspended Synthroid SENTHIL 125MCG Oral 125MCG Oral 12:00:00 AM (Palmer Tablet Tablet EDT [facility]) Guaifenesin guaiFENesin 11/04/2018 CAPFUL completed guaiFENesin SENTHIL 20 MG/ML 100MG/5ML 12:00:00 AM DOSING (Palmer Oral Oral EDT UNIT [facility] Solution Solution Health guaiFENesin [place]) 100MG/5ML Oral Solution Ibuprofen Ibuprofen 11/04/2018 UNIT 1 completed Ibuprofen SENTHIL 400 MG Oral 400MG Oral 12:00:00 AM (Palmer Tablet Tablet T [facility] Ibuprofen Health 400MG [facility]) Tablet Cyclobenzapr Cyclobenzapr 11/04/2018 UNIT 1 completed Cyclobenzapr SENTHIL ine ine HCl 5MG 12:00:00 AM ine HC l (Palmer hydrochlorid Oral Tablet T [facility] e 5 MG Oral Health Tablet [place]) Cyclobenzapr ine HCl 5MG Oral Tablet Omeprazole Omeprazole 11/04/2018 UNIT 1 suspended Omeprazole SENTHIL 40 MG 40MG Oral 12:00:00 AM ( ount Satinder Delayed Capsule [facility] ood Release Oral Delayed Heal th Capsule Release [place]) Omeprazole 40MG Oral Capsule Delayed Release Albuterol Albuterol 10/23/2018 NEBULE suspended Albuterol SENHTIL 0.83 MG/ML Sulfate (2.5 12:00:00 AM DOSING Sulfate (Palmer Inhalant MG/3ML)0.083 EST UNIT Nei ghborhood Solution % Inhalation [facility] Albuterol Nebulization Ce nter) Sulfate (2.5 solution MG/3ML)0.083 % Inhalation Nebulization solution Breo Ellipta Breo Ellipta 10/23/2018 INHALA 1 suspended Breo Ellipta SENTHIL 100-25MCG/IN 100-25MCG/IN 12:00:00 AM TION (Palmer H Inhalation H Inhalation EST DOSING [facility] Aerosol Aerosol UNIT Health Powder Powder [place]) Breath Breath Activated Activated EQ Nicotine EQ Nicotine 10/23/2018 UNIT active EQ Nicotine SENTHIL 7MG/24HR 7MG/24HR 12:00:00 AM (Palmer Transdermal Transdermal EST [facility] Patch 24 Patch 24 Health Hour Hour [place]) Ibuprofen Ibuprofen 10/23/2018 UNIT 1 suspended Ibuprofen SENTHIL 400 MG Oral 400MG Oral 12:00:00 AM (Palmer Tablet Tablet EST [facility] Ibuprofen Health 400MG Oral [place]) Tablet Cyclobenzapr Cyclobenzapr 10/23/2018 UNIT 1 suspended Cyclobenzapr SENTHIL ine ine HCl 5MG 12:00:00 AM ine HC l (Palmer hydrochlorid Oral Tablet EST [facility] e 5 MG Oral Health Tablet [place]) Cyclobenzapr ine HCl 5MG Oral Tablet Ventolin HFA Ventolin HFA 10/23/2018 INHALA active Ventolin HFA SENTHIL 108 (90 108 (90 12:00:00 AM TION (M ount Satinder Base)MCG/ACT Base)MCG/ACT EST DOSING [facility] Inhalation Inhalation UNIT [facility]) Solution Solution Singulair Singulair 10/23/2018 UNIT 1 active Si ngulair SENTHIL 10MG Oral 10MG Oral 12:00:00 AM ([place] Tablet Tablet [facility]) Omeprazole Omeprazole 07/07/2018 UNIT 1 suspended Omeprazole SENTHIL 40 MG 40MG Oral 12:00:00 AM ([facility] Delayed Capsule EST [facility] ood Release Oral Delayed Heal th Capsule Release [place]) Omeprazole 40MG Oral Capsule Delayed Release Guaifenesin GuaiFENesin 07/07/2018 CAPFUL completed guaiFENesin SENTHIL 20 MG/ML 300MG/15ML 12:00:00 AM DOSING ([place] Oral Oral EST UNIT [facility] Solution Solution Health GuaiFENesin [place]) 300MG/15ML Oral Solution Prednisone PredniSONE 07/07/2018 UNIT completed predniSONE SENTHIL 10 MG Oral 10MG Oral 12:00:00 AM ([place] Tablet Tablet EST [facility] PredniSONE Health 10MG [facility]) Tablet Augmentin Augmentin 07/07/2018 UNIT 1 completed Augmentin SENTHIL 875-125MG 875-125MG 12:00:00 AM ([place] Oral Tablet Oral Tablet EST [facility]) Ventolin HFA Ventolin HFA 07/07/2018 INHALA suspended Ventolin HFA SENTHIL 108 (90 108 (90 12:00:00 AM TION ([facility] Base)MCG/ACT Base)MCG/ACT EST DOSING Neighborhood Inhalation Inhalation UNIT [facility] Aerosol Aerosol [place]) Solution Solution Albuterol Albuterol 07/07/2018 NEBULE suspended Albuterol SENTHIL 0.83 MG/ML Sulfate (2.5 12:00:00 AM DOSING Sulfate ([place] Inhalant MG/3ML)0.083 EST UNIT Nei [facility] Solution % Inhalation [facility] Albuterol Nebulization Ce nter) Sulfate (2.5 solution MG/3ML)0.083 % Inhalation Nebulization solution Singulair Singulair 07/07/2018 UNIT 1 suspended Singulair SENTHIL 10MG Oral 10MG Oral 12:00:00 AM ([place] Tablet Tablet EST [facility]) Symbicort Symbicort 07/07/2018 INHALA 1 suspended Symbicort SENTHIL 160-4.5MCG/A 160-4.5MCG/A 12:00:00 AM TION ([facility] EST DOSING [facility] Inhalation Inhalation UNIT [facility] Aerosol Aerosol [place]) Synthroid Synthroid 05/14/2018 UNIT 1 suspended Synthroid SENTHIL 125MCG Oral 125MCG Oral 12:00:00 AM ([place] Tablet Tablet EDT [facility]) Symbicort Symbicort 05/14/2018 INHALA 1 suspended Symbicort SENTHIL 160-4.5MCG/A 160-4.5MCG/A 12:00:00 AM TION ([facility] CT EDT DOSING [facility] Inhalation Inhalation UNIT [facility] Aerosol Aerosol [place]) NexIUM 40MG NexIUM 40MG 05/14/2018 UNIT 1 active NexIUM SENTHIL Oral Packet Oral Packet 12:00:00 AM ([facility]) CVS Nicotine CVS Nicotine 05/14/2018 UNIT 1 active CVS Nicotine SENTHIL 14MG/24HR 14MG/24HR 12:00:00 AM ([place] Transdermal Transdermal EDT [facility] Patch 24 Patch 24 Health Hour [facility]) Albuterol Albuterol 05/14/2018 NEBULE suspended Albuterol SENTHIL 0.21 MG/ML Sulfate 12:00:00 AM DOSING Doyle lfate ([place] Inhalant 0.63MG/3ML EDT UNIT [place]igh [place]hood Solution Inhalation Healt h Albuterol Nebulization Ce nter) Sulfate solution 0.63MG/3ML Inhalation Nebulization solution Ventolin HFA Ventolin HFA 05/14/2018 INHALA active Ventolin HFA SENTHIL 108 (90 108 (90 12:00:00 AM TION ([facility] Base)MCG/ACT Base)MCG/ACT EDT DOSING [facility] Inhalation Inhalation UNIT [facility] Aerosol Aerosol [place]) Solution Solution Symbicort Symbicort 01/21/2018 INHALA 1 suspended Symbicort SENTHIL 160-4.5MCG/A 160-4.5MCG/A 12:00:00 AM TION ([facility] EDT DOSING [facility] Inhalation Inhalation UNIT [facility] Aerosol Aerosol [place]) Ventolin HFA Ventolin HFA 01/21/2018 INHALA suspended Ventolin HFA SENTHIL 108 (90 108 (90 12:00:00 AM TION ([facility] Base)MCG/ACT Base)MCG/ACT EDT DOSING [facility] Inhalation Inhalation UNIT [facility] Aerosol Aerosol [place]) Solution Solution Synthroid Synthroid 12/31/2017 UNIT 1 suspended Synthroid SENTHIL 100MCG Oral 100MCG Oral 12:00:00 AM ([place] Tablet Tablet [facility]) NexIUM 40MG NexIUM 40MG 12/24/2017 UNIT 1 suspended NexIUM SENTHIL Oral Packet Oral Packet 12:00:00 AM ([facility]) Symbicort Symbicort 12/24/2017 INHALA 1 suspended Symbicort SENTHIL 160-4.5MCG/A 160-4.5MCG/A 12:00:00 AM TION ([facility] EDT DOSING [facility] Inhalation Inhalation UNIT [facility] Aerosol Aerosol [place]) Synthroid Synthroid 12/24/2017 UNIT 1 suspended Synthroid SENTHIL 88MCG Oral 88MCG Oral 12:00:00 AM ([place] Tablet Tablet [facility]) Ventolin HFA Ventolin HFA 12/24/2017 INHALA suspended Ventolin HFA SENTHIL 108 (90 108 (90 12:00:00 AM TION (M ount [facility] Base)MCG/ACT Base)MCG/ACT EDT DOSING [facility] Inhalation Inhalation UNIT [facility] Aerosol Aerosol Center) Solution Solution Synthroid Synthroid 10/16/2017 UNIT 1 suspended Synthroid SENTHIL 88MCG Oral 88MCG Oral 12:00:00 AM ([place] Tablet Tablet [facility]) NexIUM 40MG NexIUM 40MG 10/16/2017 UNIT 1 suspended NexIUM SENTHIL Oral Packet Oral Packet 12:00:00 AM ([facility]) Flagyl 500MG Flagyl 500MG 10/16/2017 UNIT 1 completed Flagyl SENTHIL Oral Tablet Oral Tablet 12:00:00 AM ([facility]) Diflucan Diflucan 10/16/2017 UNIT 1 completed D iflucan SENTHIL 150MG Oral 150MG Oral 12:00:00 AM ([place] Tablet Tablet [facility]) Simvastatin Simvastatin 09/27/2017 UNIT 1 active Simvastatin SENTHIL 40 MG Oral 40MG Oral 12:00:00 AM ([place] Tablet Tablet [facility] Simvastatin Health 40MG [facility]) Tablet Simvastatin Simvastatin 09/27/2017 UNIT 1 suspended Simvastatin SENTHIL 40 MG Oral 40MG Oral 12:00:00 AM ([place] Tablet Tablet [facility] Simvastatin Health 40MG [facility]) Tablet Prednisone PredniSONE 09/27/2017 UNIT 1 active predniSONE SENTHIL 20 MG Oral 20MG Oral 12:00:00 AM ([place] Tablet Tablet [facility] PredniSONE Health 20MG [facility]) Tablet Nebulizer Nebulizer 09/27/2017 UNIT active Ne bulizer SENHTIL Miscellaneou Miscellaneou 12:00:00 AM [facility] Diflucan Diflucan 09/27/2017 UNIT 1 active Difl ucan SENTHIL 150MG Oral 150MG Oral 12:00:00 AM ([place] Tablet Tablet [facility]) Augmentin Augmentin 09/27/2017 UNIT 1 active Au gmentin SENTHIL 875-125MG 875-125MG 12:00:00 AM ([place] Oral Tablet Oral Tablet [facility]) Synthroid Synthroid 09/27/2017 UNIT 1 suspended Synthroid SENTHIL 75MCG Oral 75MCG Oral 12:00:00 AM ([place] Tablet Tablet [facility]) Simvastatin Simvastatin 08/02/2017 UNIT 1 active Simvastatin SENTHIL 20 MG Oral 20MG Oral 12:00:00 AM ([place] Tablet Tablet [facility] Simvastatin Health 20MG Oral Center) Tablet Synthroid Synthroid 08/02/2017 UNIT 1 active Sy nthroid SENTHIL 50MCG Oral 50MCG Oral 12:00:00 AM ([place] Tablet Tablet [facility]) Ventolin HFA Ventolin HFA 07/26/2017 INHALA suspended Ventolin HFA SENTHIL 108 (90 108 (90 12:00:00 AM TION ( ount S[facility]der Base)MCG/ACT Base)MCG/ACT EST DOSING [facility] Inhalation Inhalation UNIT [facility] Aerosol Aerosol Center) Solution Solution Hydrochlorot HydroCHLOROt 07/26/2017 UNIT 1 active hydroCHLOROt SENTHIL hiazide 25 hiazide 25MG 12:00:00 AM hiazide ([place] MG Oral Oral Tablet [facility] HydroCHLOROt [place]) hiazide 25MG Oral Tablet Symbicort Symbicort 07/26/2017 INHALA 1 suspended Symbicort SENTHIL 160-4.5MCG/A 160-4.5MCG/A 12:00:00 AM TION ([place] CT CT EST DOSING [facility] Inhalation Inhalation UNIT [facility] Aerosol Aerosol Center) NexIUM 40MG NexIUM 40MG 07/26/2017 UNIT 1 suspended NexIUM SENTHIL Oral Packet Oral Packet 12:00:00 AM ([facility]) Singulair Singulair 07/26/2017 UNIT 1 active Si ngulair SENTHIL 10MG Oral 10MG Oral 12:00:00 AM ([place] Tablet Tablet [facility]) Albuterol Ipratropium- 07/26/2017 CAPFUL 1 active Ipratropium- SENTHIL 0.833 MG/ML Albuterol 12:00:00 AM DOSING Albuterol ([place] / 0.5-2.5 [facility] UNIT Neighborhood Ipratropium (3)MG/3ML [facility] ) 0.167 MG/ML Solution Inhalant Solution Ipratropium- Albuterol 0.5-2.5 (3)MG/3ML Inhalation Solution Augmentin Augmentin 07/26/2017 UNIT 1 active Au gmentin SENTHIL 875-125MG 875-125MG 12:00:00 AM ([place] Oral Tablet Oral Tablet [facility]) Metronidazol MetroNIDAZOL 06/24/2017 UNIT 1 completed metroNIDAZOL SENTHIL e 500 MG E 500MG Oral 12:00:00 AM E ([place] Oral Tablet Tablet EST [facility] MetroNIDAZOL [facility] E 500MG Oral [place]) Tablet Cyclobenzapr Cyclobenzapr 04/11/2017 UNIT active Cyclobenzapr SENTHIL ine ine HCl 5MG 12:00:00 AM ine HC l ([place] hydrochlorid Oral Tablet EDT [facility] e 5 MG Oral Health Tablet [place]) Cyclobenzapr ine HCl 5MG Oral Tablet Hydrochlorot HydroCHLOROt 04/11/2017 UNIT 1 active hydroCHLOROt SENTHIL hiazide 25 hiazide 25MG 12:00:00 AM hiazide ([place] MG Oral Oral Tablet EDT [facility] HydroCHLOROt [place]) hiazide 25MG Oral Tablet Symbicort Symbicort 04/11/2017 INHALA 1 suspended Symbicort SENTHIL 160-4.5MCG/A 160-4.5MCG/A 12:00:00 AM TION ([place] CT CT EDT DOSING [facility] Inhalation Inhalation UNIT [facility] Aerosol Aerosol Center) EQ Nicotine EQ Nicotine 04/11/2017 UNIT 1 active EQ Nicotine SENTHIL 21MG/24HR 21MG/24HR 12:00:00 AM ([place] Transdermal Transdermal EDT [facility] Patch 24 Patch 24 Health Hour Hour [place]) Ventolin HFA Ventolin HFA 04/11/2017 INHALA suspended Ventolin HFA SENTHIL 108 (90 108 (90 12:00:00 AM TION (M ount [facility] Base)MCG/ACT Base)MCG/ACT EDT DOSING [facility] Inhalation Inhalation UNIT [facility] Aerosol Aerosol Center) Solution Solution Singulair Singulair 04/11/2017 UNIT 1 suspended Singulair SENTHIL 10MG Oral 10MG Oral 12:00:00 AM ([place] Tablet Tablet EDT [facility]) Omeprazole Omeprazole 04/11/2017 UNIT 1 active Omeprazole SENTHIL 40 MG 40MG Oral 12:00:00 AM (M ount Satinder Delayed Capsule EDT [facility] ood Release Oral Delayed Heal Capsule Release [place]) Omeprazole 40MG Oral Capsule Delayed Release Nasacort Nasacort 11/30/2016 INHALA completed Nasacort SENTHIL Allergy 24HR Allergy 24HR 12:00:00 AM TION Allergy 24HR ([place] 55 MCG/ACT 55 MCG/ACT EDT DOSING [facility] Aerosol Aerosol UNIT [facility]) Ventolin HFA Ventolin HFA 11/30/2016 INHALA completed Ventolin HFA SENTHIL 108 (90 108 (90 12:00:00 AM TION (M ount [facility] Base) Base) EDT DOSING [place] MCG/ACT MCG/ACT [facility] Aerosol Aerosol [place]) Solution Solution Symbicort Symbicort 11/30/2016 INHALA 1 completed Symbicort SENTHIL 160-4.5 160-4.5 12:00:00 AM TION (M ount Satinder MCG/ACT MCG/ACT EDT DOSING [place] Aerosol Aerosol UNIT [facility]) Albuterol Albuterol 11/30/2016 NEBULE completed Albuterol SENTHIL 0.83 MG/ML Sulfate (2.5 12:00:00 AM DOSING Sulfate ([place] Inhalant MG/3ML) EDT UNIT Neighbor james Solution 0.083% [employer] Albuterol Nebulization Ce nter) Sulfate (2.5 solution MG/3ML) 0.083% Nebulization solution Singulair 10 Singulair 10 11/30/2016 UNIT 1 completed Singulair SENTHIL MG Tablet MG Tablet 12:00:00 AM ([facility]) Omeprazole Omeprazole 11/30/2016 UNIT 1 completed Omeprazole SENTHIL 40 MG 40 MG 12:00:00 AM ([place] Delayed Capsule EDT [place] Release Oral Delayed [facility] Capsule Release [place]) Omeprazole 40 MG Capsule Delayed Release PriLOSEC 40 PriLOSEC 40 08/30/2016 UNIT 1 active PriLOSEC SENTHIL MG Capsule MG Capsule 12:00:00 AM ([place] Delayed Delayed EST [facility] ood Release [facility]) Albuterol Albuterol 08/30/2016 NEBULE suspended Albuterol SENTHIL 0.83 MG/ML Sulfate (2.5 12:00:00 AM DOSING Sulfate ([place] Inhalant MG/3ML) EST UNIT Neighbor james Solution 0.083% Health Albuterol Nebulization Ce nter) Sulfate (2.5 solution MG/3ML) 0.083% Nebulization solution Augmentin Augmentin 08/30/2016 UNIT 1 active Au gmentin SENTHIL 875-125 MG 875-125 MG 12:00:00 AM ([place] Tablet Tablet EST [facility]) Symbicort Symbicort 08/30/2016 INHALA 1 suspended Symbicort SENTHIL 160-4.5 160-4.5 12:00:00 AM TION (M ount Satinder MCG/ACT MCG/ACT EST [facility] Aeros[facility]) Ventolin HFA Ventolin HFA 08/30/2016 INHALA suspended Ventolin HFA SENTHIL 108 (90 108 (90 12:00:00 AM TION (M ount [facility] Base) Base) EST DOSING [place] MCG/ACT MCG/ACT [facility] Aerosol Aerosol [place]) Solution Solution Symbicort Symbicort 08/30/2016 INHALA 1 suspended Symbicort SENTHIL 160-4.5 160-4.5 12:00:00 AM TION (M ount Satinder MCG/ACT MCG/ACT EST DOSING [facility] rhood Aerosol Aerosol [facility]) Metronidazol MetroNIDAZOL 03/20/2016 UNIT completed metroNIDAZOL SENTHIL e 500 MG E 500 MG 12:00:00 AM E ([place] Oral Tablet Tablet EDT [facility] MetroNIDAZOL Health E 500 MG [place]) Tablet PriLOSEC 20 PriLOSEC 20 03/14/2016 UNIT 1 completed PriLOSEC SENTHIL MG Capsule MG Capsule 12:00:00 AM ([place] Delayed Delayed EDT [facility] Release Release [facility]) Symbicort Symbicort 03/14/2016 INHALA 1 completed Symbicort SENTHIL 160-4.5 160-4.5 12:00:00 AM TION (M ount Satinder MCG/ACT MCG/ACT EDT [facility] Aeros[facility] Aerosol [facility]) Ventolin HFA Ventolin HFA 03/14/2016 INHALA completed Ventolin HFA SENTHIL 108 (90 108 (90 12:00:00 AM TION (M ount [place] Base) Base) EDT DOSING [place] MCG/ACT MCG/ACT [facility] Aerosol Aerosol [place]) Solution Solution Fluconazole Fluconazole 03/14/2016 UNIT 1 completed Fluconazole SENTHIL 150 MG Oral 150 MG 12:00:00 AM ([place] Tablet Tablet EDT [facility] d Fluconazole Health 150 MG [place]) Tablet Macrobid 100 Macrobid 100 03/14/2016 UNIT 1 completed Macrobid SENTHIL MG Capsule MG Capsule 12:00:00 AM ([facility]) Hydrocortiso Neomycin-Daquan 09/12/2015 CAPFUL 1 completed Neomycin-Daquan SENTHIL ne 10 MG/ML ymyxin-HC 12:00:00 AM DOSING ymyxin-HC ([place] / Neomycin 3.5-23141-9 EST UNIT Ne ighborhood 3.5 MG/ML / Suspension He alth Polymyxin B [place]) 60447 UNT/ML Otic Suspension Neomycin-Daquan ymyxin-HC 3.5-57049-1 Suspension Nebulizer Nebulizer 09/12/2015 UNIT completed Nebulizer [place] Device Device 12:00:00 AM (Isabella nt [facility]) Singulair 10 Singulair 10 09/12/2015 UNIT 1 suspended Singulair SENTHIL MG Tablet MG Tablet 12:00:00 AM ([facility]) Albuterol Albuterol 09/12/2015 NEBULE suspended Albuterol SENTHIL 0.83 MG/ML Sulfate (2.5 12:00:00 AM DOSING Sulfate ([place] Inhalant MG/3ML) EST UNIT [place] james Solution 0.083% Health Albuterol Nebulization Ce nter) Sulfate (2.5 solution MG/3ML) 0.083% Nebulization solution Ventolin HFA Ventolin HFA 09/12/2015 INHALA completed Ventolin HFA SENTHIL 108 (90 108 (90 12:00:00 AM TION (M ount [place] Base) Base) EST DOSING [place] MCG/ACT MCG/ACT [facility] Aerosol Aerosol [place]) Solution Solution Symbicort Symbicort 09/12/2015 INHALA 1 completed Symbicort SENTHIL 160-4.5 160-4.5 12:00:00 AM TION (M ount Satinder MCG/ACT MCG/ACT EST DOSING [place] Aerosol Aerosol [facility]) Augmentin Augmentin 09/12/2015 UNIT 1 completed Augmentin SENTHIL 875-125 MG 875-125 MG 12:00:00 AM ([place] Tablet Tablet [facility]) Diflucan 150 Diflucan 150 09/12/2015 UNIT 1 suspended Diflucan SENTHIL MG Tablet MG Tablet 12:00:00 AM ([facility]) Flagyl 500 Flagyl 500 05/02/2015 UNIT 1 suspended Flagyl SENTHIL MG TABS MG TABS 12:00:00 AM (M ount [facility]) Omeprazole Omeprazole 04/14/2015 UNIT 1 suspended Omeprazole SENTHIL 40 MG 40MG OR CPDR 12:00:00 AM ([place] Delayed [facility] Release Oral Health Capsule Center) Omeprazole 40MG OR CPDR Acetaminophe Acetaminophe 04/14/2015 UNIT active Acetaminophe SENTHIL n 500 MG n 500MG OR 12:00:00 AM n ([place] Oral Tablet TABS [facility] n 500MG OR Center) TABS SEROquel SEROquel 04/14/2015 UNIT active SERO quel SENTHIL 100MG OR 100MG OR 12:00:00 AM ([place] TABS TABS [facility]) Hydrocortiso Neomycin-Daquan 12/14/2014 CAPFUL 1 suspended Neomycin-Daquan SENTHIL ne 10 MG/ML ymyxin-HC 12:00:00 AM DOSING ymyxin-HC ([place] / Neomycin 3.5-27942-7 EDT UNIT Ne ighborhood 3.5 MG/ML / OT SUSP Healt h Polymyxin B Center) 84693 UNT/ML Otic Suspension Neomycin-Daquan ymyxin-HC 3.5-79381-1 OT SUSP Amoxicillin Amoxicillin 12/14/2014 UNIT 1 active Amoxicillin SENTHIL 500 MG Oral 500MG OR 12:00:00 AM ([place] Capsule CAPS [facility] Amoxicillin Health 500MG OR Center) CAPS Amoxicillin Amoxicillin 11/23/2014 UNIT 1 completed Amoxicillin SENTHIL 500 MG Oral 500MG OR 12:00:00 AM ([place] Capsule CAPS [facility] Amoxicillin Health 500MG OR Center) CAPS Albuterol Albuterol 11/23/2014 NEBULE suspended Albuterol SENTHIL 0.83 MG/ML Sulfate (2.5 12:00:00 AM DOSING Sulfate ([place] Inhalant MG/3ML)0.083 EDT UNIT Nei gh[place]hood Solution % IN NE[place] Health Albuterol Center) Sulfate (2.5 MG/3ML)0.083 % IN [facility] Prednisone predniSONE 11/16/2014 UNIT active predniSONE SENTHIL 20 MG Oral 20MG OR TABS 12:00:00 AM ([place] Tablet EDT [facility] predniSONE Health 20MG OR TABS Center) Ventolin HFA Ventolin HFA 11/16/2014 INHALA suspended Ventolin HFA SENTHIL 108 (90 108 (90 12:00:00 AM TION (M ount [facility] Base)MCG/ACT Base)MCG/ACT EDT DOSING Neighborhood IN AERS IN AERS [facility]) Symbicort Symbicort 11/16/2014 INHALA 1 suspended Symbicort SENTHIL 160-4.5MCG/A 160-4.5MCG/A 12:00:00 AM TION ([place] CT IN AERO CT IN AERO EDT DOSING [facility]) Levaquin Levaquin 11/16/2014 UNIT 1 active Leva ramón SENTHIL 500MG OR 500MG OR 12:00:00 AM ([place] TABS TABS [facility]) Ibuprofen Ibuprofen 11/16/2014 UNIT active Ib uprofen SENTHIL 400 MG Oral 400 MG TABS 12:00:00 AM ([place] Tablet [facility] Ibuprofen Health 400 MG TABS Center) Singulair Singulair 11/16/2014 UNIT 1 active Si ngulair SENTHIL 10MG OR TABS 10MG OR TABS 12:00:00 AM ([facility]) Albuterol Ipratropium- 11/16/2014 CAPFUL 1 active Ipratropium- SENTHIL 0.833 MG/ML Albuterol 12:00:00 AM DOSING Albuterol ([place] / 0.5-2.5 (3) EDT UNIT [place]ighbor james Ipratropium MG/3ML SOLN [facility] [place] [facility]) 0.167 MG/ML Inhalant Solution Ipratropium- Albuterol 0.5-2.5 (3) MG/3ML SOLN Augmentin Augmentin 05/04/2014 UNIT 1 active Au gmentin SENTHIL 875-125MG OR 875-125MG OR 12:00:00 AM ([place] TABS TABS [facility]) Ibuprofen Ibuprofen 05/04/2014 UNIT active Ib uprofen SENTHIL 800 MG Oral 800MG OR 12:00:00 AM ([place] Tablet TABS EDT [facility] Ibuprofen Health 800MG OR Center) TABS Prednisone predniSONE 05/04/2014 UNIT 1 active predniSONE SENTHIL 20 MG Oral 20MG OR TABS 12:00:00 AM ([place] Tablet EDT [facility] predniSONE Health 20MG OR TABS Center) Hydrochlorot hydroCHLOROt 05/04/2014 UNIT 1 active hydroCHLOROt SENTHIL hiazide 50 hiazide 50MG 12:00:00 AM hiazide ([place] MG Oral TABS EDT [facility] Tablet [facility] hydroCHLOROt [place]) hiazide 50MG TABS Ventolin HFA Ventolin HFA 05/04/2014 INHALA active Ventolin HFA SENTHIL 108 (90 108 (90 12:00:00 AM TION (M ount S[facility]der Base)MCG/ACT Base)MCG/ACT EDT DOSING Neighborhood IN AERS IN [facility]) Permethrin Permethrin 1 03/12/2014 APPLIC active Permethrin SENTHIL 10 MG/ML % LOTN 12:00:00 AM ATION ( [place] Medicated EDT [facility] Permethrin 1 Center) % LOTN Symbicort Symbicort 03/12/2014 INHALA 1 suspended Symbicort SENTHIL 160-4.5MCG/A 160-4.5MCG/A 12:00:00 AM TION ([place] CT IN AERO CT IN AERO EDT DOSING [facility]) Ventolin HFA Ventolin HFA 03/12/2014 INHALA suspended Ventolin HFA SENTHIL 108 (90 108 (90 12:00:00 AM TION (M ount Satinder Base)MCG/ACT Base)MCG/ACT EDT DOSING Neighborhood IN AERS IN [facility]) PriLOSEC 40 PriLOSEC 40 02/24/2014 UNIT 1 active PriLOSEC SENTHIL MG CPDR MG CPDR 12:00:00 AM [facility] Hydrochlorot hydroCHLOROt 02/24/2014 UNIT 1 active hydroCHLOROt SENTHIL hiazide 25 hiazide 25MG 12:00:00 AM hiazide ([place] MG Oral TABS EDT Neighborhood Tablet Health hydroCHLOROt [place]) hiazide 25MG TABS Ibuprofen Ibuprofen 02/24/2014 UNIT active Ib uprofen SENTHIL 800 MG Oral 800MG OR 12:00:00 AM ([place] [facility] 800MG OR Center) TABS Augmentin Augmentin 11/18/2013 UNIT 1 active Au gmentin SENTHIL 875-125MG OR 875-125MG OR 12:00:00 AM ([place] [facility]S [facility] Health [place]) Ibuprofen Ibuprofen 09/01/2013 UNIT completed Ibuprofen SENTHIL 400 MG Oral 400 MG TABS 12:00:00 AM ([place] Tablet EST [facility] Ibuprofen Health 400 MG TABS Center) Ventolin HFA Ventolin HFA 09/01/2013 INHALA completed Ventolin HFA SENTHIL 108 (90 108 (90 12:00:00 AM TION (M ount Satinder Base)MCG/ACT Base)MCG/ACT EST DOSING Neighborhood IN AERS [facility]) Singulair Singulair 09/01/2013 UNIT 1 suspended Singulair SENTHIL 10MG OR TABS 10MG OR TABS 12:00:00 AM ([facility]) Symbicort Symbicort 09/01/2013 INHALA completed Symbicort SENTHIL 160-4.5MCG/A 160-4.5MCG/A 12:00:00 AM TION ([place] CT IN AERO CT IN AERO EST DOSING [facility]) Ventolin HFA Ventolin HFA 04/24/2013 INHALA active Ventolin HFA SENTHIL 108 (90 108 (90 12:00:00 AM TION (M ount Satinder Base)MCG/ACT Base)MCG/ACT EDT DOSING Neighborhood IN AERS IN [facility]) Symbicort Symbicort 04/24/2013 INHALA 1 suspended Symbicort SENTHIL 160-4.5MCG/A 160-4.5MCG/A 12:00:00 AM TION ([place] CT IN AERO CT IN AERO EDT DOSING [facility]) Hydrochlorot hydroCHLOROt 04/24/2013 UNIT 1 active hydroCHLOROt SENTHIL hiazide 25 hiazide 25MG 12:00:00 AM hiazide ([place] MG Oral TABS EDT Neighborhood [facility] hydroCHLOROt [place]) hiazide 25MG TABS Augmentin Augmentin 04/24/2013 UNIT 1 active Au gmentin SENTHIL 875-125MG OR 875-125MG OR 12:00:00 AM ([place] TABS TABS [facility]) Permethrin Permethrin 04/24/2013 APPLIC active Permethrin SENTHIL 50 MG/ML 5% EX CREA 12:00:00 AM ATION ([place] [facility] [place]) 5% EX CREA Albuterol Albuterol 08/16/2012 NEBULE active Albuterol SENTHIL 0.83 MG/ML Sulfate (2.5 12:00:00 AM DOSING Sulfate ([place] Inhalant MG/3ML)0.083 EST UNIT [facility] Solution % IN [facility] Albuterol [place]) Sulfate (2.5 MG/3ML)0.083 % IN [facility] Flexeril 10 Flexeril 10 08/16/2012 UNIT 1 active Flexeril SENTHIL MG TABS MG TABS 12:00:00 AM [facility] Ibuprofen Ibuprofen 08/16/2012 UNIT active Ib uprofen SENTHIL 800 MG Oral 800MG OR 12:00:00 AM ([place] Tablet TABS [facility] Ibuprofen Health 800MG OR Center) TABS Ventolin HFA Ventolin HFA 08/16/2012 INHALA suspended Ventolin HFA SENTHIL 108 (90 108 (90 12:00:00 AM TION ( falguni Satinder Base)MCG/ACT Base)MCG/ACT EST DOSING Neighborhood IN AERS IN AERS [facility]) Symbicort Symbicort 08/16/2012 INHALA 1 active Symbicort SENTHIL 160-4.5MCG/A 160-4.5MCG/A 12:00:00 AM TION (Candice Rajan CT IN AERO CT IN AERO EST DOSING [facility]) Diphenhydram diphenhydrAM 08/16/2012 UNIT 1 active diphenhydrAM SENTHIL ine INE HCl 50MG 12:00:00 AM INE H Cl ([place] Hydrochlorid OR CAPS EST Neig hborhood e 50 MG Oral Health Capsule Center) diphenhydrAM INE HCl 50MG OR CAPS Ibuprofen Ibuprofen 08/16/2012 UNIT suspended Ibuprofen SENTHIL 800 MG Oral 800MG OR 12:00:00 AM ([place] Tablet TABS EST Neighborhood Ibuprofen Health 800MG OR Center) TABS Symbicort Symbicort 08/16/2012 INHALA 1 suspended Symbicort SENTHIL 160-4.5MCG/A 160-4.5MCG/A 12:00:00 AM TION ([place] CT IN AERO CT IN AERO EST DOSING [facility]) Ventolin HFA Ventolin HFA 08/16/2012 INHALA suspended Ventolin HFA SENTHIL 108 (90 108 (90 12:00:00 AM TION (M ount Satinder Base)MCG/ACT Base)MCG/ACT EST DOSING Neighborhood IN AERS IN [facility]) Insurance Providers Payer name Policy type / Policy ID Covered Covered democrat's Policy Plan Coverage type democrat ID relationship to Mendoza Information mendoza O [facility] [id number] [facility] MEDICAID [id number] SP [id number] O MEDICAID [id number] SP [id number] [facility] MEDICAID [id number] SP [id number] [facility] MEDICAID [id number] SP [id number] HIP - Health Individual 0 Self 0 Insurance Policy Plan of [facility] HIP - Health Individual 0 Self 0 Insurance Policy Plan of [facility] HIP - Health Individual 0 Self 0 Insurance Policy Plan of [facility] HIP - Health Individual 0 Self 0 Insurance Policy Plan of [facility] HIP - Health Individual 0 Self 0 Insurance Policy Plan of [facility] [id number] S [id number] Options D Dental [id number] S [id number] [employer] Emblem Medicaid [facility] Medicaid [id number] S [id number] Managed Care HIP Medicaid [id number] S [id number] Managed Care Dental [id number] S [id number] Healthplex MKD [place] [id number] S [id number] Vision MKD [place] [facility] [id number] S [id number] Options D Medicaid [id number] S [id number] Regular Clinic Visit HIP - Health Individual 0 Self 0 Insurance Policy Plan of [facility] Medicaid [id number] Managed Care [facility] Health Individual 0 Self 0 [facility] Problems, Conditions, and Diagnoses Code Display Name Description Problem Type Effective Data Sour ce(s) Dates [id number] Anxiety disorder Anxiety disorder Complaint 07/28/2019 NE TSMART (disorder) (disorder) 05:00:00 AM ([facility]) [id number] Recurrent major Recurrent major Complaint 07/21/2019 NETS MART depression depression 04:00:00 PM ([facility]) [id number] Disease Disease Complaint 12/24/2018 NETSMART 08:30:00 PM ([facility]) 24658515 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 NETSMART stress disorder stress disorder 08:30:00 PM ([facility]) 16247385 Hypothyroidism Hypothyroidism Problem 09/27/2017 GREENW AY ([place] (disorder) 12:00:00 AM [facility]) [id number] Hypothyroidism Hypothyroidism Problem 09/27/2017 GREENW AY ([place] (disorder) 12:00:00 AM [facility]) 52079092 Hypothyroidism Hypothyroidism Problem 09/27/2017 GREENW AY ([place] (disorder) 12:00:00 AM [facility]) 51923031 Hypothyroidism Hypothyroidism Problem 09/27/2017 GREENW AY ([place] (disorder) 12:00:00 AM [facility]) 34285367 Hypothyroidism Hypothyroidism Problem 09/27/2017 GREENW AY ([place] (disorder) 12:00:00 AM [facility]) 56583652 Hypothyroidism Hypothyroidism Problem 09/27/2017 GREENW AY ([place] (disorder) 12:00:00 AM [facility]) 32578208 Hypothyroidism Hypothyroidism Problem 09/27/2017 GREENW AY ([place] (disorder) 12:00:00 AM [facility]) 799.9 Risk: Tobacco Use Risk: Tobacco Use Problem 06/28/2017 IN[place] ([place] 12:00:00 AM [facility]) 799.9 Risk: Tobacco Use Risk: Tobacco Use Problem 06/28/2017 [place] ([place] 12:00:00 AM [facility]) 799.9 Risk: Tobacco Use Risk: Tobacco Use Problem 06/28/2017 SENTHIL ([place] 12:00:00 AM [facility]) 799.9 Risk: Tobacco Use Risk: Tobacco Use Problem 06/28/2017 SENTHIL ([place] 12:00:00 AM [facility]) 799.9 Risk: Tobacco Use Risk: Tobacco Use Problem 06/28/2017 SENTHIL ([place] 12:00:00 AM [facility]) 799.9 Risk: Tobacco Use Risk: Tobacco Use Problem 06/28/2017 SENTHIL ([place] 12:00:00 AM [facility]) 799.9 Risk: Tobacco Use Risk: Tobacco Use Problem 06/28/2017 [place] ([place] 12:00:00 AM [facility]) [id number] Spinal stenosis Spinal Stenosis Problem 05/04/2014 GREE NWAY ([place] (disorder) 12:00:00 AM [facility]) 27727426 Spinal stenosis Spinal Stenosis Problem 05/04/2014 GREE NWAY ([place] (disorder) 12:00:00 AM [facility]) 53072005 Spinal stenosis Spinal Stenosis Problem 05/04/2014 GREE NWAY ([place] (disorder) 12:00:00 AM [facility]) 85356155 Spinal stenosis Spinal Stenosis Problem 05/04/2014 GREE NWAY ([place] (disorder) 12:00:00 AM [facility]) 64924025 Spinal stenosis Spinal Stenosis Problem 05/04/2014 GREE NWAY ([place] (disorder) 12:00:00 AM [facility]) 69172556 Spinal stenosis Spinal Stenosis Problem 05/04/2014 GREE NWAY ([place] (disorder) 12:00:00 AM [facility]) 08569924 Spinal stenosis Spinal Stenosis Problem 05/04/2014 GREE NWAY ([place] (disorder) 12:00:00 AM [facility]) 07188656 Mood disorder Mood Disorder of Problem 02/24/[address] ([place] (disorder) Unknown (axis Iii) 12:00:00 AM [facility] [place] 10964652 Mood disorder Mood Disorder of Problem 02/24/[address] ([place] (disorder) Unknown (axis Iii) 12:00:00 AM [facility] [place]) 46007370 Mood disorder Mood Disorder of Problem 02/24/[address] ([place] (disorder) Unknown (axis Iii) 12:00:00 AM [facility]) 16494766 Mood disorder Mood Disorder of Problem 02/24/[address] ([place] (disorder) Unknown (axis Iii) 12:00:[facility] 22992914 Mood disorder Mood Disorder of Problem 02/24/[address] ([place] (disorder) Unknown (axis Iii) 12:00:00 AM [facility] [place]) 77141827 Mood disorder Mood Disorder of Problem 02/24/[address] ([place] (disorder) Unknown (axis Iii) 12:00:00 AM [facility]) 11374989 Mood disorder Mood Disorder of Problem 02/24/[address] ([place] (disorder) Unknown (axis Iii) 12:00:00 AM [facility]) [id number] Obesity (disorder) Obesity Problem 08/16/2012 TEMI AY ([place] 12:00:00 AM [facility]) 457239527 Myofascial pain Myofascial Pain Finding 08/16/2012 YAJAIRA ROGERS ([place] (finding) Syndrome 12:00:00 AM [facility]) 934130643 Asthma (disorder) Asthma Problem 08/16/2012 COREY Tavera ([place] 12:00:00 AM [facility]) 357301043 Obesity (disorder) Obesity Problem 08/16/2012 TEMI AY ([place] 12:00:00 AM [facility]) 474060842 Myofascial pain Myofascial Pain Finding 08/16/2012 YAJAIRA ROGERS ([place] (finding) Syndrome 12:00:00 AM [facility]) [id number] Asthma (disorder) Asthma Problem 08/16/2012 COREY Y ([place] 12:00:00 AM [facility]) 878674192 Obesity (disorder) Obesity Problem 08/16/2012 TEMI AY ([place] 12:00:00 AM [facility]) 082456332 Myofascial pain Myofascial Pain Finding 08/16/2012 YAJAIRA ROGERS ([place] (finding) Syndrome 12:00:00 AM [facility]) 768196995 Asthma (disorder) Asthma Problem 08/16/2012 GREENWA Y ([place] 12:00:00 AM [facility]) 445792758 Obesity (disorder) Obesity Problem 08/16/2012 GREENGabriel AY ([place] 12:00:00 AM [facility]) 126212238 Myofascial pain Myofascial Pain Finding 08/16/2012 GREE NWAY ([place] (finding) Syndrome 12:00:00 AM [facility]) 499333275 Asthma (disorder) Asthma Problem 08/16/2012 GREENSTEPHANIE Y ([place] 12:00:00 AM [facility]) 128606908 Obesity (disorder) Obesity Problem 08/16/2012 GREENGabriel AY ([place] 12:00:00 AM [facility]) 796453664 Myofascial pain Myofascial Pain Finding 08/16/2012 GREE NWAY ([place] (finding) Syndrome 12:00:00 AM [facility]) 768120584 Asthma (disorder) Asthma Problem 08/16/2012 GREENSTEPHANIE Y ([place] 12:00:00 AM [facility]) 080830665 Obesity (disorder) Obesity Problem 08/16/2012 GREENGabriel AY ([place] 12:00:00 AM [facility]) 829910289 Myofascial pain Myofascial Pain Finding 08/16/2012 GREE NWAY ([place] (finding) Syndrome 12:00:00 AM [facility]) 361457282 Asthma (disorder) Asthma Problem 08/16/2012 GREENSTEPHANIE Y ([place] 12:00:00 AM [facility]) 820384309 Obesity (disorder) Obesity Problem 08/16/2012 GREENGabriel AY ([place] 12:00:00 AM [facility]) [id number] Myofascial pain Myofascial Pain Finding 08/16/2012 GREE NWAY ([place] (finding) Syndrome 12:00:00 AM [facility]) 101114445 Asthma (disorder) Asthma Problem 08/16/2012 GREENSTEPHANIE Y ([place] 12:00:00 AM [facility]) N63.0 Unspecified lump UNSPECIFIED LUMP Diagnosis 05/04/2020 Sa int Antonio in unspecified IN UNSPECIFIED 03:15:00 PM [facility] breast BREAST EDT Z88.1 Allergy status to ALLERGY STATUS TO Diagnosis 01/15/2019 [place] other antibiotic OTHER ANTIBIOTIC 12:08:00 AM [facility] status AGENTS STATUS EDT [employer] F41.9 Anxiety disorder, ANXIETY DISORDER, Diagnosis 01/15/2019 [place] unspecified UNSPECIFIED 12:08:00 AM [facility] [place] [facility] F31.9 Bipolar disorder, BIPOLAR DISORDER, Diagnosis 01/15/2019 [place] unspecified UNSPECIFIED 12:08:00 AM [facility] EDT [employer] E03.9 Hypothyroidism, HYPOTHYROIDISM, Diagnosis 01/15/2019 [place] jacki unspecified UNSPECIFIED 12:08:00 AM [facility] J45.909 Unspecified UNSPECIFIED Diagnosis 01/15/2019 [place] asthma, ASTHMA, 12:08:00 AM [facility] uncomplicated UNCOMPLICATED EDT [employer] B34.9 Viral infection, VIRAL INFECTION, Diagnosis 01/15/2019 [facility] unspecified UNSPECIFIED 12:08:00 AM [facility] [employer] J02.9 Acute pharyngitis, ACUTE PHARYNGITIS, Diagnosis 9 [place] unspecified UNSPECIFIED 12:08:00 AM [facility] [place] [facility] J40 Bronchitis, not Bronchitis, not Diagnosis 10/21/2018 YAJAIRA ROGERS ([place] specified as acute specified as acute 10:00:08 AM [place] or chronic or chronic [facility]) Surgeries/Procedures Procedure Description Date Indications Data Source(s) No prior serious No prior serious 08/03/2019 COREY Tavera ([facility] illness illness 12:00:00 AM [facility]) Noncompliance with Noncompliance with 06/10/2019 BRINA AMANDA ([place] therapy therapy 12:00:00 AM [facility]) No prior serious No prior serious 06/10/2019 COREY Tavera ([facility] illness illness 12:00:00 AM [facility]) NEBULIZER TREATMENT NEBULIZER TREATMENT 06/09/2019 Tk SMITH ([place] 12:00:00 AM [facility]) Bmi documented outside BMI OUTSIDE NORMAL 06/09/2019 SENTHIL ([facility] normal parameters, no RANGE - NO F/U PLAN 12:00:[address] [facility] follow-up plan [facility] ) documented, no reason given Albuterol, inhalation Albuterol 06/09/2019 GREENW AY ([place] solution, compounded 12:00:[address] [facility] product, administered [facility]) through dme, unit dose, 1 mg No prior serious No prior serious 05/07/2019 GREENWA Y ([facility] illness illness 12:00:00 AM [facility]) Bmi documented outside BMI OUTSIDE NORMAL 05/06/2019 [place] ([facility] normal parameters, no RANGE - NO F/U PLAN 12:00:[address] [facility] follow-up plan [facility] ) documented, no reason given THROAT CULTURE THROAT CULTURE 05/06/2019 [place] (M ount 12:00:00 AM [facility]) No prior serious No prior serious 01/15/2019 GREENWA Y ([facility] illness illness 12:00:00 AM [facility]) Tobacco assessment or Tobacco Assessment 01/14/2019 [place] ([facility] tobacco cessation 12:00:00 [facility] er) performed, reason not otherwise specified Bmi is documented BMI > NORMAL 01/14/2019 [place] ([facility] above normal DOCUMENTED W F/U PLAN 12:00:00 AM [facility] and a [facility] er) follow-up plan is documented No prior serious No prior serious 11/05/2018 GREENWA Y ([facility] illness illness 12:00:00 AM [facility]) Tobacco assessment or Tobacco Assessment 11/04/2018 [place] ([facility] tobacco cessation 12:00:00 [facility] er) performed, reason not otherwise specified Bmi is documented BMI > NORMAL 10/23/2018 [place] ([facility] above normal DOCUMENTED W F/U PLAN 12:00:[address] [facility] parameters and a [facility] er) follow-up plan is documented Pulse Oximetry Pulse Oximetry 07/07/2018 [place] (M ount 12:00:00 AM [facility]) Bmi documented outside BMI OUTSIDE NORMAL 07/07/2018 IN[place] ([facility] normal parameters, no RANGE - NO F/U PLAN 12:00:[address] [facility] follow-up plan [facility] ) documented, no reason given No history of surgery No history of surgery 05/14/2018 SENTHIL ([facility] 12:00:00 AM [facility]) Bmi is documented BMI > NORMAL 05/14/2018 IN[place] HEAD ([facility] above normal DOCUMENTED W F/U PLAN 12:00:[address] [facility] parameters and a [facility] er) follow-up plan is documented No prior serious No prior serious 05/14/2018 COREY Tavera ([facility] illness illness 12:00:00 AM [facility]) Patient Left without Patient Left without 03/25/2018 [place] ([facility] Seen Seen 12:00:00 AM [facility]) Bmi documented outside BMI OUTSIDE NORMAL 01/21/2018 [place] ([facility] normal parameters, no RANGE - NO F/U PLAN 12:00:[address] [facility] follow-up plan [facility] ) documented, no reason given Past medical history Past medical history 12/25/2017 IN[place] HEAD ([facility] thyroid ~asthma/copd thyroid ~asthma/copd 12:00:[address] [facility] ~smoker ~obese ~smoker ~obese [facility] er) History of Eyes: History of Eyes: 12/25/2017 COREY Tavera ([facility] 12:00:00 AM [facility]) FT-3 FREE FT-3 FREE 12/24/2017 [place] ([facility] TRIDOTHYRONIN TRIDOTHYRONIN 12:00:00 AM [facility]) THYROXINE FREE (FT4) THYROXINE FREE (FT4) 12/24/2017 [place] ([facility] 12:00:00 AM [facility]) HELICOBACTER PYLORI, HELICOBACTER PYLORI, 12/24/2017 [place] ([facility] STOOL STOOL 12:00:00 AM [facility]) TSH-THYROID TSH-THYROID 12/24/2017 [place] ([facility] STIMULATING STIMULATING 12:00:00 AM [facility]) Endometrial BX Endometrial BX 11/06/2017 [place] (M ount 12:00:00 AM [facility]) Endometrial BX Endometrial BX 11/06/2017 [place] (M ount 12:00:00 AM [facility]) Recent change in Recent change in 09/27/2017 COREY Tavera ([facility] medical history medical history 12:00:00 AM [facility]) No history of thyroid No history of thyroid 09/27/2017 [place] ([facility] surgery surgery 12:00:00 AM [facility]) No history of No history of 09/27/2017 SENTHIL ([place] nt prostatectomy prostatectomy 12:00:00 AM [facility]) No history of No history of 09/27/2017 SENTHIL ([place] hysterectomy hysterectomy 12:00:00 AM [facility]) No history of No history of 09/27/2017 SENTHIL ([place] nt appendectomy appendectomy 12:00:00 AM [facility]) Bmi documented outside BMI OUTSIDE NORMAL 08/02/2017 [place] ([facility] normal parameters, no RANGE - NO F/U PLAN 12:00:00 AM [facility] ) documented, no reason given History of No carotid History of No carotid 07/26/2017 [place] ([facility] bruits bruits 12:00:00 AM [facility]) Annual depression DEPRESSION SCREENING 07/26/2017 LINDA FERNANDEZ ([facility] screening, 15 minutes (15 MINS) 12:00:00 AM [facility]) Bmi documented outside BMI OUTSIDE NORMAL 07/26/2017 [place] ([facility] normal parameters, no RANGE - NO F/U PLAN 12:00:00 AM [facility] ) documented, no reason given LIPID PANEL LIPID PANEL 07/26/2017 [place] ([facility] 12:00:00 AM [facility]) [id number] 07/26/2017 [facility] ([facility] 12:00:00 AM [facility]) Result: normal Result: normal 07/01/2017 [place] (M ount 12:00:00 AM [facility]) Para 1 Para 1 07/01/2017 [place] ([facility] 12:00:00 AM [facility]) Oral contraceptives Oral contraceptives 07/01/2017 [facility] 12:00:00 AM [facility]) LMP: 06/11/2017 LMP: 06/11/2017 07/01/2017 [place] ([facility] 12:00:00 AM [facility]) Last pap smear date Last pap smear date 07/01/2017 G REENWAY ([place] 06/10/2017 06/10/2017 12:00:00 AM [facility]) 2 2 07/01/2017 SENTHIL ([place] 12:00:00 AM [facility]) Depo provera IM Depo provera IM 07/01/2017 [place] ([place] 12:00:00 AM [facility]) Contraception: Contraception: 07/01/2017 [place] (M ount 12:00:00 AM [facility]) Condoms Condoms 07/01/2017 [place] ([place] 12:00:00 AM [facility]) Aborta 1 Aborta 1 07/01/2017 [place] ([place] 12:00:00 AM [facility]) History of thyroid History of thyroid 06/12/2017 [facility] ([facility] disorder elevated disorder elevated 12:00:00 AM [facility] thyroid in 2015 thyroid in 2015 [facility] Ce nter) History of obesity History of obesity 06/12/2017 [facility] ([place] 12:00:00 AM [facility]) History of History of 06/12/2017 [place] ([facility] dysfunctional uterine dysfunctional uterine 12:00:[address] [facility] bleeding bleeding [facility]) Advance healthcare Advance healthcare 04/11/2017 [facility] ([facility] directive not on file directive not on file 12:00:00 AM [facility]) No history of type 2 No history of type 2 08/30/2016 [place] ([facility] diabetes mellitus diabetes mellitus 12:00:00 AM [facility]) No history of No history of 08/30/2016 SENTHIL ([place] nt hyperlipidemia hyperlipidemia 12:00:00 AM [facility] [place] hborhood [facility]) No history of No history of 08/30/2016 IN[place] ([place] nt essential hypertension essential 12:00:[address] [facility] hypertension [facility]) No history of coronary No history of 08/30/2016 [facility] artery disease coronary artery 12:00:00 AM [facility] ghborhood disease [facility]) No history of HIV No history of HIV 04/21/2015 [facility] ([facility] infection infection 12:00:00 AM [facility]) History of asthma History of asthma 04/21/[address] ([facility] 12:00:00 AM [facility]) Gonorrhea Gonorrhea 04/21/2015 SENTHIL ([facility] 12:00:00 AM [facility]) No history of blood No history of blood 04/14/2015 G REENWAY ([facility] transfusion transfusion 12:00:00 AM [facility]) Results ID Date Data Source [id number] 04/08/2020 06:20:00 PM EDT [facility] Name Value Range Interpretation Description Data Sup porting Code Source(s) Document(s ) SARS [facility] coronavirus 2 RNA This lab was ordered by [facility] and reported by [facility]. ID Date Data Source [id number] 06/10/2019 04:06:27 PM EDT [place] Y ([place] [id number] [facility]) Name Value Range Interpretation Description Data Source(s ) Supporting Code Document(s ) No Results No Results No Results SENTHIL ([facility] Recorded For [facility]) ID Date Data Source [id number] 06/09/2019 12:36:00 PM EDT SENTHIL ([place] nt [facility]) Name Value Range Interpretation Description Data Source(s ) Supporting Code Document(s ) Bacteria RRF Result 1 SENTHIL (Candice identified in [place] specimen by Health Center) Culture Note: Routine respiratory yessi Bacteria identified Final report Upper Respiratory INDIAN HEAD (Candice Rajan in Throat by Aerobe Culture [facility] culture Center) ID Date Data Source [id number] 05/07/2019 02:38:41 PM EDT [place] Y ([place] [id number] [facility]) Name Value Range Interpretation Description Data Source(s ) Supporting Code Document(s ) No Results No Results No Results SENTHIL ([facility] Recorded For [facility]) ID Date Data Source [id number] 04/07/2019 04:12:28 PM EDT [place] Y ([place] [id number] [facility]) Name Value Range Interpretation Description Data Source(s ) Supporting Code Document(s ) No Results No Results No Results SENTHIL ([place] Recorded For [place] Specified [facility]) ID Date Data Source [id number] 12/24/2017 03:14:00 PM EDT [place] ([facility]) Name Value Range Interpretation Description Data Sup porting Code Source(s) Document(s ) Triiodothyronine 2.1 Triiodothyron SENTHIL (T3) Free pg/mL ine,Free,Seru ([place] [Mass/volume] in m [place] [facility] [facility]) ID Date Data Source [id number] 12/24/2017 03:14:00 PM EDT INDIAN HEAD ([facility]) Name Value Range Interpretation Description Data Source(s ) Supporting Code Document(s ) Thyrotropin 132.400 Above high normal TSH INDIAN HEAD ( [facility] [Units/volume] uIU/mL [place] in Serum or Neighborhood Plasma by [facility]) Detection limit <= 0.05 mIU/L Note: Specimen was diluted inorder to ob tain results.Results were repeated. ID Date Data Source [id number] 12/24/2017 03:14:00 PM EDT INDIAN HEAD ([facility]) Name Value Range Interpretation Description Data Source(s ) Supporting Code Document(s ) Thyroxine 0.42 Below low normal T4,Free(Direct SENTHIL ([facility] (T4) free ng/dL ) [place] [Mass/volume Neighborhood ] in [facility]) or Plasma ID Date Data Source [id number] 11/06/2017 01:15:00 PM EDT INDIAN [place] ([facility]) Name Value Range Interpretation Description Data Source(s ) Supporting Code Document(s ) Pathology MATER . SENTHIL ([facility]) Note: Material submitted: .ENDOMETRIAL BIOPSY Pathology report gross observation GROSSD . SENTHIL ([facility]) Note: Gross description: .1 Container, formalin-filled, labeled with patient id entification.ENDOMETRIAL BIOPSY:Received labeled ENDOMETRIUM are multiple fragmen ts of arnold,hemorrhagic material measuring 1.3 x 1.2 x 0.1 cm in aggregate.Submitted in toto in cassette(s) 1./HEMA/HEMA Pathologist name KIMI NDIAYE ([facility]) Note: Electronically signed: .Katt Gaspar MD, Pathologist Payment procedure CPT . SENTHIL ([facility]) Note: CPT .[id number] Pathology report final diagnosis FDIAG . SENTHIL ([facility]) Note: Diagnosis: ENDOMETRIAL BIOPSY:SECRETORY ENDOMETRIUM WITH FEATUR ES OF PROGESTIN EFFECT.ENDOMETRIAL FRAGMENTS SUGGESTIVE OF ENDOMETRIAL POLYP/S.SOA/11/12/2017 Diagnosis ICD code [id number] . TEMI WILDER ([facility]) Note: Clinician provided ICD-10:N93.9 Diagnosis ICD code PICD10 . TEMI AY ([facility]) Note: Pathologist provided ICD-10:N85.8 ID Date Data Source [id number] 10/31/2017 12:00:00 AM EDT SENTHIL ([facility]) Name Value Range Interpretation Description Data Source(s ) Supporting Code Document(s ) Trichomonas Negative Trich vag by INDIAN HEAD vaginalis rRNA AILEEN ([place] [Presence] in [facility]) specimen by Probe and target amplification method ID Date Data Source [id number]/08/2017 02:44:00 PM EST [place] ([facility]) Name Value Range Interpretation Description Data Sup porting Code Source(s) Document(s ) Triiodothyronine 2.1 Triiodothyron [place] (T3) Free pg/mL ine,Free,Seru ([place] [Mass/volume] in [facility] Serum or Plasma [facility]) ID Date Data Source [id number]/08/2017 02:44:00 PM EST [place] ([facility]) Name Value Range Interpretation Description Data Source(s ) Supporting Code Document(s ) Trichomonas Positive Abnormal Trich vag by SENTHIL vaginalis rRNA (applies to AILEEN ([place] [Presence] in non-numeric Neighborhood Unspecified results) [facility]) specimen by Probe and target amplification method ID Date Data Source [id number] 10/08/2017 02:44:00 PM EST SENTHIL ([facility]) Name Value Range Interpretation Description Data Source(s ) Supporting Code Document(s ) Thyrotropin 74.430 Above high normal TSH S[place] ( [place] [Units/volume] uIU/mL [place] in Serum or Neighborhood Plasma by [facility]) Detection limit <= 0.05 mIU/L ID Date Data Source [id number]/08/2017 02:44:00 PM EST SENTHIL ([facility]) Name Value Range Interpretation Description Data Source(s ) Supporting Code Document(s ) Thyroxine 0.64 Below low normal T4,Free(Direct SENT[place]IL ([place] (T4) free ng/dL ) [place] [Mass/volume Neighborhood ] in Serum [facility]) or Plasma ID Date Data Source [id number]/08/2017 02:44:00 PM EST SENTHIL ([facility]) Name Value Range Interpretation Description Data Source(s ) Supporting Code Document(s ) Chlamydia Negative Chlamydia SNETHIL trachomatis trachomatis, ([place] rRNA [Presence] AI[facility]EN [facility] specimen by Probe and target amplification method Neisseria Negative Neisseria [place] gonorrhoeae gonorrhoeae, ([place] rRNA [Presence] AILEEN [facility] specimen by Probe and target amplification method ID Date Data Source [id number] 08/02/2017 12:00:00 AM EST SENTHIL ([facility]) Name Value Range Interpretation Description Data Sup porting Code Source(s) Document(s ) Triiodothyronine 2.0 Triiodothyron SENTHIL (T3) Free pg/mL ine,Free,Seru ([place] [Mass/volume] in m [facility] Serum or Plasma [facility]) ID Date Data Source [id number] 08/02/2017 12:00:00 AM EST SENTHIL ([facility]) Name Value Range Interpretation Description Data Source(s ) Supporting Code Document(s ) Thyrotropin 215.000 Above high normal TSH S[place] ( [place] [Units/volume] uIU/mL [place] in Serum or Neighborhood Plasma by [facility]) Detection limit <= 0.05 mIU/L Note: Specimen was diluted inorder to ob tain results.Results were repeated. ID Date Data Source [id number] 08/02/2017 12:00:00 AM [facility] ([facility]) Name Value Range Interpretation Description Data Source(s ) Supporting Code Document(s ) Thyroxine 0.36 Below low normal T4,Free(Direct SENT[place] ([place] (T4) free ng/dL ) [place] [Mass/volume Neighborhood ] in [facility]) or Plasma ID Date Data Source [id number] 07/29/2017 12:18:00 PM [facility] ([facility]) Name Value Range Interpretation Description Data Source(s ) Supporting Code Document(s ) Thyrotropin 256.300 Above high normal TSH IN[place] ( [facility] [Units/volume] uIU/mL [place] in Serum or Neighborhood Plasma by [facility]) Detection limit <= 0.05 mIU/L Note: Specimen was diluted inorder to ob tain results.Results were repeated. ID Date Data Source [id number] 07/29/2017 12:18:00 PM [facility] ([facility]) Name Value Range Interpretation Description Data Source(s ) Supporting Code Document(s ) Triglyceride 80 Triglycerides [place] [Mass/volume] mg/dL ([place] in Serum or [facility]) Cholesterol 209 Above high Cholesterol, [place] [Mass/volume] mg/dL normal Total ([place] in Serum or [facility]) Cholesterol in 45 HDL Cholesterol [place] HDL mg/dL ([place] [Mass/volume] Neighborhood in Serum or Health Center) Plasma Cholesterol in 3.3 Above high LDL/HDL Ratio [place] LDL/Cholestero ratio_u normal ([place] l in HDL [Mass nits Neighborhood Ratio] in [facility]) Serum or Plasma Note: LDL/HDL Ratio Men Women 1/2 Avg.Risk 1.0 1.5 Avg.Risk 3.6 3.2 2X Avg.Risk 6.2 5.0 3X Avg.Risk 8.0 6.1 Laboratory comment N/A Comment: SENTHIL ([facility] [Text] in [facility]) Cholesterol in VLDL 16 mg/dL VLDL Cholesterol GRE ENWAY ([facility] [Mass/volume] in [facility] Serum or Plasma by Health Cent er) calculation Cholesterol in LDL 148 mg/dL Above high LDL Cholesterol GREE NWAY ([facility] [Mass/volume] in normal Calc [facility] Serum or Plasma by Health Cent er) calculation ID Date Data Source [id number] 07/29/2017 12:18:00 PM EST SENTHIL ([facility]) Name Value Range Interpretation Description Data Sup porting Code Source(s) Document(s ) Calcium 9.1 Calcium, SENTHIL [Mass/volume] in mg/dL Serum ([facility]) Protein 7.5 Protein, SENTHIL [Mass/volume] in g/dL Total, Serum ([facility]) Glucose 83 Glucose, SENTHIL [Mass/volume] in mg/dL Serum ([facility]) Albumin 4.4 Albumin, SENTHIL [Mass/volume] in g/dL Serum ([facility]) Urea nitrogen 13 BUN SENTHIL [Mass/volume] in mg/dL ([facility]) Potassium 4.4 Potassium, SENTHIL [Moles/volume] in mmol/L Serum ([facility]) Sodium 141 Sodium, Serum SENTHIL [Moles/volume] in mmol/L ([facility]) Aspartate 19 IU/L AST (SGOT) SENTHIL aminotransferase ([place] [Enzymatic Neighborhood activity/volume] Health in Serum or Plasma Center) Bilirubin.total 0.3 Bilirubin, SENTHIL [Mass/volume] in mg/dL Total ([facility]) Alkaline 49 IU/L Alkaline SENTHIL phosphatase Phosphatase, ([place] [Enzymatic S Neighborhood activity/volume] Health in Serum or Plasma Center) Alanine 16 IU/L ALT (SGPT) S[place] aminotransferase ([place] [Enzymatic Neighborhood activity/volume] Health in Serum or Plasma Center) Creatinine 0.73 Creatinine, SENTHIL [Mass/volume] in mg/dL Serum ([facility]) Chloride 103 Chloride, SENTHIL [Moles/volume] in mmol/L Serum ([facility]) Globulin 3.1 Globulin, INDIAN HEAD [Mass/volume] in g/dL Total ([place] Serum by [facility]) Urea 18 BUN/Creatinin SENTHIL nitrogen/Creatinin e Ratio ([facility] on e [Mass Ratio] in [facility] Serum or [facility]) Carbon dioxide, 21 Carbon IN[place] total mmol/L Dioxide, ([place] [Moles/volume] in Total [facility] Serum or [facility]) eGFR If Africn Am 123 eGFR If SENTHIL mL/min/ Africn Am ([address]) Albumin/Globulin 1.4 A/G Ratio SENTHIL [Mass Ratio] in ([place] Serum or Plasma [facility]) eGFR If NonAfricn 106 eGFR If SENTHIL Am mL/min/ NonAfricn Am ([address]) Procedure Social History Code Duration Value Status Description Data Source(s ) Smoking 07/07/2018 Smokes tobacco completed Smokes tobacco TEMI AY ([facility] 11:56:01 AM daily (finding) daily ([facility]) Smoking Unknown if ever completed Unknown if ever Levy Alvarez smoked smoked [facility] Center Assertion High risk sexual completed High risk sexual GR EENWAY ([facility] behavior behavior [place] ([facility]) ([facility]) [facility]) Assertion Intravenous drug completed Intravenous drug GR EENWAY ([facility] user ([facility]) user ([facility]) [facility]) Assertion difficulty with completed SENTHIL ([facility] activities of [place] daily living [facility]) Assertion Difficulty completed Difficulty SENTHIL (Moun t washing self washing self [place] ([facility]) ([facility]) [facility]) Assertion Dependent for completed Dependent for SENTHIL ([facility] walking (finding) walking ([facility]) [facility]) Assertion Difficulty completed Difficulty SENTHIL (Moun t performing performing [place] dressing activity dressing activity [facility] ([facility]) ([facility]) [facility]) Assertion Difficulty completed Difficulty SENTHIL (Moun t feeding self feeding self [place] ([facility]) ([facility]) [facility]) Assertion Lives alone completed Lives alone SENTHIL (Mo unt (finding) ([facility]) [facility]) Assertion Difficulty with completed Difficulty with GREE NWAY ([facility] money management money management Ve rnon (finding) ([facility]) [facility]) Assertion Unable to perform completed Unable to perform SENTHIL ([facility] shopping shopping [place] activities activities [facility] (finding) (finding) [facility]) Assertion Unable to tidy completed Unable to tidy GREENW AY ([facility] house (finding) house (finding) [facility]) Assertion Unable to cook completed Unable to cook GREENW AY ([facility] food (finding) food (finding) [facility]) Assertion Non-smoker completed SENTHIL (Moun t [facility]) Assertion Smoker (finding) completed Smoker (finding) GR EENWAY ([facility]) Assertion Employment completed Employment SENTHIL (Moun t finding (finding) finding (finding) [facility]) Assertion Cigarette smoker completed Cigarette smoker GR EENWAY ([facility] (finding) (finding) [facility]) Assertion Tobacco user completed Tobacco user SENTHIL ( [facility] (finding) (finding) [facility]) Assertion Finding relating completed Finding relating GR EENWAY ([facility] to drug misuse to drug misuse [place] behavior behavior [facility] ([facility]) ([facility]) [facility]) Assertion Physical handicap completed Physical handicap SENTHIL ([facility] (finding) (finding) [facility]) Assertion Finding of life completed Finding of life GREE NWMEÑO ([facility] event (finding) event (finding) [facility]) Assertion Finding of completed Finding of SENTHIL (Moun t functional functional [place] performance and performance and [facility] activity activity [facility]) (finding) (finding) Assertion Caffeine user completed Caffeine user SENTHIL ([facility] (finding) (finding) [facility]) Assertion social history completed SENTHIL ( [facility] unchanged [facility]) Assertion sexual history completed SENTHIL ( [facility]) Assertion Oral hygiene completed Oral hygiene SENTHIL ( [facility] finding (finding) finding (finding) [facility]) Assertion Exercise history completed Exercise history GR EENWAY ([facility] finding (finding) finding (finding) [facility]) Assertion Current drinker completed Current drinker GREE NWMEÑO ([facility] of alcohol of alcohol [place] (finding) ([facility]) [facility]) Assertion Finding of completed Finding of SENTHIL (Moun t activity of daily activity of daily [place] living (finding) living (finding) [facility]) Vital Signs ID Date Data Source UNK Name Value Range Interpretation Code Description Data Source(s) Body height 67 [in_us] 67 [in_us] SENTHIL ([facility]) Pt presents today with c/o left breast p ain for 1 week, pt states the feels a lump in the left breastPt also requesting medica tion refills Body temperature 97.9 [degF] 97.9 [degF] TEMI AY ([facility]) Pt presents today with c/o left breast p ain for 1 week, pt states the feels a lump in the left breastPt also requesting medica tion refills Heart rate 90 /min 90 /min SENTHIL ([facility]) Pt presents today with c/o left breast p ain for 1 week, pt states the feels a lump in the left breastPt also requesting medica tion refills Diastolic blood pressure 81 mm[Hg] 81 mm[Hg] INDIAN HEAD ([facility]) Pt presents today with c/o left breast p ain for 1 week, pt states the feels a lump in the left breastPt also requesting medica tion refills Systolic blood pressure 124 mm[Hg] 124 mm[Hg] G REESarahWAY ([facility]) Pt presents today with c/o left breast p ain for 1 week, pt states the feels a lump in the left breastPt also requesting medica tion refills PhenX - pain, abdominal - type and 10 1 0 [place] ([facility]) Pt presents today with c/o left breast p ain for 1 week, pt states the feels a lump in the left breastPt also requesting medica tion refills Body surface area Derived from 2.15 m2 2.15 m2 INDIAN HEAD ([facility]) Pt presents today with c/o left breast p ain for 1 week, pt states the feels a lump in the left breastPt also requesting medica tion refills Body mass index (BMI) 36.2 kg/m2 36.2 kg/m2 BRINA AMANDA ([place] [[facility]) Pt presents today with c/o left breast p ain for 1 week, pt states the feels a lump in the left breastPt also requesting medica tion refills Body weight 231 [lb_av] 231 [lb_av] SENTHIL ([facility]) Pt presents today with c/o left breast p ain for 1 week, pt states the feels a lump in the left breastPt also requesting medica tion refills Body height 67 [in_us] 67 [in_us] SENTHIL ([facility]) PT. is here for follow up X rays and als o 2 days of difficult to breaft. Body temperature 98.2 [degF] 98.2 [degF] [facility] ([facility]) PT. is here for follow up X rays and als o 2 days of difficult to breaft. Heart rate 100 /min 100 /min INDIAN HEAD ([facility]) PT. is here for follow up X rays and als o 2 days of difficult to breaft. Diastolic blood pressure 92 mm[Hg] 92 mm[Hg] INDIAN HEAD ([facility]) PT. is here for follow up X rays and als o 2 days of difficult to breaft. Systolic blood pressure 143 mm[Hg] 143 mm[Hg] [facility] PT. is here for follow up X rays and als o 2 days of difficult to breaft. PhenX - pain, abdominal - type and 8 8 [place] ([facility]) PT. is here for follow up X rays and als o 2 days of difficult to breaft. Body surface area Derived from 2.07 m2 2.07 m2 IN[place]AN HEAD ([facility]) PT. is here for follow up X rays and als o 2 days of difficult to breaft. Body mass index (BMI) 33.2 kg/m2 33.2 kg/m2 GRE ENWAY ([place] [[facility]] [facility]) PT. is here for follow up X rays and als o 2 days of difficult to breaft. Body weight 212 [lb_av] 212 [lb_av] INDIAN HEAD ([facility]) PT. is here for follow up X rays and als o 2 days of difficult to breaft. Body height 67 [in_us] 67 [in_us] INDIAN HEAD ([facility]) Pt is here for 1 week of congestions an d difficult to breath. Body temperature 98.7 [degF] 98.7 [degF] [facility] ([facility]) Pt is here for 1 week of congestions an d difficult to breath. Heart rate 97 /min 97 /min IN[place]AN HEAD ([facility]) Pt is here for 1 week of congestions an d difficult to breath. Diastolic blood pressure 83 mm[Hg] 83 mm[Hg] INDIAN HEAD ([facility]) Pt is here for 1 week of congestions an d difficult to breath. Systolic blood pressure 116 mm[Hg] 116 mm[Hg] [facility]) Pt is here for 1 week of congestions an d difficult to breath. PhenX - pain, abdominal - type and 6 6 [place] ([facility]) Pt is here for 1 week of congestions an d difficult to breath. Body surface area Derived from 2.09 m2 2.09 m2 [place] HEAD ([facility]) Pt is here for 1 week of congestions an d difficult to breath. Body mass index (BMI) 33.8 kg/m2 33.8 kg/m2 [address] ([place] [Ratio[facility] Pt is here for 1 week of congestions an d difficult to breath. Body weight 216 [lb_av] 216 [lb_av] INDIAN HEAD ([facility]) Pt is here for 1 week of congestions an d difficult to breath. Body height 67 [in_us] 67 [in_us] INDIAN HEAD ([facility]) pt is here for Rx refill and also have c oncern joint pain for about 1mth and the pain have increased. Body temperature 97.4 [degF] 97.4 [degF] [facility] ([facility]) pt is here for Rx refill and also have c oncern joint pain for about 1mth and the pain have increased. Respiratory rate 18 /min 18 /min INDIAN HEAD ([facility]) pt is here for Rx refill and also have c oncern joint pain for about 1mth and the pain have increased. Heart rate 106 /min 106 /min IN[place]AN HEAD ([facility]) pt is here for Rx refill and also have c oncern joint pain for about 1mth and the pain have increased. Diastolic blood pressure 89 mm[Hg] 89 mm[Hg] INDIAN HEAD ([facility]) pt is here for Rx refill and also have c oncern joint pain for about 1mth and the pain have increased. Systolic blood pressure 126 mm[Hg] 126 mm[Hg] G REENWAY ([facility]) pt is here for Rx refill and also have c oncern joint pain for about 1mth and the pain have increased. PhenX - pain, abdominal - type and 8 8 [place] ([facility]) pt is here for Rx refill and also have c oncern joint pain for about 1mth and the pain have increased. Body surface area Derived from 2.08 m2 2.08 m2 INDIAN HEAD ([facility]) pt is here for Rx refill and also have c oncern joint pain for about 1mth and the pain have increased. Body mass index (BMI) 33.5 kg/m2 33.5 kg/m2 GRE ENWAY ([place] [[facility]] [facility]) pt is here for Rx refill and also have c oncern joint pain for about 1mth and the pain have increased. Body weight 213.6 [lb_av] 213.6 [lb_av] GREENWA Y ([facility]) pt is here for Rx refill and also have c oncern joint pain for about 1mth and the pain have increased. Body height 67 [in_us] 67 [in_us] INDIAN HEAD ([facility]) Pt. is here for 3 days of sorethroat, to oth paint and earache. Body temperature 98.8 [degF] 98.8 [degF] [facility] ([facility]) Pt. is here for 3 days of sorethroat, to oth paint and earache. Heart rate 96 /min 96 /min INDIAN HEAD ([facility]) Pt. is here for 3 days of sorethroat, to oth paint and earache. Diastolic blood pressure 88 mm[Hg] 88 mm[Hg] SENTHIL ([facility]) Pt. is here for 3 days of sorethroat, to oth paint and earache. Systolic blood pressure 137 mm[Hg] 137 mm[Hg] G REENWAY ([facility]) Pt. is here for 3 days of sorethroat, to oth paint and earache. PhenX - pain, abdominal - type and 9 9 SENTHIL ([facility]) Pt. is here for 3 days of sorethroat, to oth paint and earache. Body surface area Derived from 2.13 m2 2.13 m2 SENTHIL ([facility]) Pt. is here for 3 days of sorethroat, to oth paint and earache. Body mass index (BMI) 35.2 kg/m2 35.2 kg/m2 GRE ENWAY ([place] [[facility]] [facility]) Pt. is here for 3 days of sorethroat, to oth paint and earache. Body weight 225 [lb_av] 225 [lb_av] SENTHIL ([facility]) Pt. is here for 3 days of sorethroat, to oth paint and earache. Body height 67 [in_us] 67 [in_us] SENTHIL ([facility]) pt here for results Body temperature 98.6 [degF] 98.6 [degF] [facility] ([facility]) pt here for results Heart rate 99 /min 99 /min SENT[facility] ([facility]) pt here for results Diastolic blood pressure 78 mm[Hg] 78 mm[Hg] SENTHIL ([facility]) pt here for results Systolic blood pressure 118 mm[Hg] 118 mm[Hg] G [facility]O [facility]AY ([facility]) pt here for results PhenX - pain, abdominal - type and 8 8 SENTHIL ([facility]) pt here for results Body surface area Derived from 2.11 m2 2.11 m2 [place] ([facility]) pt here for results Body mass index (BMI) 34.5 kg/m2 34.5 kg/m2 [place] ([place] [[facility]] [facility]) pt here for results Body weight 220 [lb_av] 220 [lb_av] SENTHIL ([facility]) pt here for results Body height 67 [in_us] 67 [in_us] SENTHIL ([facility]) pt here for refills, C/O pain in legs on and off, tingling and numbess in thigh Body temperature 98.4 [degF] 98.4 [degF] [facility] ([facility]) pt here for refills, C/O pain in legs on and off, tingling and numbess in thigh Heart rate 88 /min 88 /min SENTHIL ([facility]) pt here for refills, C/O pain in legs on and off, tingling and numbess in thigh Diastolic blood pressure 89 mm[Hg] 89 mm[Hg] SENTHIL ([facility]) pt here for refills, C/O pain in legs on and off, tingling and numbess in thigh Systolic blood pressure 130 mm[Hg] 130 mm[Hg] G REENWAY ([facility]) pt here for refills, C/O pain in legs on and off, tingling and numbess in thigh PhenX - pain, abdominal - type and 0 0 SENT[place]IL ([facility]) pt here for refills, C/O pain in legs on and off, tingling and numbess in thigh Body surface area Derived from 2.09 m2 2.09 m2 SENTHIL ([facility]) pt here for refills, C/O pain in legs on and off, tingling and numbess in thigh Body mass index (BMI) 34.0 kg/m2 34.0 kg/m2 [place] ([place] [[facility]] [facility]) pt here for refills, C/O pain in legs on and off, tingling and numbess in thigh Body weight 217 [lb_av] 217 [lb_av] SENTH[place] ([facility]) pt here for refills, C/O pain in legs on and off, tingling and numbess in thigh Body surface area Derived from 2.04 m2 2.04 m2 SENT[place] ([facility]) Pt c/o cough x 1 week Body mass index (BMI) 32.1 kg/m2 32.1 kg/m2 [place] ([place] [[facility]] [facility]) Pt c/o cough x 1 week Body weight 205 [lb_av] 205 [lb_av] SENT[place] ([facility]) Pt c/o cough x 1 week Body height 67 [in_us] 67 [in_us] SENTHIL ([facility]) Pt c/o cough x 1 week Body temperature 98.5 [degF] 98.5 [degF] [facility] ([facility]) Pt c/o cough x 1 week Heart rate 97 /min 97 /min SENT[facility] ([facility]) Pt c/o cough x 1 week Diastolic blood pressure 81 mm[Hg] 81 mm[Hg] S[place]IL ([facility]) Pt c/o cough x 1 week Systolic blood pressure 134 mm[Hg] 134 mm[Hg] G REENWAY ([facility]) Pt c/o cough x 1 week Oxygen saturation in Arterial blood 98 % 98 % [place] ([facility] by Pulse oximetry [facility]) Pt here today for medication refillsPt c /o lower back pain for 1 week PhenX - pain, abdominal - type and 8 8 SENTHIL ([facility] intensity protocol [facility]) Pt here today for medication refillsPt c /o lower back pain for 1 week Body surface area Derived from 2.08 m2 2.08 m2 SENT[place] ([facility]) Pt here today for medication refillsPt c /o lower back pain for 1 week Body mass index (BMI) 33.4 kg/m2 33.4 kg/m2 [place] ([place] [[facility]] [facility]) Pt here today for medication refillsPt c /o lower back pain for 1 week Body weight 213 [lb_av] 213 [lb_av] SENT[place] ([facility]) Pt here today for medication refillsPt c /o lower back pain for 1 week Body height 67 [in_us] 67 [in_us] SENT[facility] ([facility]) Pt here today for medication refillsPt c /o lower back pain for 1 week Body temperature 98.2 [degF] 98.2 [degF] [facility] ([facility]) Pt here today for medication refillsPt c /o lower back pain for 1 week Heart rate 84 /min 84 /min SENT[facility] ([facility]) Pt here today for medication refillsPt c /o lower back pain for 1 week Diastolic blood pressure 76 mm[Hg] 76 mm[Hg] SENT[facility] ([facility]) Pt here today for medication refillsPt c /o lower back pain for 1 week Systolic blood pressure 119 mm[Hg] 119 mm[Hg] [facility] ([facility]) Pt here today for medication refillsPt c /o lower back pain for 1 week Body weight 213 [lb_av] 213 [lb_av] [place] ([facility]) Pt here due to medication refills. Body height 67 [in_us] 67 [in_us] [place] ([facility]) Pt here due to medication refills. Body temperature 98 [degF] 98 [degF] [place] ([facility]) Pt here due to medication refills. Heart rate 82 /min 82 /min [place] ([facility]) Pt here due to medication refills. Diastolic blood pressure 84 mm[Hg] 84 mm[Hg] [place] ([facility]) Pt here due to medication refills. Systolic blood pressure 130 mm[Hg] 130 mm[Hg] [facility] ([facility]) Pt here due to medication refills. PhenX - pain, abdominal - type and 0 0 SENTH[place] ([facility] protocol [facility]) Pt here due to medication refills. Body surface area Derived from 2.08 m2 2.08 m2 [place] ([facility]) Pt here due to medication refills. Body mass index (BMI) 33.4 kg/m2 33.4 kg/m2 [place] ([place] [facility]) Pt here due to medication refills. Body weight 220 [lb_av] 220 [lb_av] S[place] ([facility]) pt here for refills Body height 67 [in_us] 67 [in_us] SENT[facility]IL ([facility]) pt here for refills Body temperature 98.5 [degF] 98.5 [degF] [facility] AY ([facility]) pt here for refills Heart rate 82 /min 82 /min SENT[place] ([facility]) pt here for refills Diastolic blood pressure 83 mm[Hg] 83 mm[Hg] SENTH[place] ([facility]) pt here for refills Systolic blood pressure 122 mm[Hg] 122 mm[Hg] [facility] ([facility]) pt here for refills PhenX - pain, abdominal - type and 9 9 [place] ([facility]) pt here for refills Body surface area Derived from 2.11 m2 2.11 m2 [place] ([facility]) pt here for refills Body mass index (BMI) 34.5 kg/m2 34.5 kg/m2 [place] ([place] [facility]) pt here for refills Body weight 218 [lb_av] 218 [lb_av] [place] ([facility]) pt here for refills Body height 67 [in_us] 67 [in_us] [place] ([facility]) pt here for refills Body temperature 98.6 [degF] 98.6 [degF] GRE[facility] AY ([facility]) pt here for refills Heart rate 102 /min 102 /min [place] ([facility]) pt here for refills Diastolic blood pressure 83 mm[Hg] 83 mm[Hg] SENTH[place] ([facility]) pt here for refills Systolic blood pressure 121 mm[Hg] 121 mm[Hg] [facility] ([facility]) pt here for refills PhenX - pain, abdominal - type and 8 8 S[place] ([facility]) pt here for refills Body surface area Derived from 2.10 m2 2.10 m2 [place] ([facility]) pt here for refills Body mass index (BMI) 34.1 kg/m2 34.1 kg/m2 [place] ([place] [facility]) pt here for refills Body weight 216 [lb_av] 216 [lb_av] [place] ([facility] 37y old female present here for Endometr iosis biopsy. Patient denies pain and no complaint voiced. LMP 10/12/17.Sebastian harrell RN Body height 67 [in_us] 67 [in_us] [place] ([place] [facility]) 37y old female present here for Endometr iosis biopsy. Patient denies pain and no complaint voiced. LMP 10/12/17.Sebastian harrell RN Body temperature 98.1 [degF] 98.1 [degF] [facility] ([facility]) 37y old female present here for Endometr iosis biopsy. Patient denies pain and no complaint voiced. LMP 10/12/17.Sebastian harrell RN Respiratory rate 20 /min 20 /min [place] ([facility]) 37y old female present here for Endometr iosis biopsy. Patient denies pain and no complaint voiced. LMP 10/12/17.Sebastian harrell RN Heart rate rhythm 1 1 GREEN[place] Y ([facility]) 37y old female present here for Endometr iosis biopsy. Patient denies pain and no complaint voiced. LMP 10/12/17.Sebastian harrell RN Heart rate 90 /min 90 /min [place] ([facility]) 37y old female present here for Endometr iosis biopsy. Patient denies pain and no complaint voiced. LMP 10/12/17.Sebastian harrell RN Diastolic blood pressure 82 mm[Hg] 82 mm[Hg] [place] ([facility]) 37y old female present here for Endometr iosis biopsy. Patient denies pain and no complaint voiced. LMP 10/12/17.Sebastian harrell RN Systolic blood pressure 119 mm[Hg] 119 mm[Hg] [facility] 37y old female present here for Endometr iosis biopsy. Patient denies pain and no complaint voiced. LMP 10/12/17.Sebastian harrell RN PhenX - pain, abdominal - type and 0 0 [place] ([facility]) 37y old female present here for Endometr iosis biopsy. Patient denies pain and no complaint voiced. LMP 10/12/17.Sebastian harrell RN Body surface area Derived from 2.09 m2 2.09 m2 [place] ([facility]) 37y old female present here for Endometr iosis biopsy. Patient denies pain and no complaint voiced. LMP 10/12/17.Sebastian harrell RN Body mass index (BMI) 33.8 kg/m2 33.8 kg/m2 [facility] ([place] [facility]) 37y old female present here for Endometr iosis biopsy. Patient denies pain and no complaint voiced. LMP 10/12/17.Sebastian harrell RN Body weight 219 [lb_av] 219 [lb_av] [place] ([facility]) Pt here todfay for labs resultsPt c/o lo wer back pain for 1 week Body height 67 [in_us] 67 [in_us] [place] ([facility]) Pt here todfay for labs resultsPt c/o lo wer back pain for 1 week Body temperature 98 [degF] 98 [degF] [place] ([facility]) Pt here todfay for labs resultsPt c/o lo wer back pain for 1 week Heart rate 106 /min 106 /min [place] ([facility]) Pt here todfay for labs resultsPt c/o lo wer back pain for 1 week Diastolic blood pressure 81 mm[Hg] 81 mm[Hg] [place] ([facility]) Pt here todfay for labs resultsPt c/o lo wer back pain for 1 week Systolic blood pressure 127 mm[Hg] 127 mm[Hg] [facility] Pt here todfay for labs resultsPt c/o lo wer back pain for 1 week PhenX - pain, abdominal - type and 10 1 0 S[place] ([facility]) Pt here todfay for labs resultsPt c/o lo wer back pain for 1 week Body surface area Derived from 2.10 m2 2.10 m2 S[place] ([facility]) Pt here todfay for labs resultsPt c/o lo wer back pain for 1 week Body mass index (BMI) 34.3 kg/m2 34.3 kg/m2 [facility] [place] ([place] [facility]) Pt here todfay for labs resultsPt c/o lo wer back pain for 1 week PhenX - pain, abdominal - type and 10 1 0 SENT[place] ([facility]) PT . is here for blood work result / co mplaint about back pain . Body surface area Derived from 2.10 m2 2.10 m2 SENT[place] ([facility]) PT . is here for blood work result / co mplaint about back pain . Body mass index (BMI) 34.1 kg/m2 34.1 kg/m2 [place] ([place] [facility]) PT . is here for blood work result / co mplaint about back pain . Body weight 217.8 [lb_av] 217.8 [lb_av] [place] ([facility]) PT . is here for blood work result / co mplaint about back pain . Body height 67 [in_us] 67 [in_us] SENTHIL ([facility]) PT . is here for blood work result / co mplaint about back pain . Body temperature 98.9 [degF] 98.9 [degF] GREENW AY ([facility]) PT . is here for blood work result / co mplaint about back pain . Respiratory rate 20 /min 20 /min SENTHIL ([facility]) PT . is here for blood work result / co mplaint about back pain . Heart rate rhythm 1 1 Y ([facility]) PT . is here for blood work result / co mplaint about back pain . Heart rate 109 /min 109 /min SENTHIL ([facility]) PT . is here for blood work result / co mplaint about back pain . Diastolic blood pressure 77 mm[Hg] 77 mm[Hg] SENTHIL ([facility]) PT . is here for blood work result / co mplaint about back pain . Systolic blood pressure 115 mm[Hg] 115 mm[Hg] [facility] ([facility]) PT . is here for blood work result / co mplaint about back pain . Oxygen saturation in Arterial blood 97 % 97 % SENTHIL ([facility] Pulse oxim[facility]) Pt here today with c/o cough PhenX - pain, abdominal - type and 6 6 SENT[facility] ([facility]) Pt here today with c/o cough Body surface area Derived from 2.13 m2 2.13 m2 [place] ([facility]) Pt here today with c/o cough Body mass index (BMI) 35.4 kg/m2 35.4 kg/m2 [facility] ([place] [[facility]] [facility]) Pt here today with c/o cough Body weight 226 [lb_av] 226 [lb_av] [facility] ( [facility]) Pt here today with c/o cough Body height 67 [in_us] 67 [in_us] SENT[facility]IL ([facility]) Pt here today with c/o cough Body temperature 98.3 [degF] 98.3 [degF] [facility] ([facility]) Pt here today with c/o cough Heart rate 114 /min 114 /min SENT[place]IL ([facility]) Pt here today with c/o cough Diastolic blood pressure 83 mm[Hg] 83 mm[Hg] SENTHIL ([facility]) Pt here today with c/o cough Systolic blood pressure 124 mm[Hg] 124 mm[Hg] G REENWAY ([facility]) Pt here today with c/o cough PhenX - pain, abdominal - type and 0 0 S[place] ([facility]) Pt here today for labs results Body surface area Derived from 2.15 m2 2.15 m2 [place] ([facility]) Pt here today for labs results Body mass index (BMI) 36.2 kg/m2 36.2 kg/m2 [facility] [place] ([place] [[facility]] [facility]) Pt here today for labs results Body weight 231 [lb_av] 231 [lb_av] [place] ([facility]) Pt here today for labs results Body height 67 [in_us] 67 [in_us] SENTHIL ([facility]) Pt here today for labs results Body temperature 98.6 [degF] 98.6 [degF] TRANGW AY ([facility]) Pt here today for labs results Heart rate 94 /min 94 /min [place] ([facility]) Pt here today for labs results Diastolic blood pressure 80 mm[Hg] 80 mm[Hg] [place] ([facility]) Pt here today for labs results Systolic blood pressure 121 mm[Hg] 121 mm[Hg] G REENWAY ([facility]) Pt here today for labs results PhenX - pain, abdominal - type and 10 1 0 [place] ([facility]) pt here to follow up with DR after disch arge from [facility]. Body surface area Derived from 2.14 m2 2.14 m2 [place] ([facility]) pt here to follow up with DR after disch arge from [facility]. Body mass index (BMI) 35.7 kg/m2 35.7 kg/m2 [facility] ([place] [[facility]] [facility]) pt here to follow up with DR after disch arge from [facility]. Body weight 228 [lb_av] 228 [lb_av] SENT[place] ([facility]) pt here to follow up with DR after disch arge from [facility]. Body height 67 [in_us] 67 [in_us] SENTHIL ([facility]) pt here to follow up with DR after disch arge from [facility]. Body temperature 98.6 [degF] 98.6 [degF] TEMI WILDER ([facility]) pt here to follow up with DR after disch arge from [facility]. Heart rate 89 /min 89 /min [place] ([facility]) pt here to follow up with DR after disch arge from [facility]. Diastolic blood pressure 84 mm[Hg] 84 mm[Hg] SENTHIL ([facility]) pt here to follow up with DR after disch arge from [facility]. Systolic blood pressure 133 mm[Hg] 133 mm[Hg] Tk SMITH ([facility]) pt here to follow up with DR after disch arge from [facility]. Patient Treatment Plan of Care Planned Activity Planned Date Details Description Data Source (s) Tylenol 325MG Oral Tablet 08/03/2019 [place] [facility] ([facility] 12:00:00 AM [facility]) Synthroid 125MCG Oral Tablet 08/03/2019 [place] ([facility] 12:00:00 AM [facility]) Ventolin HFA 108 ( 08/03/2019 [facility] Y ([facility] Base)MCG/ACT Inhalation 12:00:00 AM [facility] Aerosol Solution [facility] er) Symbicort 160-4.5MCG/ACT 08/03/2019 [place] ([facility] Inhalation Aerosol 12:00:00 AM [facility]) Albuterol 0.21 MG/ML 08/03/2019 [place] Y ([facility] Inhalant Solution 12:00:00 AM [facility]) Cepacol Regular Strength 3MG 06/09/2019 [place] ([facility] Ventolin HFA 108 (90 06/09/2019 [place] Y ([facility] Base)MCG/ACT Inhalation 12:00:00 AM EDT [facility] Aerosol Solution [facility] er) Symbicort 160-4.5MCG/ACT 06/09/2019 [place] ([facility] Inhalation Aerosol 12:00:00 AM [facility]) Albuterol 0.21 MG/ML 06/09/2019 [place] Y ([facility] Inhalant Solution 12:00:00 AM [facility]) CompAir Nebulizer 06/09/2019 SENTHIL ( [facility] Miscellaneous 12:00:00 AM [facility]) Prednisone 10 MG Oral Tablet 05/06/2019 [facility]ENT[place] ([facility] 12:00:00 AM [facility]) Cepacol Regular Strength 3MG 05/06/2019 [place] ([place]outh/Throat Lozenge 12:00:00 AM EDT [facility]) Symbicort 160-4.5MCG/ACT 04/11/2019 [place] ([facility] Ventolin HFA 108 (90 04/11/2019 [place] ([place] Base)MCG/ACT Inhalation 12:00:00 AM EDT [facility] Aerosol Solution [facility] er) Synthroid 125MCG Oral Tablet 04/07/2019 [place] ([place] 12:00:00 AM EDT [facility]) Omeprazole 40 MG Delayed 04/07/2019 [place] ([place] Release Oral Capsule 12:00:00 AM EDT [facility]) Albuterol 0.21 MG/ML 04/07/2019 [facility] Y ([facility] Dulera 200-5MCG/ACT 04/07/2019 [place] ([facility] Omeprazole 40 MG Delayed 04/07/2019 [place] ([place] Release Oral Capsule 12:00:00 AM EDT [facility]) Motrin IB 200MG Oral Capsule 04/07/2019 [place] ([facility] 12:00:00 AM EDT [facility]) Ibuprofen 400 MG Oral Tablet 01/14/2019 [place] ([facility] Hydrocortisone 10 MG/ML / 01/14/2019 [place] E[place]AY ([place] Neomycin 3.5 MG/ML / 12:00:[address] [facility] Polymyxin B [id number] UNT/ML [facility]) Otic Solution Omeprazole 40 MG Delayed 01/14/2019 [place] ([place] Release Oral Capsule 12:00:00 AM EDT [facility]) Synthroid 125MCG Oral Tablet 01/14/2019 [place] ([facility] Albuterol 0.83 MG/ML 01/14/2019 [place] ([place] Inhalant Solution 12:00:00 AM [facility]) Breo Ellipta 100-25MCG/INH 01/14/2019 G REENWAY ([facility] Inhalation Aerosol Powder 12:00:[address] [facility] Breath Activated [facility]) Symbicort 160-4.5MCG/ACT 11/04/2018 [place] ([place] [facility] Synthroid 125MCG Oral Tablet 11/04/2018 [place] ([place] 12:00:00 AM EDT [facility]) Omeprazole 40 MG Delayed 11/04/2018 [place] ([place] Release Oral Capsule 12:00:00 AM EDT [facility]) Cyclobenzaprine 11/04/2018 [place]ENT[place] ([facility] hydrochloride 5 MG Oral 12:00:00 AM EDT [facility]) Ibuprofen 400 MG Oral Tablet 11/04/2018 [place] ([place] 12:00:00 AM EDT [facility]) Guaifenesin 20 MG/ML Oral 11/04/2018 GR EENWAY ([facility] Solution 12:00:00 AM EDT [facility]) Cyclobenzaprine 10/23/2018 [place] ([facility] hydrochloride 5 MG Oral 12:00:00 AM EST [facility]) EQ Nicotine 7MG/24HR 10/23/2018 [place] Y ([facility] Transdermal Patch 24 Hour 12:00:00 AM [facility]) Ventolin HFA 108 (90 10/23/2018 [place] Y ([facility] Base)MCG/ACT Inhalation 12:00:00 AM [facility] Aerosol Solution Health Cent er) Singulair 10MG Oral Tablet 10/23/2018 G RE[place]AY ([place] 12:00:00 AM [facility]) Breo Ellipta 100-25MCG/INH 10/23/2018 G REENWAY ([facility] Inhalation Aerosol Powder 12:00:00 AM [facility] Breath Activated [facility] er) Albuterol 0.83 MG/ML 10/23/2018 [place] Y ([facility] Inhalant Solution 12:00:00 AM [facility]) Ibuprofen 400 MG Oral Tablet 10/23/2018 [place] ([place] 12:00:00 AM [facility]) Augmentin 875-125MG Oral 07/07/2018 [place] ([place] Tablet 12:00:00 AM [facility]) Omeprazole 40 MG Delayed 07/07/2018 [place] ([place] Release Oral Capsule 12:00:00 AM [facility]) Prednisone 10 MG Oral Tablet 07/07/2018 [place] ([facility] 12:00:00 AM [facility]) Guaifenesin 20 MG/ML Oral 07/07/2018 GR E[place]AY ([place] Solution 12:00:00 AM [facility]) Ventolin HFA 108 (90 07/07/2018 [place] Y ([place] Base)MCG/ACT Inhalation 12:00:00 AM EST [facility] Aerosol Solution [facility]) Symbicort 160-4.5MCG/ACT 07/07/2018 GRE EN[place]AY ([facility] Inhalation Aerosol 12:00:00 AM [facility]) Singulair 10MG Oral Tablet 07/07/2018 G REENWAY ([place] 12:00:00 AM [facility]) Albuterol 0.83 MG/ML 07/07/2018 GREENWA Y ([place] Inhalant Solution 12:00:00 AM [facility]) CVS Nicotine 14MG/24HR 05/14/[address] ([facility] Transdermal Patch 24 Hour 12:00:00 AM [facility]) NexIUM 40MG Oral Packet 05/14/2018 GREE NWAY ([place] 12:00:00 AM [facility]) Ventolin HFA 108 (90 05/14/2018 GREENWA Y ([facility] Base)MCG/ACT Inhalation 12:00:00 AM EDT [facility] Aerosol Solution [facility]) Albuterol 0.21 MG/ML 05/14/2018 GREENWA Y ([facility] Inhalant Solution 12:00:00 AM [facility]) Symbicort 160-4.5MCG/ACT 05/14/2018 GRE ENWAY ([place] Inhalation Aerosol 12:00:00 AM [facility]) Ventolin HFA 108 (90 01/21/2018 GREENWA Y ([facility] Base)MCG/ACT Inhalation 12:00:00 AM EDT [facility] Aerosol Solution [facility]) Symbicort 160-4.5MCG/ACT 01/21/2018 GRE ENWAY ([place] Inhalation Aerosol 12:00:00 AM EDT [facility]) Synthroid 100MCG Oral Tablet 12/31/2017 SENTHIL ([place] 12:00:00 AM EDT [facility]) Symbicort 160-4.5MCG/ACT 12/24/2017 GRE ENWAY ([place] [facility] Synthroid 88MCG Oral Tablet 12/24/2017 SENTHIL ([place] 12:00:00 AM EDT [facility]) NexIUM 40MG Oral Packet 12/24/2017 GREE NWAY ([place] 12:00:00 AM EDT [facility]) Ventolin HFA 108 (90 12/24/2017 GREENWA Y ([facility] Base)MCG/ACT Inhalation 12:00:00 AM EDT [facility] Aerosol Solution [facility]) Diflucan 150MG Oral Tablet 10/16/2017 G REENWAY ([place] 12:00:00 AM [facility]) Synthroid 88MCG Oral Tablet 10/16/2017 SENTHIL ([place] 12:00:00 AM [facility]) NexIUM 40MG Oral Packet 10/16/2017 GREE NWAY ([place] 12:00:00 AM [facility]) Flagyl 500MG Oral Tablet 10/16/2017 GRE ENWAY ([place] 12:00:00 AM [facility]) Simvastatin 40 MG Oral 09/27/[address] ([place] Tablet 12:00:00 AM [facility]) Prednisone 20 MG Oral Tablet 09/27/2017 SENTHIL ([place] 12:00:00 AM [facility]) Nebulizer Miscellaneous 09/27/2017 GREE NWAY ([place] 12:00:00 AM [facility]) Augmentin 875-125MG Oral 09/27/2017 GRE ENWAY ([place] Tablet 12:00:00 AM [facility]) Diflucan 150MG Oral Tablet 09/27/2017 G REENWAY ([place] 12:00:00 AM [facility]) Synthroid 75MCG Oral Tablet 09/27/2017 SENTHIL ([place] 12:00:00 AM [facility]) Simvastatin 40 MG Oral 09/27/[address] ([place] Tablet 12:00:00 AM [facility]) Synthroid 50MCG Oral Tablet 08/02/2017 SENTHIL ([place] 12:00:00 AM [facility]) Simvastatin 20 MG Oral 08/02/[address] ([place] Tablet 12:00:00 AM [facility]) Albuterol 0.833 MG/ML / 07/26/2017 GREE NWAY ([place] Ipratropium Askov 0.167 12:00:00 AM [facility] MG/ML Inhalant Solution [facility]) Augmentin 875-125MG Oral 07/26/2017 GRE ENWAY ([place] Tablet 12:00:00 AM [facility]) Singulair 10MG Oral Tablet 07/26/2017 G REENWAY ([place] 12:00:00 AM [facility]) Hydrochlorothiazide 25 MG 07/26/2017 GR EENWAY ([place] Oral Tablet 12:00:00 AM [facility]) NexIUM 40MG Oral Packet 07/26/2017 GREE NWAY ([place] 12:00:00 AM [facility]) Symbicort 160-4.5MCG/ACT 07/26/2017 GRE ENWAY ([place] Inhalation Aerosol 12:00:00 AM [facility]) Ventolin HFA 108 (90 07/26/2017 TRANGWA Y ([facility] Base)MCG/ACT Inhalation 12:00:00 AM [facility] Aerosol Solution [facility] er) Metronidazole 500 MG Oral 06/24/2017 GR EENWAY ([place] Tablet 12:00:00 AM [facility]) EQ Nicotine 21MG/24HR 04/11/2017 WATROUSW AY ([place] Transdermal Patch 24 Hour 12:00:00 AM [facility]) Omeprazole 40 MG Delayed 04/11/2017 BRINA ENWAY ([place] Release Oral Capsule 12:00:00 AM [facility]) Cyclobenzaprine 04/11/2017 SENTHIL (Mo unt hydrochloride 5 MG Oral 12:00:00 AM [facility]) Hydrochlorothiazide 25 MG 04/11/2017 GR EENWAY ([place] Oral Tablet 12:00:00 AM EDT [facility]) Ventolin HFA 108 (90 04/11/2017 GREENWA Y ([place] Base)MCG/ACT Inhalation 12:00:00 AM [facility] Aerosol Solution [facility] er) Singulair 10MG Oral Tablet 04/11/2017 G REENWAY ([facility] Symbicort 160-4.5MCG/ACT 04/11/2017 GRE ENWAY ([place] Inhalation Aerosol 12:00:00 AM [facility]) Omeprazole 40 MG Delayed 11/30/2016 GRE ENWAY ([place] Release Oral Capsule 12:00:00 AM EDT [facility]) Nasacort Allergy 24HR 55 11/30/2016 GRE ENWAY ([place] MCG/ACT Aerosol 12:00:00 AM EDT [facility]) Singulair 10 MG Tablet 11/30/[address] ([place] 12:00:00 AM EDT [facility]) Symbicort 160-4.5 MCG/ACT 11/30/2016 GR EENWAY ([place] [facility]erosol [facility]:00:00 [facility] Ventolin HFA 108 (90 Base) 11/30/2016 G REENWAY ([place] MCG/ACT Aerosol Solution 12:00:00 AM [facility]) Albuterol 0.83 MG/ML 11/30/2016 GREEN[place] Y ([place] Inhalant Solution 12:00:00 AM [facility]) Symbicort 160-4.5 MCG/ACT 08/30/2016 GR EENWAY ([place] Aerosol 12:00:00 AM [facility]) Albuterol 0.83 MG/ML 08/30/2016 GREEN[place] Y ([place] Inhalant Solution 12:00:00 AM [facility]) Ventolin HFA 108 (90 Base) 08/30/2016 G REENWAY ([place] MCG/ACT Aerosol Solution 12:00:00 AM [facility]) Symbicort 160-4.5 MCG/ACT 08/30/2016 GR EENWAY ([place] Aerosol 12:00:00 AM [facility]) PriLOSEC 40 MG Capsule 08/30/[address] ([place] Delayed Release 12:00:00 AM [facility]) Augmentin 875-125 MG Tablet 08/30/2016 SENTHIL ([place] 12:00:00 AM [facility]) Metronidazole 500 MG Oral 03/20/2016 GR EENWAY ([place] Tablet 12:00:00 AM [facility]) Macrobid 100 MG Capsule 03/14/2016 GREE NWAY ([place] 12:00:00 AM [facility]) Fluconazole 150 MG Oral 03/14/2016 GREE NWAY ([place] Tablet 12:00:00 AM [facility]) Symbicort 160-4.5 MCG/ACT 03/14/2016 GR EENWAY ([place] Aerosol 12:00:00 AM [facility]) Ventolin HFA 108 (90 Base) 03/14/2016 G REENWAY ([facility] MCG/ACT Aerosol Solution 12:00:00 AM [facility]) PriLOSEC 20 MG Capsule 03/14/[address] ([facility] Delayed Release 12:00:00 AM [facility]) Albuterol 0.83 MG/ML 09/12/2015 GREENWA Y ([facility] Inhalant Solution 12:00:00 AM [facility]) Singulair 10 MG Tablet 09/12/[address] ([place] 12:00:00 AM [facility]) Diflucan 150 MG Tablet 09/12/[address] ([place] 12:00:00 AM [facility]) Nebulizer Device 09/12/2015 SENTHIL (M ount 12:00:00 AM [facility]) Ventolin HFA 108 (90 Base) 09/12/2015 G REENWAY ([facility] MCG/ACT Aerosol Solution 12:00:00 AM [facility]) Symbicort 160-4.5 MCG/ACT 09/12/2015 GR EENWAY ([place] Aerosol 12:00:00 AM [facility]) Augmentin 875-125 MG Tablet 09/12/2015 SENTHIL ([place] 12:00:00 AM [facility]) Hydrocortisone 10 MG/ML / 09/12/2015 GR EENWAY ([place] Neomycin 3.5 MG/ML / 12:00:[address] [facility] Polymyxin B [id number] UNT/ML [facility]) Otic Suspension Flagyl 500 MG TABS 05/02/2015 SENTHIL ([facility] 12:00:[facility] Omeprazole 40 MG Delayed 04/14/2015 GRE ENWAY ([place] Release Oral [facility] Acetaminophen 500 MG Oral 04/14/2015 GR EENWAY ([place] Tablet 12:00:00 [facility] Hydrocortisone 10 MG/ML / 12/14/2014 GR EENWAY ([place] Neomycin 3.5 MG/ML / 12:00:00 [facility] Polymyxin B [id number] UNT/ML [facility]) Otic Suspension Amoxicillin 500 MG Oral 12/14/2014 GREE NWAY ([place] Capsule 12:00:00 AM [facility]) Amoxicillin 500 MG Oral 11/23/2014 GREE NWAY ([place] Capsule 12:00:00 [facility] Albuterol 0.83 MG/ML 11/23/2014 COREY Y ([place] Inhalant Solution 12:00:00 AM [facility]) Ventolin HFA 108 (90 11/16/2014 TRANGWA Y ([place] Base)MCG/ACT IN AERS 12:00:00 [facility] Symbicort 160-4.5MCG/ACT IN 11/16/2014 SENTHIL ([place] AERO 12:00:00 [facility] Levaquin 500MG OR TABS 11/16/[address] ([place] 12:00:00 AM [facility]) Prednisone 20 MG Oral Tablet 11/16/2014 SENT[place] ([place] 12:00:00 AM [facility]) Singulair 10MG OR TABS 11/16/[address] ([place] 12:00:00 AM [facility]) Albuterol 0.833 MG/ML / 11/16/2014 GREE NWAY ([place] Ipratropium Askov 0.167 12:00:[address] [facility] MG/ML Inhalant Solution [facility]) Ibuprofen 400 MG Oral Tablet 11/16/2014 SENTHIL ([place] 12:00:00 AM EDT [facility]) Augmentin 875-125MG OR TABS 05/04/2014 SENTHIL ([facility] 12:00:[facility] Ibuprofen 800 MG Oral Tablet 05/04/2014 SENTHIL ([place] 12:00:00 AM EDT [facility]) Prednisone 20 MG Oral Tablet 05/04/2014 SENT[place]IL ([place] 12:00:00 AM [facility]) Ventolin HFA 108 (90 05/04/2014 [facility] Y ([facility])MCG/ACT IN AERS 12:00:00 AM EDT [facility]) Hydrochlorothiazide 50 MG 05/04/2014 GR EENWAY ([facility] Oral Tablet 12:00:00 AM T [facility]) Ventolin HFA 108 (90 03/12/2014 TRANGWA Y ([facility])MCG/ACT IN AERS 12:00:00 AM EDT [facility]) Symbicort 160-4.5MCG/ACT IN 03/12/2014 SENTHIL ([facility] AERO 12:00:00 AM T [facility]) Permethrin 10 MG/ML 03/12/2014 SENT[place]IL ([facility] Medicated Shampoo 12:00:00 AM [facility]) Ibuprofen 800 MG Oral Tablet 02/24/2014 SENTHIL ([place] 12:00:00 AM EDT [facility]) Hydrochlorothiazide 25 MG 02/24/2014 GR EENWAY ([facility] Oral Tablet 12:00:00 AM [facility]) PriLOSEC 40 MG CPDR 02/24/2014 SENT[place]IL ([place] 12:00:00 AM [facility]) Augmentin 875-125MG OR TABS 11/18/2013 SENTHIL ([place] 12:00:00 AM [facility]) Ventolin HFA 108 (90 09/01/2013 TRANGWA Y ([facility])MCG/ACT IN AERS 12:00:00 AM EST [facility]) Singulair 10MG OR TABS 09/01/[address] ([facility] 12:00:00 AM EST [facility]) Symbicort 160-4.5MCG/ACT IN 09/01/2013 SENT[place]IL ([facility] AERO 12:00:00 AM EST [facility]) Ibuprofen 400 MG Oral Tablet 09/01/2013 SENT[place] ([facility] 12:00:00 AM [facility]) Symbicort 160-4.5MCG/ACT IN 04/24/2013 SENT[place]IL ([facility] AERO 12:00:00 AM EDT [facility]) Permethrin 50 MG/ML Topical 04/24/2013 SENT[place]IL ([facility] Cream 12:00:00 AM EDT [facility]) Hydrochlorothiazide 25 MG 04/24/2013 GR EEN[place]AY ([facility] Oral Tablet 12:00:00 AM EDT [facility]) Augmentin 875-125MG OR TABS 04/24/2013 SENT[place] ([facility] 12:00:00 AM EDT [facility]) Ventolin HFA 108 (90 04/24/2013 WATROUSWA Y ([facility])MCG/ACT IN AERS 12:00:00 AM EDT [facility]) Ventolin HFA 108 (90 08/16/2012 [facility] Y ([facility])MCG/ACT IN AERS 12:00:00 AM EST [facility]) Ibuprofen 800 MG Oral Tablet 08/16/2012 SENT[place]IL ([facility] 12:00:00 AM [facility]) Symbicort 160-4.5MCG/ACT IN 08/16/2012 S[place] ([place] AERO 12:00:00 AM [facility]) Diphenhydramine 08/16/2012 SENTHIL (Mo unt Hydrochloride 50 MG Oral 12:00:00 AM [facility])
--- NOTE | 2020-05-12 17:17 | PDOC ---
History of Present Illness - General Chief Complaint: Pain Stated Complaint: LUMP IN LEFT BREAST Time Seen by Provider: 05/12/20 17:17 History Source: Patient - History of Present Illness Initial Comments: 05/12/20 17:38 39F w/hx asthma, hypothyroidism, L breast abscess in March referred by surgeon for repeat surgical I&D. She reports that 6 weeks ago she had I&D at this hospital with Dr. Mcmahon. She saw him yesterday during a 6 week follow up appointment, where he noted further collection of fluid, tenderness and redness at L breast with pus expressed from L nipple. She reports following up in the ED for planned surgical intervention tomorrow. She denies any fevers, chills, weakness, confusion, nausea, vomiting. Past History - Medical History Allergies/Adverse Reactions: Allergies Allergy/AdvReac Type Severity Reaction Status Date / Time azithromycin Allergy Intermediate Swelling Verified 05/12/20 16:34 clarithromycin [From Biaxin] Allergy Intermediate Rash Verified 05/12/20 16:34 levofloxacin [From Levaquin] Allergy Intermediate Nausea Verified 05/12/20 16:34 Home Medications: Ambulatory Orders Albuterol Sulfate Inhaler - [Ventolin HFA Inhaler -] 1 - 2 inh PO Q4H PRN 04/08/20 Budesonide/Formeterol Fumarate [SYMBICORT 160/4.5mcg -] 2 inh PO BID 04/08/20 Cetirizine HCl [All Day Allergy] 10 mg PO DAILY PRN 04/08/20 Levothyroxine [Synthroid -] 200 mcg PO DAILY 04/08/20 Montelukast Na [Singulair -] 10 mg PO HS 04/08/20 Topiramate [Topamax] 50 mg PO DAILY 04/08/20 Acetaminophen [Tylenol -] 500 mg PO Q6H #100 tablet 04/19/20 Omeprazole 40 mg PO DAILY 04/19/20 Prazosin HCl [Minipress -] 2 mg PO HS 04/19/20 Cyclobenzaprine HCl [Flexeril -] 10 mg PO TID PRN #70 tablet 04/29/20 Ergocalciferol [Vitamin D2] 50,000 unit PO Q7D #4 capsule 04/29/20 Gabapentin [Neurontin -] 300 mg PO Q8H #90 cap 09/11/20 Tramadol HCl 50 mg PO BID PRN #60 tablet MDD 2 04/29/20 Nicotine [Nicotine Patch 21 mg/24 hr] 1 each TD DAILY #30 patch 05/03/20 Anemia: No Asthma: Yes (inhalers) Cancer: No Cardiac Disorders: No CVA: No COPD: No CHF: No DVT: No Diabetes: No GI Disorders: Yes (GERD) Disorders: No HTN: No Hypercholesterolemia: No Liver Disease: No Seizures: No Thyroid Disease: Yes (hypo -on meds) - Surgical History Cholecystectomy: Yes (2016) - Reproductive History Is Patient Now?: No Therapeutic (s) & number: No - Immunization History Immunization Up to Date: Yes - Psycho-Social/Smoking History Smoking History: Current every day smoker Have you smoked in the past 12 months: Yes Number of Cigarettes Smoked Daily: 3 Information on smoking cessation initiated: Yes 'Breaking Loose' booklet given: 04/08/20 - Substance Abuse Hx (Audit-C & DAST Scrn) How often the patient has a drink containing alcohol: Never Score: In Men: 4 or > Positive; In Women: 3 or > Positive: 0 Screen Result (Pos requires Nsg. Audit-10AR): Negative In the last yr the pt used illegal drug/Rx for NonMed reason: No Score: Yes response is considered Positive: 0 Screen Result (Positive result requires Nsg. DAST-10): Negative Review of Systems - Review of Systems Able to Perform ROS?: Yes Comments:: 05/12/20 18:40 GENERAL/CONSTITUTIONAL: No fever or chills. No weakness. HEAD, EYES, EARS, NOSE AND THROAT: No change in vision. No ear pain or discharge. No sore throat. CARDIOVASCULAR: No chest pain or shortness of breath RESPIRATORY: No cough, wheezing, or hemoptysis. GASTROINTESTINAL: No nausea, vomiting, diarrhea or constipation. GENITOURINARY: No dysuria, frequency, or change in urination. MUSCULOSKELETAL: L breast pain, swelling. No joint or muscle swelling or pain. No neck or back pain. SKIN: No rash NEUROLOGIC: No headache, vertigo, loss of consciousness, or change in strength/sensation. ENDOCRINE: No increased thirst. No abnormal weight change HEMATOLOGIC/LYMPHATIC: No anemia, easy bleeding, or history of blood clots. ALLERGIC/IMMUNOLOGIC: No hives or skin allergy. *Physical Exam - Vital Signs Last Vital Signs Temp Pulse Resp BP Pulse Ox 98.4 F 111 H 18 124/101 H 100 05/12/20 16:34 05/12/20 16:34 05/12/20 16:34 05/12/20 16:34 05/12/20 16:34 - Physical Exam 05/12/20 19:10 GENERAL: Awake, alert, and fully oriented, in no acute distress HEAD: No signs of trauma, normocephalic, atraumatic EYES: PERRLA, EOMI, sclera anicteric, conjunctiva clear ENT: Auricles normal inspection, hearing grossly normal, nares patent, oropharynx clear without exudates. Moist mucosa NECK: Normal ROM, supple, no lymphadenopathy, JVD, or masses LUNGS: No distress, speaks full sentences, clear to auscultation bilaterally HEART: Regular rate and rhythm, normal S1 and S2, no murmurs, rubs or gallops, peripheral pulses normal and equal bilaterally. ABDOMEN: Soft, nontender, normoactive bowel sounds. No guarding, no rebound. No masses EXTREMITIES : Normal inspection, Normal range of motion, no edema. No clubbing or cyanosis NEUROLOGICAL: Cranial nerves II through XII grossly intact. Normal speech, norm al gait, no focal sensorimotor deficits SKIN: Warm, Dry, normal turgor, no rashes or lesions noted Breast: L Breast erythema, tenderness at 12. No fluctuance or active discharge ED Treatment Course - LABORATORY CBC & Chemistry Diagram: 05/12/20 17:04 05/12/20 17:04 Medical Decision Making - Medical Decision Making 05/12/20 19:11 39F w/hx breast abscess drainage 6 weeks ago presents for fluid reaccumulation, referred by surgeon for repeat I&D. Plan: Preop labs Consult Dr. Mcmahon (Surgery) Dispo: Admit 05/12/20 19:[address] Mcmahon. Plan for cephalosporin abx, admission to med/surg. Plan for surgery in AM. Discharge - Discharge Information Problems reviewed: Yes Clinical Impression/Diagnosis: Left breast abscess Condition: Stable - Admission Yes - Follow up/Referral Referrals: Nigel Germain MD [Primary Care Provider] - - Patient Discharge Instructions - Post Discharge Activity
[2020-05-12 18:06] LABS: BASO % 0.5 % (0-2.0); EOS % 0.8 % (0-4.5); HEMATOCRIT 37.9 % (32.4-45.2); HEMOGLOBIN 12.7 GM/dL (10.7-15.3); LYMPH % 20.5 % (8-40); MCH 32.9 pg (25.7-33.7); MCHC 33.5 g/dl (32.0-36.0); MEAN PLT VOLUME 7.6 fl (7.5-11.1); MONO % 4.4 % (3.8-10.2); NEUT % 73.8 % (42.8-82.8); PLATELET COUNT 307 K/MM3 (134-434); RBC 3.86 M/mm3 (3.60-5.2); RDW 14.5 % (11.6-15.6)
[2020-05-12 18:15] LABS: INR 0.97 (0.83-1.09); PROTHROMBIN TIME (PATIENT) 11.4 SEC (9.7-13.0)
[2020-05-12 18:18] LABS: ACTIVATED PTT 25.8 SECONDS (25.2-36.5)
--- NOTE | 2020-05-12 18:27 | PDOC ---
Documentation entered by Raj Rose SCRIBE, acting as scribe for Jean Carlos Roberts MD. Jean Carlos Roberts MD: This documentation has been prepared by the Milton horvath Xhesika, SCRIBE, under my direction and personally reviewed by me in its entirety. I confirm that the documentation accurately reflects all work, treatment, procedures, and medical decision making performed by me. Attending Attestation - Resident Resident Name: Thomas Moffett - ED Attending Attestation I have performed the following: I have examined & evaluated the patient, The case was reviewed & discussed with the resident, I agree w/resident's findings & plan, Exceptions are as noted - HPI HPI: 05/12/20 17:22 39y/o F with a pmh of asthma, gerd, and hypothyroidism who presents to the ED for L breast abscess. Pt states she had a L breast I&D with drain in place on 04/08/[address] Mcmahon. Pt was seen by Dr. Mcmahon yesterday for a follow up appointment, was noted to have more fluid/puss accumulation and was advised to come to the ED for reevaluation and possible I&D. Pt notes some mild idsocmfort in her L breast but denies any fever/chills, n/v, focal numbness/tingling/weakness. Allergies: Azithromycin, Clarithromycin, Levofloxacin PCP: Nigel Callahan - Physicial Exam PE: 05/12/20 18:17 GENERAL: The patient is awake, alert, and fully oriented, Nontoxic - in no acute distress. LUNGS: Breath sounds equal, clear to auscultation bilaterally. No wheezes, no rhonchi, no rales. HEART: Regular rate and rhythm, normal S1 and S2 without murmur, rub or gallop. ABDOMEN: Soft, nontender, No guarding, no rebound. No CVA tenderness EXTREMITIES: Normal range of motion, no edema. - Medical Decision Making 05/12/20 17:41 will admit for preop for reeval of her breast abcess yvon MCMAHON Discharge - Discharge Information Problems reviewed: Yes Clinical Impression/Diagnosis: Left breast abscess Condition: Stable - Admission Yes - Follow up/Referral - Patient Discharge Instructions - Post Discharge Activity
[2020-05-12 18:32] LABS: ALBUMIN 3.7 g/dl (3.4-5.0); BILIRUBIN,TOTAL 0.4 mg/dL (0.2-1); BLOOD UREA NITROGEN 9.9 mg/dL (7-18); TOT PROT 7.7 g/dl (6.4-8.2)
--- NOTE | 2020-05-12 19:03 | PDOC ---
*Physical Exam - Vital Signs Last Vital Signs Temp Pulse Resp BP Pulse Ox 98.4 F 111 H 18 124/101 H 100 05/12/20 16:34 05/12/20 16:34 05/12/20 16:34 05/12/20 16:34 05/12/20 16:34 - Physical Exam 05/12/20 19:04 Sign out was give by day team. ED Treatment Course - LABORATORY CBC & Chemistry Diagram: 05/12/20 17:04 05/12/20 17:04 - ADDITIONAL ORDERS Additional order review: Laboratory Results 05/12/20 05/12/20 05/12/20 17:04 17:04 17:04 PT with INR INR PTT (Actin FS) Sodium 139 Potassium 4.0 Chloride 105 Carbon Dioxide 26 Anion Gap 8 BUN 9.9 Creatinine 1.0 Est GFR (CKD-EPI)AfAm 82.19 Est GFR (CKD-EPI)NonAf 70.91 Random Glucose 90 Calcium 9.0 Total Bilirubin 0.4 AST 36 ALT 50 Alkaline Phosphatase 63 Total Protein 7.7 Albumin 3.7 Serum , Qual Negative Blood Type A POSITIVE Antibody Screen Negative 05/12/20 17:04 PT with INR 11.40 INR 0.97 PTT (Actin FS) 25.8 Sodium Potassium Chloride Carbon Dioxide Anion Gap BUN Creatinine Est GFR (CKD-EPI)AfAm Est GFR (CKD-EPI)NonAf Random Glucose Calcium Total Bilirubin AST ALT Alkaline Phosphatase Total Protein Albumin Serum , Qual Blood Type Antibody Screen 05/12/20 17:04 RBC 3.86 MCV 98.0 H MCHC 33.5 RDW 14.5 MPV 7.6 Neutrophils % 73.8 Lymphocytes % 20.5 D Monocytes % 4.4 Eosinophils % 0.8 Basophils % 0.5 Discharge - Discharge Information Problems reviewed: Yes Clinical Impression/Diagnosis: Left breast abscess Condition: Stable - Admission Yes - Follow up/Referral Referrals: Nigel Germain MD [Primary Care Provider] - - Patient Discharge Instructions - Post Discharge Activity
[2020-05-12] MEDS ORDERED: CEFTRIAXONE 1,000 MG in DEXTROSE 5%-WATER - 50 ML IVPB ONE (19:06)
[2020-05-12] MEDS ORDERED: ACETAMINOPHEN 325 MG TABLET (FP) PO ONE (19:17)
[2020-05-12] MEDS ORDERED: CEFTRIAXONE 1 GM/50 ML BAG ONE (19:18)
--- NOTE | 2020-05-12 19:25 | PN ---
Teaching Attending Note Name of Resident: Natalee Graham ATTENDING PHYSICIAN STATEMENT I saw and evaluated the patient. I reviewed the resident's note and discussed the case with the resident. I agree with the resident's findings and plan as documented. SUBJECTIVE: Patient is a 39 year old woman with a PMH of Tobacco use, HTN, Asthma, Hypot hyroidism, Anxiety, GERD, Bipolar disorder, Anxiety, Fibroids and Chronic low back pain who presents with recurrent left breast abscess - referred by surgeon for repeat surgical I&D. She reports that on 04/08/2020 she had I&D at this hospital with Dr. Mcmahon and also had associated cellulitis. At that time she was treated with IV Clindamycin for 4 days ad IV Zosyn for 3 days and was discharged on 04/11/2020 with Augmentin for 7 days. I&D specimen grew Staph epidermidis and Prevotella buccae. She was seen by the Surgeon yesterday for her 6 week follow up appointment and found to have collection of fluid, tenderness and redness of left breast with pus expressed from the left nipple. Patient denies chest pain, shortness of breath, abdominal pain, headache, palpitations, dizziness, fever, chills, n ausea, vomiting, diarrhea, constipation, dysuria, frequency, urgency, melena, hematochezia or hematuria. Denies alcohol or illicit drug use. No sick contacts or recent travels. Patient has a family history of Bipolar disorder in mother. OBJECTIVE: Alert Vital Signs Period Temp Pulse Resp BP Sys/Dukes Pulse Ox Last 24 Hr 98.4 F 111 18 124/101 100 HEENT: No Jaundice, eye redness or discharge, PERRLA, EOMI. Normocephalic, atraumatic. External ears are normal and hearing is grossly intact. No nasal discharge. Neck: Supple, nontender. No palpable adenopathy or thyromegaly. No JVD Chest: Tender, swollen left breast with nipple discharge; Good effort. Clear to auscultation and percussion. Heart: Regular. No S3, rub or murmur Abdomen: Not distended, soft, nontender and no HSM. No rebound or guarding. Normal bowel sounds. Ext: Peripheral pulses intact. No leg edema. Skin: Warm and dry. No petechiae, rash or ecchymosis. Neuro: Alert. Oriented x3. CN 2-12 grossly intact. Sensation grossly intact in all four extremities and DTR are symmetric. Psych: Appropriate mood and affect. Good insight. Home Medications Medication Instructions Recorded Albuterol Sulfate Inhaler - 1 - 2 inh PO Q4H PRN 04/08/20 [Ventolin HFA Inhaler -] Budesonide/Formeterol Fumarate 2 inh PO BID 04/08/20 [SYMBICORT 160/4.5mcg -] Cetirizine HCl [All Day Allergy] 10 mg PO DAILY PRN 04/08/20 Levothyroxine [Synthroid -] 200 mcg PO DAILY 04/08/20 Montelukast Na [Singulair -] 10 mg PO HS 04/08/20 Topiramate [Topamax] 50 mg PO DAILY 04/08/20 Acetaminophen [Tylenol -] 500 mg PO Q6H #100 tablet 04/19/20 Omeprazole 40 mg PO DAILY 04/19/20 Prazosin HCl [Minipress -] 2 mg PO HS 04/19/20 Cyclobenzaprine HCl [Flexeril -] 10 mg PO TID PRN #70 tablet 04/29/20 Ergocalciferol [Vitamin D2] 50,000 unit PO Q7D #4 capsule 04/29/20 Gabapentin [Neurontin -] 300 mg PO Q8H #90 cap 04/29/20 Tramadol HCl 50 mg PO BID PRN #60 tablet MDD 2 04/29/20 Nicotine [Nicotine Patch 21 mg/24 1 each TD DAILY #30 patch 05/03/20 hr] Abnormal Lab Results 05/12/20 17:04 WBC 12.0 H MCV 98.0 H Absolute Neuts (auto) 8.8 H Current Medications Generic Name Dose Route Start Last Admin Trade Name Freq PRN Reason Stop Dose Admin Sodium Chloride 1,000 mls @ 75 mls/hr 05/12/20 23:30 Normal Saline - IV ASDIR [facility] Levothyroxine Sodium 175 mcg 05/13/20 10:00 Synthroid - PO DAILY JULIANO Levothyroxine Sodium 125 mcg/ 175 mcg 05/13/20 07:00 Levothyroxine Sodium 50 mcg PO DAILY@0700 [facility] ASSESSMENT AND PLAN: 1. Left breast abscess - No acute abnormality on CXR. Viral testing for COVID-19 ordered and patient placed on airborne, droplet and contact isolation. Will keep her NPO, treat with IV NS, IV Flagyl and IV Vancomycin and consult ID. EKG shows sinus bradycardia at 58/minute, IRBBB and QTc 402 with no significant acute ischemic ST-T wave changes. Initial troponin is negative. Will continue comprehensive care for all of patients comorbid conditions including Synthroid for hypothyroidism and Duoneb PRN for Asthma. 2. Tobacco Use Counseled on risks associated with tobacco use. We will provide patient all the necessary assistance to facilitate smoking cessation and prescribe Nicotine patch. 3. Obesity Counseled on the risks associated with obesity. Will provide patient all the necessary assistance, counseling and positive reinforcement to facilitate weight loss. Consult converting operator. 4. Hypertension Will restart suitable outpatient antihypertensive drugs when clinically appropriate. Subsequently, will revise regimen to ensure [id number] excellent BP control. Patient counseled on the injurious effects of uncontrolled hypertension. Nonpharmacologic measures to control hypertension like weight loss, salt restriction and exercise stressed. Importance of adherence to treatment regimen and attainment of normotension emphasized. 5. DVT prophylaxis - SCD. 6. Advance directives - Full code
[2020-05-12] MEDS ORDERED: ACETAMINOPHEN 325 MG TABLET (FP) ONE (19:38)
--- OUTSIDE RECORDS SUMMARY | 2020-05-12 19:49 | XMS ---
:1980 Author Organization [facility] Care Team Providers Name Role Phone MD [...] Unavailable Go, R MD Unavailable Unavailable OYEKOLA WELFARE PROJECT MANAGER Unavailable OYEKOLA WELFARE PROJECT MANAGER Unavailable OYEKOLA WELFARE PROJECT MANAGER Unavailable OYEKOLA WELFARE PROJECT MANAGER Unavailable REMA ROBLES Unavailable REMA ROBLES Unavailable REMA ROBLES Unavailable REMA ROBLES Unavailable REMA ROBLES Unavailable AGYEPONG WELFARE PROJECT MANAGER Unavailable AGYEPONG WELFARE PROJECT MANAGER Unavailable Go, R Unavailable Unavailable Go, R Unavailable Unavailable Go, R Unavailable Unavailable Go, R MD Unavailable Unavailable Go, R MD Unavailable Unavailable Go, R MD Unavailable Unavailable Go, R Unavailable Unavailable KAILEY CNM Unavailable KAILEY CNM Unavailable MEHREEN WELFARE PROJECT MANAGER Unavailable MEHREEN WELFARE PROJECT MANAGER Unavailable MD YAHAIRA Unavailable Unavailable MD YAHAIRA Unavailable Unavailable MD YAHAIRA Unavailable Unavailable MD YAHAIRA Unavailable Unavailable MD YAHAIRA Unavailable Unavailable MD YAHAIRA Unavailable Unavailable Paras Unavailable [email or web address] Paras Unavailable [email or web address] Paras Unavailable [email or web address] Paras Unavailable [email or web address] [facility] Unavailable Unavailable SUMANTH ROBLES Unavailable SUMANTH ROBLES Unavailable JARRED ROBLES Unavailable JARRED ROBLES Unavailable JARRED ROBLES Unavailable MUKUND 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 Unavailable HOA ROBLES Unavailable JUANITO MCGUIRE Unavailable Unavailable Pina, MD Unavailable Unavailable Pina, MD Unavailable Unavailable Pina, MD Unavailable Unavailable Pina, MD Unavailable Unavailable Pina, MD Unavailable Unavailable Pina, MD Unavailable Unavailable Pina, MD Unavailable Unavailable Pina, MD Unavailable Unavailable Pina, MD Unavailable Unavailable Pina, MD Unavailable Unavailable Pina, MD Unavailable Unavailable Pian, MD Unavailable Unavailable James Unavailable Unavailable James [...] is protected by Article 27-F of the [facility] Public Health law. If you continue you may haveaccess to information: Regarding HIV / AIDS; Provided by facilities licensed or operated by the [facility] Office of Mental Health; or Provided by the [facility] Office for People With Developmental Disabilities. If such information is present, then the following [facility] mandated warning applies: This information has been [...] law may result in a fine or care home sentence or both. A general authorization for the release of medical or other information is NOT sufficient authorization for further disclosure. Allergies and Adverse Reactions Type Description Substance Reaction Status Data Source(s ) Drug allergy Active Levaquin Active SENTHIL ([place] (Levofloxacin) [facility]) Drug allergy Active Levaquin Active SENTHIL ([place] (Levofloxacin) [facility]) Drug allergy Active Levaquin Active S[place]HIL ([place] (Levofloxacin) [facility]) Drug allergy Active Levaquin Active SENTHIL ([place] (Levofloxacin) [facility]) Drug allergy Active Levaquin Active SENTHIL ([place] (Levofloxacin) [facility]) Drug allergy Active Levaquin Active SENTHIL ([place] (Levofloxacin) [facility]) Drug allergy Levofloxacin 250 MG Levofloxacin 250 MG Activ e SENTHIL (Mount Oral Tablet Oral Tablet [facility]) Drug allergy Active Biaxin Active SENTHIL ([place] (Clarithromycin) [facility]) Drug allergy Active Biaxin Active SENTHIL ([place] (Clarithromycin) [facility]) Drug allergy Active Biaxin Active SENTHIL ([place] (Clarithromycin) [facility]) Drug allergy Active Biaxin Active SENTHIL ([place] (Clarithromycin) [facility]) Drug allergy Active Biaxin Active SENTHIL ([place] (Clarithromycin) [facility]) Drug allergy Active Biaxin Active SENTHIL ([place] (Clarithromycin) [facility]) Drug allergy Clarithromycin 250 Clarithromycin 250 Active SENTHIL ([place] MG Oral Tablet MG Oral Tablet [facility]) Encounters Encounter Providers Location Date Indications Data Source(s ) Outpatient Attender: Ha Phan 05/04/2020 [facility] MDAdmitter: Ha 03:15:00 PM [facility] MDReferrer: EDT Ha Mcmahon MD Attender: Ha Mcmahon [facility] 05/04/2020 NEXT GEN ([facility] 03:15:00 PM Antonio Mcgovern ak EDT - Center) 05/04/2020 03:15:00 PM EDT Outpatient Attender: MHAW9 03/19/2020 GSI ([facility] 11:21:54 AM [facility] EDT [facility]) Patient admitted. Unlisted evaluation 02/11/2020 03:15:00 NETSMART (Mental and management PM EDT Health Ass ociation of service [place]) Unlisted evaluation 12/23/2019 08:06:00 NETSMART (Mental and management PM EDT Health Ass ociation of [facility]) Outpatient Attender: MHAW9 10/06/2019 11:50:00 GSI ([facility] EST Care [facility] ) Patient admitted. Outpatient<td ID="encounterTypeDescriptionID0">OFFICE Attender: Mustapha 08/03/2019 MastodyniaAsthma Mild SENTHIL VISIT</td><td>[facility]</td><td>[facility] 12:00:00 PM PersistentHypothyroidismObesity ([facility] EST - Neighbor james Center</td><td>08/03/2019</td><td><content [facility] 07/19 Health ID="encounterDiagnosisID0-0">Asthma Mild 11:32: 58 AM Center) Persistent</content>, <content EST ID="encounterDiagnosisID0-1">Hypothyroidism</content>, <content ID="encounterDiagnosisID0-2">Mastodynia</content>, <content ID="encounterDiagnosisID0-3">Obesity</content></td> Mastodynia Asthma Mild Persistent Hypothyroidism Obesity Unlisted 07/14/2019 NETSMART evaluation 05:45:00 PM (Mental and EST Health management Association service [facility]) Outpatient< Attender: Mustapha 06/09/2019 Sore ThroatAsthma [facility] 10:45:00 AM IntermittentSore ThroatA sthma ([place] ID="[facility] EDT - IntermittentHypothyroidi smHypot Neighborhood erTypeDescr [facility] 06/09/2019 hyroidismObesityObesity Health iptionID1"> 12:22:50 PM Center) OFFICE EDT VISIT</td>< td>[facility]</td><td >[facility]</td> <td> 019</td><td ><content ID="encount erDiagnosis ID1-0">Asth ma Intermitten t</content> , <content ID="encount erDiagnosis ID1-1">Sore Throat</con tent>, <content ID="encount erDiagnosis ID1-2">Hypo thyroidism< /content>, <content ID="encount erDiagnosis ID1-3">Obes ity</conten t></td> Sore Throat Asthma Intermittent Sore Throat Asthma Intermittent Hypothyroidism Hypothyroidism Obesity Obesity Outpatient<td Attender: Mustapha 05/06/2019 Asthma Mild Intermitte nt [place] ID="encounterTypeDescriptionID2">OFFICE [facility] 1 2:00:00 PM with ExacerbationOther ([place] VISIT</td><td>[facility] EDT - Speci fied [facility]</td><td>[facility] Center 05/06/[address] [facility]</td><td>05/06/2019</td><td><content 01:00:26 PM ImpactionSore ThroatAsthma Center) ID="encounterDiagnosisID2-0">Sore EDT [...] Obesity Obesity Obesity Outpatient<td Attender: Mustapha 04/11/2019 [place] ID="encounterTypeDescriptionID3">*Chart [facility] 01:30:0 0 PM ([place] Update*</td><td>JOVI ROBERTSON [facility] EDT - Neighborhood MD</td><td>[facility] 04/11/2019 Health Center</td><td>04/11/2019</td><td></td> 11:59:0 0 PM Center) EDT Outpatient<td Attender: Mustapha 04/07/2019 SENTHIL ID="encounterTypeDescriptionID4">OFFICE [facility] 03:00:0 0 PM (Candice Rajan VISIT</td><td>[facility] EDT - Neighborhood [place]</td><td>[facility] 04/07/2019 Health Center</td><td>04/07/2019</td><td></td> 04:13:2 9 PM Center) EDT Unlisted evaluation and management 03/27/2019 NETSMART service 03:00:00 PM (Mental EDT - Health 05/07/2019 Association 04:00:00 PM of EDT [place]) Outpatient<td Attender: Mustapha 01/23/2019 SENTHIL ID="encounterTypeDescriptionID5">*No [facility] 02:41:00 P M (Candice Rajan Show*</td><td>[facility] EDT - Neighborhood WELFARE PROJECT MANAGER</td><td>[facility] WELFARE PROJECT MANAGER Center 01/23/2019 Health Center</td><td>01/23/2019</td><td></td> 11:59:0 0 PM Center) EDT Emergency Attender: 01/15/2019 Diego MCGUIRE, 12:08:00 AM O [facility] EDT R Care ter: E Floridalma MCGUIRE, T JUANITO H R O A T , E A R P A I N SORE THROAT, EAR PAIN Outpatient<td Attender: Mustapha 01/14/2019 Asthma Mild Persistent Earache Right SENTHIL ID="encounterTypeDescriptionID6">OFFICE [facility] 0 2:30:00 PM EarOther Specified General Medical (Candice Rajan VISIT</td><td>[facility] EDT - ExaminationsAsthma Mild PersistentEarache [facility] WELFARE PROJECT MANAGER</td><td>[facility] Center 12/18 Right EarOther Specified General [...] / Hip / Femur LeftAsthma Mild SENTHIL VISIT</td><td>[facility]</td><td>[facility] 11:30:00 AM IntermittentArthralgia - Pelvis / Hip / Femur LeftAsthma Mild IntermittentArthralgia - Pelvis / Hip / Femur LeftAsthma ([facility] EDT - Mild Interm ittentArthralgia - Pelvis / Hip / Femur LeftAsthma Mild Neighborhood Center</td><td>11/04/2018</td><td><content WELFARE PROJECT MANAGER Center 11/04/2018 IntermittentHypothyroidismHypothyroidismHypothyroidismHypothyroidismHypothyroidi Health ID="encounterDiagnosisID7-0">Obesity</content>, 12:31:32 PM [...] Femur LeftLimb Pain LegAsthma Mild PersistentNicotine SENTHIL VISIT</td><td>[facility]</td><td>[facility] 03:30:00 PM DependenceArthralgia - Pelvis / Hip / Fe mur LeftLimb Pain LegAsthma Mild PersistentNicotine DependenceArthralgia - Pelvis / Hip / ([facility]</td><td>10/23/2018</td><td><[facility] - [facility] LeftLimb Pain LegAsthma Mild Persi stentNicotine DependenceArthralgia - Pelvis / Hip / Femur LeftLimb Pain LegAsthma Mild Neighborhood ID="encounterDiagnosisID8-0">Obesity</content>, <content WELFARE PROJECT MANAGER Center 10/23/2018 PersistentNicotine DependenceArthralgia - Pelvis / [...] Attender: Mustapha 07/07/2018 GerdBronchitisGerdBronchitisGerdBronchitisGerdBronchitisGerdBronchitisGerdBronch itisGerdBronchitisObesityObesityObesityObesityObesityObesityObesity SENTHIL ID="encounterTypeDescriptionID9">OFFICE [facility] 11:30:0 0 AM ([place] VISIT</td><td>[facility]</td><td>[facility] Center 07/07/2018 Health Center</td><td>07/07/2018</td><td><content 11:5 6:14 AM Center) ID="encounterDiagnosisID9-0">Obesity</content>, EST <content ID="encounterDiagnosisID9-1">Bronchitis</content> , <content ID="encounterDiagnosisID9-2">Gerd</content></td> Gerd Bronchitis Gerd Bronchitis Gerd Bronchitis Gerd Bronchitis Gerd Bronchitis Gerd Bronchitis Gerd Bronchitis Obesity Obesity Obesity Obesity Obesity Obesity Obesity Outpatient<td Attender: Mustapha 05/14/2018 ObesityObesityObesityObesityObesityObesityObesity SENTHIL ID="pcorsccnjZxcsIzbfhqlhfgrCL56">[Patient [facility] 11:5 2:00 AM (Candice Rajan Encounter]</td><td>[facility] EDT - Neighborhood WELFARE PROJECT MANAGER</td><td>[facility] Center 05/14/2018 Health Center</td><td>05/14/2018</td><td><content 11:5 9:00 PM Center) ID="ipvpimvifTajxglpmtIT75-7">Obesity</content></td> EDT Obesity Obesity Obesity Obesity Obesity Obesity Obesity Outpatient<td Attender: Mustapha 05/14/2018 SENTHIL ID="hvqcewttjGkejSvlirruxqmcQY55">OFFICE [facility] 11:30: 00 AM (Candice Rajan VISIT</td><td>[facility] EDT - [facility] WELFARE PROJECT MANAGER</td><td>[facility] 05/14/2018 Health Center</td><td>05/14/2018</td><td></td> 12:11:5 6 PM Center) EDT Outpatient<td Attender: Mustapha 05/13/2018 SENTHIL ID="tfyyyhknkVmyvEerbtnplhslVR90">*Meme DIANE [facility] 04:38:00 PM ([place] Show*</td><td>ROXI VALIENTE MD [facility] EDT - [facility] </td><td>[facility] 05/13/2018 Health Center</td><td>05/13/2018</td><td></td> 11:59:0 0 PM Center) EDT Outpatient<td Attender: Mustapha 04/22/2018 [place] ID="hztnadabbCakmBugvrzfmnegTN27">*No MALATHI [facility] 04:50:00 PM ([place] Show*</td><td>MALATHI MARTINEZ Health EDT - Neighborhood CNM</td><td>[facility] 04/22/2018 Health Center</td><td>04/22/2018</td><td></td> 11:59:0 0 PM Center) EDT Outpatient<td Attender: Mustapha 04/04/2018 SENTHIL ID="jhdpcixbcCwlqUtbqmlvqofdYH86">*No [facility] 11:34:00 AM ([place] Show*</td><td>[facility] EDT - Neighborhood WELFARE PROJECT MANAGER</td><td>[facility] Center 04/04/2018 Health Center</td><td>04/04/2018</td><td></td> 11:59:0 0 PM Center) EDT Outpatient<td Attender: Mustapha 03/31/2018 SENTHIL ID="afuwicdgaOnbbDlavpkrftqeGP80">*[facility] 04:29:00 PM ([place] Show*</td><td>ROXI VALIENTE MD [facility] EDT - Neighborhood MD</td><td>[facility] 03/31/2018 Health Center</td><td>03/31/2018</td><td></td> 11:59:0 0 PM Center) EDT Outpatient<td Attender: Mustapha 03/25/2018 SENTHIL ID="lzezzbkycXncvHrbhzmqcsrhKW63">OFFICE [facility] 01:15: 00 PM (Candice Rajan VISIT</td><td>ROXI VALIENTE MD [facility] EDT - Neighborhood MD</td><td>[facility] 03/25/2018 Health Center</td><td>03/25/2018</td><td></td> 04:56:3 5 PM Center) EDT Outpatient<td Attender: Mustapha 01/21/2018 B SENTHIL ID="ajnoslbodQcsrBedefmksgkpZA19">OFFICE [facility] 12:45: 00 PM a (Candice Rajan VISIT</td><td>[facility] EDT - c Neighborhood WELFARE PROJECT MANAGER</td><td>[facility] Center 01/21/2018 Health Center</td><td>01/21/2018</td><td><conten 01:29 :57 PM a Center) t EDT c ID="fhfjpwafmAftanjjxhON93-3">Hypothyroid h ism</content>, <content e ID="izheakgbfMmlvxdcoeWH91-7">Asthma</con B tent>, <content a ID="eopsvkwlaOxmeafumoUR84-0">Backache</c c ontent></td> k a c h e [...] Asthma Asthma Asthma Outpatient<td Attender: Mustapha 01/21/2018 [place] ID="ywufaekzeTdjnDcjboqdxyvsWE93">PATIENT [facility] 08:56 :00 AM (Candice Rajan ADVOCACY</td><td>[facility] EDT - [facility]</td><td>[facility] 2017 Health Center</td><td>01/21/2018</td><td></td> 11:59:0 0 PM Center) EDT Outpatient<td Attender: 12/31/2017 [place] ID="cuelcykndAvmhNaqiqbdsqfbYF94">*Phone*< ASTRID 02:1 6:00 PM (Candice Rajan /td><td>ASTRID JULIO MD</td><td> SUMANTH ROBLES EDT - Neighborhood 12/31/2017 Health </td><td>12/31/2017</td><td></td> 11:59:00 PM Center) EDT Outpatient<td Attender: Mustapha 12/31/2017 [facility] ID="rnxuzjcxmXuiuZelwqtpxeycSO00">*[facility] 02:1 6:00 PM y ([facility]*</td><td>[facility] EDT - p Neighborhood WELFARE PROJECT MANAGER</td><td>[facility] WELFARE PROJECT MANAGER Center 12/31/2017 o Health Center</td><td>12/31/2017</td><td><content 11:5 9:00 PM t Center) ID="znszqaraiZivcxmnphVZ21-2">Hypothyroidi EDT h </content></td> y r o i [...] Hypothyroidism Hypothyroidism Hypothyroidism Hypothyroidism Outpatient<td Attender: 12/27/2017 [place] ID="gjoahnioyWomwVstgtzuqvxiZY26">*Phone*</td><td>ATSRID [facility]ENDIZ 10:51:00 AM ([place] JULIO MD</td><td> SUMANTH ROBLES EDT - Neigh borhood </td><td>12/27/2017</td><td></td> 12/27/2017 Health 11:59:00 PM Center) EDT Outpatient<td ID="dxedcfkktJdvcSxqnrgkirpzHA38">OFFICE Attender: Ayse 12/24/2017 [facility] VISIT</td><td>ASTRID JULIO MD</td><td>[facility] DARAL YN o 01:45:00 PM e ([facility]</td><td>12/24/2017</td><td><beatrice JULIO MD n EDT - a Neighborhood ID="sornrvelpBltqrfjuqBE20-5">Hypothyroidism</content>, k 12/24/2017 r Health <content ID="htihwpricMxnouunjbDR46-1">Asthma</content>, e 03:05:50 PM t [place]) <content r EDT b ID="lwauryyvaKyfbtffvnJT81-2">Heartburn</content>, s u <content C r ID="tyqlipoqxQilzlewgvEK94-6">Obesity</content></td> o n m H m e u [...] Obesity Asthma Outpatient<td Attender: Candice Rajan 11/21/2017 [place] ID="jzcttinbcQwuvSovowtyuywsNI82">*[facility] 03:15:0 0 PM ([place] Show*</td><td>TASNEEM Hernandes MD Health [place] EDT - [place] ROBLES</td><td>[facility] 11/21/2017 Health Health 11:59:00 PM Center) Center</td><td>11/21/2017</td><td></td> EDT Outpatient<td Attender: [place] 11/13/2017 SENTHIL ID="azexbugyvTwqjXsgiqozyjluMM84">*[facility] 12:1 8:00 PM ([facility]*</td><td>KATJA PINA Hernandes MD Health Center EDT - Neighborhood </td><td>[facility] 11/13/2017 Health Health 11:59:00 PM Center) Center</td><td>11/13/2017</td><td></td> EDT Outpatient<td Attender: [place] 11/06/2017 P SENTHIL ID="sbpvqcgubTkoqLfszkceqidvWF03">ENDOME [facility] 12:3 0:00 PM o ([place] [employer]</td><td>KATJA PINA Hernandes MD Health Center EDT - s Neighborhood </td><td>[facility] 11/06/2017 [facility] 01:45:47 PM [facility]) Center</td><td>11/06/2017</td><td><micah EDT e nt n ID="ztgowgyhuDhwmsiqeiLH29-2">Postmenopa o usal Bleeding</content></td> p a u s [...] Postmenopausal Bleeding Outpatient<td Attender: Mustapha 11/04/2017 SENTHIL ID="niyasmgrvMrhjQqlkdjkozxmUU61">OFFICE [facility] 10:00: 00 AM (Candice Rajan VISIT</td><td>[facility] EDT - Neighborhood WELFARE PROJECT MANAGER</td><td>[facility] WELFARE PROJECT MANAGER Center 11/04/2017 Health Center</td><td>11/04/2017</td><td></td> 11:03:5 0 AM Center) EDT Outpatient<td Attender: Mustapha 10/16/2017 Ivan NDIAYE ID="jmagruvclLdjlXdixbflycnuMU80">OFFICE [facility] 10:00: 00 AM r ([place] VISIT</td><td>[facility] EST - i [facility] WELFARE PROJECT MANAGER</td><td>[facility] WELFARE PROJECT MANAGER Center 10/16/2017 c Health Center</td><td>10/16/2017</td><td><conten 11:28 :21 AM h Center) t EST o ID="cqmlqspvgUiulauyckOF43-1">Hypothyroid m ism</content>, <content o ID="smuavrxsrOdpececiqST70-2">Trichomonia n sis</content></td> i a s i s [...] Hypothyroidism Hypothyroidism Hypothyroidism Outpatient<td Attender: 10/10/2017 SENTHIL ID="ylzvynipyYjzuUynpemywluoVJ16">[Patient RINY 04:2 1:00 PM ([place] Encounter]</td><td>ROXI VALIENTE MD</td><td> STEFFANIE ROBLES EST - Neighborhood 10/10/2017 Health </td><td>10/10/2017</td><td></td> 11:59:00 PM [place]) EST Outpatient<td Attender: Ted 09/27/2017 Hype [place] ID="ihwllvvycCzncUdcsqkiffevCB03">OFFICE [facility] 01:00: 00 PM rlip ([place] VISIT</td><td>ROXI VALIENTE MD [facility] </td><td>[facility] 09/27/2017 [facility]</td><td>09/27/2017</td><td><content y 02:5 4:24 [facility] ID="exlflznfaObnulhtoxAE57-8">Hypothyroidis Heal EST itis m</content>, <content th Hypo ID="coufmpdilDsusbvbhwSE33-7">Bronchitis</c Cent thyr ontent>, <content er oidi ID="kccrqxnpkXpteykmrnER35-5">Hyperlipidemi smHy a</content></td> leonor ipid emia Bron chit [...] Bronchitis Hypothyroidism Outpatient<td Attender: Mustapha 08/23/2017 SENTHIL ID="bpmbtyhucRrwfKrpzwsdrpgpJD74">*No [facility] 04:10:00 PM ([place] Show*</td><td>ROXI VALIENTE MD [facility] EST [facility] </td><td>[facility] 08/23/2017 Health Center</td><td>08/23/2017</td><td></td> 11:59:0 0 PM Center) EST Outpatient<td Attender: 08/05/2017 [place] ID="oiaqfzoccPebfEsucoemdvtbGZ81">[Patijim DIANE 03:10: 00 PM (Candice Rajan nt Encounter]</td><td>ROXI VALIENTE MD EST - [facility] MD</td><td> 08/05/2017 Health </td><td>08/05/2017</td><td></td> 11:59:00 PM Center) EST Outpatient<td Attender: Mustapha 08/02/2017 H [place] ID="yqqvsiyfbZouuVvukqwtqjhjEP76">MARCI DIANE [facility] 09:45: 00 AM y ([facility]</td><td>ROXI VALIENTE MD</td><td>Mustapha VALIENTE MD Health EST - p [facility] 08/02/2017 o Health Center</td><td>08/02/2017</td><td><micah 10:36: 08 AM t Center) nt EST h ID="dlnreuarvSjdnwurxsML98-8">Diarrhea</ y content>, <content r ID="dzhvqjpcnJuxjyjvpkHG45-6">Hypothyroi o dism</content>, <content i ID="reavgnmkhAavfgpwvbTZ69-7">Hyperlipid d emia</content></td> i s m H y [...] Diarrhea Hyperlipidemia Diarrhea Outpatient<td Attender: 08/01/2017 SENTHIL ID="zkycipjbvMzbxKhwgeryrrecLZ16">[Patient [facility] 12:5 5:00 PM ([place] Encounter]</td><td>ROXI VALIENTE MD</td><td> [place]IE [place] EST - Neighborhood 08/01/2017 Health </td><td>08/01/2017</td><td></td> 11:59:00 PM Center) EST Outpatient<td Attender: 07/30/2017 SENTHIL ID="ywqwnbluyMhnrPrafgqjcemqGT80">[Patient [facility] 03:1 3:00 PM ([place] Encounter]</td><td>ROXI VALIENTE MD</td><td> [place]FFANIE [place] EST - Neighborhood 07/30/2017 Health </td><td>07/30/2017</td><td></td> 11:59:00 PM Center) EST Outpatient<td Attender: Ted 07/26/2017 Sorayae [place] ID="cszntcfleRpglNlvealjofcpAV72">OFFICE RIN ers 10:30: 00 AM rten ([place] VISIT</td><td>ROXI VALIENTE MD Comm [facility] </td><td>[facility] 07/26/2017 ([facility] Center</td><td>07/26/2017</td><td><content y 12:0 3:42 PM yuliet Center) ID="ietkpeqwrXigqciynzPY92-0">Injury of Heal EST c)Ot Gallbladder</content>, <content th itis ID="uhcqplqzvFacagysyvAV89-3">Gastritis</co Cent Medi ntent>, <content er aQue ID="fqszheoyoTblsztkqlVB73-7">Asthma</micah stio nt>, <content nnai ID="axngpjbbkDxkavjavgTQ65-9">Depression</c res ontent>, <content Phq- ID="iyhainwnsQmfvxvcjzWM00-7">Questionnaire 9 s Phq-9 Quick Depression Assessment Quic Panel</content>, <content k ID="sglwfrgydBdbdjyoafXS36-6">Otitis Depr Media</content>, <content essi ID="aaufdegzqFjmzpcdbzCI35-6">Hypertension on (systemic)</content>, <content Asse ID="qaipjpmzgPhaesvhqbYL92-4">Obesity</cont ssme ent></td> nt Pane lDep ress ionG [...] Obesity Asthma Obesity Asthma Outpatient<td Attender: 07/02/2017 SENTHIL ID="wicylayrkNeepIcfgvycwzclLU18">[Patient MALATHI 04:5 1:00 PM ([place] Encounter]</td><td>MALATHI KAILEY BONNER CNM EST - Neighborhood CNM</td><td> 07/02/2017 Health </td><td>07/02/2017</td><td></td> 11:59:00 PM Center) EST Outpatient<td Attender: Amanda 06/28/2017 SENTHIL ID="zxzganabgKhpiHzwuqnunrixIY22">OFFICE Anhtho t 02:45: 00 PM ([place] VISIT</td><td>ANHTHO PINA Hernandes MD [place] EST - Neighborhood </td><td>[facility] Health on 05/2017 Health Center</td><td>06/28/2017</td><td></td> Neig 06:04:5 0 PM Center) hbor EST james Heal th Cent er Outpatient<td Attender: Ted 06/24/2017 SENTHIL ID="zvxuewyqnVnqoGpkhweovpzcDB77">WALK[place]</ MALATHI ers 11: 45:00 AM ([place] td><td>MALATHI KAILEY CNM</td><td>[place] KAILEY CNM Comm [facility] 06/24/2017 Health Center</td><td>06/24/2017</td><td></td> y 12:32:2 4 PM Center) Heal EST th Cent er Outpatient<td Attender: 06/12/2017 [place] ID="ofymcmethMrejUeruodoumhwTY23">*OUTREACH MALATHI 10: 11:00 AM ([place] *</td><td>MALATHI KAILEY CNM</td><td> KAILEY CNM EDT - Neighborhood </td><td>06/12/2017</td><td></td> Health 11:59:00 PM Center) EDT Outpatient<td Attender: Lauro 06/11/2017 [place] ID="xkstwjajqQrmuAuxlfewnfruFR84">Regular FAVIOLA ers 12:00 :00 PM ([place] Sonogram</td><td>FAVIOLA HOA CAMARA MD Comm EDT - [facility] MD</td><td>[facility] 06/11/2017 Health Center</td><td>06/11/2017</td><td></td> y 11:59:0 0 PM Center) [facility] EDT th Cent er Outpatient<td Attender: Ted 06/10/2017 [facility] ID="gkfilmfstMpqdGpojhlkdjcwUV97">OFFICE MALATHI ers 10:30: 00 AM ine ([place] VISIT</td><td>MALATHI KAILEY KAILEY CNM Comm EDT - [place] CNM</td><td>[facility] 06/10/2017 [facility]</td><td>06/10/2017</td><td><content y 11:4 7:00 AM [facility] ID="[id number]">Vaginitis</co Heal EDT l ntent>, <content th Exam ID="[id number]">Routine Cent with Gynecological Exam with Cervical Pap [...] Cervical Pap Smear Vaginitis Outpatient<td Attender: 04/16/2017 [place] ID="lfhkrvgtwUopiTosmbmhhwpeUB39">[Patient RINY 12:3 7:00 PM ([place] Encounter]</td><td>ROXI VALIENTE MD</td><td> STEFFANIE ROBLES EDT Neighborhood 04/16/2017 [facility] </td><td>04/16/2017</td><td></td> 11:59:00 PM Center) EDT Outpatient<td Attender: Ted 04/11/2017 [facility] ID="hmaoxzhsxYjchBzohzdeyyxbQX95">OFFICE RINY ers 01:45: 00 PM ([place] VISIT</td><td>ROXI VALIENTE MD [facility] EDT - [facility] </td><td>[facility] 04/11/2017 Health Center</td><td>04/11/2017</td><td></td> y 03:18:4 0 PM Center) Heal EDT th Cent er Outpatient<td Attender: Ted 11/30/2016 Adriel [place] ID="xjxqoipwkQmtkWowchcnnqomLC00">OFFICE JAMI ers 11:30: 00 AM monster ([place] VISIT</td><td>[facility] EDT - [place] WELFARE PROJECT MANAGER</td><td>[facility] unit 11/30/2016 itis Health Center</td><td>11/30/2016</td><td><content y 12:4 7:42 PM Adriel Center) ID="[id number]">Allergic Heal EDT rgic Rhinitis</content></td> th Rhin Cent itis er Adriel rgic Rhin itis Adriel rgic Rhin itis Adriel rgic Rhin itis Adriel rgic Rhin itis Adriel rgic Rhin itis Allergic Rhinitis Allergic Rhinitis Allergic Rhinitis Allergic Rhinitis Allergic Rhinitis Allergic Rhinitis Allergic Rhinitis Outpatient<td Attender: Mutsapha 10/18/2016 SENT[place] ID="glxbjfhspAbfqXdaildoxatfQX51">OFFICE [facility] 12:00: 00 PM ([place] VISIT</td><td>[facility] EST - Neighborhood WELFARE PROJECT MANAGER</td><td>[facility] Center 10/18/2016 Health Center</td><td>10/18/2016</td><td></td> 01:21:1 7 PM Center) EST Outpatient<td Attender: Mustapha 08/30/2016 SENT[place] ID="lpfduvrblCbmrCcwexiunkrjGY48">OFFICE [facility] 09:15: 00 AM ([place] VISIT</td><td>ROXI VALIENTE MD [facility] EST - Neighborhood </td><td>[facility] 08/30/2016 Health Center</td><td>08/30/2016</td><td></td> 11:24:4 3 AM Center) EST Outpatient<td Attender: 08/14/2016 SENT[place] ID="cnaqyyhnkGljoQlbizuvpzazWE19">[La DIANE 12:30 :00 PM ([place] t Encounter]</td><td>ROXI VALIENTE MD EST - Neighborhood </td><td> 08/14/2016 Health </td><td>08/14/2016</td><td></td> 11:59:00 PM Center) EST Outpatient<td Attender: Mustapha 03/29/2016 SENT[place] ID="rbdqbfwylOvciBsgtpyrgehyEA05">[[facility] 04:39 :00 PM ([place] t Encounter]</td><td>[facility] EDT - Neighborhood </td><td>[facility] 03/29/2016 Health Center</td><td>03/29/2016</td><td></td> 11:59:0 0 PM Center) EDT Outpatient<td Attender: Mustapha 03/20/2016 SENT[place] ID="ofvalbdrkVqgmIpclvtdxcvdLT11">OFFICE [facility] 09:15: 00 AM (Candice Rajan VISIT</td><td>[facility] EDT - [facility] </td><td>[facility] 03/20/2016 Health Center</td><td>03/20/2016</td><td></td> 09:53:1 0 AM Center) EDT Outpatient<td Attender: Mustapha 03/19/2016 SENTHIL ID="ymztatfziKifeYaywlzuraseNY81">[[facility] 03:17 :00 PM ([place] t Encounter]</td><td>[facility] EDT - [facility] </td><td>[facility] 03/19/2016 Health Center</td><td>03/19/2016</td><td></td> 11:59:0 0 PM Center) EDT Outpatient<td Attender: Mustapha 03/14/2016 A SENTHIL ID="kzdhsoagcDsxvZuujsugtbrcVJ25">OFFICE [facility] 10:30: 00 AM s (Candice Rajan VISIT</td><td>[facility] EDT - t [facility] </td><td>[facility] 03/14/2016 Health Center</td><td>03/14/2016</td><td><conten 10:49 :50 AM [facility]) t EDT a ID="[id number]">Asthma</con A tent></td> s t h m a A s t h m a A s t h m a A s t h m a A s t h m a A s t h m a Asthma Asthma Asthma Asthma Asthma Asthma Asthma Outpatient<td Attender: Mustapha 09/16/2015 [place] ID="vkalvlyidWqiqGyswwpjazhjYH49">*OUTREACH*</td><td>[facility] 10:02:00 AM ([facility]</td><td>[facility]</td><td>09/16/2015</td><td></td> [facility] [address] [place] [address] 11:59:00 PM Center) EST Outpatient<td ID="dyapytgodKcrtXvqdafzpyebVG23">OFFICE Attender: Mustapha 09/12/2015 P [place] VISIT</td><td>[facility]</td><td>[facility] 10:00:00 AM h ([facility]</td><td>09/12/2015</td><td><[facility] EST a Neighborhood ID="geynxwhccEwxixshftAM98-1">Pharyngitis</content></td> [facility] 09/12/2015 r Health 10:35:34 AM [facility]) EST n g i t i s [...] Pharyngitis Pharyngitis Pharyngitis Outpatient<td Attender: Mustapha 05/12/2015 [place] ID="iybdsxxepPryeUirzhaulmgsTZ38">*No [facility] 04:29:00 PM ([place] Show*</td><td>ROXI VALIENTE MD Health EDT - Neighborhood MD</td><td>[facility] 05/12/2015 Health Center</td><td>05/12/2015</td><td></td> 11:59:0 0 PM Center) EDT Outpatient<td Attender: 05/02/2015 [place] ID="ugbxkkwpmElcqWonritlyosnJV39">Follow AKUA 01:26: 00 PM ([place] </td><td>AKUA STERN MD</td><td> JARRED ROBLES EDT - Neighborhood 05/02/2015 Health </td><td>05/02/2015</td><td></td> 11:59:00 PM Center) EDT Outpatient<td Attender: Mustapha 05/02/2015 [place] ID="uwyttzrvwGxhaMypvbcohoxdGB54">Follow [facility] 10:00: 00 AM ([place] Rajan </td><td>[facility] 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 - 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</td><td>[facility] 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 Center 05/02/2015 Health Center</td><td>05/02/2015</td><td></td> 01:31:1 6 PM Center) EDT Outpatient<td Attender: Mustapha 04/21/2015 R [place] ID="zhzqbkefzCpzpYvejharwpbtDQ73">SHOVEL LOGGER [facility] 01:00:00 PM o ([place] Rajan ANNUAL</td><td>[facility] EDT - u [facility] 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</td><td>[facility] 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 Center 04/21/2015 Health Center</td><td>04/21/2015</td><td><micah 02:51: 08 PM i Center) nt ID="[id number]">Routine EDT n Gynecological Exam with Cervical Pap [...] with Cervical Pap Smear Outpatient<td Attender: 04/15/2015 [place] ID="tkzewondbRepcUurbzetfvkkOZ46">[Patient RINY 11:1 1:00 AM ([place] Encounter]</td><td>ROXI VALIENTE MD</td><td> STEFFANIE ROBLES EDT [place] 04/15/2015 Health </td><td>04/15/2015</td><td></td> 11:59:00 PM Center) EDT Outpatient<td Attender: Ted 04/14/2015 [facility] ID="czdsjtunxCfluLuwzduqrjydPL83">COMPLETE RINY ers 11:0 0:00 AM ache ([place] PHYSICAL EXAM</td><td>ROXI VALIENTE MD Comm EDT - kristen Jesus MD</td><td>[facility] 04/14/2015 [facility]</td><td>04/14/2015</td><td><content y 11:3 1:54 AM [facility]) ID="[id number]">Arthritis</co Heal EDT dArt ntent>, <content th hrit ID="[id number]">Gerd</content Cent isHe >, <content er adac ID="[id number]">Headache he Syndromes</content></td> Synd sophia sGer dArt hrit [...] Syndromes Gerd Arthritis Outpatient<td Attender: Mustapha 03/30/2015 [place] ID="bvfxbbihtBcgoUlxdqfafphpAG55">*No [facility] 03:28:00 PM ([place] Show*</td><td>ROXI VALIENTE MD Health EDT - Neighborhood </td><td>[facility] 03/30/2015 Health Center</td><td>03/30/2015</td><td></td> 11:59:0 0 PM [place]) EDT Outpatient<td Attender: Mustapha 12/15/2014 [place] ID="cqypvhxduPnsxCaaxkmrtspkES33">*No [facility] 12:24:00 PM ([place] Show*</td><td>ROXI VALIENTE MD Health EDT - Neighborhood </td><td>[facility] 12/15/2014 Health Center</td><td>12/15/2014</td><td></td> 11:59:0 0 PM [place]) EDT Outpatient<td Attender: Mustapha 12/14/2014 [facility] ID="lttahdkorUomrKbpbhnhmdvkJE43">Follow [facility] 09:45: 00 AM t ([place] Up</td><td>ROXI VALIENTE MD Health EDT - i Janis montoya MD</td><td>[facility] 12/14/2014 t Health Center</td><td>12/14/2014</td><td><micah 10:39: 00 AM i Center) nt EDT s ID="[id number]">Pharyngiti E s</content>, <content x ID="hbrveecnyJhiubaollZI00-6">Otitis t Externa</content></td> e r n a P [...] Mustapha 11/23/2014 Otitis MediaOt itis MediaOtitis MediaOtitis [place] ID="jukuuaqeoAeggOsxykondziwUR95">Follow [facility] 02:30:00 PM MediaOtitis MediaOtitis MediaOtitis ([place] Up</td><td>MARY SYED MD</td><td>Mustapha SYED [facility] EDT - MediaAsthmaAsthmaAsthmaAsthmaAsthmaAsthmaAsthma [facility] 11/23/2014 Health Center</td><td>11/23/2014</td><td><content 03:2 9:01 PM Center) ID="[id number]">Otitis EDT Media</content>, <content ID="bgkkqhrniRkvdtmotsQC03-7">Asthma</content></td> Otitis Media Otitis Media Otitis Media Otitis Media Otitis Media Otitis Media Otitis Media Asthma Asthma Asthma Asthma Asthma Asthma Asthma Outpatient<td Attender: Mustapha 11/16/2014 Routine ExaminationLim b [place] ID="bzgiltmczIotjXxdjpxgzhusYS21">Follow [facility] 01:30:00 PM Pain Hand and ([place] Up</td><td>ROXI VALIENTE MD</td><td>[facility] STEFFANIE ROBLES He alth EDT - FingersBronchitisRoutine [facility]</td><td>11/16/2014</td><td><content Cent er 11/16/2014 [facility] ID="[id number]">Bronchitis</content>, 12:49:35 PM and Center) <content ID="iqrfzusrjUepmilmiwZR99-2">Limb Pain EDT FingersBronchitisRoutine Hand and Fingers</content>, <content ExaminationLimb Pain Hand ID="xqkijghpsHismyfroxJT34-1">Routine and Examination</content></td> FingersBr onchitisRoutine ExaminationLimb Pain Hand [...] and Fingers Bronchitis Outpatient<td Attender: Mustapha 10/14/2014 [place] ID="tpffszoifQhsdLvlqpuaatnqDA63">*No [facility] 12:45:00 PM ([place] Show*</td><td>ROXI VALIENTE MD Health EST - [facility] </td><td>[facility] 10/14/2014 Health Center</td><td>10/14/2014</td><td></td> 11:59:0 0 PM Center) EST Outpatient<td Attender: Mustapha 05/04/2014 [facility] ID="qjhkaiaucLomrUxndpbdlhjsKS16">Follow [facility] 01:59: 00 PM ([place] Rajan Up</td><td>ROXI VALIENTE [facility]</td><td>[facility] 05/04/2014 Health Center</td><td>05/04/2014</td><td></td> 04:57:0 3 PM Center) EDT Outpatient<td Attender: 04/09/2014 SENT[facility] ID="dkyhzqszoHniwDgmigiycqynPK01">[Patijim DIANE 10:19: 00 AM ([place] Rajan nt Encounter]</td><td>ROXI VALIENTE MD EDT - Neighborhood </td><td> 04/09/2014 Health </td><td>04/09/2014</td><td></td> 11:59:00 PM Center) EDT Outpatient<td Attender: 03/23/2014 SENT[facility] ID="rpqavyxbjRrfnCnlzanxiwkeLC95">[Patijim DIANE 04:29: 00 PM ([place]ice Rajan nt Encounter]</td><td>ROXI VALIENTE MD EDT - Neighborhood </td><td> 03/23/2014 Health </td><td>03/23/2014</td><td></td> 11:59:00 PM Center) EDT Outpatient<td Attender: Mustapha 03/12/2014 [facility] ID="rqidwiaoePexrJyhfnrkikolGV45">OFFICE [facility] 10:01: 00 AM ([place] Rajan VISIT</td><td>ROXI VALIENTE MD Health EDT - Neighborhood </td><td>[facility] 03/12/2014 Health Center</td><td>03/12/2014</td><td></td> 12:42:1 4 PM Center) EDT Outpatient<td Attender: Mustapha 02/24/2014 [facility] ID="ptjnimohaMbfdSqjepqkzbyrRM06">COMPLE [facility] 12:39: 00 PM (Candice Rajan TE PHYSICAL EXAM</td><td>ROXI VALIENTE MD Health EDT - Neighborhood </td><td>[facility] 02/24/2014 Health Center</td><td>02/24/2014</td><td></td> 02:02:1 2 PM Center) EDT Outpatient<td Attender: Mustapha 12/22/2013 [place] ID="fvrocchwuVfnkDojgzshwqenPZ14">*No [facility] 03:47:00 PM ([place] Show*</td><td>ROXI VALIENTE MD Health EDT - Neighborhood </td><td>[facility] 12/22/2013 Health Center</td><td>12/22/2013</td><td></td> 11:59:0 0 PM Center) EDT Outpatient<td Attender: Mustapha 11/18/2013 [place] ID="cbetmzrsyJshwJytdzubmonsCC24">OFFICE [facility] 01:02: 00 PM ([place] VISIT</td><td>ROXI VALIENTE MD Health EDT - Neighborhood </td><td>[facility] 11/18/2013 Health Center</td><td>11/18/2013</td><td></td> 03:12:2 0 PM Center) EDT Outpatient<td Attender: Mustapha 09/01/2013 A [place] ID="teeiacdurRyxlNlgcknlymspVN36">[facility] 09:44: 00 AM s (Candice Rajan S</td><td>URVASHI [facility] EST - s [facility] </td><td>[facility] Center 09/01/2013 e Health Center</td><td>09/01/2013</td><td><micah 01:12: 37 PM s Center) EST s ID="[id number]">Assessment m [use For S.o.a.p. Note Free e [...] Free T ext] Outpatient<td Attender: Mustapha 05/06/2013 [place] ID="weefhtpfpXklcPnoyzillswjZM82">Follow [facility] 01:09: 00 PM (Candice Willams</td><td>ROXI VALIENTE MD</td><td>Mustapha VALIENTE MD Health EDT - [facility] 05/06/2013 Health Center</td><td>05/06/2013</td><td></td> 02:23:5 2 PM Center) EDT Outpatient<td Attender: 04/27/2013 [place] ID="ftlvrkobbYpvcFowlmpsikyzFB80">[La DIANE 04:07 :00 PM (Candice gilbert Encounter]</td><td>ROXI VALIENTE MD EDT - Neighborhood </td><td> 04/27/2013 Health </td><td>04/27/2013</td><td></td> 11:59:00 PM Center) EDT Outpatient<td Attender: Mustapha 04/24/2013 SENT[facility] ID="wapccqwjtWqnkYrkyswawnsfAS30">OFFICE [facility] 09:31: 00 AM (Candice Rajan VISIT</td><td>ROXI VALIENTE MD Health EDT - [facility] </td><td>[facility] 04/24/2013 Health Center</td><td>04/24/2013</td><td></td> 11:37:4 4 AM Center) EDT Outpatient<td Attender: Mustapha 04/16/2013 [place] ID="usfjmeaqxNgbuNxjrswqawakXR11">*[facility] 04:27:00 PM ([place] Show*</td><td>ROXI VALIENTE MD Health EDT - [facility] </td><td>[facility] 04/16/2013 Health Center</td><td>04/16/2013</td><td></td> 11:59:0 0 PM Center) EDT Outpatient<td Attender: 11/11/2012 [place] ID="bfedmpzsdZsomLvnrkvawjavKT29">[[place] DIANE 04:23 :00 PM ([place] t Encounter]</td><td>ROXI VALIENTE MD EDT - Neighborhood </td><td> 11/11/2012 Health </td><td>11/11/2012</td><td></td> 11:59:00 PM Center) EDT Outpatient<td Attender: Mustapha 11/11/2012 [facility] ID="jjdbkikyzTfsmNooqwjgbafcWA42">[facility] 01:[facility] PM ([place] </td><td>AKUA STERN MD [facility]</td><td>[facility] 11/11/2012 Health Center</td><td>11/11/2012</td><td></td> 11:59:0 0 PM Center) EDT Outpatient<td Attender: Mustapha 11/06/2012 [place] ID="twejdivtrEhqzJgveutkakpmVI27">Follow [facility] 01:36: 00 PM ([facility]</td><td>ROXI VALIENTE MD</td><td>Mustapha VALIENTE MD [facility] EDT [facility] Center 11/06/2012 Health Center</td><td>11/06/2012</td><td></td> 04:15:2 9 PM Center) EDT Outpatient<td Attender: Mustapha 11/06/2012 [place] ID="dfdjbahtiNlgvMxxikmmgaawHC12">Follow [facility] 12:09: 00 PM ([facility]</td><td>AKUA STERN MD [facility] EDT - [facility] </td><td>[facility] 11/06/2012 Health Center</td><td>11/06/2012</td><td></td> 11:59:0 0 PM Center) EDT Outpatient<td Attender: Mustapha 10/29/2012 [place] ID="idpesgjewBvvbYoslbhetyosPY93">SHOVEL LOGGER [facility] 01:40:00 PM ([place] ANNUAL</td><td>[facility] EDT - [facility] </td><td>[facility] 10/29/2012 Health Center</td><td>10/29/2012</td><td></td> 11:59:0 0 PM Center) EDT Outpatient<td Attender: [facility] 08/22/2012 S[place] ID="gtezxgsvrQtcgQsgcesmrlntHX69">OFFICE DAVINA Rajan 09:55: 00 AM ([place] VISIT</td><td>DAVINA OLIVERA MD [facility] </td><td>[facility] Health 08/22/2012 Health Health Center 11:59:00 PM Center) Center</td><td>08/22/2012</td><td></td> EST Outpatient<td Attender: Mustapha 08/18/2012 S[place] ID="jqvmngahaSpjhVpvrhisyqlbEC19">*No [facility] 10:45:00 AM ([place] Show*</td><td>ANA LILIA ALAINA FOLEY MD Health EST - [facility] </td><td>[facility] 08/18/2012 Health Center</td><td>08/18/2012</td><td></td> 11:59:0 0 PM Center) EST Outpatient<td Attender: Mustapha 08/16/2012 A [place] ID="tekktfntpJeprOxocyejvcevQO90">Follow [facility] 09:02: 00 AM s ([place] Up</td><td>[facility] - t [facility] </td><td>[facility] Center 08/16/2012 Health Center</td><td>08/16/2012</td><td><conten 09:54 :38 AM [facility]) t EST a ID="[id number]">Myofascial S Pain Syndrome</content>, <content k ID="[id number]">Skin i Disorder Exanthem</content>, <content n ID="tyxqybbwlQvtnnovqmXV43-8">Asthma</con D tent></td> i s o r d [...] Skin Disorder Exanthem Myofascial Pain Syndrome Outpatient<td [facility] 05/16/2012 [place] ID="rngwmzowmMshcZyzlsbhtuqcBC39">OFFICE Family 09:15: 00 AM ([place] VISIT</td><td> Center EDT - [facility] </td><td>[facility] Family 05/16/2012 [facility]) Center</td><td>05/16/2012</td><td></td> 11:59:0 0 PM EDT Medications Medication Brand Start Product Dose Route Administrative Pharmacy [facility] Indications Reaction Description Data Name Date Form Instructions Instructions Source(s) Melatonin 5 Melato 1.0 Oral active NE TSMART MG Oral maxx 2019 Capsu (Mental Capsule 04:00: le Health 00 AM Associatio EDT n [place] r) Clonazepam clonaz 1.0 Oral active NET SMART 1 MG Oral ePAM 2020 Table (Mental Tablet 04:00: t Health 00 AM Associatio EDT n [place] r) Clonazepam clonaz .0 Oral active NET SMART 1 MG Oral ePAM 2020 Table (Mental Tablet 04:00: t Health 00 AM [facility] topiramate Topama 08/ 1.0 Oral active NET SMART 50 MG Oral x 2020 Table (Mental Tablet 04:00: t Health [Topamax] 00 AM Associati o EDT [facility] Prazosin 2 Prazos 1.0 Oral active NET SMART MG Oral in HCl 2020 Capsu (Mental Capsule 04:00: le Health 00 AM Associatio EDT n [facility] Prazosin 2 Prazos 1.0 Oral active NET SMART MG Oral in HCl 2020 Capsu (Mental Capsule 04:00: le Health 00 AM Associatio EDT n of [facility] r) Tylenol Tyleno 08/03/ UNIT active Tylenol [...] HFA 108 (90 in HFA 2019 ON ([facility] Base)MCG/AC 108 12:00: DOSING [place] on T [...] NEBULE suspend Albute rol SENTHIL 0.21 MG/ML [facility] 2018 DOSING ed Sulfate (Isabella nt Inhalant Sulfat 12:00: UNIT Satinder Solution e 00 AM [place] Albuterol 0.63MG EDT od Healt h Sulfate /3ML Center) 0.63MG/3ML Inhala Inhalation tion Nebulizatio Nebuli n solution zation soluti on Ventolin Ventol 06/09/ INHALATI suspend Roopa jeaneth HFA SENTHIL HFA 108 (90 in HFA 2019 ON ed ([facility])MCG/AC 108 12:00: DOSING [place] on T (90 00 AM UNIT [place] Inhalation Base)M EDT od Heal th Aerosol CG/ACT Center) Solution Inhala tion Aeroso l Soluti on Cepacol Cepaco 06/09/ UNIT complet Cepacol GR EENWAY Regular l 2019 ed Regular ([facility] Strength Regula 12:00: Strength Akira non 3MG r 00 AM [place] Mouth/Throa Streng EDT od Hea lth t Lozenge th 3MG Center) Mouth/ Throat Lozeng e Symbicort Symbic 06/09/ INHALATI 1 suspend Symb icort SENTHIL 160-4.5MCG/ ort 2018 ON ed ([facility] ACT 160-4. 12:00: DOSING Satinder Inhalation 5MCG/A 00 AM UNIT Neighb orho Aerosol CT EDT od Health Inhala Center) tion Aeroso l Albuterol Albute 06/09/ NEBULE complet Albute rol SENTHIL 0.83 MG/ML [facility] 2018 DOSING ed Sulfate (Isabella nt Inhalant Sulfat 12:00: UNIT Satinder Solution e (2.5 00 AM Neighbor [place] Albuterol MG/3ML EDT od Healt h Sulfate )0.083 Center) (2.5 % IN MG/3ML)0.08 NEBU 3% IN NEBU Medication administered onsite NDC: [id number] Prednisone predniSONE 05/06/2019 UNIT 1 completed predniSONE SENTHIL 10 MG Oral 10MG Oral 12:00:00 AM ([place] Tablet Tablet EDT Ne[place]o d predniSONE Health 10MG Oral [place]) Tablet Cepacol Cepacol 05/06/2019 UNIT completed Cep acol SENTHIL Regular Regular 12:00:00 AM Regular ([place] Strength 3MG Strength 3MG EDT [facility] Mouth/Throat Mouth/Throat Health Lozenge Lozenge [place]) Symbicort Symbicort 04/11/2019 INHALA 1 suspended Symbicort SENTHIL 160-4.5MCG/A 160-4.5MCG/A 12:00:00 AM TION ([place] CT CT EDT DOSING [facility] Inhalation Inhalation UNIT [facility] Aerosol Aerosol [place]) Ventolin HFA Ventolin HFA 04/11/2019 INHALA suspended Ventolin HFA SENTHIL 108 (90 108 (90 12:00:00 AM TION (Aaron Rajan Base)MCG/ACT Base)MCG/ACT EDT DOSING [facility] Inhalation Inhalation UNIT [facility] Aerosol Aerosol [place]) Solution Solution Synthroid Synthroid 04/07/2019 UNIT 1 suspended Synthroid SENTHIL 125MCG Oral 125MCG Oral 12:00:00 AM ([place] Tablet Tablet EDT [facility]) Dulera Dulera 04/07/2019 INHALA 1 suspended Dul era SENTHIL 200-5MCG/ACT 200-5MCG/ACT 12:00:00 AM TION ([place] Inhalation Inhalation EDT DOSING [facility] Aerosol Aerosol [facility]) Motrin IB Motrin IB 04/07/2019 UNIT 1 active Mo ileana IB SENTHIL 200MG Oral 200MG Oral 12:00:00 AM ([place] Capsule Capsule EDT [facility]) Albuterol Albuterol 04/07/2019 NEBU[place] suspended Albuterol SENTHIL 0.21 MG/ML Sulfate 12:00:00 AM DOSING [place] lfate ([place] Inhalant 0.63MG/3ML EDT UNIT [facility] borhood Solution Inhalation Healt h Albuterol Nebulization Ce nter) Sulfate solution 0.63MG/3ML Inhalation Nebulization solution Omeprazole Omeprazole 04/07/2019 UNIT 1 completed Omeprazole SENTHIL 40 MG 40MG Oral 12:00:00 AM ([place] streetnt [place] Delayed Capsule EDT [facility] ood Release Oral Delayed [facility]al [facility] Capsule Release Center) Omeprazole 40MG Oral Capsule Delayed Release Omeprazole Omeprazole 04/07/2019 UNIT 1 active Omeprazole SENHTIL 40 MG 40MG Oral 12:00:00 AM (M ount Satinder Delayed Capsule EDT [facility] Release Oral Delayed [facility] [facility] Capsule Release Center) Omeprazole 40MG Oral Capsule Delayed Release Clonazepam 1 clonazePAM 01/27/2019 1.0 Or active NETSMART MG Oral 04:00:00 AM Tab al (Ment al Tablet EDT [facility]) 01/27/2019 OR active NETSMAR T 04:00:00 AM AL (Mental EDT [facility]) Albuterol Albuterol 01/14/2019 NEBULE active Albuterol SENTHIL 0.83 MG/ML Sulfate (2.5 12:00:00 AM DOSING Sulfate ([place] Inhalant MG/3ML)0.083 EDT UNIT [place] Solution % Inhalation Hea lt Albuterol Nebulization Ce nter) Sulfate (2.5 solution MG/3ML)0.083 % Inhalation Nebulization solution Synthroid Synthroid 01/14/2019 UNIT 1 suspended Synthroid SENTHIL 125MCG Oral 125MCG Oral 12:00:00 AM ([place] Tablet Tablet EDT [facility]) Breo Ellipta Breo Ellipta 01/14/2019 INHALA 1 active Breo Ellipta SENTHIL 100-25MCG/IN 100-25MCG/IN 12:00:00 AM TION ([place] H Inhalation H Inhalation EDT DOSING [facility] Aerosol Aerosol UNIT [facility] Powder Powder [place]) Breath Breath Activated Activated Omeprazole Omeprazole 01/14/2019 UNIT 1 suspended Omeprazole SENTHIL 40 MG 40MG Oral 12:00:00 AM (M ount [place] Delayed Capsule EDT [place] Release Oral Delayed [facility] Capsule Release Center) Omeprazole 40MG Oral Capsule Delayed Release Hydrocortiso Neomycin-Daquan 01/14/2019 CAPFUL 1 completed Neomycin-Daquan SENTHIL ne 10 MG/ML ymyxin-HC 1% 12:00:00 AM DOSING ymyxin-HC ([place] / Neomycin Otic EDT UNIT [place] 3.5 MG/ML / Solution [facility] Polymyxin B Center) 64198 UNT/ML Otic Solution Neomycin-Daquan ymyxin-HC 1% Otic Solution Ibuprofen Ibuprofen 01/14/2019 UNIT 1 completed Ibuprofen SENTHIL 400 MG Oral 400MG Oral 12:00:00 AM (Candice Rajan Tablet Tablet EDT [facility] Ibuprofen Health 400MG Oral [place]) Tablet Symbicort Symbicort 11/04/2018 INHALA 1 suspended Symbicort SENTHIL 160-4.5MCG/A 160-4.5MCG/A 12:00:00 AM TION (Candice Rajan CT CT EDT DOSING [facility] Inhalation Inhalation UNIT [facility] Aerosol Aerosol Center) Synthroid Synthroid 11/04/2018 UNIT 1 suspended Synthroid SENTHIL 125MCG Oral 125MCG Oral 12:00:00 AM ([place] Tablet Tablet EDT [facility]) Guaifenesin guaiFENesin 11/04/2018 CAPFUL completed guaiFENesin SENTHIL 20 MG/ML 100MG/5ML 12:00:00 AM DOSING ([place] Oral Oral EDT UNIT [facility] Solution Solution Health guaiFENesin [place]) 100MG/5ML Oral Solution Ibuprofen Ibuprofen 11/04/2018 UNIT 1 completed Ibuprofen SENTHIL 400 MG Oral 400MG Oral 12:00:00 AM ([place] Tablet Tablet T [facility] Ibuprofen Health 400MG [facility]) Tablet Cyclobenzapr Cyclobenzapr 11/04/2018 UNIT 1 completed Cyclobenzapr SENTHIL ine ine HCl 5MG 12:00:00 AM ine HC l ([place] hydrochlorid Oral Tablet T [facility] e 5 MG Oral Health Tablet [place]) Cyclobenzapr ine HCl 5MG Oral Tablet Omeprazole Omeprazole 11/04/2018 UNIT 1 suspended Omeprazole SENTHIL 40 MG 40MG Oral 12:00:00 AM ( ount [place] Delayed Capsule [facility] ood Release Oral Delayed Heal th Capsule Release Center) Omeprazole 40MG Oral Capsule Delayed Release Albuterol Albuterol 10/23/2018 NEBULE suspended Albuterol SENTHIL 0.83 MG/ML Sulfate (2.5 12:00:00 AM DOSING Sulfate ([place] Inhalant MG/3ML)0.083 EST UNIT [place] Solution % Inhalation [facility] Albuterol Nebulization Ce nter) Sulfate (2.5 solution MG/3ML)0.083 % Inhalation Nebulization solution Breo Ellipta Breo Ellipta 10/23/2018 INHALA 1 suspended Breo Ellipta SENTHIL 100-25MCG/IN 100-25MCG/IN 12:00:00 AM TION ([place] H Inhalation H Inhalation EST DOSING [facility] Aerosol Aerosol UNIT [facility] Powder Powder [place]) Breath Breath Activated Activated EQ Nicotine EQ Nicotine 10/23/2018 UNIT active EQ Nicotine SENTHIL 7MG/24HR 7MG/24HR 12:00:00 AM ([place] Transdermal Transdermal EST [facility] Patch 24 Patch 24 Health Hour Hour [place]) Ibuprofen Ibuprofen 10/23/2018 UNIT 1 suspended Ibuprofen SENTHIL 400 MG Oral 400MG Oral 12:00:00 AM ([place] Tablet Tablet EST [facility] Ibuprofen Health 400MG Oral [place]) Tablet Cyclobenzapr Cyclobenzapr 10/23/2018 UNIT 1 suspended Cyclobenzapr SENTHIL ine ine HCl 5MG 12:00:00 AM ine HC l ([place] hydrochlorid Oral Tablet EST [facility] e 5 MG Oral Health Tablet [place]) Cyclobenzapr ine HCl 5MG Oral Tablet Ventolin HFA Ventolin HFA 10/23/2018 INHALA active Ventolin HFA SENTHIL 108 (90 108 (90 12:00:00 AM TION ([place] Base)MCG/ACT Base)MCG/ACT EST DOSING [facility] Inhalation Inhalation UNIT [facility] Aerosol Aerosol Center) Solution Solution Singulair Singulair 10/23/2018 UNIT 1 active Si ngulair SENTHIL 10MG Oral 10MG Oral 12:00:00 AM ([place] Tablet Tablet [facility]) Omeprazole Omeprazole 07/07/2018 UNIT 1 suspended Omeprazole SENTHIL 40 MG 40MG Oral 12:00:00 AM ( ount [place] Delayed Capsule EST [facility] ood Release Oral Delayed Heal th Capsule Release [place]) Omeprazole 40MG Oral Capsule Delayed Release Guaifenesin GuaiFENesin 07/07/2018 CAPFUL completed guaiFENesin SENTHIL 20 MG/ML 300MG/15ML 12:00:00 AM DOSING ([place] Oral Oral EST UNIT [facility] Solution Solution Health GuaiFENesin [place]) 300MG/15ML Oral Solution Prednisone PredniSONE 07/07/2018 UNIT completed predniSONE SENTHIL 10 MG Oral 10MG Oral 12:00:00 AM ([place] Tablet Tablet EST [facility] PredniSONE Health 10MG [facility]) Tablet Augmentin Augmentin 07/07/2018 UNIT 1 completed Augmentin SENTHIL 875-125MG 875-125MG 12:00:00 AM ([place] Oral Tablet Oral Tablet EST [facility]) Ventolin HFA Ventolin HFA 07/07/2018 INHALA suspended Ventolin HFA SENTHIL 108 (90 108 (90 12:00:00 AM TION ([facility] Base)MCG/ACT Base)MCG/ACT EST DOSING [place] Inhalation Inhalation UNIT [facility] Aerosol Aerosol [place]) Solution Solution Albuterol Albuterol 07/07/2018 NEBULE suspended Albuterol SENTHIL 0.83 MG/ML Sulfate (2.5 12:00:00 AM DOSING Sulfate ([place] Inhalant MG/3ML)0.083 EST [facility]IT [facility] Solution % Inhalation [facility] Albuterol Nebulization Ce nter) Sulfate (2.5 solution MG/3ML)0.083 % Inhalation Nebulization solution Singulair Singulair 07/07/2018 UNIT 1 suspended Singulair SENTHIL 10MG Oral 10MG Oral 12:00:00 AM ([place] Tablet Tablet EST [facility]) Symbicort Symbicort 07/07/2018 INHALA 1 suspended Symbicort SENTHIL 160-4.5MCG/A 160-4.5MCG/A 12:00:00 AM TION ([facility] CT EST DOSING [facility] Inhalation Inhalation UNIT [facility] Aerosol Aerosol [place]) Synthroid Synthroid 05/14/2018 UNIT 1 suspended Synthroid SENTHIL 125MCG Oral 125MCG Oral 12:00:00 AM ([place] Tablet Tablet EDT [facility]) Symbicort Symbicort 05/14/2018 INHALA 1 suspended Symbicort SENTHIL 160-4.5MCG/A 160-4.5MCG/A 12:00:00 AM TION ([facility] CT EDT DOSING [facility] Inhalation Inhalation UNIT [facility] Aerosol Aerosol [place]) NexIUM 40MG NexIUM 40MG 05/14/2018 UNIT 1 active NexIUM SENTHIL Oral Packet Oral Packet 12:00:00 AM ([facility]) CVS Nicotine CVS Nicotine 05/14/2018 UNIT 1 active CVS Nicotine SENTHIL 14MG/24HR 14MG/24HR 12:00:00 AM ([place] Transdermal Transdermal EDT [facility] Patch 24 Patch 24 Health Hour Hour [place]) Albuterol Albuterol 05/14/2018 NEBULE suspended Albuterol SENTHIL 0.21 MG/ML Sulfate 12:00:00 AM DOSING Doyle lfate ([place] Inhalant 0.63MG/3ML EDT UNIT [place] Solution Inhalation Healt h Albuterol Nebulization Ce nter) Sulfate solution 0.63MG/3ML Inhalation Nebulization solution Ventolin HFA Ventolin HFA 05/14/2018 INHALA active Ventolin HFA SENTHIL 108 (90 108 (90 12:00:00 AM TION ([facility] Base)MCG/ACT Base)MCG/ACT EDT DOSING [facility] Inhalation Inhalation UNIT [facility] Aerosol Aerosol [place]) Solution Solution Symbicort Symbicort 01/21/2018 INHALA 1 suspended Symbicort SENTHIL 160-4.5MCG/A 160-4.5MCG/A 12:00:00 AM TION ([facility] EDT DOSING [facility] Inhalation Inhalation UNIT [facility] Aerosol Aerosol [place]) Ventolin HFA Ventolin HFA 01/21/2018 INHALA suspended Ventolin HFA SENTHIL 108 (90 108 (90 12:00:00 AM TION ([facility])MCG/ACT Base)MCG/ACT EDT DOSING [facility] Inhalation Inhalation UNIT [facility] Aerosol Aerosol [place]) Solution Solution Synthroid Synthroid 12/31/2017 UNIT 1 suspended Synthroid SENTHIL 100MCG Oral 100MCG Oral 12:00:00 AM ([place] Tablet Tablet [facility]) NexIUM 40MG NexIUM 40MG 12/24/2017 UNIT 1 suspended NexIUM SENTHIL Oral Packet Oral Packet 12:00:00 AM ([facility]) Symbicort Symbicort 12/24/2017 INHALA 1 suspended Symbicort SENTHIL 160-4.5MCG/A 160-4.5MCG/A 12:00:00 AM TION ([facility] EDT DOSING [facility] Inhalation Inhalation UNIT [facility] Aerosol Aerosol [place]) Synthroid Synthroid 12/24/2017 UNIT 1 suspended Synthroid SENTHIL 88MCG Oral 88MCG Oral 12:00:00 AM ([place] Tablet Tablet [facility]) Ventolin HFA Ventolin HFA 12/24/2017 INHALA suspended Ventolin HFA SNETHIL 108 (90 108 (90 12:00:00 AM TION ([place] Base)MCG/ACT Base)MCG/ACT EDT DOSING [facility] Inhalation Inhalation UNIT [facility] Aerosol Aerosol Center) Solution Solution Synthroid Synthroid 10/16/2017 UNIT 1 suspended Synthroid SENTHIL 88MCG Oral 88MCG Oral 12:00:00 AM ([place] Tablet Tablet [facility]) NexIUM 40MG NexIUM 40MG 10/16/2017 UNIT 1 suspended NexIUM SENTHIL Oral Packet Oral Packet 12:00:00 AM ([facility]) Flagyl 500MG Flagyl 500MG 10/16/2017 UNIT 1 completed Flagyl SENTHIL Oral Tablet Oral Tablet 12:00:00 AM ([facility]) Diflucan Diflucan 10/16/2017 UNIT 1 completed D iflucan SENTHIL 150MG Oral 150MG Oral 12:00:00 AM ([place] Tablet Tablet [facility]) Simvastatin Simvastatin 09/27/2017 UNIT 1 active Simvastatin SENTHIL 40 MG Oral 40MG Oral 12:00:00 AM ([place] Tablet Tablet [facility] Simvastatin Health 40MG [facility]) Tablet Simvastatin Simvastatin 09/27/2017 UNIT 1 suspended Simvastatin SENTHIL 40 MG Oral 40MG Oral 12:00:00 AM ([place] Tablet Tablet [facility] Simvastatin Health 40MG [facility]) Tablet Prednisone PredniSONE 09/27/2017 UNIT 1 active predniSONE SENTHIL 20 MG Oral 20MG Oral 12:00:00 AM ([place] Tablet Tablet [facility] PredniSONE Health 20MG [facility]) Tablet Nebulizer Nebulizer 09/27/2017 UNIT active Ne bulizer SENTHIL Miscellaneou Miscellaneou 12:00:00 AM ([facility]) Diflucan Diflucan 09/27/2017 UNIT 1 active Difl ucan SENTHIL 150MG Oral 150MG Oral 12:00:00 AM ([place] Tablet Tablet [facility]) Augmentin Augmentin 09/27/2017 UNIT 1 active Au gmentin SENTHIL 875-125MG 875-125MG 12:00:00 AM ([place] Oral Tablet Oral Tablet [facility]) Synthroid Synthroid 09/27/2017 UNIT 1 suspended Synthroid SENTHIL 75MCG Oral 75MCG Oral 12:00:00 AM ([place] Tablet Tablet [facility]) Simvastatin Simvastatin 08/02/2017 UNIT 1 active Simvastatin SENTHIL 20 MG Oral 20MG Oral 12:00:00 AM ([place] Tablet Tablet [facility] Simvastatin Health 20MG Oral Center) Tablet Synthroid Synthroid 08/02/2017 UNIT 1 active Sy nthroid SENTHIL 50MCG Oral 50MCG Oral 12:00:00 AM ([place] Tablet Tablet [facility]) Ventolin HFA Ventolin HFA 07/26/2017 INHALA suspended Ventolin HFA SENTHIL 108 (90 108 (90 12:00:00 AM TION ([place] Base)MCG/ACT Base)MCG/ACT EST DOSING [facility] Inhalation Inhalation UNIT [facility] Aerosol Aerosol Center) Solution Solution Hydrochlorot HydroCHLOROt 07/26/2017 UNIT 1 active hydroCHLOROt SENTHIL hiazide 25 hiazide 25MG 12:00:00 AM hiazide ([place] MG Oral Oral Tablet [facility] HydroCHLOROt [place]) hiazide 25MG Oral Tablet Symbicort Symbicort 07/26/2017 INHALA 1 suspended Symbicort SENTHIL 160-4.5MCG/A 160-4.5MCG/A 12:00:00 AM TION ([place] CT CT EST DOSING [facility] Inhalation Inhalation UNIT [facility] Aerosol Aerosol Center) NexIUM 40MG NexIUM 40MG 07/26/2017 UNIT 1 suspended NexIUM SENTHIL Oral Packet Oral Packet 12:00:00 AM ([facility]) Singulair Singulair 07/26/2017 UNIT 1 active Si ngulair SENTHIL 10MG Oral 10MG Oral 12:00:00 AM ([place] Tablet Tablet [facility]) Albuterol Ipratropium- 07/26/2017 CAPFUL 1 active Ipratropium- SENTHIL 0.833 MG/ML Albuterol 12:00:00 AM DOSING Albuterol ([place] / 0.5-2.5 [facility] UNIT [facility] Ipratropium (3)MG/3ML [facility] [place] [facility] ) 0.167 MG/ML Solution Inhalant Solution Ipratropium- Albuterol 0.5-2.5 (3)MG/3ML Inhalation Solution Augmentin Augmentin 07/26/2017 UNIT 1 active Au gmentin SENTHIL 875-125MG 875-125MG 12:00:00 AM ([place] Oral Tablet Oral Tablet [facility]) Metronidazol MetroNIDAZOL 06/24/2017 UNIT 1 completed metroNIDAZOL SENTHIL e 500 MG E 500MG Oral 12:00:00 AM E ([place] Oral Tablet Tablet EST [facility] MetroNIDAZOL [facility] E 500MG Oral [place]) Tablet Cyclobenzapr Cyclobenzapr 04/11/2017 UNIT active Cyclobenzapr SENTHIL ine ine HCl 5MG 12:00:00 AM ine HC l ([place] hydrochlorid Oral Tablet EDT [facility] e 5 MG Oral Health Tablet [place]) Cyclobenzapr ine HCl 5MG Oral Tablet Hydrochlorot HydroCHLOROt 04/11/2017 UNIT 1 active hydroCHLOROt SENTHIL hiazide 25 hiazide 25MG 12:00:00 AM hiazide ([place] MG Oral Oral Tablet EDT [facility] HydroCHLOROt [place]) hiazide 25MG Oral Tablet Symbicort Symbicort 04/11/2017 INHALA 1 suspended Symbicort SENTHIL 160-4.5MCG/A 160-4.5MCG/A 12:00:00 AM TION ([place] CT CT EDT DOSING [facility] Inhalation Inhalation UNIT [facility] Aerosol Aerosol Center) EQ Nicotine EQ Nicotine 04/11/2017 UNIT 1 active EQ Nicotine SENTHIL 21MG/24HR 21MG/24HR 12:00:00 AM ([place] Transdermal Transdermal EDT [facility] Patch 24 Patch 24 Health Hour Hour [place]) Ventolin HFA Ventolin HFA 04/11/2017 INHALA suspended Ventolin HFA SENTHIL 108 (90 108 (90 12:00:00 AM TION (M o[place] Base)MCG/ACT Base)MCG/ACT EDT DOSING [facility] Inhalation Inhalation UNIT [facility] Aerosol Aerosol Center) Solution Solution Singulair Singulair 04/11/2017 UNIT 1 suspended Singulair SENTHIL 10MG Oral 10MG Oral 12:00:00 AM ([place] Tablet Tablet EDT [facility]) Omeprazole Omeprazole 04/11/2017 UNIT 1 active Omeprazole SENTHIL 40 MG 40MG Oral 12:00:00 AM ([place] Delayed Capsule EDT [facility] ood Release Oral Delayed Heal th Capsule Release [place]) Omeprazole 40MG Oral Capsule Delayed Release Nasacort Nasacort 11/30/2016 INHALA completed Nasacort SENTHIL Allergy 24HR Allergy 24HR 12:00:00 AM TION Allergy 24HR ([place] 55 MCG/ACT 55 MCG/ACT EDT DOSING [facility] Aerosol Aerosol UNIT [facility]) Ventolin HFA Ventolin HFA 11/30/2016 INHALA completed Ventolin HFA SENTHIL 108 (90 108 (90 12:00:00 AM TION (M [place] Base) Base) EDT DOSING [place] MCG/ACT MCG/ACT [facility] Aerosol Aerosol [place]) Solution Solution Symbicort Symbicort 11/30/2016 INHALA 1 completed Symbicort SENTHIL 160-4.5 160-4.5 12:00:00 AM TION (M [place] MCG/ACT MCG/ACT EDT DOSING [place] Aerosol Aerosol [facility]) Albuterol Albuterol 11/30/2016 NEBULE completed Albuterol SENTHIL 0.83 MG/ML Sulfate (2.5 12:00:00 AM DOSING Sulfate ([place] Inhalant MG/3ML) EDT UNIT [place] Solution 0.083% [facility] Albuterol Nebulization Ce nter) Sulfate (2.5 solution MG/3ML) 0.083% Nebulization solution Singulair 10 Singulair 10 11/30/2016 UNIT 1 completed Singulair SENTHIL MG Tablet MG Tablet 12:00:00 AM ([facility]) Omeprazole Omeprazole 11/30/2016 UNIT 1 completed Omeprazole SENTHIL 40 MG 40 MG 12:00:00 AM ([place] [facility] Capsule Release [place]) Omeprazole 40 MG Capsule Delayed Release PriLOSEC 40 PriLOSEC 40 08/30/2016 UNIT 1 active PriLOSEC SENTHIL MG Capsule MG Capsule 12:00:00 AM ([place] Delayed Delayed EST [facility] ood Release [facility]) Albuterol Albuterol 08/30/2016 NEBU[place] suspended Albuterol SENTHIL 0.83 MG/ML Sulfate (2.5 12:00:00 AM DOSING Sulfate ([place] Inhalant MG/3ML) EST UNIT [place] Solution 0.083% [employer] Albuterol Nebulization Ce nter) Sulfate (2.5 solution MG/3ML) 0.083% Nebulization solution Augmentin Augmentin 08/30/2016 UNIT 1 active Au willyentin SENTHIL 875-125 MG 875-125 MG 12:00:00 AM ([place] Tablet Tablet EST [facility]) Symbicort Symbicort 08/30/2016 INHALA 1 suspended Symbicort SENTHIL 160-4.5 160-4.5 12:00:00 AM TION ([place] MCG/ACT MCG/ACT EST DOSING [facility] Aerosol Aerosol [facility]) Ventolin HFA Ventolin HFA 08/30/2016 INHALA suspended Ventolin HFA SENTHIL 108 (90 108 (90 12:00:00 AM TION ( ount [place] Base) Base) EST DOSING [place] MCG/ACT MCG/ACT [facility] Aerosol Aerosol [place]) Solution Solution Symbicort Symbicort 08/30/2016 INHALA 1 suspended Symbicort SENTHIL 160-4.5 160-4.5 12:00:00 AM TION ([place] MCG/ACT MCG/ACT EST DOSING [facility] rhood Aerosol Aerosol [facility]) Metronidazol MetroNIDAZOL 03/20/2016 UNIT completed metroNIDAZOL SENTHIL e 500 MG E 500 MG 12:00:00 AM E ([place] Oral Tablet Tablet EDT [facility] MetroNIDAZOL Health E 500 MG [place]) Tablet PriLOSEC 20 PriLOSEC 20 03/14/2016 UNIT 1 completed PriLOSEC SENTHIL MG Capsule MG Capsule 12:00:00 AM ([place] Delayed Delayed EDT [facility] Release [facility]) Symbicort Symbicort 03/14/2016 INHALA 1 completed Symbicort SENTHIL 160-4.5 160-4.5 12:00:00 AM TION ([place] MCG/ACT MCG/ACT EDT DOSING [facility] rhood Aerosol Aerosol [facility]) Ventolin HFA Ventolin HFA 03/14/2016 INHALA completed Ventolin HFA SENTHIL 108 (90 108 (90 12:00:00 AM TION ([place] Base) Base) EDT DOSING [place] MCG/ACT MCG/ACT [facility] Aerosol Aerosol [place]) Solution Solution Fluconazole Fluconazole 03/14/2016 UNIT 1 completed Fluconazole SENTHIL 150 MG Oral 150 MG 12:00:00 AM ([place] [facility] 150 MG [place]) Tablet Macrobid 100 Macrobid 100 03/14/2016 UNIT 1 completed Macrobid SENTHIL MG Capsule MG Capsule 12:00:00 AM ([facility]) Hydrocortiso Neomycin-Daquan 09/12/2015 CAPFUL 1 completed Neomycin-Daquan SENTHIL ne 10 MG/ML ymyxin-HC 12:00:00 AM DOSING ymyxin-HC ([place] / Neomycin 3.5-98113-6 EST UNIT [place] ighborhood 3.5 MG/ML / Suspension He alth Polymyxin B [place]) 00500 UNT/ML Otic Suspension Neomycin-Daquan ymyxin-HC 3.5-32189-7 Suspension Nebulizer Nebulizer 09/12/2015 UNIT completed Nebulizer [place] Device Device 12:00:00 AM ([place] nt [facility]) Singulair 10 Singulair 10 09/12/2015 UNIT 1 suspended Singulair SENTHIL MG Tablet MG Tablet 12:00:00 AM ([facility]) Albuterol Albuterol 09/12/2015 [place] suspended Albuterol SENTHIL 0.83 MG/ML Sulfate (2.5 12:00:00 AM DOSING Sulfate ([place] Inhalant MG/3ML) EST UNIT [place] Solution 0.083% [facility] Albuterol Nebulization Ce nter) Sulfate (2.5 solution MG/3ML) 0.083% Nebulization solution Ventolin HFA Ventolin HFA 09/12/2015 INHALA completed Ventolin HFA SENTHIL 108 (90 108 (90 12:00:00 AM TION ([place] Base) Base) EST DOSING [place] MCG/ACT MCG/ACT [facility] Aerosol Aerosol [place]) Solution Solution Symbicort Symbicort 09/12/2015 INHALA 1 completed Symbicort SENTHIL 160-4.5 160-4.5 12:00:00 AM TION (M [place] MCG/ACT MCG/ACT EST DOSING [place] Aerosol Aerosol [facility]) Augmentin Augmentin 09/12/2015 UNIT 1 completed Augmentin SENTHIL 875-125 MG 875-125 MG 12:00:00 AM ([place] Tablet Tablet [facility]) Diflucan 150 Diflucan 150 09/12/2015 UNIT 1 suspended Diflucan SENTHIL MG Tablet MG Tablet 12:00:00 AM ([facility]) Flagyl 500 Flagyl 500 05/02/2015 UNIT 1 suspended Flagyl SENTHIL MG TABS MG TABS 12:00:00 AM (M ount [facility]) Omeprazole Omeprazole 04/14/2015 UNIT 1 suspended Omeprazole SENTHIL 40 MG 40MG OR CPDR 12:00:00 AM ([place] Delayed T [facility] Release Oral Health Capsule Center) Omeprazole 40MG OR CPDR Acetaminophe Acetaminophe 04/14/2015 UNIT active Acetaminophe SENTHIL n 500 MG n 500MG OR 12:00:00 AM n ([place] Oral Tablet TABS [facility] n 500MG OR Center) TABS SEROquel SEROquel 04/14/2015 UNIT active SERO quel SENTHIL 100MG OR 100MG OR 12:00:00 AM ([place] TABS TABS [facility]) Hydrocortiso Neomycin-Daquan 12/14/2014 CAPFUL 1 suspended Neomycin-Daquan SENTHIL ne 10 MG/ML ymyxin-HC 12:00:00 AM DOSING ymyxin-HC ([place] / Neomycin 3.5-02380-7 EDT UNIT [place] ighborhood 3.5 MG/ML / OT SUSP Healt h Polymyxin B Center) 83354 UNT/ML Otic Suspension Neomycin-Daquan ymyxin-HC 3.5-79482-5 OT SUSP Amoxicillin Amoxicillin 12/14/2014 UNIT 1 active Amoxicillin SENTHIL 500 MG Oral 500MG OR 12:00:00 AM ([place] Capsule CAPS [facility] Amoxicillin Health 500MG OR Center) CAPS Amoxicillin Amoxicillin 11/23/2014 UNIT 1 completed Amoxicillin SENTHIL 500 MG Oral 500MG OR 12:00:00 AM ([place] Capsule CAPS [facility] Amoxicillin Health 500MG OR Center) CAPS Albuterol Albuterol 11/23/2014 [place] suspended Albuterol SENTHIL 0.83 MG/ML Sulfate (2.5 12:00:00 AM DOSING Sulfate ([place] Inhalant MG/3ML)0.083 EDT UNIT [place] Solution % IN [facility] Albuterol Center) Sulfate (2.5 MG/3ML)0.083 % IN [facility] Prednisone predniSONE 11/16/2014 UNIT active predniSONE SENTHIL 20 MG Oral 20MG OR TABS 12:00:00 AM ([place] Tablet EDT [facility] predniSONE Health 20MG OR TABS Center) Ventolin HFA Ventolin HFA 11/16/2014 INHALA suspended Ventolin HFA SENTHIL 108 (90 108 (90 12:00:00 AM TION (M ount [place] Base)MCG/ACT Base)MCG/ACT EDT DOSING [place]ighborhood IN AERS IN AERS [facility] Facility) Symbicort Symbicort 11/16/2014 INHALA 1 suspended Symbicort SENTHIL 160-4.5MCG/A 160-4.5MCG/A 12:00:00 AM TION ([place] CT IN AERO CT IN AERO EDT DOSING [facility]) Levaquin Levaquin 11/16/2014 UNIT 1 active Leva ramón SENTHIL 500MG OR 500MG OR 12:00:00 AM ([place] TABS TABS [facility]) Ibuprofen Ibuprofen 11/16/2014 UNIT active Ib uprofen SENTHIL 400 MG Oral 400 MG TABS 12:00:00 AM ([place] Tablet [facility] Ibuprofen Health 400 MG TABS Center) Singulair Singulair 11/16/2014 UNIT 1 active Si ngulair SENTHIL 10MG OR TABS 10MG OR TABS 12:00:00 AM ([facility]) Albuterol Ipratropium- 11/16/2014 CAPFUL 1 active Ipratropium- SENTHIL 0.833 MG/ML Albuterol 12:00:00 AM DOSING Albuterol ([place] / 0.5-2.5 (3) EDT UNIT Neighbor james Ipratropium MG/3ML SOLN [facility]) 0.167 MG/ML Inhalant Solution Ipratropium- Albuterol 0.5-2.5 (3) MG/3ML SOLN Augmentin Augmentin 05/04/2014 UNIT 1 active Au gmentin SENTHIL 875-125MG OR 875-125MG OR 12:00:00 AM ([place] TABS TABS [facility]) Ibuprofen Ibuprofen 05/04/2014 UNIT active Ib uprofen SENTHIL 800 MG Oral 800MG OR 12:00:00 AM ([place] Tablet TABS EDT [facility] Ibuprofen Health 800MG OR Center) TABS Prednisone predniSONE 05/04/2014 UNIT 1 active predniSONE SENTHIL 20 MG Oral 20MG OR TABS 12:00:00 AM ([place] Tablet EDT [facility] predniSONE Health 20MG OR TABS Center) Hydrochlorot hydroCHLOROt 05/04/2014 UNIT 1 active hydroCHLOROt SENTHIL hiazide 50 hiazide 50MG 12:00:00 AM hiazide ([place] MG Oral TABS EDT [facility] Tablet [facility] hydroCHLOROt [place]) hiazide 50MG TABS Ventolin HFA Ventolin HFA 05/04/2014 INHALA active Ventolin HFA SENTHIL 108 (90 108 (90 12:00:00 AM TION (M ount [employer])MCG/ACT Base)MCG/ACT EDT DOSING [place] IN AERS IN [facility]) Permethrin Permethrin 1 03/12/2014 APPLIC active Permethrin SENTHIL 10 MG/ML % LOTN 12:00:00 AM ATION ( [place] Medicated EDT [facility] Permethrin 1 Center) % LOTN Symbicort Symbicort 03/12/2014 INHALA 1 suspended Symbicort SENTHIL 160-4.5MCG/A 160-4.5MCG/A 12:00:00 AM TION ([place] CT IN AERO CT IN AERO EDT DOSING [facility]) Ventolin HFA Ventolin HFA 03/12/2014 INHALA suspended Ventolin HFA SENTHIL 108 (90 108 (90 12:00:00 AM TION (M ount [employer])MCG/ACT Base)MCG/ACT EDT DOSING [place] IN AERS IN [facility]) PriLOSEC 40 PriLOSEC 40 02/24/2014 UNIT 1 active PriLOSEC SENTHIL MG CPDR MG CPDR 12:00:00 AM ( [facility] Hydrochlorot hydroCHLOROt 02/24/2014 UNIT 1 active hydroCHLOROt SENTHIL hiazide 25 hiazide 25MG 12:00:00 AM hiazide ([place] MG Oral TABS EDT [facility] Health hydroCHLOROt [place]) hiazide 25MG TABS Ibuprofen Ibuprofen 02/24/2014 UNIT active Ib uprofen SENTHIL 800 MG Oral 800MG OR 12:00:00 AM ([place] [facility] 800[facility] Center) TABS Augmentin Augmentin 11/18/2013 UNIT 1 active Au gmentin SENTHIL 875-125MG OR 875-125MG OR 12:00:00 AM ([place] [facility] [place]) Ibuprofen Ibuprofen 09/01/2013 UNIT completed Ibuprofen SENTHIL 400 MG Oral 400 MG TABS 12:00:00 AM ([place] Tablet EST [facility] Ibuprofen Health 400 MG TABS Center) Ventolin HFA Ventolin HFA 09/01/2013 INHALA completed Ventolin HFA SENTHIL 108 (90 108 (90 12:00:00 AM TION (M ount [employer])MCG/ACT Base)MCG/ACT EST DOSING [place] IN AERS IN [facility]) Singulair Singulair 09/01/2013 UNIT 1 suspended Singulair SENTHIL 10MG OR TABS 10MG OR TABS 12:00:00 AM ([facility]) Symbicort Symbicort 09/01/2013 INHALA completed Symbicort SENTHIL 160-4.5MCG/A 160-4.5MCG/A 12:00:00 AM TION ([place] CT IN AERO CT IN AERO EST DOSING [facility]) Ventolin HFA Ventolin HFA 04/24/2013 INHALA active Ventolin HFA SENTHIL 108 (90 108 (90 12:00:00 AM TION (M ount [employer])MCG/ACT Base)MCG/ACT EDT DOSING [place] IN AERS IN [facility]) Symbicort Symbicort 04/24/2013 INHALA 1 suspended Symbicort SENTHIL 160-4.5MCG/A 160-4.5MCG/A 12:00:00 AM TION ([place] CT IN AERO CT IN AERO EDT DOSING [facility]) Hydrochlorot hydroCHLOROt 04/24/2013 UNIT 1 active hydroCHLOROt SENTHIL hiazide 25 hiazide 25MG 12:00:00 AM hiazide ([place] MG Oral TABS EDT [facility] Tablet Health hydroCHLOROt Center) hiazide 25MG TABS Augmentin Augmentin 04/24/2013 UNIT 1 active Au gmentin SENTHIL 875-125MG OR 875-125MG OR 12:00:00 AM ([place] TABS TABS [facility]) Permethrin Permethrin 04/24/2013 APPLIC active Permethrin SENTHIL 50 MG/ML 5% EX CREA 12:00:00 AM ATION ([place] Topical [facility] Permethrin [place]) 5% EX CREA Albuterol Albuterol 08/16/2012 NEBU[place] active Albuterol SENTHIL 0.83 MG/ML Sulfate (2.5 12:00:00 AM DOSING Sulfate ([place] Inhalant MG/3ML)0.083 EST UNIT [facility] Solution % IN [facility] Albuterol [place]) Sulfate (2.5 MG/3ML)0.083 % IN [facility] Flexeril 10 Flexeril 10 08/16/2012 UNIT 1 active Flexeril SENTHIL MG TABS MG TABS 12:00:00 AM [facility] Ibuprofen Ibuprofen 08/16/2012 UNIT active Ib uprofen SENTHIL 800 MG Oral 800MG OR 12:00:00 AM ([place] Tablet TABS [facility] Ibuprofen Health 800MG OR Center) TABS Ventolin HFA Ventolin HFA 08/16/2012 INHALA suspended Ventolin HFA SENTHIL 108 (90 108 (90 12:00:00 AM TION ( [place] [employer])MCG/ACT Base)MCG/ACT EST DOSING [place] IN AERS IN AERS [facility]) Symbicort Symbicort 08/16/2012 INHALA 1 active Symbicort SENTHIL 160-4.5MCG/A 160-4.5MCG/A 12:00:00 AM TION ([place] CT IN AERO CT IN AERO EST DOSING [facility]) Diphenhydram diphenhydrAM 08/16/2012 UNIT 1 active diphenhydrAM SENTHIL ine INE HCl 50MG 12:00:00 AM INE H Cl ([place] Hydrochlorid OR CAPS EST Neig hborhood e 50 MG Oral Health Capsule Center) diphenhydrAM INE HCl 50MG OR CAPS Ibuprofen Ibuprofen 08/16/2012 UNIT suspended Ibuprofen SENTHIL 800 MG Oral 800MG OR 12:00:00 AM ([place] Tablet TABS EST [place]ighborhood Ibuprofen Health 800MG OR Center) TABS Symbicort Symbicort 08/16/2012 INHALA 1 suspended Symbicort SENTHIL 160-4.5MCG/A 160-4.5MCG/A 12:00:00 AM TION ([place] CT IN AERO CT IN AERO EST DOSING [facility]) Ventolin HFA Ventolin HFA 08/16/2012 INHALA suspended Ventolin HFA SENTHIL 108 (90 108 (90 12:00:00 AM TION (M ount [employer])MCG/ACT Base)MCG/ACT EST DOSING [place] IN AERS IN [facility]) Insurance Providers Payer name Policy type / Policy ID Covered Covered libertarian's Policy Plan Coverage type libertarian ID relationship to Mendoza Information mendoza O [facility] [id number] 01 [id number] [facility] MEDICAID [id number] SP [id number] O MEDICAID [id number] SP [id number] [facility] MEDICAID [id number] SP [id number] [facility] H[facility] MEDICAID [id number] SP [id number] HIP - Health Individual 0 Self 0 Insurance Policy Plan of [facility] HIP - Health Individual 0 Self 0 Insurance Policy Plan of [facility] HIP - Health Individual 0 Self 0 Insurance Policy Plan of [facility] HIP - Health Individual 0 Self 0 Insurance Policy Plan of [facility] HIP - Health Individual 0 Self 0 Insurance Policy Plan of [facility] [id number] S [id number] Options D Dental [id number] S [id number] [employer] Emblem Medicaid [facility] Medicaid [id number] S [id number] Managed Care HIP Medicaid [id number] S [id number] Managed Care Dental [id number] S [id number] [facility] [place] [id number] S [id number] Vision MKD [place] [facility] [id number] S [id number] Options D Medicaid [id number] S [id number] Regular Clinic Visit HIP - Health Individual 0 Self 0 Insurance Policy Plan of [facility] Medicaid [id number] Managed Care [facility] Health Individual 0 Self 0 Plan [facility] Problems, Conditions, and Diagnoses Code Display Name Description Problem Type Effective Data Sour ce(s) Dates [id number] Anxiety disorder Anxiety disorder Complaint 07/28/2019 NE TSMART (disorder) (disorder) 05:00:00 AM ([facility]) [id number] Recurrent major Recurrent major Complaint 07/21/2019 NETS MART depression depression 04:00:00 PM ([facility]) [id number] Disease Disease Complaint 12/24/2018 NETSMART 08:30:00 PM ([facility]) [id number] 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 NETSMART stress disorder stress disorder 08:30:00 PM ([facility]) 80673744 Hypothyroidism Hypothyroidism Problem 09/27/2017 GREENW AY ([place] (disorder) 12:00:00 AM [facility]) [id number] Hypothyroidism Hypothyroidism Problem 09/27/2017 GREEN[place] AY ([place] (disorder) 12:00:00 AM [facility]) 82986783 Hypothyroidism Hypothyroidism Problem 09/27/2017 GREEN[place] AY ([place] (disorder) 12:00:00 AM [facility]) [id number] Hypothyroidism Hypothyroidism Problem 09/27/2017 GREENW AY ([place] (disorder) 12:00:00 AM [facility]) 06591793 Hypothyroidism Hypothyroidism Problem 09/27/2017 GREEN[place] AY ([place] (disorder) 12:00:00 AM [facility]) 10266244 Hypothyroidism Hypothyroidism Problem 09/27/2017 GREEN[place] AY ([place] (disorder) 12:00:00 AM [facility]) 73261157 Hypothyroidism Hypothyroidism Problem 09/27/2017 GREEN[place] AY ([place] (disorder) 12:00:00 AM [facility]) 799.9 Risk: Tobacco Use Risk: Tobacco Use Problem 06/28/2017 [place] ([place] 12:00:00 AM [facility]) 799.9 Risk: Tobacco Use Risk: Tobacco Use Problem 06/28/2017 [place] ([place] 12:00:00 AM [facility]) 799.9 Risk: Tobacco Use Risk: Tobacco Use Problem 06/28/2017 SENTHIL ([place] 12:00:00 AM [facility]) 799.9 Risk: Tobacco Use Risk: Tobacco Use Problem 06/28/2017 SENTHIL (Mount 12:00:00 AM [facility]) 799.9 Risk: Tobacco Use Risk: Tobacco Use Problem 06/28/2017 SENTHIL (Mount 12:00:00 AM [facility]) 799.9 Risk: Tobacco Use Risk: Tobacco Use Problem 06/28/2017 SENTHIL (Mount 12:00:00 AM [facility]) 799.9 Risk: Tobacco Use Risk: Tobacco Use Problem 06/28/2017 [place] ([place] 12:00:00 AM [facility]) 55384715 Spinal stenosis Spinal Stenosis Problem 05/04/2014 GREE NWAY ([place] (disorder) 12:00:00 AM [facility]) 31167089 Spinal stenosis Spinal Stenosis Problem 05/04/2014 GREE NWAY ([place] (disorder) 12:00:00 AM [facility]) 98552734 Spinal stenosis Spinal Stenosis Problem 05/04/2014 GREE NWAY ([place] (disorder) 12:00:00 AM [facility]) 20126440 Spinal stenosis Spinal Stenosis Problem 05/04/2014 GREE NWAY ([place] (disorder) 12:00:00 AM [facility]) 78153614 Spinal stenosis Spinal Stenosis Problem 05/04/2014 GREE NWAY ([place] (disorder) 12:00:00 AM [facility]) 80753510 Spinal stenosis Spinal Stenosis Problem 05/04/2014 GREE NWAY ([place] (disorder) 12:00:00 AM [facility]) 08079105 Spinal stenosis Spinal Stenosis Problem 05/04/2014 GREE NWAY ([place] (disorder) 12:00:00 AM [facility]) 90744252 Mood disorder Mood Disorder of Problem 02/24/[address] ([place] (disorder) Unknown (axis Iii) 12:00:00 AM [facility]) 38650686 Mood disorder Mood Disorder of Problem 02/24/[address] ([place] (disorder) Unknown (axis Iii) 12:00:00 AM [facility]) 37846769 Mood disorder Mood Disorder of Problem 02/24/[address] ([place] (disorder) Unknown (axis Iii) 12:00:00 AM [facility]) 79779781 Mood disorder Mood Disorder of Problem 02/24/[address] ([place] (disorder) Unknown (axis Iii) 12:00:00 AM [facility]) 85489913 Mood disorder Mood Disorder of Problem 02/24/[address] ([place] (disorder) Unknown (axis Iii) 12:00:[facility] 45755654 Mood disorder Mood Disorder of Problem 02/24/[address] ([place] (disorder) Unknown (axis Iii) 12:00:00 AM [facility]) 22016821 Mood disorder Mood Disorder of Problem 02/24/[address] ([place] (disorder) Unknown (axis Iii) 12:00:00 AM [facility]) 576430775 Obesity (disorder) Obesity Problem 08/16/2012 TEMI AY (Mount 12:00:00 AM [facility]) 372100532 Myofascial pain Myofascial Pain Finding 08/16/2012 YAJAIRA ROGERS ([place] (finding) Syndrome 12:00:00 AM [facility]) 043778894 Asthma (disorder) Asthma Problem 08/16/2012 COREY Tavera (Mount 12:00:00 AM [facility]) [id number] Obesity (disorder) Obesity Problem 08/16/2012 TEMI AY (Mount 12:00:00 AM [facility]) 795023483 Myofascial pain Myofascial Pain Finding 08/16/2012 YAJAIRA ROGERS ([place] (finding) Syndrome 12:00:00 AM [facility]) 613323810 Asthma (disorder) Asthma Problem 08/16/2012 COREY Y (Mount 12:00:00 AM [facility]) 266165761 Obesity (disorder) Obesity Problem 08/16/2012 TEMI AY (Mount 12:00:00 AM [facility]) 141091929 Myofascial pain Myofascial Pain Finding 08/16/2012 YAJAIRA ROGERS ([place] (finding) Syndrome 12:00:00 AM [facility]) [id number] Asthma (disorder) Asthma Problem 08/16/2012 GREENWA Y (Mount 12:00:00 AM [facility]) 319962018 Obesity (disorder) Obesity Problem 08/16/2012 GREENGabriel AY (Mount 12:00:00 AM [facility]) 310482490 Myofascial pain Myofascial Pain Finding 08/16/2012 GREE NWAY ([place] (finding) Syndrome 12:00:00 AM [facility]) 199694085 Asthma (disorder) Asthma Problem 08/16/2012 GREENSTEPHANIE Y (Mount 12:00:00 AM [facility]) 723364769 Obesity (disorder) Obesity Problem 08/16/2012 GREENGabriel AY (Mount 12:00:00 AM [facility]) 614222941 Myofascial pain Myofascial Pain Finding 08/16/2012 GREE NWAY ([place] (finding) Syndrome 12:00:00 AM [facility]) 538930106 Asthma (disorder) Asthma Problem 08/16/2012 GREENSTEPAHNIE Y (Mount 12:00:00 AM [facility]) 786361650 Obesity (disorder) Obesity Problem 08/16/2012 GREENGabriel AY (Mount 12:00:00 AM [facility]) [id number] Myofascial pain Myofascial Pain Finding 08/16/2012 GREE NWAY ([place] (finding) Syndrome 12:00:00 AM [facility]) 580283830 Asthma (disorder) Asthma Problem 08/16/2012 GREENSTEPHANIE Y (Mount 12:00:00 AM [facility]) 291047350 Obesity (disorder) Obesity Problem 08/16/2012 GREENGabriel AY (Mount 12:00:00 AM [facility]) 678404490 Myofascial pain Myofascial Pain Finding 08/16/2012 GREE NWAY ([place] (finding) Syndrome 12:00:00 AM [facility]) [id number] Asthma (disorder) Asthma Problem 08/16/2012 GREENSTEPHANIE Y (Mount 12:00:00 AM [facility]) N63.0 Unspecified lump UNSPECIFIED LUMP Diagnosis 05/04/2020 Sa int [place] in unspecified IN UNSPECIFIED 03:15:00 PM [facility] breast BREAST EDT Z88.1 Allergy status to ALLERGY STATUS TO Diagnosis 01/15/2019 [place] other antibiotic OTHER ANTIBIOTIC 12:08:00 [facility] agents status AGENTS STATUS EDT [employer] F41.9 Anxiety disorder, ANXIETY DISORDER, Diagnosis 01/15/2019 [place] unspecified UNSPECIFIED 12:08:00 AM [facility] F31.9 Bipolar disorder, BIPOLAR DISORDER, Diagnosis 01/15/2019 [place] unspecified UNSPECIFIED 12:08:00 AM [facility] EDT [facility] E03.9 Hypothyroidism, HYPOTHYROIDISM, Diagnosis 01/15/2019 [place] jacki unspecified UNSPECIFIED 12:08:00 AM [facility] J45.909 Unspecified UNSPECIFIED Diagnosis 01/15/2019 [place] asthma, ASTHMA, 12:08:00 AM [facility] uncomplicated UNCOMPLICATED EDT [employer] B34.9 Viral infection, VIRAL INFECTION, Diagnosis 01/15/2019 [facility] unspecified UNSPECIFIED 12:08:00 AM [facility] J02.9 Acute pharyngitis, ACUTE PHARYNGITIS, Diagnosis 9 [place] unspecified UNSPECIFIED 12:08:00 AM [facility] J40 Bronchitis, not Bronchitis, not Diagnosis 10/21/2018 YAJAIRA ROGERS ([place] specified as acute specified as acute 10:00:08 AM [place] or chronic or chronic [facility]) Surgeries/Procedures Procedure Description Date Indications Data Source(s) No prior serious No prior serious 08/03/2019 COREY Tavera ([facility] illness illness 12:00:00 AM [facility]) Noncompliance with Noncompliance with 06/10/2019 BRINA AMANDA ([place] therapy therapy 12:00:00 AM [facility]) No prior serious No prior serious 06/10/2019 COREY Tavera ([facility] illness illness 12:00:00 AM [facility]) NEBULIZER TREATMENT NEBULIZER TREATMENT 06/09/2019 Tk SMITH ([place] 12:00:00 AM [facility]) Bmi documented outside BMI OUTSIDE NORMAL 06/09/2019 SENTHIL ([facility] normal parameters, no RANGE - NO F/U PLAN 12:00:00 AM [facility] ) documented, no reason given Albuterol, inhalation Albuterol 06/09/2019 GREENW AY ([place] solution, compounded 12:00:00 AM [facility] product, administered [facility]) through dme, unit dose, 1 mg No prior serious No prior serious 05/07/2019 GREEN[place] Y ([facility] illness illness 12:00:00 AM [facility]) Bmi documented outside BMI OUTSIDE NORMAL 05/06/2019 [place] ([facility] normal parameters, no RANGE - NO F/U PLAN 12:00:00 AM [facility] follow-up plan [facility] ) documented, no reason given THROAT CULTURE THROAT CULTURE 05/06/2019 [place] (M ount 12:00:00 AM [facility]) No prior serious No prior serious 01/15/2019 GREEN[place] Y ([facility] illness illness 12:00:00 AM [facility]) Tobacco assessment or Tobacco Assessment 01/14/2019 [place] ([facility] tobacco cessation [facility]:00:[facility]) performed, reason not otherwise specified Bmi is documented BMI > NORMAL 01/14/2019 [place] ([facility] above normal DOCUMENTED W F/U PLAN 12:00:00 AM [facility] and a [facility] er) follow-up plan is documented No prior serious No prior serious 11/05/2018 [place] Y ([facility] illness illness 12:00:00 AM [facility]) Tobacco assessment or Tobacco Assessment 11/04/2018 [place] ([facility] tobacco cessation 12:00:00 AM [facility] er) performed, reason not otherwise specified Bmi is documented BMI > NORMAL 10/23/2018 [place] ([facility] above normal DOCUMENTED W F/U PLAN 12:00:00 AM [facility] parameters and a [facility] er) follow-up plan is documented Pulse Oximetry Pulse Oximetry 07/07/2018 [place] (M ount 12:00:00 AM [facility]) Bmi documented outside BMI OUTSIDE NORMAL 07/07/2018 SENTH[place] ([facility] normal parameters, no RANGE - NO F/U PLAN 12:00:00 AM [facility] follow-up [facility] ) documented, no reason given No history of surgery No history of surgery 05/14/2018 [place] ([facility] 12:00:00 AM [facility]) Bmi is documented BMI > NORMAL 05/14/2018 [place] ([facility] above normal DOCUMENTED W F/U PLAN 12:00:00 AM [facility] parameters and a [facility] er) follow-up plan is documented No prior serious No prior serious 05/14/2018 COREY Tavera ([facility] illness illness 12:00:00 AM [facility]) Patient Left without Patient Left without 03/25/2018 [place] ([facility] Seen Seen 12:00:00 AM [facility]) Bmi documented outside BMI OUTSIDE NORMAL 01/21/2018 [place] ([facility] normal parameters, no RANGE - NO F/U PLAN 12:00:00 AM [facility] follow-up plan [facility] ) documented, no reason given Past medical history Past medical history 12/25/2017 [place] ([facility] thyroid ~asthma/copd thyroid ~asthma/copd 12:00:00 AM [facility] ~smoker ~obese ~smoker ~obese [facility] er) History of Eyes: History of Eyes: 12/25/2017 COREY Tavera ([facility] 12:00:00 AM [facility]) FT-3 FREE FT-3 FREE 12/24/2017 [place] ([facility] TRIDOTHYRONIN TRIDOTHYRONIN 12:00:00 AM [facility]) THYROXINE FREE (FT4) THYROXINE FREE (FT4) 12/24/2017 [place] ([facility] 12:00:00 AM [facility]) HELICOBACTER PYLORI, HELICOBACTER PYLORI, 12/24/2017 [place] ([facility] STOOL STOOL 12:00:00 AM [facility]) TSH-THYROID TSH-THYROID 12/24/2017 [place] ([facility] STIMULATING STIMULATING 12:00:00 AM [facility]) Endometrial BX Endometrial BX 11/06/2017 [place] (M ount 12:00:00 AM [facility]) Endometrial BX Endometrial BX 11/06/2017 [place] (M ount 12:00:00 AM [facility]) Recent change in Recent change in 09/27/2017 COREY Tavera ([facility] medical history medical history 12:00:00 AM [facility]) No history of thyroid No history of thyroid 09/27/2017 [place] ([facility] surgery surgery 12:00:00 AM [facility]) No history of No history of 09/27/2017 SENTHIL ([place] nt prostatectomy prostatectomy 12:00:00 AM [facility]) No history of No history of 09/27/2017 SENTHIL ([place] [facility] hysterectomy hysterectomy 12:00:00 AM [facility]) No history of No history of 09/27/2017 SENTHIL (Isabella nt appendectomy appendectomy 12:00:00 AM [facility]) Bmi documented outside BMI OUTSIDE NORMAL 08/02/2017 [place] ([facility] normal parameters, no RANGE - NO F/U PLAN 12:00:00 AM [facility] ) documented, no reason given History of No carotid History of No carotid 07/26/2017 [place] ([facility] [facility]its 12:[facility]:00 AM [facility] [place]) Annual depression DEPRESSION SCREENING 07/26/2017 LINDA FERNANDEZ ([facility] screening, 15 minutes (15 MINS) 12:00:00 AM [facility]) Bmi documented outside BMI OUTSIDE NORMAL 07/26/2017 [place] ([facility] normal parameters, no RANGE - NO F/U PLAN 12:00:00 AM [facility] ) documented, no reason given LIPID PANEL LIPID PANEL 07/26/2017 [place] ([facility] 12:00:00 AM [facility] [place]) [id number] 07/26/2017 [facility] ([facility] 12:00:00 AM [facility] [place]) Result: normal Result: normal 07/01/2017 [place] (M ount 12:00:00 AM [facility] [place]) Para 1 Para 1 07/01/2017 [place] ([facility] 12:00:00 AM [facility] [place]) Oral contraceptives Oral contraceptives 07/01/2017 [facility] 12:00:00 AM [facility] [place]) LMP: 06/11/2017 LMP: 06/11/2017 07/01/2017 [place] ([facility] 12:00:00 AM [facility] [place]) Last pap smear date Last pap smear date 07/01/2017 G REENWAY ([facility] 06/10/2017 06/10/2017 12:00:00 AM [facility] [place]) 2 2 07/01/2017 [place] ([facility] 12:00:00 AM [facility] [place]) Depo provera IM Depo provera IM 07/01/2017 [place] ([facility] 12:00:00 AM [facility] [place]) Contraception: Contraception: 07/01/2017 [place] (M ount 12:00:00 AM [facility] [place]) Condoms Condoms 07/01/2017 [place] ([facility] 12:00:00 AM [facility] [place]) Aborta 1 Aborta 1 07/01/2017 [place] ([facility] 12:00:00 AM [facility] [place]) History of thyroid History of thyroid 06/12/2017 [facility] ([facility] disorder elevated disorder elevated 12:00:00 AM [facility] thyroid in 2015 thyroid in 2015 [facility]) History of obesity History of obesity 06/12/2017 [facility] ([facility] 12:00:00 AM [facility]) History of History of 06/12/2017 [place] ([facility] dysfunctional uterine dysfunctional uterine 12:00:00 AM [facility] bleeding bleeding [facility]) Advance healthcare Advance healthcare 04/11/[address] [facility] ([facility] directive not on file directive not on file 12:00:00 AM [facility]) No history of type 2 No history of type 2 08/30/2016 [place] ([facility] diabetes mellitus diabetes mellitus 12:00:00 AM [facility] [place]) No history of No history of 08/30/2016 S[place] ([facility] nt hyperlipidemia hyperlipidemia 12:00:00 AM [facility] hborhood [facility] No history of No history of 08/30/2016 [place] ([facility] nt essential hypertension essential 12:00:[address] [facility] [place] hypertension [facility] No history of coronary No history of [facility] artery disease coronary artery 12:00:00 AM [facility] ghborhood disease [facility] No history of HIV No history of HIV 04/21/2015 [facility] ([facility] infection infection 12:00:00 AM [facility]) History of asthma History of asthma 04/21/[address] ([facility] 12:00:00 AM [facility]) Gonorrhea Gonorrhea 04/21/2015 [place] ([facility] 12:00:00 AM [facility]) No history of blood No history of blood 04/14/2015 G REENWAY ([facility] transfusion transfusion 12:00:00 AM [facility]) Results ID Date Data Source [id number] 04/08/2020 06:20:00 PM EDT [facility] Name Value Range Interpretation Description Data Sup porting Code Source(s) Document(s ) SARS [facility] coronavirus 2 RNA This lab was ordered by [facility] and reported by [facility]. ID Date Data Source [id number] 06/10/2019 04:06:27 PM EDT COREY Y ([place] [id number] [facility]) Name Value Range Interpretation Description Data Source(s ) Supporting Code Document(s ) No Results No Results No Results SENTHIL ([facility] Recorded For [facility]) ID Date Data Source [id number] 06/09/2019 12:36:00 PM EDT SENT[place]IL (Isabella nt [facility]) Name Value Range Interpretation Description Data Source(s ) Supporting Code Document(s ) Bacteria RRF Result 1 [place] (Candice identified in [place] Unspecified Neighborhood specimen by Health Center) Culture Note: Routine respiratory yessi Bacteria identified Final report Upper Respiratory [place] (Candice Rajan in Throat by Aer[facility] Culture [facility] culture Center) ID Date Data Source [id number] 05/07/2019 02:38:41 PM EDT COREY Y ([place] [id number] [facility]) Name Value Range Interpretation Description Data Source(s ) Supporting Code Document(s ) No Results No Results No Results S[place] ([facility]) ID Date Data Source [id number] 04/07/2019 04:12:28 PM EDT COREY Y ([place] [id number] [facility]) Name Value Range Interpretation Description Data Source(s ) Supporting Code Document(s ) No Results No Results No Results S[place] ([place] Recorded For [place] Specified [facility]) ID Date Data Source [id number] 12/24/2017 03:14:00 PM EDT [place] ([facility]) Name Value Range Interpretation Description Data Sup porting Code Source(s) Document(s ) Triiodothyronine 2.1 Triiodothyron [place] (T3) Free pg/mL ine,Free,Seru ([place] [Mass/volume] in m [facility] Serum or Plasma Health Center) ID Date Data Source [id number] 12/24/2017 03:14:00 PM EDT [place] ([facility]) Name Value Range Interpretation Description Data Source(s ) Supporting Code Document(s ) Thyrotropin 132.400 Above high normal TSH [place] ( [facility] [Units/volume] uIU/mL [place] in Serum or Neighborhood Plasma by [facility]) Detection limit <= 0.05 mIU/L Note: Specimen was diluted inorder to ob tain results.Results were repeated. ID Date Data Source [id number] 12/24/2017 03:14:00 PM EDT [place] ([facility]) Name Value Range Interpretation Description Data Source(s ) Supporting Code Document(s ) Thyroxine 0.42 Below low normal T4,Free(Direct [place] ([place] (T4) free ng/dL ) [place] [Mass/volume Neighborhood ] in [facility]) or Plasma ID Date Data Source [id number] 11/06/2017 01:15:00 PM EDT [place] ([facility]) Name Value Range Interpretation Description Data Source(s ) Supporting Code Document(s ) Pathology MATER . S[place] ([facility]) Note: Material submitted: .ENDOMETRIAL BIOPSY Pathology report gross observation GROSSD . SENT[place]IL ([facility]) Note: Gross description: .1 Container, formalin-filled, labeled with patient id entification.ENDOMETRIAL BIOPSY:Received labeled ENDOMETRIUM are multiple fragmen ts of arnold,hemorrhagic material measuring 1.3 x 1.2 x 0.1 cm in aggregate.Submitted in toto in cassette(s) 1./HEMA/HEMA Pathologist name SOUIvan NDIAYE ([facility]) Note: Electronically signed: .Katt Gaspar MD, Pathologist Payment procedure CPT . S[place] ([facility]) Note: CPT .829124 Pathology report final diagnosis FDIAG . SENTHIL ([facility]) Note: Diagnosis: ENDOMETRIAL BIOPSY:SECRETORY ENDOMETRIUM WITH FEATUR ES OF PROGESTIN EFFECT.ENDOMETRIAL FRAGMENTS SUGGESTIVE OF ENDOMETRIAL POLYP/S.SOA/11/12/2017 Diagnosis ICD code [id number] . TEMI WILDER ([facility]) Note: Clinician provided ICD-10:N93.9 Diagnosis ICD code PICD10 . BRAYTONGabriel WILDER ([facility]) Note: Pathologist provided ICD-10:N85.8 ID Date Data Source [id number] 10/31/2017 12:00:00 AM EDT S[place] ([facility]) Name Value Range Interpretation Description Data Source(s ) Supporting Code Document(s ) Trichomonas Negative Trich vag by [place] vaginalis rRNA AILEEN ([place] [Presence] in [facility] Unspecified Health Center) specimen by Probe and target amplification method ID Date Data Source [id number]/08/2017 02:44:00 PM EST [place] ([facility]) Name Value Range Interpretation Description Data Sup porting Code Source(s) Document(s ) Triiodothyronine 2.1 Triiodothyron [place] (T3) Free pg/mL ine,Free,Seru ([place] [Mass/volume] in [facility] Serum or Plasma Health Center) ID Date Data Source [id number]/08/2017 02:44:00 PM EST [place] ([facility]) Name Value Range Interpretation Description Data Source(s ) Supporting Code Document(s ) Trichomonas Positive Abnormal Trich vag by S[place] vaginalis rRNA (applies to AILEEN ([place] [Presence] in non-numeric Neighborhood Unspecified results) [facility]) specimen by Probe and target amplification method ID Date Data Source [id number]/08/2017 02:44:00 PM EST [place] ([facility]) Name Value Range Interpretation Description Data Source(s ) Supporting Code Document(s ) Thyrotropin 74.430 Above high normal TSH [place] ( [place] [Units/volume] uIU/mL [place] in Serum or Neighborhood Plasma by [facility]) Detection limit <= 0.05 mIU/L ID Date Data Source [id number]/08/2017 02:44:00 PM EST [place] ([facility]) Name Value Range Interpretation Description Data Source(s ) Supporting Code Document(s ) Thyroxine 0.64 Below low normal T4,Free(Direct [place] ([place] (T4) free ng/dL ) [place] [Mass/volume Neighborhood ] in Serum [facility]) or Plasma ID Date Data Source [id number]/08/2017 02:44:00 PM EST [place] ([facility]) Name Value Range Interpretation Description Data Source(s ) Supporting Code Document(s ) Chlamydia Negative Chlamydia [place] trachomatis trachomatis, ([place] rRNA [Presence] AILEEN [facility]ighborhood [facility] specimen by Probe and target amplification method Neisseria Negative Neisseria [place] gonorrhoeae gonorrhoeae, ([place] rRNA [Presence] AILEEN Neighborhood [facility]) specimen by Probe and target amplification method ID Date Data Source [id number] 08/02/2017 12:00:00 AM EST [place] ([facility]) Name Value Range Interpretation Description Data Sup porting Code Source(s) Document(s ) Triiodothyronine 2.0 Triiodothyron [place] (T3) Free pg/mL ine,Free,Seru ([place] [Mass/volume] in m [facility] Serum or Plasma [facility]) ID Date Data Source [id number] 08/02/2017 12:00:00 AM EST [place] ([facility]) Name Value Range Interpretation Description Data Source(s ) Supporting Code Document(s ) Thyrotropin 215.000 Above high normal TSH [place] ( [facility] [Units/volume] uIU/mL [place] in Serum or Neighborhood Plasma by [facility]) Detection limit <= 0.05 mIU/L Note: Specimen was diluted inorder to ob tain results.Results were repeated. ID Date Data Source [id number] 08/02/2017 12:00:00 AM [facility] ([facility]) Name Value Range Interpretation Description Data Source(s ) Supporting Code Document(s ) Thyroxine 0.36 Below low normal T4,Free(Direct [place] ([place] (T4) free ng/dL ) [place] [Mass/volume Neighborhood ] in [facility]) or Plasma ID Date Data Source [id number] 07/29/2017 12:18:00 PM [facility] ([facility]) Name Value Range Interpretation Description Data Source(s ) Supporting Code Document(s ) Thyrotropin 256.300 Above high normal TSH [place] ( [facility] [Units/volume] uIU/mL [place] in Serum or Neighborhood Plasma by [facility]) Detection limit <= 0.05 mIU/L Note: Specimen was diluted inorder to ob tain results.Results were repeated. ID Date Data Source [id number] 07/29/2017 12:18:00 PM [facility] ([facility]) Name Value Range Interpretation Description Data Source(s ) Supporting Code Document(s ) Triglyceride 80 Triglycerides [place] [Mass/volume] mg/dL ([place] in Serum or [facility]) Cholesterol 209 Above high Cholesterol, [place] [Mass/volume] mg/dL normal Total ([place] in Serum or [facility]) Cholesterol in 45 HDL Cholesterol [place] HDL mg/dL ([place] [Mass/volume] Neighborhood in Serum or Health Center) Plasma Cholesterol in 3.3 Above high LDL/HDL Ratio [place] LDL/Cholestero ratio_u normal ([place] l in HDL [Mass nits Neighborhood Ratio] in [facility]) Serum or Plasma Note: LDL/HDL Ratio Men Women 1/2 Avg.Risk 1.0 1.5 Avg.Risk 3.6 3.2 2X Avg.Risk 6.2 5.0 3X Avg.Risk 8.0 6.1 Laboratory comment N/A Comment: SENTHIL ([facility] [Text] in [facility]) Cholesterol in VLDL 16 mg/dL VLDL Cholesterol GRE ENWAY ([facility] [Mass/volume] in [facility] Serum or Plasma by Health Cent er) calculation Cholesterol in LDL 148 mg/dL Above high LDL Cholesterol GREE NWAY ([facility] [Mass/volume] in normal Calc [facility] Serum or Plasma by Health Cent er) calculation ID Date Data Source [id number] 07/29/2017 12:18:00 PM EST S[place] ([facility]) Name Value Range Interpretation Description Data Sup porting Code Source(s) Document(s ) Calcium 9.1 Calcium, [place] [Mass/volume] in mg/dL Serum ([facility]) Protein 7.5 Protein, [place] [Mass/volume] in g/dL Total, Serum ([facility]) Glucose 83 Glucose, [place] [Mass/volume] in mg/dL Serum ([facility]) Albumin 4.4 Albumin, [place] [Mass/volume] in g/dL Serum ([facility]) Urea nitrogen 13 BUN [place] [Mass/volume] in mg/dL ([facility]) Potassium 4.4 Potassium, [place] [Moles/volume] in mmol/L Serum ([facility]) Sodium 141 Sodium, Serum [place] [Moles/volume] in mmol/L ([facility]) Aspartate 19 IU/L AST (SGOT) [place] aminotransferase ([place] [Enzymatic Neighborhood activity/volume] Health in Serum or Plasma Center) Bilirubin.total 0.3 Bilirubin, [place] [Mass/volume] in mg/dL Total ([facility]) Alkaline 49 IU/L Alkaline [place] phosphatase Phosphatase, ([place] [Enzymatic S Neighborhood activity/volume] Health in Serum or Plasma Center) Alanine 16 IU/L ALT (SGPT) [place] aminotransferase ([place] [Enzymatic Neighborhood activity/volume] Health in Serum or Plasma Center) Creatinine 0.73 Creatinine, [place] [Mass/volume] in mg/dL Serum ([facility]) Chloride 103 Chloride, [place] [Moles/volume] in mmol/L Serum ([facility]) Globulin 3.1 Globulin, [place] [Mass/volume] in g/dL Total ([place] Serum by [facility]) Urea 18 BUN/Creatinin [place] nitrogen/Creatinin e Ratio ([facility] on e [Mass Ratio] in [facility] Serum or [facility]) Carbon dioxide, 21 Carbon [place] total mmol/L Dioxide, ([place] [Moles/volume] in Total [facility] Serum or [facility]) eGFR If Africn Am 123 eGFR If S[place] mL/min/ Africn Am ([address]) Albumin/Globulin 1.4 A/G Ratio S[place] [Mass Ratio] in ([place] Serum or Plasma [facility]) eGFR If NonAfricn 106 eGFR If S[place] Am mL/min/ NonAfricn Am ([address]) Procedure Social History Code Duration Value Status Description Data Source(s ) Smoking 07/07/2018 Smokes tobacco completed Smokes tobacco TRANG AY ([facility] 11:56:01 AM daily (finding) daily ([facility]) [facility]) Smoking Unknown if ever completed Unknown if ever Levy Alvarez smoked smoked [facility] Center Assertion High risk sexual completed High risk sexual GR EENWAY ([facility] behavior behavior [place] ([facility]) ([facility]) [facility]) Assertion Intravenous drug completed Intravenous drug GR EENWAY ([facility] user ([facility]) user ([facility]) [facility]) Assertion difficulty with completed SENTHIL ([facility] activities of [place] daily living [facility]) Assertion Difficulty completed Difficulty SENT[place]IL (Moun t washing self washing self [place] ([facility]) ([facility]) [facility]) Assertion Dependent for completed Dependent for S[place] ([facility] walking (finding) walking ([facility]) [facility]) Assertion Difficulty completed Difficulty SENT[place]IL (Moun t performing performing [place] dressing activity dressing activity [facility] ([facility]) ([facility]) [facility]) Assertion Difficulty completed Difficulty SENT[place]IL (Moun t feeding self feeding self [place] ([facility]) ([facility]) [facility]) Assertion Lives alone completed Lives alone SENT[place]IL (Mo unt (finding) ([facility]) [facility]) Assertion Difficulty with completed Difficulty with GREE NWAY ([facility] money management money management [place] (finding) ([facility]) [facility]) Assertion Unable to perform completed Unable to perform SENT[place]IL ([facility] shopping shopping [place] activities activities [facility] (finding) (finding) [facility] [place]) Assertion Unable to tidy completed Unable to tidy GREENW AY ([facility] house (finding) house (finding) [facility]) Assertion Unable to cook completed Unable to cook GREENW AY ([facility] food (finding) food (finding) [facility]) Assertion Non-smoker completed SENTHIL (Moun t [facility]) Assertion Smoker (finding) completed Smoker (finding) GR EENWAY ([facility]) Assertion Employment completed Employment SENT[place] (Moun t finding (finding) finding (finding) [facility]) Assertion Cigarette smoker completed Cigarette smoker GR EENWAY ([facility] (finding) (finding) [facility]) Assertion Tobacco user completed Tobacco user SENT[place] ( [facility] (finding) (finding) [facility]) Assertion Finding relating completed Finding relating GR EENWAY ([facility] to drug misuse to drug misuse [place] behavior behavior [facility] (finding) ([facility]) [facility]) Assertion Physical handicap completed Physical handicap [place] ([facility] (finding) (finding) [facility]) Assertion Finding of life completed Finding of life GREE NWAY ([facility] event (finding) event (finding) [facility]) Assertion Finding of completed Finding of SENTHIL (Moun t functional functional [place] performance and performance and [facility] activity activity [facility]) (finding) (finding) Assertion Caffeine user completed Caffeine user S[place] ([facility] (finding) (finding) [facility]) Assertion social history completed S[place] ( [facility] unchanged [facility]) Assertion sexual history completed SENTHIL ( [facility]) Assertion Oral hygiene completed Oral hygiene S[place] ( [facility] finding (finding) finding (finding) [facility]) Assertion Exercise history completed Exercise history GR EENWAY ([facility] finding (finding) finding (finding) [facility]) Assertion Current drinker completed Current drinker GREE NWMEÑO ([facility] of alcohol of alcohol [place] (finding) ([facility]) [facility]) Assertion Finding of completed Finding of SENTHIL (Moun t activity of daily activity of daily [place] living (finding) living (finding) [facility]) Vital Signs ID Date Data Source UNK Name Value Range Interpretation Code Description Data Source(s) Body height 67 [in_us] 67 [in_us] SENTHIL ([facility]) Pt presents today with c/o left breast p ain for 1 week, pt states the feels a lump in the left breastPt also requesting medica tion refills Body temperature 97.9 [degF] 97.9 [degF] TEMI WILDER ([facility]) Pt presents today with c/o left breast p ain for 1 week, pt states the feels a lump in the left breastPt also requesting medica tion refills Heart rate 90 /min 90 /min SENT[place] ([facility]) Pt presents today with c/o left breast p ain for 1 week, pt states the feels a lump in the left breastPt also requesting medica tion refills Diastolic blood pressure 81 mm[Hg] 81 mm[Hg] [place] ([facility]) Pt presents today with c/o left breast p ain for 1 week, pt states the feels a lump in the left breastPt also requesting medica tion refills Systolic blood pressure 124 mm[Hg] 124 mm[Hg] G REESUE ([facility]) Pt presents today with c/o left breast p ain for 1 week, pt states the feels a lump in the left breastPt also requesting medica tion refills PhenX - pain, abdominal - type and 10 1 0 [place] ([facility]) Pt presents today with c/o left breast p ain for 1 week, pt states the feels a lump in the left breastPt also requesting medica tion refills Body surface area Derived from 2.15 m2 2.15 m2 [place] ([facility]) Pt presents today with c/o left breast p ain for 1 week, pt states the feels a lump in the left breastPt also requesting medica tion refills Body mass index (BMI) 36.2 kg/m2 36.2 kg/m2 BRINA AMANDA ([place] [[facility]) Pt presents today with c/o left breast p ain for 1 week, pt states the feels a lump in the left breastPt also requesting medica tion refills Body weight 231 [lb_av] 231 [lb_av] SENT[place]IL ([facility]) Pt presents today with c/o left breast p ain for 1 week, pt states the feels a lump in the left breastPt also requesting medica tion refills Body height 67 [in_us] 67 [in_us] SENTHIL ([facility]) PT. is here for follow up X rays and als o 2 days of difficult to breaft. Body temperature 98.2 [degF] 98.2 [degF] [facility] ([facility]) PT. is here for follow up X rays and als o 2 days of difficult to breaft. Heart rate 100 /min 100 /min [place] ([facility]) PT. is here for follow up X rays and als o 2 days of difficult to breaft. Diastolic blood pressure 92 mm[Hg] 92 mm[Hg] [place] ([facility]) PT. is here for follow up X rays and als o 2 days of difficult to breaft. Systolic blood pressure 143 mm[Hg] 143 mm[Hg] [facility] PT. is here for follow up X rays and als o 2 days of difficult to breaft. PhenX - pain, abdominal - type and 8 8 [place] ([facility]) PT. is here for follow up X rays and als o 2 days of difficult to breaft. Body surface area Derived from 2.07 m2 2.07 m2 [place] ([facility]) PT. is here for follow up X rays and als o 2 days of difficult to breaft. Body mass index (BMI) 33.2 kg/m2 33.2 kg/m2 [facility] ([place] [[facility]] [facility]) PT. is here for follow up X rays and als o 2 days of difficult to breaft. Body weight 212 [lb_av] 212 [lb_av] [place] ([facility]) PT. is here for follow up X rays and als o 2 days of difficult to breaft. Body height 67 [in_us] 67 [in_us] [place] ([facility]) Pt is here for 1 week of congestions an d difficult to breath. Body temperature 98.7 [degF] 98.7 [degF] [facility] ([facility]) Pt is here for 1 week of congestions an d difficult to breath. Heart rate 97 /min 97 /min [place] ([facility]) Pt is here for 1 week of congestions an d difficult to breath. Diastolic blood pressure 83 mm[Hg] 83 mm[Hg] [place] ([facility]) Pt is here for 1 week of congestions an d difficult to breath. Systolic blood pressure 116 mm[Hg] 116 mm[Hg] [facility]) Pt is here for 1 week of congestions an d difficult to breath. PhenX - pain, abdominal - type and 6 6 [place] ([facility]) Pt is here for 1 week of congestions an d difficult to breath. Body surface area Derived from 2.09 m2 2.09 m2 [place] ([facility]) Pt is here for 1 week of congestions an d difficult to breath. Body mass index (BMI) 33.8 kg/m2 33.8 kg/m2 [facility] [address] ([place] [facility]Ratio[facility] Pt is here for 1 week of congestions an d difficult to breath. Body weight 216 [lb_av] 216 [lb_av] [place] ([facility]) Pt is here for 1 week of congestions an d difficult to breath. Body height 67 [in_us] 67 [in_us] [place] ([facility]) pt is here for Rx refill and also have c oncern joint pain for about 1mth and the pain have increased. Body temperature 97.4 [degF] 97.4 [degF] [facility] ([facility]) pt is here for Rx refill and also have c oncern joint pain for about 1mth and the pain have increased. Respiratory rate 18 /min 18 /min [place] ([facility]) pt is here for Rx refill and also have c oncern joint pain for about 1mth and the pain have increased. Heart rate 106 /min 106 /min [place] ([facility]) pt is here for Rx refill and also have c oncern joint pain for about 1mth and the pain have increased. Diastolic blood pressure 89 mm[Hg] 89 mm[Hg] [place] ([facility]) pt is here for Rx refill and also have c oncern joint pain for about 1mth and the pain have increased. Systolic blood pressure 126 mm[Hg] 126 mm[Hg] [place] ([facility]) pt is here for Rx refill and also have c oncern joint pain for about 1mth and the pain have increased. PhenX - pain, abdominal - type and 8 8 [place] ([facility]) pt is here for Rx refill and also have c oncern joint pain for about 1mth and the pain have increased. Body surface area Derived from 2.08 m2 2.08 m2 [place] ([facility]) pt is here for Rx refill and also have c oncern joint pain for about 1mth and the pain have increased. Body mass index (BMI) 33.5 kg/m2 33.5 kg/m2 [facility] [place] ([place] [[facility]] [facility]) pt is here for Rx refill and also have c oncern joint pain for about 1mth and the pain have increased. Body weight 213.6 [lb_av] 213.6 [lb_av] [place] ([facility]) pt is here for Rx refill and also have c oncern joint pain for about 1mth and the pain have increased. Body height 67 [in_us] 67 [in_us] [place] ([facility]) Pt. is here for 3 days of sorethroat, to oth paint and earache. Body temperature 98.8 [degF] 98.8 [degF] [facility] ([facility]) Pt. is here for 3 days of sorethroat, to oth paint and earache. Heart rate 96 /min 96 /min [place] ([facility]) Pt. is here for 3 days of sorethroat, to oth paint and earache. Diastolic blood pressure 88 mm[Hg] 88 mm[Hg] [place] ([facility]) Pt. is here for 3 days of sorethroat, to oth paint and earache. Systolic blood pressure 137 mm[Hg] 137 mm[Hg] [place] ([facility]) Pt. is here for 3 days of sorethroat, to oth paint and earache. PhenX - pain, abdominal - type and 9 9 [place] ([facility]) Pt. is here for 3 days of sorethroat, to oth paint and earache. Body surface area Derived from 2.13 m2 2.13 m2 [place] ([facility]) Pt. is here for 3 days of sorethroat, to oth paint and earache. Body mass index (BMI) 35.2 kg/m2 35.2 kg/m2 [place] ([place] [[facility]) Pt. is here for 3 days of sorethroat, to oth paint and earache. Body weight 225 [lb_av] 225 [lb_av] [place] ([facility]) Pt. is here for 3 days of sorethroat, to oth paint and earache. Body height 67 [in_us] 67 [in_us] [place] ([facility]) pt here for results Body temperature 98.6 [degF] 98.6 [degF] [facility] ([facility]) pt here for results Heart rate 99 /min 99 /min [place] ([facility]) pt here for results Diastolic blood pressure 78 mm[Hg] 78 mm[Hg] [place] ([facility]) pt here for results Systolic blood pressure 118 mm[Hg] 118 mm[Hg] [place] ([facility]) pt here for results PhenX - pain, abdominal - type and 8 8 [place] ([facility]) pt here for results Body surface area Derived from 2.11 m2 2.11 m2 [place] ([facility]) pt here for results Body mass index (BMI) 34.5 kg/m2 34.5 kg/m2 [facility] [place] ([place] [[facility]) pt here for results Body weight 220 [lb_av] 220 [lb_av] [place] ([facility]) pt here for results Body height 67 [in_us] 67 [in_us] [place] ([facility]) pt here for refills, C/O pain in legs on and off, tingling and numbess in thigh Body temperature 98.4 [degF] 98.4 [degF] [facility] ([facility]) pt here for refills, C/O pain in legs on and off, tingling and numbess in thigh Heart rate 88 /min 88 /min [place] ([facility]) pt here for refills, C/O pain in legs on and off, tingling and numbess in thigh Diastolic blood pressure 89 mm[Hg] 89 mm[Hg] [place] ([facility]) pt here for refills, C/O pain in legs on and off, tingling and numbess in thigh Systolic blood pressure 130 mm[Hg] 130 mm[Hg] [place] ([facility]) pt here for refills, C/O pain in legs on and off, tingling and numbess in thigh PhenX - pain, abdominal - type and 0 0 [place] ([facility]) pt here for refills, C/O pain in legs on and off, tingling and numbess in thigh Body surface area Derived from 2.09 m2 2.09 m2 [place] ([facility]) pt here for refills, C/O pain in legs on and off, tingling and numbess in thigh Body mass index (BMI) 34.0 kg/m2 34.0 kg/m2 [place] ([place] [[facility]) pt here for refills, C/O pain in legs on and off, tingling and numbess in thigh Body weight 217 [lb_av] 217 [lb_av] [place] ([facility]) pt here for refills, C/O pain in legs on and off, tingling and numbess in thigh Body surface area Derived from 2.04 m2 2.04 m2 [place] ([facility]) Pt c/o cough x 1 week Body mass index (BMI) 32.1 kg/m2 32.1 kg/m2 [place] ([place] [[facility]) Pt c/o cough x 1 week Body weight 205 [lb_av] 205 [lb_av] [place] ([facility]) Pt c/o cough x 1 week Body height 67 [in_us] 67 [in_us] [place] ([facility]) Pt c/o cough x 1 week Body temperature 98.5 [degF] 98.5 [degF] [facility] ([facility]) Pt c/o cough x 1 week Heart rate 97 /min 97 /min [place] ([facility]) Pt c/o cough x 1 week Diastolic blood pressure 81 mm[Hg] 81 mm[Hg] [place] ([facility]) Pt c/o cough x 1 week Systolic blood pressure 134 mm[Hg] 134 mm[Hg] [place] ([facility]) Pt c/o cough x 1 week Oxygen saturation in Arterial blood 98 % 98 % [place] ([facility] by Pulse oximetry [facility]) Pt here today for medication refillsPt c /o lower back pain for 1 week PhenX - pain, abdominal - type and 8 8 [place] ([facility] intensity protocol [facility]) Pt here today for medication refillsPt c /o lower back pain for 1 week Body surface area Derived from 2.08 m2 2.08 m2 [place] ([facility]) Pt here today for medication refillsPt c /o lower back pain for 1 week Body mass index (BMI) 33.4 kg/m2 33.4 kg/m2 [place] ([place] [[facility]) Pt here today for medication refillsPt c /o lower back pain for 1 week Body weight 213 [lb_av] 213 [lb_av] [place] ([facility]) Pt here today for medication refillsPt c /o lower back pain for 1 week Body height 67 [in_us] 67 [in_us] [place] ([facility]) Pt here today for medication refillsPt c /o lower back pain for 1 week Body temperature 98.2 [degF] 98.2 [degF] [facility] ([facility]) Pt here today for medication refillsPt c /o lower back pain for 1 week Heart rate 84 /min 84 /min [place] ([facility]) Pt here today for medication refillsPt c /o lower back pain for 1 week Diastolic blood pressure 76 mm[Hg] 76 mm[Hg] [place] ([facility]) Pt here today for medication refillsPt c /o lower back pain for 1 week Systolic blood pressure 119 mm[Hg] 119 mm[Hg] [facility] ([facility]) Pt here today for medication refillsPt c /o lower back pain for 1 week Body weight 213 [lb_av] 213 [lb_av] [place] ([facility]) Pt here due to medication refills. Body height 67 [in_us] 67 [in_us] [place] ([facility]) Pt here due to medication refills. Body temperature 98 [degF] 98 [degF] [place] ([facility]) Pt here due to medication refills. Heart rate 82 /min 82 /min [place] ([facility]) Pt here due to medication refills. Diastolic blood pressure 84 mm[Hg] 84 mm[Hg] [place] ([facility]) Pt here due to medication refills. Systolic blood pressure 130 mm[Hg] 130 mm[Hg] [facility] Pt here due to medication refills. PhenX - pain, abdominal - type and 0 0 [place] ([facility] protocol [facility]) Pt here due to medication refills. Body surface area Derived from 2.08 m2 2.08 m2 [place] ([facility]) Pt here due to medication refills. Body mass index (BMI) 33.4 kg/m2 33.4 kg/m2 [place] ([place] [[facility]) Pt here due to medication refills. Body weight 220 [lb_av] 220 [lb_av] [place] ([facility]) pt here for refills Body height 67 [in_us] 67 [in_us] [place] ([facility]) pt here for refills Body temperature 98.5 [degF] 98.5 [degF] [place] ([facility]) pt here for refills Heart rate 82 /min 82 /min [place] ([facility]) pt here for refills Diastolic blood pressure 83 mm[Hg] 83 mm[Hg] [place] ([facility]) pt here for refills Systolic blood pressure 122 mm[Hg] 122 mm[Hg] [facility] ([facility]) pt here for refills PhenX - pain, abdominal - type and 9 9 [place] ([facility]) pt here for refills Body surface area Derived from 2.11 m2 2.11 m2 [place] ([facility]) pt here for refills Body mass index (BMI) 34.5 kg/m2 34.5 kg/m2 [place] ([place] [[facility]) pt here for refills Body weight 218 [lb_av] 218 [lb_av] [place] ([facility]) pt here for refills Body height 67 [in_us] 67 [in_us] [place] ([facility]) pt here for refills Body temperature 98.6 [degF] 98.6 [degF] [place] ([facility]) pt here for refills Heart rate 102 /min 102 /min [place] ([facility]) pt here for refills Diastolic blood pressure 83 mm[Hg] 83 mm[Hg] [place] ([facility]) pt here for refills Systolic blood pressure 121 mm[Hg] 121 mm[Hg] [facility] ([facility]) pt here for refills PhenX - pain, abdominal - type and 8 8 [place] ([facility]) pt here for refills Body surface area Derived from 2.10 m2 2.10 m2 [place] ([facility]) pt here for refills Body mass index (BMI) 34.1 kg/m2 34.1 kg/m2 [place] ([place] [facility]) pt here for refills Body weight 216 [lb_av] 216 [lb_av] [place] ([facility]) 37y old female present here for Endometr iosis biopsy. Patient denies pain and no complaint voiced. LMP 10/12/17.Sebastian harrell RN Body height 67 [in_us] 67 [in_us] [place] ([facility]) 37y old female present here for Endometr iosis biopsy. Patient denies pain and no complaint voiced. LMP 10/12/17.Sebastian harrell RN Body temperature 98.1 [degF] 98.1 [degF] [facility] ([facility]) 37y old female present here for Endometr iosis biopsy. Patient denies pain and no complaint voiced. LMP 10/12/17.Sebastian harrell RN Respiratory rate 20 /min 20 /min [place] ([facility]) 37y old female present here for Endometr iosis biopsy. Patient denies pain and no complaint voiced. LMP 10/12/17.Sebastian harrell RN Heart rate rhythm 1 1 [place] ([facility]) 37y old female present here for Endometr iosis biopsy. Patient denies pain and no complaint voiced. LMP 10/12/17.Sebastian harrell RN Heart rate 90 /min 90 /min [place] ([facility]) 37y old female present here for Endometr iosis biopsy. Patient denies pain and no complaint voiced. LMP 10/12/17.Sebastian harrell RN Diastolic blood pressure 82 mm[Hg] 82 mm[Hg] [place] ([facility]) 37y old female present here for Endometr iosis biopsy. Patient denies pain and no complaint voiced. LMP 10/12/17.Sebastian harrell RN Systolic blood pressure 119 mm[Hg] 119 mm[Hg] [facility] 37y old female present here for Endometr iosis biopsy. Patient denies pain and no complaint voiced. LMP 10/12/17.Sebastian harrell RN PhenX - pain, abdominal - type and 0 0 [place] ([facility]) 37y old female present here for Endometr iosis biopsy. Patient denies pain and no complaint voiced. LMP 10/12/17.Sebastian harrell RN Body surface area Derived from 2.09 m2 2.09 m2 [place] ([facility]) 37y old female present here for Endometr iosis biopsy. Patient denies pain and no complaint voiced. LMP 10/12/17.Sebastian harrell RN Body mass index (BMI) 33.8 kg/m2 33.8 kg/m2 [facility] [facility]) 37y old female present here for Endometr iosis biopsy. Patient denies pain and no complaint voiced. LMP 10/12/17.Sebastian harrell RN Body weight 219 [lb_av] 219 [lb_av] [place] ([facility]) Pt here todfay for labs resultsPt c/o lo wer back pain for 1 week Body height 67 [in_us] 67 [in_us] [place] ([facility]) Pt here todfay for labs resultsPt c/o lo wer back pain for 1 week Body temperature 98 [degF] 98 [degF] [place] ([facility]) Pt here todfay for labs resultsPt c/o lo wer back pain for 1 week Heart rate 106 /min 106 /min [place] ([facility]) Pt here todfay for labs resultsPt c/o lo wer back pain for 1 week Diastolic blood pressure 81 mm[Hg] 81 mm[Hg] [place] ([facility]) Pt here todfay for labs resultsPt c/o lo wer back pain for 1 week Systolic blood pressure 127 mm[Hg] 127 mm[Hg] [facility] Pt here todfay for labs resultsPt c/o lo wer back pain for 1 week PhenX - pain, abdominal - type and 10 1 0 [place] ([facility]) Pt here todfay for labs resultsPt c/o lo wer back pain for 1 week Body surface area Derived from 2.10 m2 2.10 m2 [place] ([facility]) Pt here todfay for labs resultsPt c/o lo wer back pain for 1 week Body mass index (BMI) 34.3 kg/m2 34.3 kg/m2 [place] ([place] [[facility]) Pt here todfay for labs resultsPt c/o lo wer back pain for 1 week PhenX - pain, abdominal - type and 10 1 0 [place] ([facility]) PT . is here for blood work result / co mplaint about back pain . Body surface area Derived from 2.10 m2 2.10 m2 [place] ([facility]) PT . is here for blood work result / co mplaint about back pain . Body mass index (BMI) 34.1 kg/m2 34.1 kg/m2 [place] ([place] [Ratio] [facility]) PT . is here for blood work result / co mplaint about back pain . Body weight 217.8 [lb_av] 217.8 [lb_av] [place] ([facility]) PT . is here for blood work result / co mplaint about back pain . Body height 67 [in_us] 67 [in_us] [place] ([facility]) PT . is here for blood work result / co mplaint about back pain . Body temperature 98.9 [degF] 98.9 [degF] [place] ([facility]) PT . is here for blood work result / co mplaint about back pain . Respiratory rate 20 /min 20 /min [place] ([facility]) PT . is here for blood work result / co mplaint about back pain . Heart rate rhythm 1 1 Y ([facility]) PT . is here for blood work result / co mplaint about back pain . Heart rate 109 /min 109 /min [place] ([facility]) PT . is here for blood work result / co mplaint about back pain . Diastolic blood pressure 77 mm[Hg] 77 mm[Hg] [place] ([facility]) PT . is here for blood work result / co mplaint about back pain . Systolic blood pressure 115 mm[Hg] 115 mm[Hg] [facility] PT . is here for blood work result / co mplaint about back pain . Oxygen saturation in Arterial blood 97 % 97 % [place] ([facility] by Pulse oximetry [facility]) Pt here today with c/o cough PhenX - pain, abdominal - type and 6 6 [place] ([facility]) Pt here today with c/o cough Body surface area Derived from 2.13 m2 2.13 m2 [place] ([facility]) Pt here today with c/o cough Body mass index (BMI) 35.4 kg/m2 35.4 kg/m2 [facility] ([place] [facility]) Pt here today with c/o cough Body weight 226 [lb_av] 226 [lb_av] [place] ( [facility]) Pt here today with c/o cough Body height 67 [in_us] 67 [in_us] [place] ([facility]) Pt here today with c/o cough Body temperature 98.3 [degF] 98.3 [degF] [facility] ([facility]) Pt here today with c/o cough Heart rate 114 /min 114 /min [place] ([facility]) Pt here today with c/o cough Diastolic blood pressure 83 mm[Hg] 83 mm[Hg] [place] ([facility]) Pt here today with c/o cough Systolic blood pressure 124 mm[Hg] 124 mm[Hg] [place] ([facility]) Pt here today with c/o cough PhenX - pain, abdominal - type and 0 0 [place] ([facility]) Pt here today for labs results Body surface area Derived from 2.15 m2 2.15 m2 [place] ([facility]) Pt here today for labs results Body mass index (BMI) 36.2 kg/m2 36.2 kg/m2 [place] ([place] [[facility]) Pt here today for labs results Body weight 231 [lb_av] 231 [lb_av] [place] ([facility]) Pt here today for labs results Body height 67 [in_us] 67 [in_us] [place] ([facility]) Pt here today for labs results Body temperature 98.6 [degF] 98.6 [degF] [place] [facility] ([facility]) Pt here today for labs results Heart rate 94 /min 94 /min [place] ([facility]) Pt here today for labs results Diastolic blood pressure 80 mm[Hg] 80 mm[Hg] [place] ([facility]) Pt here today for labs results Systolic blood pressure 121 mm[Hg] 121 mm[Hg] [place] ([facility]) Pt here today for labs results PhenX - pain, abdominal - type and 10 1 0 [place] ([facility]) pt here to follow up with DR after disch arge from [facility]. Body surface area Derived from 2.14 m2 2.14 m2 [place] ([facility]) pt here to follow up with DR after disch arge from [facility]. Body mass index (BMI) 35.7 kg/m2 35.7 [facility]/m2 [facility] [facility]) pt here to follow up with DR after disch arge from [facility]. Body weight 228 [lb_av] 228 [lb_av] [place] ([facility]) pt here to follow up with DR after disch arge from [facility]. Body height 67 [in_us] 67 [in_us] [place] ([facility]) pt here to follow up with DR after disch arge from [facility]. Body temperature 98.6 [degF] 98.6 [degF] [facility]I WIL[facility] ([facility]) pt here to follow up with DR after disch arge from [facility]. Heart rate 89 /min 89 /min [place] ([facility]) pt here to follow up with DR after disch arge from [facility]. Diastolic blood pressure 84 mm[Hg] 84 mm[Hg] [place] ([facility]) pt here to follow up with DR after disch arge from [facility]. Systolic blood pressure 133 mm[Hg] 133 mm[Hg] Tk SMITH ([facility]) pt here to follow up with DR after disch arge from [facility]. Patient Treatment Plan of Care Planned Activity Planned Date Details Description Data Source (s) Tylenol 325MG Oral Tablet 08/03/2019 [place] ([facility] 12:00:00 AM [facility]) Synthroid 125MCG Oral Tablet 08/03/2019 [place] ([facility] 12:00:00 AM [facility]) Ventolin HFA 108 ( 08/03/2019 [facility] Y ([facility] Base)MCG/ACT Inhalation 12:00:00 AM [facility] Aerosol Solution [facility]) Symbicort 160-4.5MCG/ACT 08/03/2019 [place] ([facility] Inhalation Aerosol 12:00:00 AM [facility]) Albuterol 0.21 MG/ML 08/03/2019 [place] ([facility] Inhalant Solution 12:00:00 AM [facility]) Cepacol Regular Strength 3MG 06/09/2019 [place] ([facility] Ventolin HFA 108 (90 06/09/2019 [place] ([facility] Base)MCG/ACT Inhalation 12:00:00 AM EDT [facility] Aerosol Solution [facility] er) Symbicort 160-4.5MCG/ACT 06/09/2019 [place] ([facility] Inhalation Aerosol 12:00:00 AM [facility]) Albuterol 0.21 MG/ML 06/09/2019 [place] ([facility] Inhalant Solution 12:00:00 AM [facility]) CompAir Nebulizer 06/09/2019 [place] ( [facility] Miscellaneous 12:00:[address] [facility]) Prednisone 10 MG Oral Tablet 05/06/2019 [place] ([facility] 12:00:00 AM [facility]) Cepacol Regular Strength 3MG 05/06/2019 [place] ([place]/Throat Loz[facility] 12:00:00 AM EDT [facility]) Symbicort 160-4.5MCG/ACT 04/11/2019 [place] ([facility] Ventolin HFA 108 (90 04/11/2019 [place] ([facility])MCG/ACT Inhalation 12:00:00 AM EDT [facility] Aerosol Solution [facility] er) Synthroid 125MCG Oral Tablet 04/07/2019 [place] ([facility] 12:00:00 AM EDT [facility]) Omeprazole 40 MG Delayed 04/07/2019 [place] ([facility] Release Oral Capsule 12:00:00 AM EDT [facility]) Albuterol 0.21 MG/ML 04/07/2019 [facility] Y ([facility] Dulera 200-5MCG/ACT 04/07/2019 [place] ([facility] Omeprazole 40 MG Delayed 04/07/2019 GRE [place] ([place] Release Oral Capsule 12:00:00 AM EDT [facility]) Motrin IB 200MG Oral Capsule 04/07/2019 [place] ([place] 12:00:00 AM EDT [facility]) Ibuprofen 400 MG Oral Tablet 01/14/2019 [place] [facility] Hydrocortisone 10 MG/ML / 01/14/2019 GR E[place] ([place] Neomycin 3.5 MG/ML / 12:00:00 AM EDT [facility] Polymyxin B 31178 UNT/ML [facility]) Otic Solution Omeprazole 40 MG Delayed 01/14/2019 GRE [place]AY ([place] Release Oral Capsule 12:00:00 AM EDT [facility]) Synthroid 125MCG Oral Tablet 01/14/2019 [place] ([facility] Albuterol 0.83 MG/ML 01/14/2019 [place] ([place] [facility] Breo Ellipta 100-25MCG/INH 01/14/2019 G REENWAY ([facility] Inhalation Aerosol Powder 12:00:00 AM EDT [facility] Breath Activated [facility]) Symbicort 160-4.5MCG/ACT 11/04/2018 [place] ([place] [facility]halation [facility] Synthroid 125MCG Oral Tablet 11/04/2018 [place] ([place] 12:00:00 AM EDT [facility]) Omeprazole 40 MG Delayed 11/04/2018 [place] ([place] Release Oral Capsule 12:00:00 AM EDT [facility]) Cyclobenzaprine 11/04/2018 [place] (Mo unt hydrochloride 5 MG Oral 12:00:[address] [facility] [place]) Ibuprofen 400 MG Oral Tablet 11/04/2018 [place] ([place] 12:00:00 AM EDT [facility]) Guaifenesin 20 MG/ML Oral 11/04/2018 GR EEN[place]AY ([facility] Solution 12:00:00 AM EDT [facility]) Cyclobenzaprine 10/23/2018 [place] (Mo unt hydrochloride 5 MG Oral 12:00:[address] [facility]) EQ Nicotine 7MG/24HR 10/23/2018 BRAYTON[place] Y ([facility] Transdermal Patch 24 Hour 12:00:00 AM [facility]) Ventolin HFA 108 (90 10/23/2018 [place] Y ([facility] Base)MCG/ACT Inhalation 12:00:00 AM [facility] Aerosol Solution [facility]) Singulair 10MG Oral Tablet 10/23/2018 G [place] ([place] 12:00:00 AM [facility]) Breo Ellipta 100-25MCG/INH 10/23/2018 G REEN[place]AY ([facility] Inhalation Aerosol Powder 12:00:00 AM [facility] Breath [facility]ivated [facility]) Albuterol 0.83 MG/ML 10/23/2018 [place] Y ([facility] Inhalant Solution 12:00:00 AM [facility]) Ibuprofen 400 MG Oral Tablet 10/23/2018 [place] ([place] 12:00:00 AM [facility]) Augmentin 875-125MG Oral 07/07/2018 [place] ([place] Tablet 12:00:00 AM [facility]) Omeprazole 40 MG Delayed 07/07/2018 [place] ([place] Release Oral Capsule 12:00:00 AM [facility]) Prednisone 10 MG Oral Tablet 07/07/2018 [place] ([place] 12:00:00 AM [facility]) Guaifenesin 20 MG/ML Oral 07/07/2018 [place] ([place] Solution 12:00:00 AM [facility]) Ventolin HFA 108 (90 07/07/2018 [place] ([facility] Base)MCG/ACT Inhalation 12:00:00 AM EST [facility] Aerosol Solution [facility]) Symbicort 160-4.5MCG/ACT 07/07/2018 [place] ([facility] Inhalation Aerosol 12:00:00 AM [facility]) Singulair 10MG Oral Tablet 07/07/2018 G [place] (Mount 12:00:00 AM [facility]) Albuterol 0.83 MG/ML 07/07/2018 [place] ([facility] Inhalant Solution 12:00:00 AM [facility]) [facility] Nicotine 14MG/24HR 05/14/[address] ([facility] Transdermal Patch 24 Hour 12:00:00 AM [facility]) NexIUM 40MG Oral Packet 05/14/2018 GREE NW[place] ([place] 12:00:00 AM [facility]) Ventolin HFA 108 (90 05/14/2018 [place] Y ([facility] Base)MCG/ACT Inhalation 12:00:00 AM EDT [facility] Aerosol Solution [facility]) Albuterol 0.21 MG/ML 05/14/2018 [place] ([facility] Inhalant Solution 12:00:00 AM [facility]) Symbicort 160-4.5MCG/ACT 05/14/2018 [place] ([place] Inhalation Aerosol 12:00:00 AM [facility]) Ventolin HFA 108 (90 01/21/2018 [place] ([facility] Base)MCG/ACT Inhalation 12:00:00 AM EDT [facility] Aerosol Solution [facility]) Symbicort 160-4.5MCG/ACT 01/21/2018 [place] ([place] Inhalation Aerosol 12:00:00 AM EDT [facility]) Synthroid 100MCG Oral Tablet 12/31/2017 [place] ([place] 12:00:00 AM EDT [facility]) Symbicort 160-4.5MCG/ACT 12/24/2017 [place] ([place] Inhalation Aerosol 12:00:00 AM [facility]) Synthroid 88MCG Oral Tablet 12/24/2017 [place] ([place] 12:00:00 AM EDT [facility]) NexIUM 40MG Oral Packet 12/24/2017 [place] ([place] 12:00:00 AM EDT [facility]) Ventolin HFA 108 (90 12/24/2017 [place] ([facility] Base)MCG/ACT Inhalation 12:00:00 AM EDT [facility] Aerosol Solution [facility]) Diflucan 150MG Oral Tablet 10/16/2017 G [place] ([place] 12:00:00 AM [facility]) Synthroid 88MCG Oral Tablet 10/16/2017 [place] ([place] 12:00:00 AM [facility]) NexIUM 40MG Oral Packet 10/16/2017 [place] ([place] 12:00:00 AM [facility]) Flagyl 500MG Oral Tablet 10/16/2017 [place] ([place] 12:00:00 AM [facility]) Simvastatin 40 MG Oral 09/27/[address] ([place] Tablet 12:00:00 AM [facility]) Prednisone 20 MG Oral Tablet 09/27/2017 [place] ([place] 12:00:00 AM [facility]) Nebulizer Miscellaneous 09/27/2017 [place] ([place] 12:00:00 AM [facility]) Augmentin 875-125MG Oral 09/27/2017 [place] ([place] Tablet 12:00:00 AM [facility]) Diflucan 150MG Oral Tablet 09/27/2017 G [place] ([place] 12:00:00 AM [facility]) Synthroid 75MCG Oral Tablet 09/27/2017 [place] ([place] 12:00:00 AM [facility]) Simvastatin 40 MG Oral 09/27/[address] ([place] Tablet 12:00:00 AM [facility]) Synthroid 50MCG Oral Tablet 08/02/2017 [place] ([place] 12:00:00 AM [facility]) Simvastatin 20 MG Oral 08/02/[address] ([place] Tablet 12:00:00 AM [facility]) Albuterol 0.833 MG/ML / 07/26/2017 [place] ([place] Ipratropium [place] 0.167 12:00:00 AM [facility] MG/ML Inhalant Solution [facility]) Augmentin 875-125MG Oral 07/26/2017 [place] ([place] Tablet 12:00:00 AM [facility]) Singulair 10MG Oral Tablet 07/26/2017 G [place] ([place] 12:00:00 AM [facility]) Hydrochlorothiazide 25 MG 07/26/2017 GR [place] ([place] Oral Tablet 12:00:00 AM [facility]) NexIUM 40MG Oral Packet 07/26/2017 [place] (Mount 12:00:00 AM [facility]) Symbicort 160-4.5MCG/ACT 07/26/2017 [place] ([place] Inhalation Aerosol 12:00:00 AM [facility]) Ventolin HFA 108 (90 07/26/2017 [place] Y ([facility] Base)MCG/ACT Inhalation 12:00:00 AM [facility] Aerosol Solution [facility] er) Metronidazole 500 MG Oral 06/24/2017 GR [place] ([place] Tablet 12:00:00 AM [facility]) EQ Nicotine 21MG/24HR 04/11/2017 TEMI AY ([place] Transdermal Patch 24 Hour 12:00:00 AM [facility]) Omeprazole 40 MG Delayed 04/11/2017 BRINA ENWAY ([place] Release Oral Capsule 12:00:00 AM [facility]) Cyclobenzaprine 04/11/2017 [place] (Mo unt hydrochloride 5 MG Oral 12:00:00 AM [facility]) Hydrochlorothiazide 25 MG 04/11/2017 GR [place] ([place] Oral Tablet 12:00:00 AM EDT [facility]) Ventolin HFA 108 (90 04/11/2017 [place] ([place] Base)MCG/ACT Inhalation 12:00:00 AM [facility] Aerosol Solution [facility]) Singulair 10MG Oral Tablet 04/11/2017 [place] ([facility] Symbicort 160-4.5MCG/ACT 04/11/2017 [place] ([place] Inhalation [facility]erosol [facility]:00:[facility] Omeprazole 40 MG Delayed 11/30/2016 [place] ([place] Release Oral Capsule 12:00:00 AM EDT [facility]) Nasacort Allergy 24HR 55 11/30/2016 [place] ([place] MCG/ACT Aerosol 12:00:00 AM EDT [facility]) Singulair 10 MG Tablet 11/30/[address] (Mount 12:00:00 AM EDT [facility]) Symbicort 160-4.5 MCG/ACT 11/30/2016 [place] ([facility]erosol [facility]:00:[facility] Ventolin HFA 108 (90 Base) 11/30/2016 G [place] ([place] MCG/ACT Aerosol Solution 12:00:00 AM [facility]) Albuterol 0.83 MG/ML 11/30/2016 [place] ([place] Inhalant Solution 12:00:00 AM [facility]) Symbicort 160-4.5 MCG/ACT 08/30/2016 GR [place] ([place] Aerosol 12:00:00 AM [facility]) Albuterol 0.83 MG/ML 08/30/2016 [place] ([place] Inhalant Solution 12:00:00 AM [facility]) Ventolin HFA 108 (90 Base) 08/30/2016 G [place] ([place] MCG/ACT Aerosol Solution 12:00:00 AM [facility]) Symbicort 160-4.5 MCG/ACT 08/30/2016 [place] ([place] Aerosol 12:00:00 AM [facility]) PriLOSEC 40 MG Capsule 08/30/[address] ([place] Delayed Release 12:00:00 AM [facility]) Augmentin 875-125 MG Tablet 08/30/2016 [place] (Mount 12:00:00 AM [facility]) Metronidazole 500 MG Oral 03/20/2016 [place] ([place] Tablet 12:00:00 AM [facility]) Macrobid 100 MG Capsule 03/14/2016 [place] (Mount 12:00:00 AM [facility]) Fluconazole 150 MG Oral 03/14/2016 [place] ([place] Tablet 12:00:00 AM [facility]) Symbicort 160-4.5 MCG/ACT 03/14/2016 [place] ([place] Aerosol 12:00:00 AM [facility]) Ventolin HFA 108 (90 Base) 03/14/2016 G RE[place]AY ([facility] MCG/ACT Aerosol Solution 12:00:00 AM [facility]) PriLOSEC 20 MG Capsule 03/14/[address] ([facility] Delayed Release 12:00:00 AM [facility]) Albuterol 0.83 MG/ML 09/12/2015 [place] Y ([facility] Inhalant Solution 12:00:00 AM [facility]) Singulair 10 MG Tablet 09/12/[address] (Mount 12:00:00 AM [facility]) Diflucan 150 MG Tablet 09/12/[address] ([place] 12:00:00 AM [facility]) Nebulizer Device 09/12/2015 [place] (M ount 12:00:00 AM [facility]) Ventolin HFA 108 (90 Base) 09/12/2015 G [place]AY ([facility] MCG/ACT Aerosol Solution 12:00:00 AM [facility]) Symbicort 160-4.5 MCG/ACT 09/12/2015 [place] ([place] Aerosol 12:00:00 AM [facility]) Augmentin 875-125 MG Tablet 09/12/2015 [place] (Mount 12:00:00 AM [facility]) Hydrocortisone 10 MG/ML / 09/12/2015 [place] ([place] Neomycin 3.5 MG/ML / 12:00:00 AM EST [facility] Polymyxin B 36282 UNT/ML [facility]) Otic Suspension Flagyl 500 MG TABS 05/02/2015 [place] ([facility] Omeprazole 40 MG Delayed 04/14/2015 [place] ([place] Release [facility] Acetaminophen 500 MG Oral 04/14/2015 [place] ([place] Tablet [facility]:00:[facility] Hydrocortisone 10 MG/ML / 12/14/2014 [place] ([place] Neomycin 3.5 MG/ML / [facility] Polymyx[facility] 14646 UNT/ML [facility]) Otic Suspension Amoxicillin 500 MG Oral 12/14/2014 [place] ([place] Capsule 12:00:00 AM [facility]) Amoxicillin 500 MG Oral 11/23/2014 [place] ([place] [facility]apsule [facility]:00:[facility] Albuterol 0.83 MG/ML 11/23/2014 [place] Y ([place] Inhalant Solution 12:00:00 AM [facility]) Ventolin HFA 108 (90 11/16/2014 TR[place] Y ([facility] Base)MCG/ACT IN [facility]ERS [facility]:00[facility] Symbicort 160-4.5MCG/ACT IN 11/16/2014 [place] ([place] AERO [facility]:00:[facility] Levaquin 500MG OR TABS 11/16/[address] ([place] 12:00:00 AM [facility]) Prednisone 20 MG Oral Tablet 11/16/2014 [place] ([place] 12:00:00 AM [facility]) Singulair 10MG OR TABS 11/16/[address] ([place] 12:00:00 AM [facility]) Albuterol 0.833 MG/ML / 11/16/2014 [place] ([place] Ipratropium [place] 0.167 12:00:00 AM EDT [facility] MG/ML Inhalant Solution [facility]) Ibuprofen 400 MG Oral Tablet 11/16/2014 [place] (Mount 12:00:00 AM EDT [facility]) Augmentin 875-125MG OR TABS 05/04/2014 [place] ([facility] Ibuprofen 800 MG Oral Tablet 05/04/2014 [place] ([place] 12:00:00 AM EDT [facility]) Prednisone 20 MG Oral Tablet 05/04/2014 [place] ([facility] Ventolin HFA 108 (90 05/04/2014 [place] ([facility])MCG/ACT IN AERS 12:00:00 AM EDT [facility]) Hydrochlorothiazide 50 MG 05/04/2014 GR EEN[place]AY ([facility] Oral Tablet 12:00:00 AM T [facility]) Ventolin HFA 108 (90 03/12/2014 [place] Y ([facility])MCG/ACT IN AERS 12:00:00 AM EDT [facility]) Symbicort 160-4.5MCG/ACT IN 03/12/2014 [place] ([facility] AERO 12:00:00 AM EDT [facility]) Permethrin 10 MG/ML 03/12/2014 [place] ([facility] Medicated Shampoo 12:00:00 AM [facility]) Ibuprofen 800 MG Oral Tablet 02/24/2014 [place] ([place] 12:00:00 AM EDT [facility]) Hydrochlorothiazide 25 MG 02/24/2014 GR E[place] ([facility] Oral Tablet 12:00:00 AM [facility]) PriLOSEC 40 MG CPDR 02/24/2014 [place] ([place] 12:00:00 AM [facility]) Augmentin 875-125MG OR TABS 11/18/2013 [place] ([place] 12:00:00 AM [facility]) Ventolin HFA 108 (90 09/01/2013 [place] Y ([facility])MCG/ACT IN AERS 12:00:00 AM EST [facility]) Singulair 10MG OR TABS 09/01/[address] ([facility] 12:00:00 AM EST [facility]) Symbicort 160-4.5MCG/ACT IN 09/01/2013 [place] ([facility] AERO 12:00:00 AM EST [facility]) Ibuprofen 400 MG Oral Tablet 09/01/2013 [place] ([facility] 12:00:00 AM [facility]) Symbicort 160-4.5MCG/ACT IN 04/24/2013 [place] ([facility] AERO 12:00:00 AM EDT [facility]) Permethrin 50 MG/ML Topical 04/24/2013 [place] ([facility] Cream 12:00:00 AM EDT [facility]) Hydrochlorothiazide 25 MG 04/24/2013 GR [place] ([facility] Oral Tablet 12:00:00 AM EDT [facility]) Augmentin 875-125MG OR TABS 04/24/2013 [place] ([facility] 12:00:00 AM EDT [facility]) Ventolin HFA 108 (90 04/24/2013 [place] ([facility])MCG/ACT IN AERS 12:00:00 AM EDT [facility]) Ventolin HFA 108 (90 08/16/2012 [place] Y ([facility])MCG/ACT IN AERS 12:00:00 AM EST [facility]) Ibuprofen 800 MG Oral Tablet 08/16/2012 [place] ([facility] 12:00:00 AM [facility]) Symbicort 160-4.5MCG/ACT IN 08/16/2012 [place] ([place] AERO 12:00:00 AM [facility]) Diphenhydramine 08/16/2012 S[place] (Mo unt Hydrochloride 50 MG Oral 12:00:00 AM [facility])
--- NOTE | 2020-05-12 22:00 | HP ---
CHIEF COMPLAINT: Admission for breast I & D with Dr. Mcmahon HISTORY OF PRESENT ILLNESS: Abiodun is 36 yo F with PMHx of asthma, hypothyroidism, left breast abscess who presents to ED with non healed breast abscess s/p Left breast I & D in Mar [address] Mcmahon. After the I&D in March 2020, she received iv Zosyn and iv Clindamycin and took 7 days of Augmentin. States that the abscess never fully resolved and quickly began to accumulate more fluid. She continues to experience tenderness, with white discharge being expressed through the left nipple. She presents to ED tonight for planned surgical intervention this morning. Denies headache, fever, chills, palpitations, abdominal pain, nausea, vomiting. ER course was notable for administration of 1 gm ceftriaxone. Recent Travel: None PAST MEDICAL HISTORY: Asthma Hypothyroidism Depression PAST SURGICAL HISTORY: Cholecystectomy 2017 Tooth extraction 1990 Social History: Smokin-3 cig/ day Alcohol: 2-4 glass of wine/ day ( hasn't been drinking for last few months) Drugs: tried weed, she has a card. ( hasn't tried any other drugs) Lives with 16 year old son. Allergies azithromycin Allergy (Intermediate, Verified 05/12/20 16:34) Swelling clarithromycin [From Biaxin] Allergy (Intermediate, Verified 05/12/20 16:34) Rash levofloxacin [From Levaquin] Allergy (Intermediate, Verified 05/12/20 16:34) Nausea crampy, vaginal bleeding HOME MEDICATIONS: Home Medications Medication Instructions Recorded Albuterol Sulfate Inhaler - 1 - 2 inh PO Q4H PRN 04/08/20 [Ventolin HFA Inhaler -] Budesonide/Formeterol Fumarate 2 inh PO BID 04/08/20 [SYMBICORT 160/4.5mcg -] Cetirizine HCl [All Day Allergy] 10 mg PO DAILY PRN 04/08/20 Levothyroxine [Synthroid -] 200 mcg PO DAILY 04/08/20 Montelukast Na [Singulair -] 10 mg PO HS 04/08/20 Topiramate [Topamax] 50 mg PO DAILY 04/08/20 Acetaminophen [Tylenol -] 500 mg PO Q6H #100 tablet 04/19/20 Omeprazole 40 mg PO DAILY 04/19/20 Prazosin HCl [Minipress -] 2 mg PO HS 04/19/20 Cyclobenzaprine HCl [Flexeril -] 10 mg PO TID PRN #70 tablet 04/29/20 Ergocalciferol [Vitamin D2] 50,000 unit PO Q7D #4 capsule 04/29/20 Gabapentin [Neurontin -] 300 mg PO Q8H #90 cap 04/29/20 Tramadol HCl 50 mg PO BID PRN #60 tablet MDD 2 04/29/20 Nicotine [Nicotine Patch 21 mg/24 1 each TD DAILY #30 patch 05/03/20 hr] REVIEW OF SYSTEMS SEE HPI PHYSICAL EXAMINATION Vital Signs - 24 hr 05/12/20 16:34 Temperature 98.4 F Pulse Rate 111 H Respiratory 18 Rate Blood Pressure 124/101 H O2 Sat by Pulse 100 Oximetry (%) GENERAL: Awake, alert, and fully oriented, in no acute distress. SKIN: L breast with a retroareolar 5x5 cm abscess with surrounding erythema. Site of previous incision clean. HEAD: Normal with no signs of trauma. EYES: Pupils equal, round and reactive to light, extraocular movements intact, sclera anicteric, conjunctiva clear. EARS, NOSE, THROAT: Ears normal, nares patent, oropharynx clear without exudates. Moist mucous membranes. NECK: Normal range of motion, supple without lymphadenopathy. LUNGS: Breath sounds equal, clear to auscultation bilaterally. No wheezes, and no crackles. No accessory muscle use. HEART: Regular rate and rhythm, normal S1 and S2 without murmur, rub or gallop. ABDOMEN: Soft, nontender, not distended, normoactive bowel sounds, no guarding, no rebound, no masses. LOWER EXTREMITIES: 2+ pulses, warm, well-perfused. No calf tenderness. No peripheral edema. PSYCHIATRIC: Cooperative. Good eye contact. Appropriate mood and affect. Laboratory Results - last 24 hr 05/12/20 05/12/20 05/12/20 17:04 17:04 17:04 WBC 12.0 H RBC 3.86 Hgb 12.7 Hct 37.9 MCV 98.0 H MCH 32.9 MCHC 33.5 RDW 14.5 Plt Count 307 MPV 7.6 Absolute Neuts (auto) 8.8 H Neutrophils % 73.8 Lymphocytes % 20.5 D Monocytes % 4.4 Eosinophils % 0.8 Basophils % 0.5 Nucleated RBC % 0 PT with INR 11.40 INR 0.97 PTT (Actin FS) 25.8 Sodium Potassium Chloride Carbon Dioxide Anion Gap BUN Creatinine Est GFR (CKD-EPI)AfAm Est GFR (CKD-EPI)NonAf Random Glucose Calcium Total Bilirubin AST ALT Alkaline Phosphatase Total Protein Albumin Serum , Qual Negative Blood Type Antibody Screen 05/12/20 05/12/20 17:04 17:04 WBC RBC Hgb Hct MCV MCH MCHC RDW Plt Count MPV Absolute Neuts (auto) Neutrophils % Lymphocytes % Monocytes % Eosinophils % Basophils % Nucleated RBC % PT with INR INR PTT (Actin FS) Sodium 139 Potassium 4.0 Chloride 105 Carbon Dioxide 26 Anion Gap 8 BUN 9.9 Creatinine 1.0 Est GFR (CKD-EPI)AfAm 82.19 Est GFR (CKD-EPI)NonAf 70.91 Random Glucose 90 Calcium 9.0 Total Bilirubin 0.4 AST 36 ALT 50 Alkaline Phosphatase 63 Total Protein 7.7 Albumin 3.7 Serum , Qual Blood Type A POSITIVE Antibody Screen Negative ASSESSMENT/PLAN: Abiodun is a 39 year old with PMH asthma, hypothyroidism presenting for planned I&D of non-healed left breast abscess. #Recurrent breast abscess - Received 1 gm Ceftriaxone in ED - Will start on Vanc 1500 bid Q12 - Will start Flagyl 500 mg q8 - I&D today - ID consult placed #Hypothyroidism - Continue home levothyroxine 175 mcg #DVT prophylaxis: SCDs #FEN NS 75 ml/h NPO except meds Family Medical History Family History: As Documented Visit type - Emergency Visit Emergency Visit: Yes ED Registration Date: 05/12/20 Care time: The patient presented to the Emergency Department on the above date and was hospitalized for further evaluation of their emergent condition. - New Patient This patient is new to me today: Yes Date on this admission: 05/13/20 - Critical Care Critical Care patient: No ATTENDING PHYSICIAN STATEMENT I saw and evaluated the patient. I reviewed the resident's note and discussed the case with the resident. I agree with the resident's findings and plan as documented. SUBJECTIVE: OBJECTIVE: ASSESSMENT AND PLAN:
[2020-05-12] MEDS ORDERED: SODIUM CHLORIDE 1,000 ML IV SCH (23:30)
[2020-05-13] MEDS: VANCOMYCIN HCL 1,500 MG in DEXTROSE 5%-WATER - 250 ML IVPB SCH ×2 (00:43→13:16)
[2020-05-13] MEDS ORDERED: VANCOMYCIN HCL 1,500 MG in DEXTROSE 5%-WATER - 500 ML IVPB SCH (01:00)
[2020-05-13] MEDS ORDERED: ACETAMINOPHEN 325 MG TABLET (FP) PO PRN ×2 (05:03→17:33)
[2020-05-13] MEDS ORDERED: LEVOTHYROXINE 125 MCG, LEVOTHYROXINE 50 MCG PO SCH (07:00)
[2020-05-13 07:36] LABS: INR 0.97 (0.83-1.09); PROTHROMBIN TIME (PATIENT) 11.5 SEC (9.7-13.0)
[2020-05-13 07:39] LABS: ACTIVATED PTT 27.3 SECONDS (25.2-36.5)
[2020-05-13 07:40] LABS: HEMATOCRIT 35.4 % (32.4-45.2); MCH 33.4 pg (25.7-33.7); MEAN CELL VOLUME 98.2 fl (80-96); PLATELET COUNT 266 K/MM3 (134-434); RBC 3.61 M/mm3 (3.60-5.2); RDW 14.6 % (11.6-15.6); WHITE BLOOD COUNT 8.6 K/mm3 (4.0-10.0)
[2020-05-13 07:58] LABS: BILIRUBIN,TOTAL 0.5 mg/dL (0.2-1); CALCIUM 8.4 mg/dL (8.5-10.1); CREATININE 0.6 mg/dL (0.55-1.3); POTASSIUM 3.6 mmol/L (3.5-5.1); TOT PROT 6.6 g/dl (6.4-8.2)
[2020-05-13] MEDS ORDERED: LEVOTHYROXINE NA 150 MCG TABLET PO SCH (10:00)
--- NOTE | 2020-05-13 10:30 | CON.ID ---
Consult Consult Specialty:: infectious disease Referred by:: hospitalist Reason for Consultation:: recurrent breast abscess - History of Present Illness Chief Complaint: recurrent breast abscess History of Present Illness: 39 yo female was hospitalized in March with painful breast abscess- cultures grew staph epi and prevotella- she was discharged on 7 days of augmenting she has been following up with surgeon last week she reports a skin tear at the site from the tape, was placed on augmentin and now referred by surgeon for incision and drainage, +breast tenderness no fevers or chills history of recurrent abscesses since age 14- mainly groin, axilla,occasionally under the breast pops them herself, had an abscess drained years ago at [facility] denies any bites or trauma to her breast no family history of abscesses, no diabetes - History Source History Provided By: Patient Limitations to Obtaining History: No Limitations - Past Medical History Pulmonary: Yes: Asthma Gastrointestinal: Yes: Constipation, GERD ...LMP: 04/10/20 ...: No Psych: Yes: Bipolar (not taking her Topamax for several months now). No: Addictions, Anxiety, Depression, Panic, Psychosis, Schizophrenia, Other Musculoskeletal: Yes: Chronic low back pain, Other (herniated discs) - Past Surgical History Past Surgical History: Yes: Cholecystectomy - Alcohol/Substance Use Hx Alcohol Use: No History of Substance Use: reports: None - Smoking History Smoking history: Current every day smoker Have you smoked in the past 12 months: Yes Aproximately how many cigarettes per day: 3 - Social History Usual Living Arrangement: With Child ADL: Independent Place of : [facility] History of Recent Travel: No Home Medications - Allergies Allergies/Adverse Reactions: Allergies Allergy/AdvReac Type Severity Reaction Status Date / Time azithromycin Allergy Intermediate Swelling Verified 05/13/20 08:20 clarithromycin [From Biaxin] Allergy Intermediate Rash Verified 05/13/20 08:20 levofloxacin [From Levaquin] Allergy Intermediate Nausea Verified 05/13/20 08:20 - Home Medications Home Medications: Ambulatory Orders Albuterol Sulfate Inhaler - [Ventolin HFA Inhaler -] 1 - 2 inh PO Q4H PRN 04/08/20 Budesonide/Formeterol Fumarate [SYMBICORT 160/4.5mcg -] 2 inh PO BID 04/08/20 Cetirizine HCl [All Day Allergy] 10 mg PO DAILY PRN 04/08/20 Levothyroxine [Synthroid -] 175 mcg PO DAILY 04/08/20 Montelukast Na [Singulair -] 10 mg PO HS 04/08/20 Topiramate [Topamax] 50 mg PO DAILY 04/08/20 Acetaminophen [Tylenol -] 500 mg PO Q6H #100 tablet 04/19/20 Omeprazole 40 mg PO DAILY 04/19/20 Prazosin HCl [Minipress -] 2 mg PO HS 04/19/20 Cyclobenzaprine HCl [Flexeril -] 10 mg PO TID PRN #70 tablet 04/29/20 Ergocalciferol [Vitamin D2] 50,000 unit PO Q7D #4 capsule 04/29/20 Gabapentin [Neurontin -] 300 mg PO Q8H #90 cap 04/29/20 Tramadol HCl 50 mg PO BID PRN #60 tablet MDD 2 04/29/20 Nicotine [Nicotine Patch 21 mg/24 hr] 1 each TD DAILY #30 patch 05/03/20 Family Medical History Family History: Denies Family Hx Psychiatric Problems: Mother (bipolar) Review of Systems - Review of Systems Constitutional: denies: Chills, Fever Eyes: reports: No Symptoms HENT: reports: No Symptoms Neck: reports: No Symptoms Cardiovascular: reports: No Symptoms. denies: Chest Pain Respiratory: reports: No Symptoms. denies: Cough, SOB Gastrointestinal: reports: No Symptoms Genitourinary: reports: No Symptoms Breasts: reports: See HPI Musculoskeletal: reports: No Symptoms Integumentary: reports: No Symptoms Physical Exam Vital Signs: Vital Signs Temperature 97.9 F 05/13/20 07:03 Pulse Rate 74 05/13/20 07:03 Respiratory Rate 17 05/13/20 07:03 Blood Pressure 124/79 05/13/20 07:03 O2 Sat by Pulse Oximetry (%) 97 05/13/20 07:03 Constitutional: Yes: Well Nourished, No Distress Eyes: Yes: Conjunctiva Clear HENT: Yes: Atraumatic, Normocephalic Neck: Yes: Supple Cardiovascular: Yes: Regular Rate and Rhythm Respiratory: Yes: Regular, CTA Bilaterally Gastrointestinal: Yes: Normal Bowel Sounds ...Rectal Exam: Yes: Deferred Renal/: No: Bladder Distention, CVA Tenderness - Left, CVA Tenderness - Right Breast(s): Yes: Left, Discharge from Nipple (purulent, minimal erythema) Musculoskeletal: Yes: WNL Extremities: Yes: WNL Edema: No Integumentary: Yes: Other (multiple scars from sites of prior abscesses- axilla/groin) Psychiatric: Yes: Alert, Oriented Labs: CBC, BMP 05/13/20 07:05 05/13/20 07:05 Imaging - Results Chest X-ray: Report Reviewed, Image Reviewed Problem List - Problems (1) Left breast abscess Code(s): N61.1 - ABSCESS OF THE BREAST AND NIPPLE Assessment/Plan resume unasyn 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
[2020-05-13] MEDS ORDERED: POTASSIUM CHLORIDE TABS 20 MEQ TABLET.ER (FP) PO ONE (10:36)
--- NOTE | 2020-05-13 10:39 | EKG ---
Test Reason : Blood Pressure : / mmHG Vent. Rate : 077 BPM Atrial Rate : 077 BPM P-R Int : 138 ms QRS Dur : 098 ms QT Int : 370 ms P-R-T Axes : 032 044 040 degrees QTc Int : 418 ms NORMAL SINUS RHYTHM NONSPECIFIC INTRAVENTRICULAR CONDUCTION DEFECT WHEN COMPARED WITH ECG OF 08-APR-2020 22:05, NO SIGNIFICANT CHANGE WAS FOUND Confirmed by VENKAT ALBRECHT MD ([id number]) on 05/13/2020 10:39:13 AM Referred By: Confirmed By:VENKAT ALBRECHT MD
--- NOTE | 2020-05-13 12:11 | CONSULT ---
Consult Consult Specialty:: Surgery Reason for Consultation:: persistent/recurrent left breast abscess - History of Present Illness Chief Complaint: left breast pain and discharge History of Present Illness: 39 y.o. female s/p I & D of left breast abscess on 04/08/2020, readmitted for recurrent/persistent left breast pain and purulent discharge from the nipple. Had needle aspiration at the office where purulent fluid was aspirated as well as expressed from the nipple. Patient was advised repeat I & D. - History Source History Provided By: Patient Limitations to Obtaining History: No Limitations - Past Medical History Pulmonary: Yes: Asthma Gastrointestinal: Yes: Constipation, GERD ...LMP: 04/10/20 ...: No Psych: Yes: Bipolar (not taking her Topamax for several months now). No: Addictions, Anxiety, Depression, Panic, Psychosis, Schizophrenia, Other Musculoskeletal: Yes: Chronic low back pain, Other (herniated discs) - Past Surgical History Past Surgical History: Yes: Cholecystectomy - Alcohol/Substance Use Hx Alcohol Use: No History of Substance Use: reports: None - Smoking History Smoking history: Current every day smoker Have you smoked in the past 12 months: Yes Aproximately how many cigarettes per day: 3 - Social History Usual Living Arrangement: With Child ADL: Independent Home Medications - Allergies Allergies/Adverse Reactions: Allergies Allergy/AdvReac Type Severity Reaction Status Date / Time azithromycin Allergy Intermediate Swelling Verified 05/13/20 08:20 clarithromycin [From Biaxin] Allergy Intermediate Rash Verified 05/13/20 08:20 levofloxacin [From Levaquin] Allergy Intermediate Nausea Verified 05/13/20 08:20 - Home Medications Home Medications: Ambulatory Orders Albuterol Sulfate Inhaler - [Ventolin HFA Inhaler -] 1 - 2 inh PO Q4H PRN 04/08/20 Budesonide/Formeterol Fumarate [SYMBICORT 160/4.5mcg -] 2 inh PO BID 04/08/20 Cetirizine HCl [All Day Allergy] 10 mg PO DAILY PRN 04/08/20 Levothyroxine [Synthroid -] 175 mcg PO DAILY 04/08/20 Montelukast Na [Singulair -] 10 mg PO HS 04/08/20 Topiramate [Topamax] 50 mg PO DAILY 04/08/20 Acetaminophen [Tylenol -] 500 mg PO Q6H #100 tablet 04/19/20 Omeprazole 40 mg PO DAILY 04/19/20 Prazosin HCl [Minipress -] 2 mg PO HS 04/19/20 Cyclobenzaprine HCl [Flexeril -] 10 mg PO TID PRN #70 tablet 04/29/20 Ergocalciferol [Vitamin D2] 50,000 unit PO Q7D #4 capsule 04/29/20 Gabapentin [Neurontin -] 300 mg PO Q8H #90 cap 04/29/20 Tramadol HCl 50 mg PO BID PRN #60 tablet MDD 2 04/29/20 Nicotine [Nicotine Patch 21 mg/24 hr] 1 each TD DAILY #30 patch 05/03/20 Family Medical History Family Hx Psychiatric Problems: Mother (bipolar) Review of Systems - Review of Systems Constitutional: reports: No Symptoms Cardiovascular: reports: No Symptoms Respiratory: reports: No Symptoms Breasts: reports: Discharge from Nipple, Pain (left breast) Physical Exam Vital Signs: Vital Signs Temperature 97.6 F 05/13/20 11:24 Pulse Rate 77 05/13/20 11:24 Respiratory Rate 18 05/13/20 11:24 Blood Pressure 119/77 05/13/20 11:24 O2 Sat by Pulse Oximetry (%) 97 05/13/20 11:24 Constitutional: Yes: Well Nourished Eyes: Yes: Conjunctiva Clear HENT: Yes: Normocephalic Neck: Yes: Supple Cardiovascular: Yes: Regular Rate and Rhythm Respiratory: Yes: CTA Bilaterally Gastrointestinal: Yes: Soft Breast(s): Yes: Left (healed I & D wound, 1.5 cm erythematous and fluctuant area at 9:00 of the areola with pus draining from the nipple) Labs: CBC, BMP 05/13/20 07:05 05/13/20 07:05 Problem List - Problems (1) Left breast abscess Assessment/Plan: recurrent/persistent from premature closure of the I & D wound for repeat I & D of left breast abscess Code(s): N61.1 - ABSCESS OF THE BREAST AND NIPPLE
--- NOTE | 2020-05-13 13:01 | PN ---
Teaching Attending Note Name of Resident: Jeffrey Pfeiffer ATTENDING PHYSICIAN STATEMENT I saw and evaluated the patient. I reviewed the resident's note and discussed the case with the resident. I agree with the resident's findings and plan as documented. SUBJECTIVE: Seen and examined at bedside. Patient is hemodynamically stable, reports some l eft-sided breast tenderness. Pending I&D today with Dr. oliveros. OBJECTIVE Last Vital Signs Temp Pulse Resp BP Pulse Ox 97.6 F 77 18 119/77 97 05/13/20 11:24 05/13/20 11:24 05/13/20 11:24 05/13/20 11:24 05/13/20 11:24 PE: Per resident note Labs/Imaging: reviewed ASSESSMENT/PLAN 39-year-old female hospitalized in March with painful breast abscess with cultures for staph epi and Prevotella, hypertension, hypothyroidism, psych, presents with recurrent left breast abscess. Admitted for repeat incision and drainage. #Recurrent left breast abscess Patient has history of multiple abscesses likely consistent with diagnosis of hidradenitis suppurativa ID on board: Appreciate recommendations HIV testing Quantitative immunoglobulins Unasyn To have I/D today #History of asthma: At baseline Continue home albuterol, Symbicort, montelukast #Hypothyroidism Continue home levothyroxine 150 #History of night terrors Continue home prazosin #Headaches/psych Continue home gabapentin, Topamax
[2020-05-13] MEDS ORDERED: PROPOFOL 20 ML ONE ×2 (14:28→14:59)
[2020-05-13] MEDS ORDERED: MIDAZOLAM HCL 2 MG/2 ML SINGLE DOSE VIAL ONE (14:28)
[2020-05-13] MEDS ORDERED: AMPICILLIN NA/SULBACTAM NA 3 GM in SODIUM CHLORIDE 100 ML IVPB SCH (15:00)
[2020-05-13] MEDS ORDERED: ONDANSETRON 4 MG/2 ML VIAL IVPUSH PRN (15:27)
--- NOTE | 2020-05-13 15:34 | OP ---
Operative Note - Note: Operative Date: 05/13/20 Pre-Operative Diagnosis: RECURRENT LEFT BREAST ABSCESS Operation: I & D, left breast abscess and excision of periductal mastitis Findings: retroareolar abscess and chronic granulation tissue of mammary ducts Post-Operative Diagnosis: Other (periductal mastitis) Surgeon: Ha Mcmahon Anesthesia: General (LMA) Specimens Removed: RETROAREOLAR GRANULATION TISSUE Estimated Blood Loss (mls): 20 Operative Report Dictated: Yes
[2020-05-13] MEDS ORDERED: ACETAMINOPHEN 1000 MG/100 ML VIAL (NON FORMULARY) IVPB ONE ×2 (15:45→16:00)
[2020-05-13] MEDS ORDERED: HYDROmorphone HCl 2 MG/ML VIAL IVPUSH ONE (16:06)
[2020-05-13] MEDS ORDERED: HYDROmorphone HCl 2 MG/ML VIAL ONE (16:09)
[2020-05-13] MEDS ORDERED: HYDROmorphone HCL CARPU-JECT 2 MG/1 ML DISP.SYRIN IVPUSH ONE ×2 (16:19→16:30)
--- NOTE | 2020-05-13 16:27 | PN ---
Physical Exam: SUBJECTIVE: Patient seen and examined at bedside in ED. Resting comfortably. No complaints. OBJECTIVE: Vital Signs Period Temp Pulse Resp BP Sys/Dukes Pulse Ox Last 24 Hr 97.6 F-98.4 F 64-111 16-19 102-141/57-101 96-100 GENERAL: The patient is awake, alert, and fully oriented, in no acute distress. HEAD: Normal with no signs of trauma. EYES: EOMI Sclera Clear ENT: MMM LUNGS: Clear bilaterally HEART: RRR S1S2 CHEST: Left breast erythema surround areola. Seen with Larissa (ED RN) ABDOMEN: Soft, nontender, nondistended, normoactive bowel sounds, no guarding, no rebound, no hepatosplenomegaly, no masses. EXTREMITIES: No CCE PSYCH: Normal mood, normal affect. Laboratory Results - last 24 hr 05/12/20 05/12/20 05/12/20 17:04 17:04 17:04 WBC 12.0 H RBC 3.86 Hgb 12.7 Hct 37.9 MCV 98.0 H MCH 32.9 MCHC 33.5 RDW 14.5 Plt Count 307 MPV 7.6 Absolute Neuts (auto) 8.8 H Neutrophils % 73.8 Lymphocytes % 20.5 D Monocytes % 4.4 Eosinophils % 0.8 Basophils % 0.5 Nucleated RBC % 0 PT with INR 11.40 INR 0.97 PTT (Actin FS) 25.8 Sodium Potassium Chloride Carbon Dioxide Anion Gap BUN Creatinine Est GFR (CKD-EPI)AfAm Est GFR (CKD-EPI)NonAf Random Glucose Calcium Total Bilirubin AST ALT Alkaline Phosphatase Total Protein Albumin Free T4 Serum , Qual Negative Blood Type Antibody Screen 05/12/20 05/12/20 05/13/20 17:04 17:04 06:13 WBC RBC Hgb Hct MCV MCH MCHC RDW Plt Count MPV Absolute Neuts (auto) Neutrophils % Lymphocytes % Monocytes % Eosinophils % Basophils % Nucleated RBC % PT with INR INR PTT (Actin FS) Sodium 139 Potassium 4.0 Chloride 105 Carbon Dioxide 26 Anion Gap 8 BUN 9.9 Creatinine 1.0 Est GFR (CKD-EPI)AfAm 82.19 Est GFR (CKD-EPI)NonAf 70.91 Random Glucose 90 Calcium 9.0 Total Bilirubin 0.4 AST 36 ALT 50 Alkaline Phosphatase 63 Total Protein 7.7 Albumin 3.7 Free T4 Serum , Qual Blood Type A POSITIVE A POSITIVE Antibody Screen Negative Negative 05/13/20 05/13/20 05/13/20 07:05 07:05 07:05 WBC 8.6 RBC 3.61 Hgb 12.0 Hct 35.4 MCV 98.2 H MCH 33.4 MCHC 34.0 RDW 14.6 Plt Count 266 MPV 7.0 L Absolute Neuts (auto) Neutrophils % Lymphocytes % Monocytes % Eosinophils % Basophils % Nucleated RBC % PT with INR 11.50 INR 0.97 PTT (Actin FS) 27.3 Sodium 140 Potassium 3.6 Chloride 107 Carbon Dioxide 28 Anion Gap 6 L BUN 8.0 Creatinine 0.6 Est GFR (CKD-EPI)AfAm 133.07 Est GFR (CKD-EPI)NonAf 114.82 Random Glucose 88 Calcium 8.4 L Total Bilirubin 0.5 AST 19 ALT 39 Alkaline Phosphatase 55 Total Protein 6.6 Albumin 3.0 L Free T4 0.93 Serum , Qual Blood Type Antibody Screen Active Medications Generic Name Dose Route Start Last Admin Trade Name Freq PRN Reason Stop Dose Admin Acetaminophen 650 mg 05/13/20 05:03 Tylenol - PO Q6H PRN Fever Or Pain Fentanyl 25 mcg 05/13/20 15:27 Sublimaze Injection - IVPUSH [id number] PRN PAIN-PACU ORDER X 4 DOSES ONLY Fentanyl 50 mcg 05/13/20 16:05 Sublimaze Injection - IVPUSH [id number] PRN PAIN-PACU ORDER X 4 DOSES ONLY Sodium Chloride 1,000 mls @ 75 mls/hr 05/12/20 23:30 05/13/20 00:42 Normal Saline - IV 75 mls/hr ASDIR JULIANO Administration Ampicillin Sodium/Sulbactam 100 mls @ 200 mls/hr 05/13/20 15:00 05/13/20 14:07 Sodium 3 gm/ Sodium Chloride IVPB 200 mls/hr Q6H-IV JULIANO Administration Lactated Ringer's 1,000 mls @ 125 mls/hr 05/13/20 15:30 Lactated Ringers Solution IV ASDIR JULIANO Levothyroxine Sodium 125 mcg/ 175 mcg 05/13/20 07:00 05/13/20 07:09 Levothyroxine Sodium 50 mcg PO 175 mcg DAILY@0700 JULIANO Administration Ondansetron HCl 4 mg 05/13/20 15:27 Zofran Injection IVPUSH Q6H PRN NAUSEA AND/OR VOMITING ASSESSMENT/PLAN: 39-year-old female hospitalized in March with painful breast abscess with cultures for staph epi and Prevotella, hypertension, hypothyroidism, psych, presents with recurrent left breast abscess. Admitted for repeat incision and drainage. 39-year-old female hospitalized in March with painful breast abscess with cultures for staph epi and Prevotella, hypertension, hypothyroidism, psych, presents with recurrent left breast abscess. Admitted for repeat incision and drainage. #Recurrent left breast abscess Patient has history of multiple abscesses likely consistent with diagnosis of hidradenitis suppurativa S/P I & D, left breast abscess and excision of periductal mastitis with Dr Ha Mcmahon, General Surgery. 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 given recurrent abscesses in the axillary and inguinal distribution, HIV testing, Quantitative immunoglobulins, Unasyn #History of asthma: Continue home albuterol, Symbicort, montelukast #Hypothyroidism Continue home levothyroxine 150 #History of night terrors Continue home prazosin #Headaches/psych Continue home gabapentin, Topamax #FEN LR@125 Monitor Electrolytes Reg Diet DVT ppx: SCDs Dispo: Med Surg Visit type - Emergency Visit Emergency Visit: Yes ED Registration Date: 05/12/20 Care time: The patient presented to the Emergency Department on the above date and was hospitalized for further evaluation of their emergent condition. - New Patient This patient is new to me today: Yes Date on this admission: 05/13/20 - Critical Care Critical Care patient: No - Discharge Referral Referred to [facility] Med [facility] No ATTENDING PHYSICIAN STATEMENT I saw and evaluated the patient. I reviewed the resident's note and discussed the case with the resident. I agree with the resident's findings and plan as documented. SUBJECTIVE: OBJECTIVE: ASSESSMENT AND PLAN:
[2020-05-13] MEDS ORDERED: ONDANSETRON 4 MG/2 ML VIAL ONE (17:20)
[2020-05-13] MEDS ORDERED: ONDANSETRON 4 MG/2 ML VIAL IVPUSH ONE (17:25)
[2020-05-13 18:13] VITALS: BMI 38.9
[2020-05-13] MEDS: LACTATED RINGERS SOLUTION 1,000 ML IV SCH (18:13)
[2020-05-13] MEDS ORDERED: ALBUTEROL SO4 HFA INHALER IH PRN (19:46)
[2020-05-13] MEDS ORDERED: PT OWN MED DRAWER 7, Y5N ONE (20:56)
[2020-05-13] MEDS ORDERED: PRAZOSIN HCL 1 MG CAPSULE PO SCH (22:00)
[2020-05-13] MEDS ORDERED: MONTELUKAST NA 10 MG TABLET PO SCH (22:00)
[2020-05-13] MEDS: AMPICILLIN NA/SULBACTAM NA 3 GM in SODIUM CHLORIDE 100 ML IVPB SCH (23:00)
[2020-05-13] MEDS: GABAPENTIN 300 MG CAPSULE PO SCH (23:00)
[2020-05-13] MEDS: BUDESONIDE/FORMETEROL FUMARATE 160/4.5 mcg INHALER IH SCH (23:01)
[2020-05-14] MEDS: LACTATED RINGERS SOLUTION 1,000 ML IV SCH (02:25)
[2020-05-14] MEDS: AMPICILLIN NA/SULBACTAM NA 3 GM in SODIUM CHLORIDE 100 ML IVPB SCH ×2 (02:28→10:24)
[2020-05-14] MEDS ORDERED: LEVOTHYROXINE NA 50 MCG TABLET (FP) ONE (05:52)
[2020-05-14] MEDS ORDERED: LEVOTHYROXINE NA 125 MCG TABLET (FP) ONE (05:52)
[2020-05-14] MEDS: GABAPENTIN 300 MG CAPSULE PO SCH ×2 (06:15→15:04)
[2020-05-14] MEDS ORDERED: LEVOTHYROXINE 125 MCG, LEVOTHYROXINE 50 MCG PO SCH (07:00)
[2020-05-14 07:52] LABS: BLOOD UREA NITROGEN 6.8 mg/dL (7-18); CALCIUM 8.1 mg/dL (8.5-10.1); CREATININE 0.6 mg/dL (0.55-1.3); MAGNESIUM 2.1 mg/dL (1.8-2.4); PHOSPHOROUS 3.1 mg/dL (2.5-4.9); POTASSIUM 3.3 mmol/L (3.5-5.1)
[2020-05-14 07:53] LABS: HEMATOCRIT 33.1 % (32.4-45.2); HEMOGLOBIN 11.2 GM/dL (10.7-15.3); MCH 32.7 pg (25.7-33.7); MCHC 33.9 g/dl (32.0-36.0); MEAN CELL VOLUME 96.4 fl (80-96); MEAN PLT VOLUME 7.2 fl (7.5-11.1); PLATELET COUNT 231 K/MM3 (134-434); RBC 3.44 M/mm3 (3.60-5.2); RDW 14.3 % (11.6-15.6); WHITE BLOOD COUNT 8.1 K/mm3 (4.0-10.0)
[2020-05-14] MEDS ORDERED: PT OWN MED DRAWER 7, Y5N ONE (09:28)
[2020-05-14] MEDS ORDERED: TOPIRAMATE 25 MG TABLET PO SCH (10:00)
[2020-05-14] MEDS: BUDESONIDE/FORMETEROL FUMARATE 160/4.5 mcg INHALER IH SCH (10:25)
[2020-05-14 13:27] VITALS: BP 141/76; PULSE 92; TEMP 98.9
--- NOTE | 2020-05-14 14:07 | PN ---
Progress Note, Physician Chief Complaint: left breast abscess History of Present Illness: s/p I & D with excision of periductal mastitis Pod # 1 Denies severe pain or active wound bleeding - Current Medication List Current Medications: Active Medications Acetaminophen (Tylenol -) 650 mg PO Q6H PRN PRN Reason: Fever Or Pain Last Admin: 05/14/20 06:16 Dose: 650 mg Documented by: Albuterol Sulfate (Ventolin Hfa Inhaler -) 2 puff IH Q4H PRN PRN Reason: SHORT OF BREATH/WHEEZING Budesonide/Formoterol Fumarate (Symbicort 160/4.5mcg -) 2 puff IH BID [facility] Last Admin: 05/14/20 10:25 Dose: 2 puff Documented by: Gabapentin (Neurontin -) 300 mg PO TID [facility] Last Admin: 05/14/20 06:15 Dose: 300 mg Documented by: Ampicillin Sodium/Sulbactam (Sodium 3 gm/ Sodium Chloride) 100 mls @ 200 mls/hr IVPB Q6H-IV [facility] Last Admin: 05/14/20 10:24 Dose: 200 mls/hr Documented by: Levothyroxine Sodium 125 mcg/ (Levothyroxine Sodium 50 mcg) 175 mcg PO DAILY@0700 [facility] Last Admin: 05/14/20 06:15 Dose: 175 mcg Documented by: Montelukast Sodium (Singulair -) 10 mg PO [facility] Last Admin: 05/13/20 23:00 Dose: 10 mg Documented by: Ondansetron HCl (Zofran Injection) 4 mg IVPUSH Q6H PRN PRN Reason: NAUSEA AND/OR VOMITING Prazosin HCl (Minipress -) 2 mg PO [facility] Last Admin: 05/13/20 23:01 Dose: 2 mg Documented by: Topiramate (Topamax -) 50 mg PO DAILY [facility] Last Admin: 05/14/20 10:24 Dose: 50 mg Documented by: - Objective Vital Signs: Vital Signs Temperature 98.9 F 05/14/20 13:26 Pulse Rate 92 H 05/14/20 13:26 Respiratory Rate 18 05/14/20 13:26 Blood Pressure 141/76 05/14/20 13:26 O2 Sat by Pulse Oximetry (%) 94 L 05/14/20 06:00 Constitutional: Yes: No Distress Breast(s): Yes: Left (wound dry w/o purulent discharge - irrigated with NS and packed with iodoform strips) Labs: CBC, BMP 05/14/20 06:55 05/14/20 06:55 INR, PTT INR 0.97 (0.83-1.09) 05/13/20 07:05 Problem List - Problems (1) Left breast abscess Code(s): N61.1 - ABSCESS OF THE BREAST AND NIPPLE (2) Periductal mastitis of left breast Assessment/Plan: wound care with sterile NS irrigation and iodoform packing D/C planning with VNS - patient has ongoing VNS service May D/C home anytime once VNS is confirmed. Code(s): N60.42 - MAMMARY DUCT ECTASIA OF LEFT BREAST
[2020-05-14] MEDS ORDERED: POTASSIUM CHLORIDE TABS 20 MEQ TABLET.ER (FP) PO ONE ×2 (14:20→15:00)
[2020-05-14] MEDS ORDERED: oxyCODONE HCL 5 MG TABLET PO ONE (14:20)
--- NOTE | 2020-05-14 14:47 | DS ---
Physical Exam: SUBJECTIVE: Post I&D of breast abscess. Patient has had recurrent abscesses with most recent being 1-2 month prior. No complaints today and wondering about ability to go home. OBJECTIVE: Vital Signs Period Temp Pulse Resp BP Sys/Dukes Pulse Ox Last 24 Hr 97.6 F-98.9 F 64-92 16-19 115-141/64-80 91-100 PHYSICAL EXAM GENERAL: NAD, awake, alert, and fully oriented HEENT: NC/At, EOMI, JANAK, sclera anicteric, MMM CHEST: L breast bandaged without any drainage or surrounding erythema. LUNGS: CTA bilaterally, no wheezes, no crackles, no accessory muscle use. HEART: RRR, S1, S2 without murmur ABDOMEN: Soft, NT/ND, normoactive bowel sounds, no guarding EXTREMITIES: 2+ pulses, warm, well-perfused, no edema. LABS Laboratory Results - last 24 hr 05/12/20 05/14/20 05/14/20 18:00 06:55 06:55 WBC 8.1 RBC 3.44 L Hgb 11.2 Hct 33.1 MCV 96.4 H MCH 32.7 MCHC 33.9 RDW 14.3 Plt Count 231 MPV 7.2 L Sodium Potassium Chloride Carbon Dioxide Anion Gap BUN Creatinine Est GFR (CKD-EPI)AfAm Est GFR (CKD-EPI)NonAf Random Glucose Hemoglobin A1c % 5.4 Calcium Phosphorus Magnesium COVID-19 ([facility]) Not detected 05/14/20 06:55 WBC RBC Hgb Hct MCV MCH MCHC RDW Plt Count MPV Sodium 139 Potassium 3.3 L Chloride 107 Carbon Dioxide 28 Anion Gap 4 L BUN 6.8 L Creatinine 0.6 Est GFR (CKD-EPI)AfAm 133.07 Est GFR (CKD-EPI)NonAf 114.82 Random Glucose 103 Hemoglobin A1c % Calcium 8.1 L Phosphorus 3.1 Magnesium 2.1 COVID-19 ([facility]) HOSPITAL COURSE: Date of Admission:05/12/20 Date of Discharge: 05/14/20 Pt admitted 05/12/2020 due to L breast abscess with notable failure of PO antibiotics. Patient was taken to the OR for L breast abscess I&D with excision of periductal mastitis. Patient had uncomplicated post-procedural course and is able to go home today. She is being discharged with Augmentin 875mg- BID PO for another 7 days. Patient is follow-up with Dr. Mcmahon and to have her VNS restarted to aid in repacking of wound. Minutes to complete discharge: 33 Discharge Summary Problems reviewed: Yes Reason For Visit: ABSCESS OF LEFT BREAST Current Active Problems Periductal mastitis of left breast (Acute) Left breast abscess (Chronic) Condition: Stable - Instructions Diet, Activity, Other Instructions: You were seen here for another breast abscess. You were seen by Dr. Mcmahon who removed the infection and inflammed tissue. He left packing in the wound to be changed by the visiting nurse service. You will be sent home with 7 days of A ugmentin to take TWICE daily. Please follow-up with your primary care doctor and Dr. Mcmahon within the next week to follow-up on your care. Your antibiotics were sent to [facility] pharmacy for you to pickup. You were given a referral to a agent ticketing gate (Dr. Adrianne Lazaro) as you have recurrent abscesses and likely they can help provide insight. Referrals: Adrianne Lazaro MD [Staff Physician] - (Hidraadrenitis Suppuritiva) Ha Mmcahon MD [Staff Physician] - Nigel Germain MD [Primary Care Provider] - Disposition: VNS/HOME HEALTH CARE - Home Medications Comprehensive Discharge Medication List: Ambulatory Orders Albuterol Sulfate Inhaler - [Ventolin HFA Inhaler -] 1 - 2 inh PO Q4H PRN 04/08/20 Budesonide/Formeterol Fumarate [SYMBICORT 160/4.5mcg -] 2 inh PO BID 04/08/20 Cetirizine HCl [All Day Allergy] 10 mg PO DAILY PRN 04/08/20 Levothyroxine [Synthroid -] 175 mcg PO DAILY 04/08/20 Montelukast Na [Singulair -] 10 mg PO HS 04/08/20 Topiramate [Topamax] 50 mg PO DAILY 04/08/20 Acetaminophen [Tylenol .Extra-Strength -] 500 mg PO Q6H #100 tablet 04/19/20 Omeprazole 40 mg PO DAILY 04/19/20 Prazosin HCl [Minipress -] 2 mg PO HS 04/19/20 Cyclobenzaprine HCl [Flexeril -] 10 mg PO TID PRN #70 tablet 04/29/20 Ergocalciferol [Vitamin D2] 50,000 unit PO Q7D #4 capsule 04/29/20 Gabapentin [Neurontin -] 300 mg PO Q8H #90 cap 04/29/20 Tramadol HCl 50 mg PO BID PRN #60 tablet MDD 2 04/29/20 Nicotine [Nicotine Patch 21 mg/24 hr] 1 each TD DAILY #30 patch 05/03/20 Amox-Tr/K Cl [Augmentin - 875Mg Tablet] 1 tab PO BID #20 tablet 05/14/20 This patient is new to me today: No Emergency Visit: Yes ED Registration Date: 05/12/20 Care time: The patient presented to the Emergency Department on the above date and was hospitalized for further evaluation of their emergent condition. Critical Care patient: No - Discharge Referral Referred to [facility] Med [facility].C.: No
--- NOTE | 2020-05-15 15:07 | OP ---
DATE OF OPERATION: 05/13/2020 PROCEDURE: Incision and drainage of left breast abscess and excision of periductal mastitis. PREOPERATIVE DIAGNOSIS: Recurrent left breast abscess. POSTOPERATIVE DIAGNOSIS: Recurrent left breast abscess and periductal mastitis. SURGEON: Ha Mcmahon MD ANESTHESIA: General by laryngeal mask airway. FINDINGS & PROCEDURE: This is a 39-year-old female who is status post incision and drainage of left breast retroareolar abscess more than 4 weeks ago who presents with persistent/recurrent purulent discharge from the incision and drainage wound and from the nipple. So, patient was advised admission for antibiotics and repeat incision and drainage of the left breast abscess and consent was obtained after discussing the risks, benefits and alternatives to the procedure. Patient was brought to the operating room and placed in supine position. General anesthesia by laryngeal mask airway was then administered. The left breast was prepped and draped in the usual sterile fashion. Using the scalpel blade No. 10 the healed incision was opened down to the deep subcutaneous tissue and about 3 mL of purulent material were drained. A sample was sent for culture and sensitivity studies. On further exploration a fistulous tract was noted towards the nipple, so this was opened and chronic granulation tissue was noted at the inframammary ducts. This was completely excised using Bovie cautery down to the dermis under the nipple. Hemostasis was achieved using Bovie cautery. The tissue was sent for histopathologic study. The abscess cavity was then copiously irrigated with sterile normal saline until return was clear. The wound was packed with 1/2-inch Iodoform strips and covered with sterile dressing. The patient was successfully extubated and transferred to the postanesthesia care unit in satisfactory condition. Estimated blood loss was about 20 mL. Wound class dirty. The patient was already on intravenous antibiotics upon admission. HA CMMAHON M.D. [id number] MTDD
[2020-05-16 17:06] LABS: IGA IMMUNOGLOBULIN 351 mg/dL (87-352); IGG QN IMMUNOGLOBULIN 984 mg/dL (586-1602); IGM QN SERUM 47 mg/dL (26-217)
--- NOTE | 2020-05-17 17:03 | PATH ---
Surgical Pathology Report Patient Name: GABI ESCALONA Med. Rec. #: [id number] /Age/Gender: 1980 (Age: 39) / F Account: [id number] Location: [facility] MED/SURG Taken: 05/13/2020 Received: 05/16/2020 Reported: 05/17/2020 Physicians: Ha Mcmahon M.D. Specimen(s) Received LEFT BREAST TISSUE Clinical History Abscess of left breast Final Diagnosis LEFT BREAST PERIDUCTAL MASTITIS, EXCISION: BENIGN BREAST TISSUE AND FIBROADIPOSE TISSUE WITH FAT NECROSIS, ACUTE AND CHRONIC INFLAMMATION, HEMORRHAGE, AND FOCAL FIBROCYSTIC CHANGES INCLUDING APOCRINE METAPLASIA AND STROMAL FIBROSIS. Electronically Signed Keke Luque M.D. Gross Description Received in formalin labeled "left breast periductal mastitis," is a 4.0 x 3.0 x 0.3 cm aggregate of arnold brown and moreau portions of fibrofatty tissue. [employer] sections are submitted in one cassette. /05/16/2020 [facility]/05/16/2020
== END 2020-05-14 17:30 | disposition home health service (06) | DRG 363 ==
LOC: JER 16:29 → JERBED 19:26 → J7W 05-13 17:56
PROVIDERS: ADMIT Internal Medicine; ATTEND Internal Medicine
PROC: 0JB60ZZ Excision of Chest Subcutaneous Tissue and Fascia, Open Approach (ICD-10-PCS; 2020-05-13)
PROC: 0H9U0ZX Drainage of Left Breast, Open Approach, Diagnostic (ICD-10-PCS; principal; 2020-05-13 15:30)
DX: N61.1 Abscess of the breast and nipple (principal); N60.42 Mammary duct ectasia of left breast; E66.9 Obesity, unspecified; Z68.39 Body mass index [BMI] 39.0-39.9, adult; E03.9 Hypothyroidism, unspecified; F17.210 Nicotine dependence, cigarettes, uncomplicated; J45.909 Unspecified asthma, uncomplicated; K21.9 Gastro-esophageal reflux disease without esophagitis; F41.9 Anxiety disorder, unspecified; F31.9 Bipolar disorder, unspecified; I10 Essential (primary) hypertension; M54.5 Low back pain; R51 Headache
CPT/HCPCS: 36415; 71046-TC-FY; 80048; 80053; 82784; 83036; 83735; 84100; 84439; 84481; 84703; 85025; 85027; 85610; 85730; 86850; 86900; 86901; 87070; 87075; 87205; 88305-TC; 93005; 93010; 94760; 99285-25; J0131; U0003

== ENCOUNTER 2021-08-05 17:16 | Inpatient (IN) | payer OTHER ==
[2021-08-05] MEDS ORDERED: ALBUTEROL SO4 2.5/IPRATROPIUM 0.5 INH SOL 3 ML VIAL.NEB. NEB ONE ×4 (18:29→19:34)
[2021-08-05] MEDS ORDERED: methylPREDNISolone NA SUCC 125 MG/2 ML VIAL IVPB ONE (18:31)
[2021-08-05] MEDS ORDERED: MAGNESIUM SULF 50% (8.12 MEQ/2 ML-1 GM VIAL) IVPB ONE ×2 (18:42→19:02)
[2021-08-05] MEDS ORDERED: methylPREDNISolone NA SUCC 125 MG/2 ML VIAL ONE ×2 (18:45→19:35)
[2021-08-05] MEDS ORDERED: MAGNESIUM SULFATE IN WATER 2 GM/50 ML IVPB IVPB ONE (19:35)
[2021-08-05 20:50] LABS: BASO % 0.1 % (0-2.0); HEMATOCRIT 35.5 % (32.4-45.2); HEMOGLOBIN 12.2 GM/dL (10.7-15.3); LYMPH % 12.7 % (8-40); MCH 32.7 pg (25.7-33.7); MCHC 34.4 g/dl (32.0-36.0); MEAN CELL VOLUME 95.1 fl (80-96); MEAN PLT VOLUME 6.8 fl (7.5-11.1); MONO % 5.3 % (3.8-10.2); NEUT % 81.9 % (42.8-82.8); PLATELET COUNT 293 10^3/uL (134-434); RBC 3.73 M/mm3 (3.60-5.2); RDW 16.7 % (11.6-15.6); WHITE BLOOD COUNT 10.7 K/mm3 (4.0-10.0)
[2021-08-05 21:12] LABS: BLOOD UREA NITROGEN 17.8 mg/dL (7-18); CALCIUM 8.9 mg/dL (8.5-10.1)
[2021-08-05 21:13] LABS: ALBUMIN 3.6 g/dl (3.4-5.0)
[2021-08-05 21:16] LABS: CREATININE 1.1 mg/dL (0.55-1.3)
[2021-08-05 21:17] LABS: BILIRUBIN,TOTAL 0.3 mg/dL (0.2-1); TOT PROT 8.3 g/dl (6.4-8.2)
[2021-08-06] MEDS ORDERED: ACETAMINOPHEN 325 MG TABLET (FP) PO PRN (00:15)
[2021-08-06] MEDS ORDERED: ALBUTEROL SO4 HFA INHALER IH PRN (00:23)
[2021-08-06] MEDS ORDERED: NICOTINE 14 MG/24 HOURS TOPICAL PATCH TD SCH (00:25)
[2021-08-06] MEDS ORDERED: DOXYCYCLINE HYCLATE 100 MG VIAL ONE ×3 (02:09→20:58)
[2021-08-06] MEDS: DOXYCYCLINE INJECTION 100 MG in DEXTROSE 5%-WATER 100 ML IVPB SCH ×3 (02:10→21:02)
[2021-08-06] MEDS ORDERED: ALBUTEROL SO4 2.5/IPRATROPIUM 0.5 INH SOL 3 ML VIAL.NEB. NEB ONE (02:17)
[2021-08-06] MEDS: ALBUTEROL SO4 2.5/IPRATROPIUM 0.5 INH SOL 3 ML VIAL.NEB. NEB SCH ×6 (02:29→20:20)
[2021-08-06] MEDS: methylPREDNISolone NA SUCC 40 MG/1 ML VIAL IVPUSH SCH ×3 (03:38→17:29)
[2021-08-06] MEDS: LEVOTHYROXINE NA 100 MCG TABLET (FP) PO SCH (06:26)
[2021-08-06 07:59] LABS: ALBUMIN 3.6 g/dl (3.4-5.0); BLOOD UREA NITROGEN 20.8 mg/dL (7-18); CALCIUM 9.3 mg/dL (8.5-10.1); MAGNESIUM 2.7 mg/dL (1.8-2.4)
[2021-08-06 08:02] LABS: CREATININE 0.9 mg/dL (0.55-1.3)
[2021-08-06 08:03] LABS: HEMATOCRIT 35.1 % (32.4-45.2); HEMOGLOBIN 12.2 GM/dL (10.7-15.3); LYMPH % 9.9 % (8-40); MCHC 34.8 g/dl (32.0-36.0); MEAN CELL VOLUME 94.9 fl (80-96); MEAN PLT VOLUME 6.7 fl (7.5-11.1); MONO % 2.4 % (3.8-10.2); NEUT % 87.7 % (42.8-82.8); PLATELET COUNT 275 10^3/uL (134-434); WHITE BLOOD COUNT 8.3 K/mm3 (4.0-10.0)
[2021-08-06 08:04] LABS: BILIRUBIN,TOTAL 0.2 mg/dL (0.2-1); TOT PROT 8.2 g/dl (6.4-8.2)
[2021-08-06] MEDS ORDERED: DEXTROSE 5%-WATER 100 ML IVPB ONE ×2 (08:21→20:58)
[2021-08-06] MEDS: guaiFENesin/CODEINE 5 ML UNIT-DOSE CUPS PO PRN ×2 (09:09→21:17)
[2021-08-06] MEDS: ENOXAPARIN NA (PORCINE) 40 MG/0.4 ML DISP.SYRIN SQ SCH (09:10)
[2021-08-06] MEDS: BUDESONIDE/FORMETEROL FUMARATE 160/4.5 mcg INHALER IH SCH ×2 (09:49→21:03)
[2021-08-06] MEDS: NICOTINE 14 MG/24 HOURS TOPICAL PATCH TD SCH (13:59)
[2021-08-06] MEDS: oxyCODONE HCL 5 MG TABLET PO PRN (19:54)
[2021-08-06] MEDS: MONTELUKAST NA 10 MG TABLET PO SCH (21:03)
[2021-08-07] MEDS: methylPREDNISolone NA SUCC 40 MG/1 ML VIAL IVPUSH SCH ×3 (01:14→18:00)
[2021-08-07] MEDS: LEVOTHYROXINE NA 100 MCG TABLET (FP) PO SCH (06:23)
[2021-08-07] MEDS: guaiFENesin/CODEINE 5 ML UNIT-DOSE CUPS PO PRN (06:31)
[2021-08-07] MEDS: ALBUTEROL SO4 2.5/IPRATROPIUM 0.5 INH SOL 3 ML VIAL.NEB. NEB SCH ×4 (07:45→19:55)
[2021-08-07] MEDS ORDERED: DOXYCYCLINE HYCLATE 100 MG VIAL ONE ×2 (08:51→20:38)
[2021-08-07] MEDS ORDERED: DEXTROSE 5%-WATER 100 ML IVPB ONE ×2 (08:52→20:38)
[2021-08-07] MEDS: DOXYCYCLINE INJECTION 100 MG in DEXTROSE 5%-WATER 100 ML IVPB SCH ×2 (09:21→21:11)
[2021-08-07 09:23] LABS: HEMOGLOBIN 11.9 GM/dL (10.7-15.3); MCH 32.8 pg (25.7-33.7); MEAN CELL VOLUME 96.4 fl (80-96); MEAN PLT VOLUME 7.2 fl (7.5-11.1); PLATELET COUNT 266 10^3/uL (134-434); RBC 3.63 M/mm3 (3.60-5.2); RDW 15.9 % (11.6-15.6); WHITE BLOOD COUNT 14.2 K/mm3 (4.0-10.0)
[2021-08-07] MEDS: ENOXAPARIN NA (PORCINE) 40 MG/0.4 ML DISP.SYRIN SQ SCH (09:26)
[2021-08-07] MEDS: BUDESONIDE/FORMETEROL FUMARATE 160/4.5 mcg INHALER IH SCH ×2 (09:29→21:11)
[2021-08-07] MEDS: NICOTINE 14 MG/24 HOURS TOPICAL PATCH TD SCH (09:29)
[2021-08-07 09:39] LABS: CALCIUM 9.1 mg/dL (8.5-10.1)
[2021-08-07 09:40] LABS: BLOOD UREA NITROGEN 22.6 mg/dL (7-18)
[2021-08-07 09:43] LABS: CREATININE 0.8 mg/dL (0.55-1.3)
[2021-08-07] MEDS: guaiFENesin 200 MG/10 ML 10 ML UNIT-DOSE CUPS PO PRN (18:53)
[2021-08-07] MEDS: oxyCODONE HCL 5 MG TABLET PO PRN (18:57)
[2021-08-07] MEDS: MONTELUKAST NA 10 MG TABLET PO SCH (21:11)
[2021-08-08] MEDS: methylPREDNISolone NA SUCC 40 MG/1 ML VIAL IVPUSH SCH ×3 (01:18→17:36)
[2021-08-08] MEDS: LEVOTHYROXINE NA 100 MCG TABLET (FP) PO SCH (06:08)
[2021-08-08] MEDS: ALBUTEROL SO4 2.5/IPRATROPIUM 0.5 INH SOL 3 ML VIAL.NEB. NEB SCH ×4 (08:08→20:34)
[2021-08-08] MEDS ORDERED: DOXYCYCLINE HYCLATE 100 MG VIAL ONE (09:23)
[2021-08-08] MEDS ORDERED: DEXTROSE 5%-WATER 100 ML IVPB ONE (09:23)
[2021-08-08 09:37] LABS: HEMATOCRIT 36.5 % (32.4-45.2); HEMOGLOBIN 12.2 GM/dL (10.7-15.3); MCHC 33.3 g/dl (32.0-36.0); MEAN CELL VOLUME 96.2 fl (80-96); MEAN PLT VOLUME 7.5 fl (7.5-11.1); PLATELET COUNT 258 10^3/uL (134-434); RDW 15.8 % (11.6-15.6); WHITE BLOOD COUNT 13.8 K/mm3 (4.0-10.0)
[2021-08-08 09:39] LABS: CALCIUM 9.1 mg/dL (8.5-10.1)
[2021-08-08 09:40] LABS: BLOOD UREA NITROGEN 30.8 mg/dL (7-18)
[2021-08-08 09:43] LABS: CREATININE 0.8 mg/dL (0.55-1.3)
[2021-08-08] MEDS: ENOXAPARIN NA (PORCINE) 40 MG/0.4 ML DISP.SYRIN SQ SCH (09:43)
[2021-08-08] MEDS: BUDESONIDE/FORMETEROL FUMARATE 160/4.5 mcg INHALER IH SCH ×2 (09:43→21:41)
[2021-08-08] MEDS: NICOTINE 14 MG/24 HOURS TOPICAL PATCH TD SCH (09:44)
[2021-08-08] MEDS: DOXYCYCLINE INJECTION 100 MG in DEXTROSE 5%-WATER 100 ML IVPB SCH (09:45)
[2021-08-08 13:55] VITALS: BMI 38.4
[2021-08-08] MEDS: guaiFENesin 200 MG/10 ML 10 ML UNIT-DOSE CUPS PO PRN (15:46)
[2021-08-08] MEDS: MONTELUKAST NA 10 MG TABLET PO SCH (21:41)
[2021-08-08] MEDS: guaiFENesin/CODEINE 5 ML UNIT-DOSE CUPS PO PRN (21:46)
[2021-08-09] MEDS: methylPREDNISolone NA SUCC 40 MG/1 ML VIAL IVPUSH SCH ×2 (01:47→09:57)
[2021-08-09] MEDS: LEVOTHYROXINE NA 100 MCG TABLET (FP) PO SCH (06:18)
[2021-08-09] MEDS: ALBUTEROL SO4 2.5/IPRATROPIUM 0.5 INH SOL 3 ML VIAL.NEB. NEB SCH ×2 (07:45→11:49)
[2021-08-09] MEDS: BUDESONIDE/FORMETEROL FUMARATE 160/4.5 mcg INHALER IH SCH (10:01)
[2021-08-09] MEDS: ENOXAPARIN NA (PORCINE) 40 MG/0.4 ML DISP.SYRIN SQ SCH (10:01)
[2021-08-09] MEDS: NICOTINE 14 MG/24 HOURS TOPICAL PATCH TD SCH (10:01)
[2021-08-09] MEDS: guaiFENesin 200 MG/10 ML 10 ML UNIT-DOSE CUPS PO PRN (10:05)
[2021-08-09 14:28] VITALS: BP 159/80; PULSE 83; TEMP 98.6
== END 2021-08-09 15:08 | disposition home or self-care (01) | DRG 141 ==
LOC: JER 17:16 → JERBED 21:35 → J7W 08-06 03:29
PROVIDERS: ADMIT Internal Medicine
DX: J45.901 Unspecified asthma with (acute) exacerbation (principal); E03.9 Hypothyroidism, unspecified; J44.9 Chronic obstructive pulmonary disease, unspecified; K21.9 Gastro-esophageal reflux disease without esophagitis; I10 Essential (primary) hypertension; F31.9 Bipolar disorder, unspecified; F41.9 Anxiety disorder, unspecified; F17.210 Nicotine dependence, cigarettes, uncomplicated; M54.50 Low back pain, unspecified; E66.9 Obesity, unspecified; Z68.38 Body mass index [BMI] 38.0-38.9, adult; K59.00 Constipation, unspecified
CPT/HCPCS: 36415; 71045-TC-FY; 80048; 80053; 83036; 83735; 84100; 84443; 85025; 85027; 87804; 93005; 93010; 94150; 94640; 94761; 99285-25; C9803; U0003; U0005

== ENCOUNTER 2021-12-23 15:01 | Observation (INO) | payer OTHER ==
[2021-12-23] MEDS ORDERED: ALBUTEROL SO4 2.5/IPRATROPIUM 0.5 INH SOL 3 ML VIAL.NEB. NEB ONE ×2 (15:30→16:08)
[2021-12-23] MEDS ORDERED: DEXAMETHASONE SOD PHOSPHATE 10 MG/1 ML VIAL IM ONE (15:30)
[2021-12-23] MEDS ORDERED: DEXAMETHASONE SOD PHOSPHATE 10 MG/1 ML VIAL IVPUSH ONE (15:40)
[2021-12-23] MEDS ORDERED: ACETAMINOPHEN 1000 MG/100 ML BAG IVPB ONE (15:53)
[2021-12-23] MEDS ORDERED: DEXAMETHASONE SOD PHOSPHATE 10 MG/1 ML VIAL ONE (16:08)
[2021-12-23] MEDS ORDERED: ACETAMINOPHEN INJECTION 100 ML IVPB ONE (16:08)
[2021-12-23] MEDS: ALBUTEROL SO4 2.5/IPRATROPIUM 0.5 INH SOL 3 ML VIAL.NEB. NEB SCH ×4 (16:15→17:00)
[2021-12-23] MEDS ORDERED: ASPIRIN 81 MG CHEWABLE TABLETS PO ONE (16:20)
[2021-12-23 16:26] LABS: BASO % 0.2 % (0-2.0); EOS % 0.1 % (0-4.5); HEMATOCRIT 40.6 % (32.4-45.2); HEMOGLOBIN 13.9 GM/dL (10.7-15.3); LYMPH % 17.6 % (8-40); MCH 32.3 pg (25.7-33.7); MCHC 34.3 g/dl (32.0-36.0); MEAN CELL VOLUME 94.3 fl (80-96); NEUT % 77.1 % (42.8-82.8); PLATELET COUNT 227 10^3/uL (134-434); RDW 14.2 % (11.6-15.6); WHITE BLOOD COUNT 8.8 K/mm3 (4.0-10.0)
[2021-12-23 16:27] LABS: CALCIUM 8.7 mg/dL (8.5-10.1)
[2021-12-23 16:28] LABS: ALBUMIN 3.6 g/dl (3.4-5.0); BLOOD UREA NITROGEN 7.4 mg/dL (7-18)
[2021-12-23 16:31] LABS: CREATININE 0.8 mg/dL (0.55-1.3)
[2021-12-23 16:32] LABS: BILIRUBIN,TOTAL 0.5 mg/dL (0.2-1)
[2021-12-23 16:33] LABS: TOT PROT 7.4 g/dl (6.4-8.2)
[2021-12-23] MEDS ORDERED: ASPIRIN 81 MG CHEWABLE TABLETS ONE (17:18)
[2021-12-23] MEDS ORDERED: ONDANSETRON 4 MG/2 ML VIAL IVPUSH ONE (17:30)
[2021-12-23] MEDS ORDERED: ONDANSETRON 4 MG/2 ML VIAL ONE (18:00)
[2021-12-23] MEDS ORDERED: guaiFENesin/CODEINE 10 ML UNIT-DOSE CUPS PO ONE (18:58)
[2021-12-23] MEDS ORDERED: guaiFENesin/CODEINE 5 ML UNIT-DOSE CUPS PO ONE (19:27)
[2021-12-23] MEDS ORDERED: POTASSIUM CHLORIDE ORAL LIQUID 20 MEQ/15 ML PO ONE (21:01)
[2021-12-23] MEDS ORDERED: LORATADINE 10 MG TABLET PO PRN (21:31)
[2021-12-23] MEDS ORDERED: ALBUTEROL SO4 HFA INHALER IH PRN (21:31)
[2021-12-23] MEDS ORDERED: ACETAMINOPHEN 325 MG TABLET (FP) PO PRN (21:45)
[2021-12-23] MEDS ORDERED: MELATONIN 5 MG TABLETS PO PRN (21:45)
[2021-12-23] MEDS ORDERED: POTASSIUM CHLORIDE ORAL LIQUID 20 MEQ/15 ML ONE (21:51)
[2021-12-23] MEDS ORDERED: SODIUM CHLORIDE 500 ML IV STA (22:18)
[2021-12-23] MEDS ORDERED: GABAPENTIN 300 MG CAPSULE ONE (22:27)
[2021-12-23] MEDS ORDERED: MONTELUKAST NA 10 MG TABLET ONE (22:27)
[2021-12-23] MEDS: MONTELUKAST NA 10 MG TABLET PO SCH (22:29)
[2021-12-23] MEDS: GABAPENTIN 300 MG CAPSULE PO SCH (22:29)
[2021-12-23] MEDS ORDERED: SODIUM CHLORIDE IV STA (23:06)
[2021-12-23] MEDS ORDERED: POTASSIUM CHLORIDE IV STA (23:06)
[2021-12-23 23:08] LABS: MAGNESIUM 2.2 mg/dL (1.8-2.4)
[2021-12-23] MEDS: BUDESONIDE/FORMETEROL FUMARATE 160/4.5 mcg INHALER IH SCH (23:44)
[2021-12-23] MEDS: PRAZOSIN HCL 5 MG CAPSULE PO SCH (23:44)
[2021-12-23] MEDS: KCL 10 MEQ IVPB 10 MEQ/100 ML INFUS.BAG IVPB SCH (23:44)
[2021-12-23] MEDS: TOPIRAMATE 25 MG TABLET PO SCH (23:44)
[2021-12-24] MEDS: methylPREDNISolone NA SUCC 40 MG/1 ML VIAL IVPUSH SCH ×4 (00:51→17:09)
[2021-12-24 04:18] VITALS: BMI 35.4
[2021-12-24] MEDS: LEVOTHYROXINE NA 200 MCG TABLET PO SCH (06:16)
[2021-12-24] MEDS: ALBUTEROL SO4 2.5/IPRATROPIUM 0.5 INH SOL 3 ML VIAL.NEB. NEB SCH ×4 (07:55→19:55)
[2021-12-24 08:01] LABS: HEMATOCRIT 38.6 % (32.4-45.2); HEMOGLOBIN 12.9 GM/dL (10.7-15.3); LYMPH % 13.7 % (8-40); MCH 31.5 pg (25.7-33.7); MCHC 33.3 g/dl (32.0-36.0); MEAN CELL VOLUME 94.5 fl (80-96); MONO % 1.2 % (3.8-10.2); NEUT % 85.1 % (42.8-82.8); PLATELET COUNT 223 10^3/uL (134-434); RBC 4.08 M/mm3 (3.60-5.2); RDW 14.4 % (11.6-15.6); WHITE BLOOD COUNT 4.8 K/mm3 (4.0-10.0)
[2021-12-24] MEDS: KCL 10 MEQ IVPB 10 MEQ/100 ML INFUS.BAG IVPB SCH (08:11)
[2021-12-24 08:29] LABS: CALCIUM 8.8 mg/dL (8.5-10.1)
[2021-12-24 08:30] LABS: ALBUMIN 3.3 g/dl (3.4-5.0); MAGNESIUM 2.6 mg/dL (1.8-2.4)
[2021-12-24 08:33] LABS: CREATININE 0.8 mg/dL (0.55-1.3); PHOSPHOROUS 3.2 mg/dL (2.5-4.9)
[2021-12-24 08:34] LABS: BILIRUBIN,TOTAL 0.3 mg/dL (0.2-1)
[2021-12-24 08:35] LABS: TOT PROT 7.1 g/dl (6.4-8.2)
[2021-12-24] MEDS: MIRTAZAPINE 15 MG TABLET (FP) PO SCH ×2 (09:47→09:59)
[2021-12-24] MEDS: TOPIRAMATE 25 MG TABLET PO SCH ×3 (09:47→21:12)
[2021-12-24] MEDS: ENOXAPARIN NA (PORCINE) 40 MG/0.4 ML DISP.SYRIN SQ SCH ×2 (09:47→09:59)
[2021-12-24] MEDS: BUDESONIDE/FORMETEROL FUMARATE 160/4.5 mcg INHALER IH SCH ×2 (09:48→21:13)
[2021-12-24] MEDS: PANTOPRAZOLE 40 MG TABLET PO SCH (09:48)
[2021-12-24] MEDS: guaiFENesin/CODEINE 10 ML UNIT-DOSE CUPS PO PRN ×2 (11:49→21:12)
[2021-12-24] MEDS ORDERED: FLU VACC QS2021-22(6MOS UP)/PF 60 MCG/0.5 ML SYRINGE IM ONE ×2 (14:00→22:00)
[2021-12-24 17:31] LABS: PH,URINE 6.5 (5.0-8.0); URINE APPEARANCE CLOUDY; URINE BILIRUBIN NEGATIVE (NEGATIVE); URINE COLOR YELLOW; URINE GLUCOSE (UA) NEGATIVE (NEGATIVE); URINE KETONE NEGATIVE (NEGATIVE); URINE LEUK ESTERASE NEGATIVE (NEGATIVE); URINE NITRITE NEGATIVE (NEGATIVE); URINE PROTEIN TRACE (NEGATIVE)
[2021-12-24] MEDS: MONTELUKAST NA 10 MG TABLET PO SCH (21:12)
[2021-12-24] MEDS: PRAZOSIN HCL 5 MG CAPSULE PO SCH (21:12)
[2021-12-24] MEDS: GABAPENTIN 300 MG CAPSULE PO SCH (21:12)
[2021-12-25] MEDS: methylPREDNISolone NA SUCC 40 MG/1 ML VIAL IVPUSH SCH ×3 (01:39→17:14)
[2021-12-25] MEDS: LEVOTHYROXINE NA 200 MCG TABLET PO SCH (06:18)
[2021-12-25 07:40] LABS: HEMATOCRIT 34.8 % (32.4-45.2); HEMOGLOBIN 11.9 GM/dL (10.7-15.3); MCH 32.4 pg (25.7-33.7); MCHC 34.1 g/dl (32.0-36.0); MEAN CELL VOLUME 94.8 fl (80-96); MEAN PLT VOLUME 7.2 fl (7.5-11.1); PLATELET COUNT 212 10^3/uL (134-434); RBC 3.67 M/mm3 (3.60-5.2); RDW 14.1 % (11.6-15.6); WHITE BLOOD COUNT 15.2 K/mm3 (4.0-10.0)
[2021-12-25] MEDS: ALBUTEROL SO4 2.5/IPRATROPIUM 0.5 INH SOL 3 ML VIAL.NEB. NEB SCH ×4 (07:40→20:01)
[2021-12-25 08:13] LABS: CALCIUM 8.8 mg/dL (8.5-10.1)
[2021-12-25 08:14] LABS: BLOOD UREA NITROGEN 16.7 mg/dL (7-18); MAGNESIUM 2.6 mg/dL (1.8-2.4)
[2021-12-25 08:17] LABS: CREATININE 0.8 mg/dL (0.55-1.3)
[2021-12-25 08:35] LABS: ANISOCYTOSIS 0; HELMET CELLS 0; HOWELL-JOLLY BODIES 0; MACROCYTOSIS 0; OVALOCYTE 0; ROULEAU 0; SICKELED CELLS 0; TARGET CELLS 0; TEAR DROP CELLS 0; TOXIC GRANULATION 0
[2021-12-25] MEDS: ENOXAPARIN NA (PORCINE) 40 MG/0.4 ML DISP.SYRIN SQ SCH (10:13)
[2021-12-25] MEDS: PANTOPRAZOLE 40 MG TABLET PO SCH (10:13)
[2021-12-25] MEDS: BUDESONIDE/FORMETEROL FUMARATE 160/4.5 mcg INHALER IH SCH ×2 (10:14→21:42)
[2021-12-25] MEDS: guaiFENesin/CODEINE 10 ML UNIT-DOSE CUPS PO PRN ×2 (10:27→18:38)
[2021-12-25] MEDS: MIRTAZAPINE 15 MG TABLET (FP) PO SCH (11:35)
[2021-12-25] MEDS ORDERED: traMADol HCL 50 MG TABLET PO PRN (14:51)
[2021-12-25] MEDS: DOXYCYCLINE HYCLATE 100 MG CAPSULE PO SCH (18:22)
[2021-12-25] MEDS: PRAZOSIN HCL 5 MG CAPSULE PO SCH (21:40)
[2021-12-25] MEDS: MONTELUKAST NA 10 MG TABLET PO SCH (21:40)
[2021-12-25] MEDS: TOPIRAMATE 25 MG TABLET PO SCH (21:40)
[2021-12-25] MEDS: GABAPENTIN 300 MG CAPSULE PO SCH (21:40)
[2021-12-25] MEDS ORDERED: MIRTAZAPINE 15 MG TABLET (FP) PO SCH (22:00)
[2021-12-26] MEDS: methylPREDNISolone NA SUCC 40 MG/1 ML VIAL IVPUSH SCH ×2 (01:41→09:01)
[2021-12-26] MEDS: LEVOTHYROXINE NA 200 MCG TABLET PO SCH (06:00)
[2021-12-26] MEDS: ALBUTEROL SO4 2.5/IPRATROPIUM 0.5 INH SOL 3 ML VIAL.NEB. NEB SCH ×2 (07:28→11:51)
[2021-12-26 08:58] VITALS: BP 119/50; PULSE 70; TEMP 97.8
[2021-12-26] MEDS: PANTOPRAZOLE 40 MG TABLET PO SCH (09:01)
[2021-12-26] MEDS: ENOXAPARIN NA (PORCINE) 40 MG/0.4 ML DISP.SYRIN SQ SCH (09:01)
[2021-12-26] MEDS: DOXYCYCLINE HYCLATE 100 MG CAPSULE PO SCH (09:02)
[2021-12-26] MEDS: BUDESONIDE/FORMETEROL FUMARATE 160/4.5 mcg INHALER IH SCH (09:02)
[2021-12-26] MEDS ORDERED: methylPREDNISolone NA SUCC 40 MG/1 ML VIAL IVPUSH SCH ×2 (11:15→22:00)
== END 2021-12-26 12:37 | disposition home or self-care (01) ==
LOC: JER 15:01 → JERBED 16:53 → J4S 22:54
PROVIDERS: ADMIT Internal Medicine
PROC: 3E033NZ Introduction of Analgesics, Hypnotics, Sedatives into Peripheral Vein, Percutaneous Approach (ICD-10-PCS; principal; 2021-12-23)
PROC: 3E0F7GC Introduction of Other Therapeutic Substance into Respiratory Tract, Via Natural or Artificial Opening (ICD-10-PCS; 2021-12-23)
PROC: 3E033GC Introduction of Other Therapeutic Substance into Peripheral Vein, Percutaneous Approach (ICD-10-PCS; 2021-12-23)
DX: J96.01 Acute respiratory failure with hypoxia (principal); J45.41 Moderate persistent asthma with (acute) exacerbation; E03.9 Hypothyroidism, unspecified; E66.8 Other obesity; Z68.35 Body mass index [BMI] 35.0-35.9, adult; F41.9 Anxiety disorder, unspecified; F31.9 Bipolar disorder, unspecified; Z90.79 Acquired absence of other genital organ(s); R53.81 Other malaise; Z87.891 Personal history of nicotine dependence; R07.9 Chest pain, unspecified; K21.9 Gastro-esophageal reflux disease without esophagitis; G43.909 Migraine, unspecified, not intractable, without status migrainosus; G89.29 Other chronic pain; M54.50 Low back pain, unspecified; Z88.8 Allergy status to other drugs, medicaments and biological substances
CPT/HCPCS: 36415; 71045-TC-FY; 71275-TC; 80048; 80053; 81003; 83735; 84100; 84484; 85025; 87040; 87804; 87807; 93005; 93010; 94010; 94640; 96374; 96375; 99285-25; C9803-CS; G0378; J1100; Q9967; U0003; U0005

== ENCOUNTER 2022-08-22 16:00 | Inpatient (IN) | payer OTHER ==
[2022-08-22 16:34] VITALS: BMI 36.6
[2022-08-22] MEDS ORDERED: ALBUTEROL SO4 2.5/IPRATROPIUM 0.5 INH SOL 3 ML VIAL.NEB. NEB ONE ×2 (16:46→17:18)
[2022-08-22] MEDS ORDERED: ONDANSETRON 4 MG/2 ML VIAL IVPUSH ONE (17:47)
[2022-08-22] MEDS ORDERED: ONDANSETRON 4 MG/2 ML VIAL ONE (17:53)
[2022-08-22 18:18] LABS: BASO % 0.3 % (0-2.0); EOS % 0.7 % (0-4.5); HEMATOCRIT 37.6 % (32.4-45.2); HEMOGLOBIN 12.4 GM/dL (10.7-15.3); MCH 31.9 pg (25.7-33.7); MCHC 33.1 g/dl (32.0-36.0); MEAN CELL VOLUME 96.4 fl (80-96); MEAN PLT VOLUME 7.2 fl (7.5-11.1); PLATELET COUNT 248 10^3/uL (134-434); RDW 15.1 % (11.6-15.6); WHITE BLOOD COUNT 7.8 K/mm3 (4.0-10.0)
[2022-08-22 18:27] LABS: CALCIUM 8.9 mg/dL (8.5-10.1); VENOUS BASE EXCESS -1.6 mmol/L (-2-2); VENOUS O2 SATURATION 80.2 % (70-80); VENOUS PCO2 40.2 mmHg (38-52); VENOUS PH 7.382 (7.310-7.410)
[2022-08-22 18:28] LABS: ALBUMIN 3.3 g/dl (3.4-5.0); BLOOD UREA NITROGEN 14.2 mg/dL (7-18); INR 0.9 (0.83-1.09); MAGNESIUM 2.7 mg/dL (1.8-2.4); PROTHROMBIN TIME (PATIENT) 10.3 SEC (9.7-13.0)
[2022-08-22 18:30] LABS: ACTIVATED PTT 26.7 SECONDS (25.2-36.5)
[2022-08-22 18:31] LABS: CREATININE 0.8 mg/dL (0.55-1.3)
[2022-08-22 18:33] LABS: BILIRUBIN,TOTAL 0.2 mg/dL (0.2-1); TOT PROT 6.8 g/dl (6.4-8.2)
[2022-08-22] MEDS ORDERED: BUDESONIDE/FORMETEROL FUMARATE 160/4.5 mcg INHALER IH SCH (22:45)
[2022-08-22] MEDS ORDERED: MONTELUKAST NA 10 MG TABLET PO SCH (22:46)
[2022-08-23] MEDS ORDERED: MONTELUKAST NA 10 MG TABLET ONE (01:05)
[2022-08-23] MEDS: ALBUTEROL SO4 2.5/IPRATROPIUM 0.5 INH SOL 3 ML VIAL.NEB. NEB SCH ×3 (01:19→09:02)
[2022-08-23 01:21] VITALS: RESP 18
[2022-08-23] MEDS ORDERED: methylPREDNISolone NA SUCC 40 MG/1 ML VIAL IVPUSH SCH (02:00)
[2022-08-23] MEDS ORDERED: methylPREDNISolone NA SUCC 40 MG/1 ML VIAL ONE (02:48)
[2022-08-23 06:44] VITALS: TEMP 98.2
[2022-08-23] MEDS ORDERED: INSULIN SLIDING SCALE (NOVOLOG) 1 VIAL SQ SCH (07:00)
[2022-08-23 07:31] LABS: HEMATOCRIT 39.1 % (32.4-45.2); MCH 32.2 pg (25.7-33.7); MCHC 33.2 g/dl (32.0-36.0); MEAN CELL VOLUME 96.9 fl (80-96); MEAN PLT VOLUME 7.3 fl (7.5-11.1); PLATELET COUNT 276 10^3/uL (134-434); RBC 4.04 M/mm3 (3.60-5.2); RDW 14.9 % (11.6-15.6); WHITE BLOOD COUNT 9.6 K/mm3 (4.0-10.0)
[2022-08-23 08:03] LABS: CALCIUM 9.4 mg/dL (8.5-10.1)
[2022-08-23 08:04] LABS: ALBUMIN 3.4 g/dl (3.4-5.0); BLOOD UREA NITROGEN 14.5 mg/dL (7-18); MAGNESIUM 2.4 mg/dL (1.8-2.4)
[2022-08-23 08:06] LABS: CREATININE 0.8 mg/dL (0.55-1.3); PHOSPHOROUS 4.1 mg/dL (2.5-4.9)
[2022-08-23 08:08] LABS: BILIRUBIN,TOTAL 0.3 mg/dL (0.2-1); TOT PROT 7.2 g/dl (6.4-8.2)
[2022-08-23] MEDS ORDERED: ALBUTEROL SO4 2.5/IPRATROPIUM 0.5 INH SOL 3 ML VIAL.NEB. NEB ONE (08:45)
[2022-08-23 09:25] LABS: ANISOCYTOSIS 0; HELMET CELLS 0; HOWELL-JOLLY BODIES 0; MACROCYTOSIS 0; OVALOCYTE 0; ROULEAU 0; SICKELED CELLS 0; TARGET CELLS 0; TEAR DROP CELLS 0; TOXIC GRANULATION 0
[2022-08-23] MEDS ORDERED: ENOXAPARIN NA (PORCINE) 40 MG/0.4 ML DISP.SYRIN SQ SCH (10:00)
[2022-08-23] MEDS ORDERED: NICOTINE 14 MG/24 HOURS TOPICAL PATCH TD SCH (10:00)
[2022-08-23 11:03] VITALS: BP 134/81; PULSE 92
[2022-08-23] MEDS ORDERED: ACETAMINOPHEN 325 MG TABLET (FP) ONE (11:08)
== END 2022-08-23 11:29 | disposition home or self-care (01) | DRG 141 ==
LOC: JER 16:00 → JERBED 18:13
PROVIDERS: ADMIT Internal Medicine; ATTEND Internal Medicine
DX: J45.901 Unspecified asthma with (acute) exacerbation (principal); E03.9 Hypothyroidism, unspecified; K21.9 Gastro-esophageal reflux disease without esophagitis; F31.9 Bipolar disorder, unspecified; F41.0 Panic disorder [episodic paroxysmal anxiety]; R73.9 Hyperglycemia, unspecified; F17.210 Nicotine dependence, cigarettes, uncomplicated; I10 Essential (primary) hypertension; M54.50 Low back pain, unspecified; E66.9 Obesity, unspecified; Z68.36 Body mass index [BMI] 36.0-36.9, adult
CPT/HCPCS: 0241U-QW; 36415; 71045-TC-FY; 80053; 82803; 83735; 84100; 84484; 85025; 85610; 85730; 93005; 93010; 99291